=== PATIENT | male | born 1965 | race Caucasian/White ===

== ENCOUNTER 2018-04-18 17:56 | Inpatient (IN) | payer OTHER ==
[2018-04-18] MEDS ORDERED: TYLENOL PO STA (18:11)
[2018-04-18] MEDS ORDERED: NACL 0.9% 500 ML 500 ML IV ONE (18:11)
[2018-04-18 18:34] LABS: Hematocrit 39.8 % (35.5-45.6); Hemoglobin 13.4 gm/dl (11.8-15.2); Mean Corpuscular HGB Conc 34 % (32-34); Mean Corpuscular Hemoglobin 31 pg (28-32); Mean Corpuscular Volume 93 fl (84-94); Platelet Count 147 K/mm3 (140-440); Red Blood Count 4.29 M/mm3 (3.65-5.03); Red Cell Distribution Width 15.5 % (13.2-15.2)
[2018-04-18 18:44] LABS: INR 1.14 (0.87-1.13)
--- NOTE | 2018-04-18 19:02 | XRay Report ---
FINAL REPORT EXAM: XR CHEST 1V AP HISTORY: possible Sepsis TECHNIQUE: Single, portable chest x-ray. PRIORS: None. FINDINGS: Cardiac and mediastinal silhouette within normal limits. Lungs show patchy, but diffuse and partially confluent opacities projected over left lower lung. Right lung grossly clear. No apparent pneumothorax. IMPRESSION: 1. Left lower lung atelectasis versus consolidation, which may represent acute inflammatory process. Clinical correlation and radiographic followup after 4-6 weeks advised to document resolution.
[2018-04-18 19:10] LABS: Band Neutrophils # (Manual) 1.1 K/mm3; Basophils % (Manual) 0 % (0.0-1.8); Eosinophils % (Manual) 0 % (0.0-4.3); Total Cells Counted 100
[2018-04-18 19:11] LABS: Ovalocytes Few; Platelet Estimate Consistent w Auto; Poikilocytosis Few
[2018-04-18 19:18] LABS: Bilirubin,Urine NEG (Negative); Blood,Urine MOD (Negative); Color,Urine Amber (Yellow); Mucus,Urine FEW /HPF; Urobilinogen,Urine < 2.0 mg/dL (<2.0)
[2018-04-18] MEDS ORDERED: NACL 0.9% 1000 ML IV ONE (19:23)
[2018-04-18 19:25] LABS: Alanine Aminotransferase 90 units/L (7-56); Albumin 3.2 g/dL (3.9-5); BUN/Creatinine Ratio 7; Blood Urea Nitrogen 39 mg/dL (9-20); Calcium 7.8 mg/dL (8.4-10.2); Hemolysis Index 12
[2018-04-18] MEDS ORDERED: K-DUR PO ONE ×2 (19:37→19:40)
--- NOTE | 2018-04-18 19:55 | Emergency Department Report ---
HPI - General Chief Complaint: Fever Time Seen by Provider: 04/18/18 19:09 - HPI HPI: Room 8 The patient is a 52-year-old male presenting with chief complaint of fatigue cough and fever. The patient states his symptoms began approximately 6 days ago with fatigue's chills and subjective fever. Patient states she also developed a cough that has been nonproductive. Patient denies sick contacts. The patient also complains of constant chest discomfort for the past 5 days. The patient states she has nausea only after coughing. Patient denies vomiting. Location: [See above] Duration: [See above] Quality: Fatigue, cough Severity: Moderate Modifying factors: [see above] Context: [see above] Mode of transportation: Unknown ED Past Medical Hx - Past Medical History Previous Medical History?: No - Surgical History Past Surgical History?: No - Family History Family history: no significant - Social History Smoking Status: Current Every Day Smoker (5-6 cigarettes daily) Substance Use Type: None (denies illicit drug use) - Medications Home Medications: Home Medications Medication Instructions Recorded Confirmed Last Taken Type Albuterol Sulfate [Ventolin HFA] 2 puff IH Q4H PRN #1 hfa.aer.ad 09/15/13 Unknown Rx Butalb/Acetamin/Caff 50-325-40 1 each PO Q4H PRN #14 tablet 09/15/13 Unknown Rx [Fioricet] Ibuprofen [Motrin 800 MG tab] 800 mg PO TID PRN #30 tablet 09/15/13 Unknown Rx ED Review of Systems ROS: Stated complaint: SOB Other details as noted in HPI Constitutional: fever, weakness Eyes: denies: eye pain ENT: denies: throat pain Respiratory: cough Cardiovascular: chest pain Gastrointestinal: nausea. denies: abdominal pain, vomiting Musculoskeletal: denies: back pain Neurological: denies: headache Physical Exam - Physical Exam Vital Signs: Vital Signs 04/18/18 04/18/18 04/18/18 18:08 18:20 18:49 Temperature 102.2 F H Pulse Rate 126 H 118 H Respiratory 20 22 Rate Blood Pressure 125/76 O2 Sat by Pulse 95 94 Oximetry Physical Exam: GENERAL: The patient is well-developed well-nourished male lying on stretcher not appearing to be in acute distress. [] HEENT: Normocephalic. Atraumatic. Extraocular motions are intact. Patient has moist mucous membranes. NECK: Supple. No meningitic signs are noted. Trachea midline CHEST/LUNGS: Clear to auscultation. There is no respiratory distress noted. HEART/CARDIOVASCULAR: Regular. There is tachycardia. There is no gallop rub or murmur. ABDOMEN: Abdomen is soft, nontender. Patient has normal bowel sounds. There is no abdominal distention. SKIN: There is no rash. There is no edema. There is no diaphoresis. NEURO: The patient is awake, alert, and oriented. The patient is cooperative. The patient has normal speech MUSCULOSKELETAL: There is no evidence of acute injury. ED Course Vital Signs 04/18/18 04/18/18 04/18/18 18:08 18:20 18:49 Temperature 102.2 F H Pulse Rate 126 H 118 H Respiratory 20 22 Rate Blood Pressure 125/76 O2 Sat by Pulse 95 94 Oximetry ED Medical Decision Making - Lab Data Result diagrams: 04/18/18 18:21 04/18/18 18:21 Laboratory Tests 04/18/18 04/18/18 04/18/18 18:21 18:21 18:21 WBC 8.1 RBC 4.29 Hgb 13.4 Hct 39.8 MCV 93 MCH 31 MCHC 34 RDW 15.5 H Plt Count 147 Add Manual Diff Complete Total Counted 100 Seg Neutrophils % Hand Chain Maker Seg Neuts % (Manual) 80.0 H Band Neutrophils % 14.0 Lymphocytes % (Manual) 4.0 L Reactive Lymphs % (Man) 0 Monocytes % (Manual) 2.0 Eosinophils % (Manual) 0 Basophils % (Manual) 0 Metamyelocytes % 0 Myelocytes % 0 Promyelocytes % 0 Blast Cells % 0 Nucleated RBC % Not Reportable Seg Neutrophils # Man 6.5 Band Neutrophils # 1.1 Lymphocytes # (Manual) 0.3 L Abs React Lymphs (Man) 0.0 Monocytes # (Manual) 0.2 Eosinophils # (Manual) 0.0 Basophils # (Manual) 0.0 Metamyelocytes # 0.0 Myelocytes # 0.0 Promyelocytes # 0.0 Blast Cells # 0.0 WBC Morphology Not Reportable Hypersegmented Neuts Not Reportable Hyposegmented Neuts Not Reportable Hypogranular Neuts Not Reportable Smudge Cells Not Reportable Toxic Granulation Not Reportable Toxic Vacuolation Not Reportable Dohle Bodies Not Reportable Pelger-Huet Anomaly Not Reportable Antonio Rods Not Reportable Platelet Estimate Consistent w auto Clumped Platelets Not Reportable Plt Clumps, EDTA Not Reportable Large Platelets Not Reportable Giant Platelets Not Reportable Platelet Satelliting Not Reportable Plt Morphology Comment Not Reportable RBC Morphology Not Reportable Dimorphic RBCs Not Reportable Polychromasia Not Reportable Hypochromasia Not Reportable Poikilocytosis Few Anisocytosis Not Reportable Microcytosis Not Reportable Macrocytosis Not Reportable Spherocytes Not Reportable Pappenheimer Bodies Not Reportable Sickle Cells Not Reportable Target Cells Not Reportable Tear Drop Cells Not Reportable Ovalocytes Few Helmet Cells Not Reportable [place] Bodies Not Reportable [place] Rings Not Reportable [place] Cells Not Reportable Bite Cells Not Reportable Crenated Cell Not Reportable Elliptocytes Not Reportable Acanthocytes (Spur) Not Reportable Rouleaux Not Reportable Hemoglobin C Crystals Not Reportable Schistocytes Not Reportable Malaria parasites Not Reportable Royal Bodies Not Reportable Hem Pathologist Commnt No PT 15.2 H INR 1.14 H POC ABG pH POC ABG pCO2 POC ABG pO2 POC ABG HCO3 POC ABG Total CO2 POC ABG O2 Sat POC ABG Base Excess VBG pH FiO2 Sodium 122 L Potassium 2.7 L* Chloride 78.1 L Carbon Dioxide 15 L Anion Gap 32 BUN 39 H Creatinine 5.8 H Estimated GFR 10 BUN/Creatinine Ratio 7 Glucose 127 H Lactic Acid Calcium 7.8 L Total Bilirubin 1.90 H AST 258 H ALT 90 H Alkaline Phosphatase 149 H Total Creatine Kinase 728 H CK-MB (CK-2) 1.2 Troponin T < 0.010 Total Protein 7.7 Albumin 3.2 L Albumin/Globulin Ratio 0.7 Urine Color Urine Turbidity Urine pH Ur Specific [place] Urine Protein Urine Glucose (UA) Urine Ketones Urine Blood Urine Nitrite Urine Bilirubin Urine Urobilinogen Ur Leukocyte Esterase Urine WBC (Auto) Urine RBC (Auto) U Epithel Cells (Auto) Urine Mucus 04/18/18 04/18/18 04/18/18 18:21 18:21 18:55 WBC RBC Hgb Hct MCV MCH MCHC RDW Plt Count Add Manual Diff Total Counted Seg Neutrophils % Seg Neuts % (Manual) Band Neutrophils % Lymphocytes % (Manual) Reactive Lymphs % (Man) Monocytes % (Manual) Eosinophils % (Manual) Basophils % (Manual) Metamyelocytes % Myelocytes % Promyelocytes % Blast Cells % Nucleated RBC % Seg Neutrophils # Man Band Neutrophils # Lymphocytes # (Manual) Abs React Lymphs (Man) Monocytes # (Manual) Eosinophils # (Manual) Basophils # (Manual) Metamyelocytes # Myelocytes # Promyelocytes # Blast Cells # WBC Morphology Hypersegmented Neuts Hyposegmented Neuts Hypogranular Neuts Smudge Cells Toxic Granulation Toxic Vacuolation Dohle Bodies Pelger-Huet Anomaly Antonio Rods Platelet Estimate Clumped Platelets Plt Clumps, EDTA Large Platelets Giant Platelets Platelet Satelliting Plt Morphology Comment RBC Morphology Dimorphic RBCs Polychromasia Hypochromasia Poikilocytosis Anisocytosis Microcytosis Macrocytosis Spherocytes Pappenheimer Bodies Sickle Cells Target Cells Tear Drop Cells Ovalocytes Helmet Cells [place] Bodies [place] Rings [place] Cells Bite Cells Crenated Cell Elliptocytes Acanthocytes (Spur) Rouleaux Hemoglobin C Crystals Schistocytes Malaria parasites Royal Bodies Hem Pathologist Commnt PT INR POC ABG pH POC ABG pCO2 POC ABG pO2 POC ABG HCO3 POC ABG Total CO2 POC ABG O2 Sat POC ABG Base Excess VBG pH 7.477 H FiO2 Sodium Potassium Chloride Carbon Dioxide Anion Gap BUN Creatinine Estimated GFR BUN/Creatinine Ratio Glucose Lactic Acid 2.30 H* Calcium Total Bilirubin AST ALT Alkaline Phosphatase Total Creatine Kinase CK-MB (CK-2) Troponin T Total Protein Albumin Albumin/Globulin Ratio Urine Color [place] Urine Turbidity Clear Urine pH 5.0 Ur Specific [place] 1.015 Urine Protein 100 mg/dl Urine Glucose (UA) 50 Urine Ketones Neg Urine Blood Mod Urine Nitrite Neg Urine Bilirubin Neg Urine Urobilinogen < 2.0 Ur Leukocyte Esterase Neg Urine WBC (Auto) 16.0 H Urine RBC (Auto) 13.0 U Epithel Cells (Auto) 2.0 Urine Mucus Few 04/18/18 19:57 WBC RBC Hgb Hct MCV MCH MCHC RDW Plt Count Add Manual Diff Total Counted Seg Neutrophils % Seg Neuts % (Manual) Band Neutrophils % Lymphocytes % (Manual) Reactive Lymphs % (Man) Monocytes % (Manual) Eosinophils % (Manual) Basophils % (Manual) Metamyelocytes % Myelocytes % Promyelocytes % Blast Cells % Nucleated RBC % Seg Neutrophils # Man Band Neutrophils # Lymphocytes # (Manual) Abs React Lymphs (Man) Monocytes # (Manual) Eosinophils # (Manual) Basophils # (Manual) Metamyelocytes # Myelocytes # Promyelocytes # Blast Cells # WBC Morphology Hypersegmented Neuts Hyposegmented Neuts Hypogranular Neuts Smudge Cells Toxic Granulation Toxic Vacuolation Dohle Bodies Pelger-Huet Anomaly Antonio Rods Platelet Estimate Clumped Platelets Plt Clumps, EDTA Large Platelets Giant Platelets Platelet Satelliting Plt Morphology Comment RBC Morphology Dimorphic RBCs Polychromasia Hypochromasia Poikilocytosis Anisocytosis Microcytosis Macrocytosis Spherocytes Pappenheimer Bodies Sickle Cells Target Cells Tear Drop Cells Ovalocytes Helmet Cells [place] Bodies [place] Rings [place] Cells Bite Cells Crenated Cell Elliptocytes Acanthocytes (Spur) Rouleaux Hemoglobin C Crystals Schistocytes Malaria parasites Royal Bodies Hem Pathologist Commnt PT INR POC ABG pH 7.506 H POC ABG pCO2 21.0 L POC ABG pO2 82 POC ABG HCO3 16.6 POC ABG Total CO2 17 POC ABG O2 Sat 97 POC ABG Base Excess -6 VBG pH FiO2 21 Sodium Potassium Chloride Carbon Dioxide Anion Gap BUN Creatinine Estimated GFR BUN/Creatinine Ratio Glucose Lactic Acid Calcium Total Bilirubin AST ALT Alkaline Phosphatase Total Creatine Kinase CK-MB (CK-2) Troponin T Total Protein Albumin Albumin/Globulin Ratio Urine Color Urine Turbidity Urine pH Ur Specific [place] Urine Protein Urine Glucose (UA) Urine Ketones Urine Blood Urine Nitrite Urine Bilirubin Urine Urobilinogen Ur Leukocyte Esterase Urine WBC (Auto) Urine RBC (Auto) U Epithel Cells (Auto) Urine Mucus - EKG Data -: EKG Interpreted by Me EKG shows normal: sinus rhythm Rate: tachycardia (124 bpm) - EKG Data Interpretation: nonspecific ST-T wave brooke (T-wave inversion in lead V2) - Radiology Data Radiology results: report reviewed (chest x-ray), image reviewed (chest x-ray) interpreted by me: Chest x-ray-left lower lobe infiltrate - Differential Diagnosis pneumonia, bronchitis, ACS, GERD, sepsis Critical care attestation.: If time is entered above; I have spent that time in minutes in the direct care of this critically ill patient, excluding procedure time. ED Disposition Clinical Impression: Pneumonia, Acute renal failure, Fever, UTI (urinary tract infection), Sepsis Disposition: OP ADMIT IP TO THIS HOSP Is pt being admited?: Yes Does the pt Need Aspirin: No Condition: Serious Instructions: Bacterial Pneumonia (ED) Referrals: PRIMARY CARE, [Primary Care Provider] - 3-5 Days Time of Disposition: 21:17 (hospitalist paged (Dr. Fabiana Capps))
[2018-04-18] MEDS ORDERED: ZOSYN/NS 4.5GM/100ML 4.5 GM/100 ML VIAL IV SCH (20:00)
[2018-04-18 20:28] LABS: Creatine Kinase MB 1.2 ng/mL (0.0-4.0)
[2018-04-18] MEDS ORDERED: SODIUM CHLORIDE FLUSH SYRINGE 10 ML IV PRN (22:33)
[2018-04-18] MEDS ORDERED: ZOFRAN IV PRN (22:33)
--- NOTE | 2018-04-18 22:35 | History and Physical Report ---
History of Present Illness Date of examination: 04/18/18 History of present illness: 52 year old man with no meducal problems come to the Er for evaluation of nonproductive cough, fever, chills x 4 days. Admits to left side chest pain, unable to describe it, unable to say how long it last for, no radiation, intensity 10. admits to generalized weakness. Admits to nausea, vomiting, no diapjoresis, palpitations, SOB Review of systems Constitutional: no weight loss, chills Ears, eyes, nose, mouth and throat: no nasal congestion, no nasal discharge, no sinus pressure, no vision change, no red eye. Neck: No neck pain or rigidity. Cardiovascular: no palpitations Respiratory: No shortness of breath Gastrointestinal: no hematochezia Genitourinary : no dysuria, frequency , no hematuria Musculoskeletal: no joint swelling or muscle ache Integumentary: no rash, no pruritis Neurological: no parathesias, no numbness, no focal weakness Endocrine: no cold or heat intolerance, no polyuria or polydipsia Hematologic/Lymphatic: no easy bruising, no easy bleeding, no gland swelling Allergic/Immunologic: no urticaria, no angioedema. PAST MEDICAL HISTORY:None PAST SURGICAL HISTORY: None SOCIAL HISTORY: Denies drugs, smokes and drinks 6 beers/day FAMILY HISTORY: Hypertension Medications and Allergies Allergies Allergy/AdvReac Type Severity Reaction Status Date / Time No Known Allergies Allergy Verified 04/18/18 18:09 Home Medications Medication Instructions Recorded Confirmed Last Taken Type Albuterol Sulfate [Ventolin HFA] 2 puff IH Q4H PRN #1 hfa.aer.ad 09/15/13 Unknown Rx Butalb/Acetamin/Caff 50-325-40 1 each PO Q4H PRN #14 tablet 09/15/13 04/21/18 Unknown Rx [Fioricet] Ibuprofen [Motrin 800 MG tab] 800 mg PO TID PRN #30 tablet 09/15/13 04/21/18 Unknown Rx Active Meds: Active Medications Piperacillin Sod/Tazobactam Sod (Zosyn/Ns 4.5gm/100ml) 4.5 gm in 100 mls @ 200 mls/hr IV Q8H [facility]; Protocol Last Admin: 04/18/18 20:00 Dose: 200 mls/hr Exam - Physical Exam Narrative exam: Gen. appearance: Patient lying in bed, no apparent distress HEENT: Normocephalic, atraumatic, pupils equally round and reactive to light, extraocular movement intact, and no sclericterus,. No JVD or thyromegaly or nodule,neck supple, no carotid bruit ,mucous membranes moist, no exudate or erythema Heart: S1, S2, regular rate and rhythm Lungs: Crackles in left lung, breathing comfortable Abdomen: Positive bowel sounds, nontender, non distended, no organomegaly Extremity: No edema, cyanosis, clubbing Skin: No rash, nodules, warm, dry Neuro: Oriented 3, cranial nerves II-12 intact, speech is fluent, motor and sensory intact - Constitutional Vitals: Temp Pulse Resp BP Pulse Ox 98.6 F 89 19 115/73 93 04/18/18 21:00 04/18/18 21:31 04/18/18 21:31 04/18/18 21:31 04/18/18 21:31 Results - Labs CBC & Chem 7: 04/23/18 16:11 04/25/18 07:49 Labs: Abnormal lab results 04/18/18 04/18/18 04/18/18 Range/Units 18:21 18:21 18:21 RDW 15.5 H (13.2-15.2) % Seg Neuts % (Manual) 80.0 H (40.0-70.0) % Lymphocytes % (Manual) 4.0 L (13.4-35.0) % Lymphocytes # (Manual) 0.3 L (1.2-5.4) K/mm3 PT 15.2 H (12.2-14.9) Sec. INR 1.14 H (0.87-1.13) POC ABG pH (7.35-7.45) POC ABG pCO2 (35-45) VBG pH (7.320-7.420) Sodium 122 L (137-145) mmol/L Potassium 2.7 L* (3.6-5.0) mmol/L Chloride 78.1 L (98-107) mmol/L Carbon Dioxide 15 L (22-30) mmol/L BUN 39 H (9-20) mg/dL Creatinine 5.8 H (0.8-1.5) mg/dL Glucose 127 H (75-100) mg/dL Lactic Acid (0.7-2.0) mmol/L Calcium 7.8 L (8.4-10.2) mg/dL Total Bilirubin 1.90 H (0.1-1.2) mg/dL AST 258 H (5-40) units/L ALT 90 H (7-56) units/L Alkaline Phosphatase 149 H (35-129) units/L Total Creatine Kinase 728 H (55-170) units/L Albumin 3.2 L (3.9-5) g/dL Urine WBC (Auto) (0.0-6.0) /HPF 04/18/18 04/18/18 04/18/18 Range/Units 18:21 18:21 18:55 RDW (13.2-15.2) % Seg Neuts % (Manual) (40.0-70.0) % Lymphocytes % (Manual) (13.4-35.0) % Lymphocytes # (Manual) (1.2-5.4) K/mm3 PT (12.2-14.9) Sec. INR (0.87-1.13) POC ABG pH (7.35-7.45) POC ABG pCO2 (35-45) VBG pH 7.477 H (7.320-7.420) Sodium (137-145) mmol/L Potassium (3.6-5.0) mmol/L Chloride (98-107) mmol/L Carbon Dioxide (22-30) mmol/L BUN (9-20) mg/dL Creatinine (0.8-1.5) mg/dL Glucose (75-100) mg/dL Lactic Acid 2.30 H* (0.7-2.0) mmol/L Calcium (8.4-10.2) mg/dL Total Bilirubin (0.1-1.2) mg/dL AST (5-40) units/L ALT (7-56) units/L Alkaline Phosphatase (35-129) units/L Total Creatine Kinase (55-170) units/L Albumin (3.9-5) g/dL Urine WBC (Auto) 16.0 H (0.0-6.0) /HPF 04/18/18 Range/Units 19:57 RDW (13.2-15.2) % Seg Neuts % (Manual) (40.0-70.0) % Lymphocytes % (Manual) (13.4-35.0) % Lymphocytes # (Manual) (1.2-5.4) K/mm3 PT (12.2-14.9) Sec. INR (0.87-1.13) POC ABG pH 7.506 H (7.35-7.45) POC ABG pCO2 21.0 L (35-45) VBG pH (7.320-7.420) Sodium (137-145) mmol/L Potassium (3.6-5.0) mmol/L Chloride (98-107) mmol/L Carbon Dioxide (22-30) mmol/L BUN (9-20) mg/dL Creatinine (0.8-1.5) mg/dL Glucose (75-100) mg/dL Lactic Acid (0.7-2.0) mmol/L Calcium (8.4-10.2) mg/dL Total Bilirubin (0.1-1.2) mg/dL AST (5-40) units/L ALT (7-56) units/L Alkaline Phosphatase (35-129) units/L Total Creatine Kinase (55-170) units/L Albumin (3.9-5) g/dL Urine WBC (Auto) (0.0-6.0) /HPF - Imaging and Cardiology EKG: image reviewed Chest x-ray: image reviewed Assessment and Plan Assessment CAP Acute Renal Failure hypokalemia Abnormal LFT due to alcohol Plan Admit to medicine Start IV antibiotic, follow cultures Obtain US abdomen, consult renal Check cardiac enzymes DVT prophalaxis
--- NOTE | 2018-04-18 23:20 | Ultrasound Report ---
FINAL REPORT PROCEDURE: US ABDOMEN COMPLETE TECHNIQUE: Real-time sonography in multiple planes of the abdomen was performed with image documentation. CPT 82421 HISTORY: ab lft, arf COMPARISON: No prior studies are available for comparison. FINDINGS: Liver: There is fatty infiltration of liver without any focal lesions.. Gallbladder: Fluid filled. No gallstones, wall thickening, pericholecystic fluid, or sonographic Godoy's sign. Intrahepatic bile ducts: Normal caliber . Extrahepatic bile ducts: Normal. Common duct measures 3.5 millimeters.. Pancreas: Visualized pancreatic head and body demonstrate normal echotexture.. Aorta: Visualized portions appear normal. IVC: Visualized portions appear normal. RIGHT kidney: Normal size and echotexture without calculi or hydronephrosis.. Length: 12 x 7 x 7cm. LEFT kidney: Normal echotexture. No focal renal mass, calculus, or hydronephrosis . Length: 13 x 7 x 7cm. Spleen: Normal size and echotexture. No focal lesions. IMPRESSION: Fatty liver Otherwise unremarkable study.
[2018-04-19] MEDS: NACL 0.9% 1000 ML 1,000 ML IV SCH ×2 (00:41→06:12)
[2018-04-19] MEDS: DUONEB *Not for PRN Use IH SCH ×2 (02:02→07:41)
[2018-04-19] MEDS: ZOSYN/NS 2.25 GM/50ML 2.25 GM/50 ML BAG IV SCH ×3 (06:12→22:28)
[2018-04-19 06:51] LABS: Creatine Kinase MB 2.5 ng/mL (0.0-4.0)
[2018-04-19] MEDS: TYLENOL PO PRN (08:14)
--- NOTE | 2018-04-19 08:28 | Consultation ---
History of Present Illness - Reason for Consult Consult date: 04/19/18 - History of Present Illness Mr. Wei is a 52yo who presented to the ED with and 8 day history of generalized weakness impairing mobility, malaise and SOB. He also reports hx of fever and chills. He denies cough, hemoptysis, chest pain. He also denies N /V/D but reports minimal po intake since onset of symptoms. He denies a prior hx of kidney disease, family hx of kidney disease, hematuria, epistaxis. He reports chronic NSAID use - Advil BID. In the ED, vitals notable for temp 102.2 w/ HR in 130s. Labs were notable for SCr 5.8mg/dL prompting nephrology consultation. Language line used to assist in interpretation. Past History Past Medical History: No medical history Past Surgical History: No surgical history Social history: no significant social history Family history: no significant family history Medications and Allergies Allergies Allergy/AdvReac Type Severity Reaction Status Date / Time No Known Allergies Allergy Verified 04/18/18 18:09 Home Medications Medication Instructions Recorded Confirmed Last Taken Type Albuterol Sulfate [Ventolin HFA] 2 puff IH Q4H PRN #1 hfa.aer.ad 09/15/13 Unknown Rx Butalb/Acetamin/Caff 50-325-40 1 each PO Q4H PRN #14 tablet 09/15/13 Unknown Rx [Fioricet] Ibuprofen [Motrin 800 MG tab] 800 mg PO TID PRN #30 tablet 09/15/13 Unknown Rx Active Meds: Active Medications Acetaminophen (Tylenol) 650 mg PO Q4H PRN PRN Reason: Pain MILD(1-3)/Fever >100.5/JOHNSON Last Admin: 04/19/18 08:14 Dose: 650 mg Albuterol/Ipratropium (Duoneb *Not For Prn Use*) 1 ampul IH Q6HRT [facility] Last Admin: 04/19/18 07:41 Dose: 1 ampul Enoxaparin Sodium (Lovenox) 30 mg SUB-Q QDAY [facility] Sodium Chloride (Nacl 0.9% 1000 Ml) 1,000 mls @ 150 mls/hr IV DIRECT [facility] Last Admin: 04/19/18 06:12 Dose: 150 mls/hr Piperacillin Sod/Tazobactam Sod (Zosyn/Ns 2.25 Gm/50ml) 2.25 gm in 50 mls @ 100 mls/hr IV Q6H [facility]; Protocol Last Admin: 04/19/18 06:12 Dose: 100 mls/hr Ondansetron HCl (Zofran) 4 mg IV Q4H PRN PRN Reason: Nausea And Vomiting Oxycodone/Acetaminophen (Percocet 5/325) 1 tab PO Q6H PRN PRN Reason: Pain, Moderate (4-6) Sodium Chloride (Sodium Chloride Flush Syringe 10 Ml) 10 ml IV BID [facility] Sodium Chloride (Sodium Chloride Flush Syringe 10 Ml) 10 ml IV PRN PRN PRN Reason: LINE FLUSH Vancomycin HCl (Vancomycin Pharmacy To Dose) 1 each IV PKCONSULT [facility]; Protocol Review of Systems All systems: negative Exam - Vital Signs Vital signs: Vital Signs Temp Pulse Resp BP Pulse Ox 102.2 F H 126 H 20 125/76 95 04/18/18 18:08 04/18/18 18:08 04/18/18 18:08 04/18/18 18:08 04/18/18 18:08 - General Appearance General appearance: well-developed, well-nourished, other (+chills) EENT: ATNC, mucous membranes dry Respiratory: Other (inspiratory crackles on right; diminished breath sounds on left) Heart: regular, S1S2 Gastrointestinal: Present: normal. Absent: tenderness, distended Integumentary: no rash Neurologic: no focal deficit, alert and oriented x3 Musculoskeletal: Present: other (no edema) Psychiatric: cooperative Results - Lab Results 04/19/18 09:13 04/19/18 09:13 Most recent lab results Calcium 7.8 mg/dL (8.4-10.2) L 04/18/18 18:21 Assessment and Plan Impression: * Acute kidney injury secondary to sepsis related ATN * Sepsis * PNA * Metabolic acidosis secondary to lactic acidosis * Transaminitis * Hypokalemia * Hyponatremia - resolved Plan: * Renal prognosis is guarded - no acute indication for HD at present * Continue IVF - will change to bicarb gtt * Abdomen u/s reviewed -kidneys nml size, echotexture, no hydronephrosis * Patient w/ proteinuria and hematuria on UA - will obtain serologic work up * Will obtain urine lytes and urine eos * Abx per primary team - dose medications for renal function * Await pending culture data * Avoid potential nephrotoxins - patient advised to avoid future use of NSAIDs * Strict I/O * Will order KCl 40meq * Repeat BMP this afternoon
[2018-04-19] MEDS ORDERED: VANCOMYCIN PHARMACY TO DOSE IV SCH (09:00)
[2018-04-19] MEDS ORDERED: VANCOMYCIN 1,750 MG in NACL 0.9% 500 ML 500 ML IV ONE (10:00)
--- NOTE | 2018-04-19 10:05 | Progress Note ---
<NATALIE GRAMAJO - Last Filed: 04/19/18 14:27> Assessment and Plan Assessment and plan: 52 year old man with no presented to the emergency department with complaints of nonproductive cough, fever, chills x 4 days. Admits to left side chest pain, unable to describe it, unable to say how long it last for, no radiation, intensity 4/10. admits to generalized weakness. 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 Patient feels a bit dizzy this morning but overall feels better today and yesterday. No other new complaints at this time. Labs, chart notes and nursing notes reviewed. Hospitalist Physical - Physical exam Narrative exam: General appearance: Present: no acute distress, well-nourished - EENT Eyes: Present: PERRL, EOM intact ENT: hearing intact, clear oral mucosa - Neck Present: supple, normal ROM - Respiratory Respiratory effort: normal Respiratory: bilateral: CTA - Cardiovascular Rhythm: regular Heart Sounds: Present: S1 & S2. Absent: Rub, click - Extremities Extremities: no ischemia, No edema - Abdominal General gastrointestinal: soft, non-tender, non-distended, normal bowel sounds - Integumentary Integumentary: Present: clear, warm, dry - Psychiatric Psychiatric: appropriate mood/affect, intact judgment & insight, cooperative - Neurologic Neurologic: CNII-XII intact, moves all extremities - Constitutional Vitals: Temp Pulse Resp BP Pulse Ox 102.3 F H 104 H 18 132/85 99 04/19/18 07:29 04/19/18 07:40 04/19/18 07:40 04/19/18 07:29 04/19/18 09:47 Results - Labs CBC & Chem 7: 04/19/18 09:13 04/19/18 09:13 Labs: Laboratory Last Values WBC 8.1 K/mm3 (4.5-11.0) 04/18/18 18:21 RBC 4.29 M/mm3 (3.65-5.03) 04/18/18 18:21 Hgb 13.4 gm/dl (11.8-15.2) 04/18/18 18:21 Hct 39.8 % (35.5-45.6) 04/18/18 18:21 MCV 93 fl (84-94) 04/18/18 18:21 MCH 31 pg (28-32) 04/18/18 18:21 MCHC 34 % (32-34) 04/18/18 18:21 RDW 15.5 % (13.2-15.2) H 04/18/18 18:21 Plt Count 147 K/mm3 (140-440) 04/18/18 18:21 Add Manual Diff Complete 04/18/18 18:21 Total Counted 100 04/18/18 18:21 Seg Neutrophils % Ciaio Counter Molder 04/18/18 18:21 Seg Neuts % (Manual) 80.0 % (40.0-70.0) H 04/18/18 18:21 Band Neutrophils % 14.0 % 04/18/18 18:21 Lymphocytes % (Manual) 4.0 % (13.4-35.0) L 04/18/18 18:21 Reactive Lymphs % (Man) 0 % 04/18/18 18:21 Monocytes % (Manual) 2.0 % (0.0-7.3) 04/18/18 18:21 Eosinophils % (Manual) 0 % (0.0-4.3) 04/18/18 18:21 Basophils % (Manual) 0 % (0.0-1.8) 04/18/18 18:21 Metamyelocytes % 0 % 04/18/18 18:21 Myelocytes % 0 % 04/18/18 18:21 Promyelocytes % 0 % 04/18/18 18:21 Blast Cells % 0 % 04/18/18 18:21 Nucleated RBC % Not Reportable 04/18/18 18:21 Seg Neutrophils # Man 6.5 K/mm3 (1.8-7.7) 04/18/18 18:21 Band Neutrophils # 1.1 K/mm3 04/18/18 18:21 Lymphocytes # (Manual) 0.3 K/mm3 (1.2-5.4) L 04/18/18 18:21 Abs React Lymphs (Man) 0.0 K/mm3 04/18/18 18:21 Monocytes # (Manual) 0.2 K/mm3 (0.0-0.8) 04/18/18 18:21 Eosinophils # (Manual) 0.0 K/mm3 (0.0-0.4) 04/18/18 18:21 Basophils # (Manual) 0.0 K/mm3 (0.0-0.1) 04/18/18 18:21 Metamyelocytes # 0.0 K/mm3 04/18/18 18:21 Myelocytes # 0.0 K/mm3 04/18/18 18:21 Promyelocytes # 0.0 K/mm3 04/18/18 18:21 Blast Cells # 0.0 K/mm3 04/18/18 18:21 WBC Morphology Not Reportable 04/18/18 18:21 Hypersegmented Neuts Not Reportable 04/18/18 18:21 Hyposegmented Neuts Not Reportable 04/18/18 18:21 Hypogranular Neuts Not Reportable 04/18/18 18:21 Smudge Cells Not Reportable 04/18/18 18:21 Toxic Granulation Not Reportable 04/18/18 18:21 Toxic Vacuolation Not Reportable 04/18/18 18:21 Dohle Bodies Not Reportable 04/18/18 18:21 Pelger-Huet Anomaly Not Reportable 04/18/18 18:21 Antonio Rods Not Reportable 04/18/18 18:21 Platelet Estimate Consistent w auto 04/18/18 18:21 Clumped Platelets Not Reportable 04/18/18 18:21 Plt Clumps, EDTA Not Reportable 04/18/18 18:21 Large Platelets Not Reportable 04/18/18 18:21 Giant Platelets Not Reportable 04/18/18 18:21 Platelet Satelliting Not Reportable 04/18/18 18:21 Plt Morphology Comment Not Reportable 04/18/18 18:21 RBC Morphology Not Reportable 04/18/18 18:21 Dimorphic RBCs Not Reportable 04/18/18 18:21 Polychromasia Not Reportable 04/18/18 18:21 Hypochromasia Not Reportable 04/18/18 18:21 Poikilocytosis Few 04/18/18 18:21 Anisocytosis Not Reportable 04/18/18 18:21 Microcytosis Not Reportable 04/18/18 18:21 Macrocytosis Not Reportable 04/18/18 18:21 Spherocytes Not Reportable 04/18/18 18:21 Pappenheimer Bodies Not Reportable 04/18/18 18:21 Sickle Cells Not Reportable 04/18/18 18:21 Target Cells Not Reportable 04/18/18 18:21 Tear Drop Cells Not Reportable 04/18/18 18:21 Ovalocytes Few 04/18/18 18:21 Helmet Cells Not Reportable 04/18/18 18:21 [place] Bodies Not Reportable 04/18/18 18:21 [place] Rings Not Reportable 04/18/18 18:21 Ginger Cells Not Reportable 04/18/18 18:21 Bite Cells Not Reportable 04/18/18 18:21 Crenated Cell Not Reportable 04/18/18 18:21 Elliptocytes Not Reportable 04/18/18 18:21 Acanthocytes (Spur) Not Reportable 04/18/18 18:21 Rouleaux Not Reportable 04/18/18 18:21 Hemoglobin C Crystals Not Reportable 04/18/18 18:21 Schistocytes Not Reportable 04/18/18 18:21 Malaria parasites Not Reportable 04/18/18 18:21 Royal Bodies Not Reportable 04/18/18 18:21 Hem Pathologist Commnt No 04/18/18 18:21 PT 15.2 Sec. (12.2-14.9) H 04/18/18 18:21 INR 1.14 (0.87-1.13) H 04/18/18 18:21 POC ABG pH 7.506 (7.35-7.45) H 04/18/18 19:57 POC ABG pCO2 21.0 (35-45) L 04/18/18 19:57 POC ABG pO2 82 (80-105) 04/18/18 19:57 POC ABG HCO3 16.6 04/18/18 19:57 POC ABG Total CO2 17 04/18/18 19:57 POC ABG O2 Sat 97 04/18/18 19:57 POC ABG Base Excess -6 04/18/18 19:57 VBG pH 7.477 (7.320-7.420) H 04/18/18 18:21 FiO2 21 % 04/18/18 19:57 Sodium 122 mmol/L (137-145) L 04/18/18 18:21 Potassium 2.7 mmol/L (3.6-5.0) L* 04/18/18 18:21 Chloride 78.1 mmol/L (98-107) L 04/18/18 18:21 Carbon Dioxide 15 mmol/L (22-30) L 04/18/18 18:21 Anion Gap 32 mmol/L 04/18/18 18:21 BUN 39 mg/dL (9-20) H 04/18/18 18:21 Creatinine 5.8 mg/dL (0.8-1.5) H 04/18/18 18:21 Estimated GFR 10 ml/min 04/18/18 18:21 BUN/Creatinine Ratio 7 % 04/18/18 18:21 Glucose 127 mg/dL (75-100) H 04/18/18 18:21 Lactic Acid 1.10 mmol/L (0.7-2.0) 04/18/18 21:23 Calcium 7.8 mg/dL (8.4-10.2) L 04/18/18 18:21 Total Bilirubin 1.90 mg/dL (0.1-1.2) H 04/18/18 18:21 AST 258 units/L (5-40) H 04/18/18 18:21 ALT 90 units/L (7-56) H 04/18/18 18:21 Alkaline Phosphatase 149 units/L (35-129) H 04/18/18 18:21 Total Creatine Kinase 789 units/L (55-170) H 04/19/18 05:20 CK-MB (CK-2) 2.5 ng/mL (0.0-4.0) 04/19/18 05:20 CK-MB (CK-2) Rel Index 0.3 (0-4) 04/19/18 05:20 Troponin T 0.011 ng/mL (0.00-0.029) 04/19/18 05:20 Total Protein 7.7 g/dL (6.3-8.2) 04/18/18 18:21 Albumin 3.2 g/dL (3.9-5) L 04/18/18 18:21 Albumin/Globulin Ratio 0.7 % 04/18/18 18:21 Urine Color Racheal (Yellow) 04/18/18 18:55 Urine Turbidity Clear (Clear) 04/18/18 18:55 Urine pH 5.0 (5.0-7.0) 04/18/18 18:55 Ur Specific [place] 1.015 (1.003-1.030) 04/18/18 18:55 Urine Protein 100 mg/dl mg/dL (Negative) 04/18/18 18:55 Urine Glucose (UA) 50 mg/dL (Negative) 04/18/18 18:55 Urine Ketones Neg mg/dL (Negative) 04/18/18 18:55 Urine Blood Mod (Negative) 04/18/18 18:55 Urine Nitrite Neg (Negative) 04/18/18 18:55 Urine Bilirubin Neg (Negative) 04/18/18 18:55 Urine Urobilinogen < 2.0 mg/dL (<2.0) 04/18/18 18:55 Ur Leukocyte Esterase Neg (Negative) 04/18/18 18:55 Urine WBC (Auto) 16.0 /HPF (0.0-6.0) H 04/18/18 18:55 Urine RBC (Auto) 13.0 /HPF (0.0-6.0) 04/18/18 18:55 U Epithel Cells (Auto) 2.0 /HPF (0-13.0) 04/18/18 18:55 Urine Mucus Few /HPF 04/18/18 18:55 <KAYE SALINAS - Last Filed: 04/19/18 22:48> Assessment and Plan Assessment and plan: I saw and evaluated the patient. I agree with the findings and the plan of care as documented in the Nurse Practitioner's~note, with the following corrections and additions. Patient with sepsis due to pneumonia, hyponatremia, HILLARY,hypokalemia. Replace Potassium. Continue Zosyn and Vancomycin Nephrology following. Hospitalist Physical - Constitutional Vitals: Temp Pulse Resp BP Pulse Ox 99.9 F H 99 H 18 132/86 97 04/19/18 15:41 04/19/18 20:05 04/19/18 20:05 04/19/18 15:41 04/19/18 19:39 Results - Labs CBC & Chem 7: 04/19/18 09:13 04/19/18 16:45 Labs: Laboratory Last Values WBC 8.3 K/mm3 (4.5-11.0) 04/19/18 09:13 RBC 4.06 M/mm3 (3.65-5.03) 04/19/18 09:13 Hgb 12.7 gm/dl (11.8-15.2) 04/19/18 09:13 Hct 37.8 % (35.5-45.6) 04/19/18 09:13 MCV 93 fl (84-94) 04/19/18 09:13 MCH 31 pg (28-32) 04/19/18 09:13 MCHC 34 % (32-34) 04/19/18 09:13 RDW 15.3 % (13.2-15.2) H 04/19/18 09:13 Plt Count 161 K/mm3 (140-440) 04/19/18 09:13 Add Manual Diff Complete 04/18/18 18:21 Total Counted 100 04/18/18 18:21 Seg Neutrophils % Ciaio Counter Molder 04/18/18 18:21 Seg Neuts % (Manual) 80.0 % (40.0-70.0) H 04/18/18 18:21 Band Neutrophils % 14.0 % 04/18/18 18:21 Lymphocytes % (Manual) 4.0 % (13.4-35.0) L 04/18/18 18:21 Reactive Lymphs % (Man) 0 % 04/18/18 18:21 Monocytes % (Manual) 2.0 % (0.0-7.3) 04/18/18 18:21 Eosinophils % (Manual) 0 % (0.0-4.3) 04/18/18 18:21 Basophils % (Manual) 0 % (0.0-1.8) 04/18/18 18:21 Metamyelocytes % 0 % 04/18/18 18:21 Myelocytes % 0 % 04/18/18 18:21 Promyelocytes % 0 % 04/18/18 18:21 Blast Cells % 0 % 04/18/18 18:21 Nucleated RBC % Not Reportable 04/18/18 18:21 Seg Neutrophils # Man 6.5 K/mm3 (1.8-7.7) 04/18/18 18:21 Band Neutrophils # 1.1 K/mm3 04/18/18 18:21 Lymphocytes # (Manual) 0.3 K/mm3 (1.2-5.4) L 04/18/18 18:21 Abs React Lymphs (Man) 0.0 K/mm3 04/18/18 18:21 Monocytes # (Manual) 0.2 K/mm3 (0.0-0.8) 04/18/18 18:21 Eosinophils # (Manual) 0.0 K/mm3 (0.0-0.4) 04/18/18 18:21 Basophils # (Manual) 0.0 K/mm3 (0.0-0.1) 04/18/18 18:21 Metamyelocytes # 0.0 K/mm3 04/18/18 18:21 Myelocytes # 0.0 K/mm3 04/18/18 18:21 Promyelocytes # 0.0 K/mm3 04/18/18 18:21 Blast Cells # 0.0 K/mm3 04/18/18 18:21 WBC Morphology Not Reportable 04/18/18 18:21 Hypersegmented Neuts Not Reportable 04/18/18 18:21 Hyposegmented Neuts Not Reportable 04/18/18 18:21 Hypogranular Neuts Not Reportable 04/18/18 18:21 Smudge Cells Not Reportable 04/18/18 18:21 Toxic Granulation Not Reportable 04/18/18 18:21 Toxic Vacuolation Not Reportable 04/18/18 18:21 Dohle Bodies Not Reportable 04/18/18 18:21 Pelger-Huet Anomaly Not Reportable 04/18/18 18:21 Antonio Rods Not Reportable 04/18/18 18:21 Platelet Estimate Consistent w auto 04/18/18 18:21 Clumped Platelets Not Reportable 04/18/18 18:21 Plt Clumps, EDTA Not Reportable 04/18/18 18:21 Large Platelets Not Reportable 04/18/18 18:21 Giant Platelets Not Reportable 04/18/18 18:21 Platelet Satelliting Not Reportable 04/18/18 18:21 Plt Morphology Comment Not Reportable 04/18/18 18:21 RBC Morphology Not Reportable 04/18/18 18:21 Dimorphic RBCs Not Reportable 04/18/18 18:21 Polychromasia Not Reportable 04/18/18 18:21 Hypochromasia Not Reportable 04/18/18 18:21 Poikilocytosis Few 04/18/18 18:21 Anisocytosis Not Reportable 04/18/18 18:21 Microcytosis Not Reportable 04/18/18 18:21 Macrocytosis Not Reportable 04/18/18 18:21 Spherocytes Not Reportable 04/18/18 18:21 Pappenheimer Bodies Not Reportable 04/18/18 18:21 Sickle Cells Not Reportable 04/18/18 18:21 Target Cells Not Reportable 04/18/18 18:21 Tear Drop Cells Not Reportable 04/18/18 18:21 Ovalocytes Few 04/18/18 18:21 Helmet Cells Not Reportable 04/18/18 18:21 [place] Bodies Not Reportable 04/18/18 18:21 [place] Rings Not Reportable 04/18/18 18:21 [place] Cells Not Reportable 04/18/18 18:21 Bite Cells Not Reportable 04/18/18 18:21 Crenated Cell Not Reportable 04/18/18 18:21 Elliptocytes Not Reportable 04/18/18 18:21 Acanthocytes (Spur) Not Reportable 04/18/18 18:21 Rouleaux Not Reportable 04/18/18 18:21 Hemoglobin C Crystals Not Reportable 04/18/18 18:21 Schistocytes Not Reportable 04/18/18 18:21 Malaria parasites Not Reportable 04/18/18 18:21 Royal Bodies Not Reportable 04/18/18 18:21 Hem Pathologist Commnt No 04/18/18 18:21 PT 15.2 Sec. (12.2-14.9) H 04/18/18 18:21 INR 1.14 (0.87-1.13) H 04/18/18 18:21 POC ABG pH 7.506 (7.35-7.45) H 04/18/18 19:57 POC ABG pCO2 21.0 (35-45) L 04/18/18 19:57 POC ABG pO2 82 (80-105) 04/18/18 19:57 POC ABG HCO3 16.6 04/18/18 19:57 POC ABG Total CO2 17 04/18/18 19:57 POC ABG O2 Sat 97 04/18/18 19:57 POC ABG Base Excess -6 04/18/18 19:57 VBG pH 7.477 (7.320-7.420) H 04/18/18 18:21 FiO2 21 % 04/18/18 19:57 Sodium 132 mmol/L (137-145) L 04/19/18 16:45 Potassium 2.3 mmol/L (3.6-5.0) L* 04/19/18 16:45 Chloride 88.4 mmol/L (98-107) L 04/19/18 16:45 Carbon Dioxide 16 mmol/L (22-30) L 04/19/18 16:45 Anion Gap 30 mmol/L 04/19/18 16:45 BUN 66 mg/dL (9-20) H 04/19/18 16:45 Creatinine 8.0 mg/dL (0.8-1.5) H 04/19/18 16:45 Estimated GFR 7 ml/min 04/19/18 16:45 BUN/Creatinine Ratio 8 % 04/19/18 16:45 Glucose 121 mg/dL (75-100) H 04/19/18 16:45 Lactic Acid 1.10 mmol/L (0.7-2.0) 04/18/18 21:23 Calcium 7.1 mg/dL (8.4-10.2) L 04/19/18 16:45 Magnesium 2.20 mg/dL (1.7-2.3) 04/19/18 13:14 Total Bilirubin 1.90 mg/dL (0.1-1.2) H 04/18/18 18:21 AST 258 units/L (5-40) H 04/18/18 18:21 ALT 90 units/L (7-56) H 04/18/18 18:21 Alkaline Phosphatase 149 units/L (35-129) H 04/18/18 18:21 Total Creatine Kinase 789 units/L (55-170) H 04/19/18 05:20 CK-MB (CK-2) 2.5 ng/mL (0.0-4.0) 04/19/18 05:20 CK-MB (CK-2) Rel Index 0.3 (0-4) 04/19/18 05:20 Troponin T 0.011 ng/mL (0.00-0.029) 04/19/18 05:20 Total Protein 7.7 g/dL (6.3-8.2) 04/18/18 18:21 Albumin 3.2 g/dL (3.9-5) L 04/18/18 18:21 Albumin/Globulin Ratio 0.7 % 04/18/18 18:21 Urine Color [place] (Yellow) 04/18/18 18:55 Urine Turbidity Clear (Clear) 04/18/18 18:55 Urine pH 5.0 (5.0-7.0) 04/18/18 18:55 Ur Specific [place] 1.015 (1.003-1.030) 04/18/18 18:55 Urine Protein 100 mg/dl mg/dL (Negative) 04/18/18 18:55 Urine Glucose (UA) 50 mg/dL (Negative) 04/18/18 18:55 Urine Ketones Neg mg/dL (Negative) 04/18/18 18:55 Urine Blood Mod (Negative) 04/18/18 18:55 Urine Nitrite Neg (Negative) 04/18/18 18:55 Urine Bilirubin Neg (Negative) 04/18/18 18:55 Urine Urobilinogen < 2.0 mg/dL (<2.0) 04/18/18 18:55 Ur Leukocyte Esterase Neg (Negative) 04/18/18 18:55 Urine WBC (Auto) 16.0 /HPF (0.0-6.0) H 04/18/18 18:55 Urine RBC (Auto) 13.0 /HPF (0.0-6.0) 04/18/18 18:55 U Epithel Cells (Auto) 2.0 /HPF (0-13.0) 04/18/18 18:55 Urine Mucus Few /HPF 04/18/18 18:55 Urine Eosinophils None seen (None Seen) 04/19/18 17:00 Urine Creatinine 119.5 mg/dL (0.1-20.0) H 04/19/18 17:00 Hepatitis A IgM Ab Non-reactive (NonReactive) 04/19/18 13:14 Hep Bs Antigen Non-reactive (Negative) 04/19/18 13:14 Hep B Core IgM Ab Non-reactive (NonReactive) 04/19/18 13:14 Hepatitis C Antibody Non-reactive (NonReactive) 04/19/18 13:14
[2018-04-19] MEDS: SODIUM CHLORIDE FLUSH SYRINGE 10 ML IV SCH ×2 (10:41→22:30)
[2018-04-19 10:42] LABS: Hematocrit 37.8 % (35.5-45.6); Hemoglobin 12.7 gm/dl (11.8-15.2); Mean Corpuscular HGB Conc 34 % (32-34); Mean Corpuscular Hemoglobin 31 pg (28-32); Mean Corpuscular Volume 93 fl (84-94); Platelet Count 161 K/mm3 (140-440); Red Blood Count 4.06 M/mm3 (3.65-5.03); Red Cell Distribution Width 15.3 % (13.2-15.2)
[2018-04-19] MEDS: LOVENOX SUB-Q SCH (10:42)
[2018-04-19 11:06] LABS: Calcium 7.1 mg/dL (8.4-10.2)
[2018-04-19] MEDS ORDERED: K-DUR PO ONE ×2 (11:27→16:00)
[2018-04-19] MEDS ORDERED: SODIUM BICARBONATE 150 MEQ in D5W 1,000 ML IV SCH (12:00)
[2018-04-19] MEDS: XOPENEX IH SCH ×2 (13:03→19:37)
[2018-04-19] MEDS: ATROVENT IH SCH ×2 (13:03→19:37)
[2018-04-19 17:11] LABS: Calcium 7.1 mg/dL (8.4-10.2)
[2018-04-19 17:13] LABS: Hepatitis A Antibody IgM Non-Reactive (NonReactive); Hepatitis B Core IgM Non-Reactive (NonReactive); Hepatitis B Surface Antigen Non-Reactive (Negative); Hepatitis C Virus Antibody Non-Reactive (NonReactive)
[2018-04-19 17:32] LABS: Creatinine,Urine 119.5 mg/dL (0.1-20.0)
[2018-04-19] MEDS: K-DUR PO SCH ×2 (18:47→22:30)
[2018-04-19] MEDS: SODIUM BICARBONATE PO SCH (22:27)
[2018-04-20] MEDS: ATROVENT IH SCH ×4 (02:45→20:13)
[2018-04-20] MEDS: XOPENEX IH SCH ×4 (02:45→20:13)
[2018-04-20] MEDS: ZOSYN/NS 2.25 GM/50ML 2.25 GM/50 ML BAG IV SCH ×3 (06:25→23:02)
[2018-04-20] MEDS: K-DUR PO SCH (06:47)
[2018-04-20 07:11] LABS: Hematocrit 33.7 % (35.5-45.6); Hemoglobin 11.5 gm/dl (11.8-15.2); Mean Corpuscular HGB Conc 34 % (32-34); Mean Corpuscular Hemoglobin 32 pg (28-32); Mean Corpuscular Volume 93 fl (84-94); Platelet Count 171 K/mm3 (140-440); Red Blood Count 3.61 M/mm3 (3.65-5.03)
[2018-04-20 07:42] LABS: Calcium 7.1 mg/dL (8.4-10.2)
[2018-04-20] MEDS ORDERED: K-DUR PO ONE (08:00)
[2018-04-20 09:29] LABS: Basophils % (Manual) 0 % (0.0-1.8); Eosinophils % (Manual) 0 % (0.0-4.3); RBC Morphology Normal; Total Cells Counted 100
[2018-04-20 09:30] LABS: Platelet Estimate Cons
[2018-04-20] MEDS: SODIUM BICARBONATE PO SCH ×2 (09:41→22:59)
[2018-04-20] MEDS: SODIUM CHLORIDE FLUSH SYRINGE 10 ML IV SCH ×2 (09:41→23:01)
[2018-04-20] MEDS: LOVENOX SUB-Q SCH (09:42)
--- NOTE | 2018-04-20 10:10 | Progress Note ---
Assessment and Plan - Patient Problems (1) Acute renal failure Current Visit: Yes Status: Acute Plan to address problem: HILLARY-- worsening renal function. ? cause. May be prerenal or ATN or possible GN or vasculitis or pulmonary renal syndrome. Check serologies. Discussed with pt and family--daughter and son at bed side-interpreters about the present problem and kidney biopsy in detail. Renal ultrasound findings reviewed.pt agrees for biopsy. Discussed with hospitalist- (2) Pneumonia Current Visit: Yes Status: Acute (3) Metabolic acidosis Current Visit: Yes Status: Acute (4) Hypokalemia Current Visit: Yes Status: Acute (5) Hyponatremia Current Visit: Yes Status: Acute (6) Hypocalcemia Current Visit: Yes Status: Acute Subjective Date of service: 04/20/18 Interval history: pt is alert, oriented, denies CP, sore throat or cough Objective - Vital Signs Vital signs: Vital Signs - 12hr 04/19/18 04/20/18 04/20/18 23:36 02:46 03:08 Temperature 100.8 F H Pulse Rate 114 H Pulse Rate [ 103 H 99 H Anterior Bilateral Throughout] Respiratory 18 Rate Respiratory 20 18 Rate [Anterior Bilateral Throughout] Blood Pressure 148/92 O2 Sat by Pulse 94 Oximetry 04/20/18 07:17 Temperature 98.5 F Pulse Rate 89 Pulse Rate [ Anterior Bilateral Throughout] Respiratory 28 H Rate Respiratory Rate [Anterior Bilateral Throughout] Blood Pressure 126/91 O2 Sat by Pulse 96 Oximetry - General Appearance General appearance: well-developed EENT: mucous membranes dry Neck: no JVD Respiratory: Present: Decreased Breath Sounds Cardiology: regular Gastrointestinal: normoactive bowel sounds Neurologic: alert and oriented x3 Musculoskeletal: other (no edema) Psychiatric: mood/affect appropriate, cooperative - Lab 04/20/18 05:47 04/20/18 05:47 Most recent lab results Calcium 7.1 mg/dL (8.4-10.2) L 04/20/18 05:47 Magnesium 2.20 mg/dL (1.7-2.3) 04/19/18 13:14 Urine Creatinine 119.5 mg/dL (0.1-20.0) H 04/19/18 17:00
--- NOTE | 2018-04-20 12:35 | XRay Report ---
AP CHEST: HISTORY: Short of breath Compared to 04/18/18. Subtle hazy opacity at the left lung base has increased in size by 100%. There is a new right perihilar opacity measuring up to 4 cm which probably represents a new infiltrate. No large pleural effusion or pneumothorax. The heart size is within normal limits. IMPRESSION: Increased infiltrate at the left lung base. New smaller infiltrate in the right perihilar region.
--- NOTE | 2018-04-20 15:06 | Progress Note ---
Assessment and Plan / Bilateral Pneumonia Continue antibiotics, supplemental oxygen and nebs as needed Chest x-ray today showed increased infiltrate on the left lower base We'll consult ID if no improvement /Sepsis Secondary to above, Continue abx, follow blood cultures /Acute Renal Failure Nephrology following, Pt started on bicarb gtt Creatinine continued to decline, plan for renal biopsy tomorrow /Metabolic acidosis secondary to lactic acidosis Nephrology following, pt on bicarb gtt /Hypokalemia Supplemented /Hyponatremia Significantly improved, continue IVF /Abnormal LFT due to alcohol abuse Abdominal ultrasound revealed fatty liver otherwise unremarkable exam DVT prophalaxis, with heparin Brief History 52 year old man with no presented to the emergency department with complaints of nonproductive cough, fever, chills x 4 days. Admits to left side chest pain, unable to describe it, unable to say how long it last for, no radiation, intensity 4/10. admits to generalized weakness. Hospitalist Physical General appearance: Present: Appears little anxious, well-nourished - EENT Eyes: Present: PERRL, EOM intact ENT: hearing intact, clear oral mucosa - Neck Present: supple, normal ROM - Respiratory Respiratory effort: normal Respiratory: bilateral: Coarse breath sounds bilaterally - Cardiovascular Rhythm: regular Heart Sounds: Present: S1 & S2. Absent: Rub, click - Extremities Extremities: no ischemia, No edema - Abdominal General gastrointestinal: soft, non-tender, non-distended, normal bowel sounds - Integumentary Integumentary: Present: clear, warm, dry - Psychiatric Psychiatric: appropriate mood/affect, intact judgment & insight, cooperative, but anxious - Neurologic Neurologic: CNII-XII intact, moves all extremities Subjective Date of service: 04/20/18 Interval history: Patient seen and examined. Medical records and medication list reviewed. No acute event overnight noted by the RN. Patient complains of difficulty breathing and chest tightness. Patient is tolerating diet. Discussed plan of care at bedside with patient and his family. Discussed with Dr. Davidson and planned for kidney biopsy tomorrow Objective - Constitutional Vitals: Vital Signs - 12hr 04/20/18 04/20/18 04/20/18 03:08 07:17 08:10 Temperature 98.5 F Pulse Rate 89 Pulse Rate [ 99 H 90 Anterior Bilateral Throughout] Pulse Rate [ Bilateral] Respiratory 28 H Rate Respiratory 18 26 H Rate [Anterior Bilateral Throughout] Respiratory Rate [Bilateral ] Blood Pressure 126/91 O2 Sat by Pulse 96 Oximetry 04/20/18 04/20/18 08:25 10:00 Temperature Pulse Rate Pulse Rate [ 96 H Anterior Bilateral Throughout] Pulse Rate [ 98 H Bilateral] Respiratory Rate Respiratory 20 Rate [Anterior Bilateral Throughout] Respiratory 26 H Rate [Bilateral ] Blood Pressure O2 Sat by Pulse 97 Oximetry - Labs CBC & Chem 7: 04/21/18 08:54 04/21/18 08:54 Labs: Abnormal lab results 04/19/18 04/19/18 04/20/18 Range/Units 16:45 17:00 05:47 RBC 3.61 L (3.65-5.03) M/mm3 Hgb 11.5 L (11.8-15.2) gm/dl Hct 33.7 L (35.5-45.6) % RDW 16.0 H (13.2-15.2) % Seg Neuts % (Manual) 93.0 H (40.0-70.0) % Lymphocytes % (Manual) 6.0 L (13.4-35.0) % Seg Neutrophils # Man 8.3 H (1.8-7.7) K/mm3 Lymphocytes # (Manual) 0.5 L (1.2-5.4) K/mm3 Sodium 132 L (137-145) mmol/L Potassium 2.3 L* (3.6-5.0) mmol/L Chloride 88.4 L (98-107) mmol/L Carbon Dioxide 16 L (22-30) mmol/L BUN 66 H (9-20) mg/dL Creatinine 8.0 H (0.8-1.5) mg/dL Glucose 121 H (75-100) mg/dL Calcium 7.1 L (8.4-10.2) mg/dL Urine Creatinine 119.5 H (0.1-20.0) mg/dL 04/20/18 Range/Units 05:47 RBC (3.65-5.03) M/mm3 Hgb (11.8-15.2) gm/dl Hct (35.5-45.6) % RDW (13.2-15.2) % Seg Neuts % (Manual) (40.0-70.0) % Lymphocytes % (Manual) (13.4-35.0) % Seg Neutrophils # Man (1.8-7.7) K/mm3 Lymphocytes # (Manual) (1.2-5.4) K/mm3 Sodium 133 L (137-145) mmol/L Potassium 3.2 L D (3.6-5.0) mmol/L Chloride 92.0 L (98-107) mmol/L Carbon Dioxide 14 L (22-30) mmol/L BUN 72 H (9-20) mg/dL Creatinine 9.3 H (0.8-1.5) mg/dL Glucose 113 H (75-100) mg/dL Calcium 7.1 L (8.4-10.2) mg/dL Urine Creatinine (0.1-20.0) mg/dL
[2018-04-20 15:25] LABS: Protein/Creatinine Ratio,Urine 0.93
[2018-04-20] MEDS: PERCOCET 5/325 PO PRN (23:01)
[2018-04-21] MEDS: ZOSYN/NS 2.25 GM/50ML 2.25 GM/50 ML BAG IV SCH ×3 (07:07→22:24)
[2018-04-21] MEDS: XOPENEX IH SCH ×4 (08:08→20:03)
[2018-04-21] MEDS: ATROVENT IH SCH ×4 (08:08→20:04)
[2018-04-21 08:43] LABS: Albumin 2.3 g/dL (3.9-5); Calcium 7.5 mg/dL (8.4-10.2)
[2018-04-21] MEDS ORDERED: SUBLIMAZE IV ONE (08:45)
[2018-04-21] MEDS ORDERED: VERSED IV ONE (08:45)
[2018-04-21 09:05] LABS: Hematocrit 33.5 % (35.5-45.6); Hemoglobin 11.7 gm/dl (11.8-15.2); Mean Corpuscular HGB Conc 35 % (32-34); Mean Corpuscular Hemoglobin 32 pg (28-32); Mean Corpuscular Volume 92 fl (84-94); Platelet Count 217 K/mm3 (140-440); Red Blood Count 3.65 M/mm3 (3.65-5.03); Red Cell Distribution Width 16.3 % (13.2-15.2)
[2018-04-21 09:21] LABS: Calcium 7.5 mg/dL (8.4-10.2)
[2018-04-21 09:30] LABS: INR 1.16 (0.87-1.13)
--- NOTE | 2018-04-21 09:43 | Progress Note ---
Assessment and Plan - Patient Problems (1) Acute renal failure Current Visit: Yes Status: Acute Plan to address problem: HILLARY-- Scr- 10.6--10.0 worsening renal function. ? cause. May be prerenal or ATN or possible GN or vasculitis or pulmonary renal syndrome. Check serologies. Discussed with hospitalist-. K-ok, volume status ok. No acute indication for HD today. S/P kidney biopsy today (2) Pneumonia Current Visit: Yes Status: Acute (3) Metabolic acidosis Current Visit: Yes Status: Acute (4) Hypokalemia Current Visit: Yes Status: Acute (5) Hyponatremia Current Visit: Yes Status: Acute (6) Hypocalcemia Current Visit: Yes Status: Acute Subjective Date of service: 04/21/18 Interval history: alert, oriented, coughing little phlegm. Had kisdney biopsy today. Denies pain at the biopsy site Objective - Vital Signs Vital signs: Vital Signs - 12hr 04/20/18 04/21/18 22:00 07:09 Temperature 98.9 F Pulse Rate 87 Respiratory 32 H 20 Rate Blood Pressure 142/92 O2 Sat by Pulse 97 98 Oximetry - General Appearance General appearance: well-developed EENT: mucous membranes moist Neck: no JVD Respiratory: Present: Decreased Breath Sounds Cardiology: regular Gastrointestinal: normoactive bowel sounds Neurologic: alert and oriented x3 Musculoskeletal: other (no edema) Psychiatric: mood/affect appropriate, cooperative - Lab 04/21/18 08:54 04/21/18 08:54 Most recent lab results Calcium 7.5 mg/dL (8.4-10.2) L 04/21/18 08:54 Magnesium 2.20 mg/dL (1.7-2.3) 04/19/18 13:14 Urine Creatinine 119.5 mg/dL (0.1-20.0) H 04/19/18 17:00 Urine Sodium 51 mmol/L 04/19/18 17:00 Urine Total Protein 111 mg/dL (5-11.8) H 04/19/18 17:00 - Imaging Chest x-ray: report reviewed
[2018-04-21] MEDS ORDERED: APRESOLINE ONE (09:54)
[2018-04-21] MEDS: LOVENOX SUB-Q SCH (10:01)
--- NOTE | 2018-04-21 10:59 | Cat Scan Report ---
CT BIOPSY RENAL LEFT History: Acute renal failure Description of procedure: Informed consent was obtained with the help of an hourly sign language interpreter. The patient was given the opportunity to ask questions. Sterile technique was utilized. Moderate sedation was accomplished with Versed and fentanyl. The patient was sedated for 20 minutes. Independent cardiorespiratory monitoring by RN. Intraobserver time of [address] guidance, a 17-gauge introducer needle was advanced to the inferior pole of the left kidney. 2 separate 1.3 cm 18-gauge core biopsies were obtained for pathology. Followup scan demonstrates no evidence for hemorrhage. The patient tolerated the procedure without difficulty. Impression: Successful CT-guided biopsy of the inferior pole of the left kidney.
[2018-04-21] MEDS: SODIUM BICARBONATE PO SCH ×2 (11:10→22:24)
[2018-04-21] MEDS: SODIUM CHLORIDE FLUSH SYRINGE 10 ML IV SCH ×2 (11:10→22:25)
--- NOTE | 2018-04-21 16:18 | Progress Note ---
Assessment and Plan / Bilateral Pneumonia Continue antibiotics, supplemental oxygen and nebs as needed repeat Chest x-ray on 04/22 showed increased infiltrate on the left lower base We'll consult ID if no improvement /Sepsis Secondary to PNA and UTI, Continue abx, negative blood cultures /UTI, present on admission cx growing Beta Hemolytic Strep Group B cont current abx /Acute Renal Failure Nephrology following, Pt started on bicarb gtt Creatinine continued to decline, s/p renal biopsy today /Metabolic acidosis secondary to declining renal function Nephrology following, pt on bicarb po /Hypokalemia cont to replete as needed /Hyponatremia Significantly improved, continue IVF /Abnormal LFT due to alcohol abuse Abdominal ultrasound revealed fatty liver otherwise unremarkable exam DVT prophalaxis, with heparin Brief History 52 year old man with no presented to the emergency department with complaints of nonproductive cough, fever, chills x 4 days. Admits to left side chest pain, unable to describe it, unable to say how long it last for, no radiation, intensity 4/10. Also admited to generalized weakness. Hospitalist Physical General appearance: Present: Appears little anxious, well-nourished - EENT Eyes: Present: PERRL, EOM intact ENT: hearing intact, clear oral mucosa - Neck Present: supple, normal ROM - Respiratory Respiratory effort: normal Respiratory: bilateral: Coarse breath sounds bilaterally - Cardiovascular Rhythm: regular Heart Sounds: Present: S1 & S2. Absent: Rub, click - Extremities Extremities: no ischemia, No edema - Abdominal General gastrointestinal: soft, non-tender, non-distended, normal bowel sounds - Integumentary Integumentary: Present: clear, warm, dry - Psychiatric Psychiatric: appropriate mood/affect, intact judgment & insight, cooperative, but anxious - Neurologic Neurologic: CNII-XII intact, moves all extremities Subjective Date of service: 04/21/18 Interval history: Patient seen and examined. Medical records and medication list reviewed. No acute event overnight noted by the RN. Discussed plan of care at bedside with patient and his family. Discussed with Dr. Davidson and s/p kidney biopsy today Objective - Constitutional Vitals: Vital Signs - 12hr 04/21/18 04/21/18 04/21/18 07:09 07:30 07:40 Temperature 98.9 F Pulse Rate 87 Pulse Rate [ 93 H 94 H Anterior Bilateral Throughout] Pulse Rate [ Intra-Procedure ] Pulse Rate [ Post-Procedure] Respiratory 20 Rate Respiratory 18 18 Rate [Anterior Bilateral Throughout] Respiratory Rate [Intra- Procedure] Respiratory Rate [Post- Procedure] Blood Pressure 142/92 Blood Pressure [Intra- Procedure] Blood Pressure [Post-Procedure ] O2 Sat by Pulse 98 Oximetry O2 Sat by Pulse Oximetry [ Intra-Procedure ] O2 Sat by Pulse Oximetry [Post -Procedure] 04/21/18 04/21/18 04/21/18 09:45 09:50 09:55 Temperature Pulse Rate Pulse Rate [ Anterior Bilateral Throughout] Pulse Rate [ 96 H 91 H 95 H Intra-Procedure ] Pulse Rate [ Post-Procedure] Respiratory Rate Respiratory Rate [Anterior Bilateral Throughout] Respiratory 22 16 14 Rate [Intra- Procedure] Respiratory Rate [Post- Procedure] Blood Pressure Blood Pressure 182/117 134/96 136/94 [Intra- Procedure] Blood Pressure [Post-Procedure ] O2 Sat by Pulse Oximetry O2 Sat by Pulse 94 96 95 Oximetry [ Intra-Procedure ] O2 Sat by Pulse Oximetry [Post -Procedure] 04/21/18 04/21/18 04/21/18 10:00 10:16 10:56 Temperature 97.7 F Pulse Rate 85 Pulse Rate [ Anterior Bilateral Throughout] Pulse Rate [ 93 H Intra-Procedure ] Pulse Rate [ 93 H Post-Procedure] Respiratory 20 Rate Respiratory Rate [Anterior Bilateral Throughout] Respiratory 18 Rate [Intra- Procedure] Respiratory 22 Rate [Post- Procedure] Blood Pressure 141/98 Blood Pressure 127/98 [Intra- Procedure] Blood Pressure 135/101 [Post-Procedure ] O2 Sat by Pulse 96 96 Oximetry O2 Sat by Pulse 96 Oximetry [ Intra-Procedure ] O2 Sat by Pulse 96 Oximetry [Post -Procedure] 04/21/18 04/21/18 13:56 15:34 Temperature 97.9 F Pulse Rate 81 Pulse Rate [ Anterior Bilateral Throughout] Pulse Rate [ Intra-Procedure ] Pulse Rate [ Post-Procedure] Respiratory 20 Rate Respiratory Rate [Anterior Bilateral Throughout] Respiratory Rate [Intra- Procedure] Respiratory Rate [Post- Procedure] Blood Pressure 144/96 Blood Pressure [Intra- Procedure] Blood Pressure [Post-Procedure ] O2 Sat by Pulse 97 96 Oximetry O2 Sat by Pulse Oximetry [ Intra-Procedure ] O2 Sat by Pulse Oximetry [Post -Procedure] - Labs CBC & Chem 7: 04/21/18 08:54 04/22/18 05:24 Labs: Abnormal lab results 04/21/18 04/21/18 04/21/18 Range/Units 06:42 08:54 08:54 Hgb 11.7 L (11.8-15.2) gm/dl Hct 33.5 L (35.5-45.6) % MCHC 35 H (32-34) % RDW 16.3 H (13.2-15.2) % PT 15.4 H (12.2-14.9) Sec. INR 1.16 H (0.87-1.13) Sodium 135 L (137-145) mmol/L Potassium 3.0 L (3.6-5.0) mmol/L Chloride 93.3 L (98-107) mmol/L Carbon Dioxide 17 L (22-30) mmol/L BUN 84 H (9-20) mg/dL Creatinine 10.6 H (0.8-1.5) mg/dL Glucose (75-100) mg/dL Calcium 7.5 L (8.4-10.2) mg/dL AST 131 H (5-40) units/L ALT 81 H (7-56) units/L Alkaline Phosphatase 176 H (35-129) units/L Total Protein 5.7 L D (6.3-8.2) g/dL Albumin 2.3 L (3.9-5) g/dL 04/21/18 Range/Units 08:54 Hgb (11.8-15.2) gm/dl Hct (35.5-45.6) % MCHC (32-34) % RDW (13.2-15.2) % PT (12.2-14.9) Sec. INR (0.87-1.13) Sodium 130 L (137-145) mmol/L Potassium (3.6-5.0) mmol/L Chloride 91.9 L (98-107) mmol/L Carbon Dioxide 13 L (22-30) mmol/L BUN 82 H (9-20) mg/dL Creatinine 10.0 H (0.8-1.5) mg/dL Glucose 103 H (75-100) mg/dL Calcium 7.5 L (8.4-10.2) mg/dL AST (5-40) units/L ALT (7-56) units/L Alkaline Phosphatase (35-129) units/L Total Protein (6.3-8.2) g/dL Albumin (3.9-5) g/dL
[2018-04-22] MEDS: XOPENEX IH SCH ×4 (02:05→21:12)
[2018-04-22] MEDS: ATROVENT IH SCH ×4 (02:05→21:12)
[2018-04-22 06:07] LABS: Calcium 7.5 mg/dL (8.4-10.2)
[2018-04-22] MEDS: ZOSYN/NS 2.25 GM/50ML 2.25 GM/50 ML BAG IV SCH ×3 (06:13→22:14)
[2018-04-22] MEDS ORDERED: K-DUR PO ONE (06:39)
--- NOTE | 2018-04-22 09:27 | Progress Note ---
Assessment and Plan - Patient Problems (1) Acute renal failure Current Visit: Yes Status: Acute Plan to address problem: [place]-- Scr- 10.6--10.0 -11.1-worsening renal function. ? cause. May be prerenal or ATN or possible GN or vasculitis or pulmonary renal syndrome. Check serologies. C3,C4 ok. Discussed with hospitalist-. K-low, volume status ok. No acute indication for HD today. S/P kidney biopsy yesterday. ASO, AntiGBM, ANCA,RICARDO-pending. Discussed with pt and family through sales assistant about the present clinical condition. May need dialysis if no improvement. (2) Pneumonia Current Visit: Yes Status: Acute (3) Metabolic acidosis Current Visit: Yes Status: Acute Plan to address problem: maintain on bicarb supplements (4) Hypokalemia Current Visit: Yes Status: Acute Plan to address problem: supplement with caution (5) Hyponatremia Current Visit: Yes Status: Acute (6) Hypocalcemia Current Visit: Yes Status: Acute Plan to address problem: hypocalcemia with hypoalbuminemia. Follow up on ionised calcium, Mg,P,PTH (7) Transaminitis Current Visit: Yes Status: Acute Plan to address problem: Noted abnormal LFTS--monitor Subjective Date of service: 04/22/18 Interval history: alert, oriented, Had kidney biopsy yesterday, report pending. Denies pain at the biopsy site. Family members at bed side-sales assistant Objective - Vital Signs Vital signs: Vital Signs - 12hr 04/21/18 04/22/18 04/22/18 23:19 00:51 04:15 Temperature 99.2 F 98.0 F Pulse Rate 89 82 Pulse Rate [ Anterior Bilateral Throughout] Respiratory 28 H 22 24 Rate Respiratory Rate [Anterior Bilateral Throughout] Blood Pressure 135/92 147/93 O2 Sat by Pulse 95 97 95 Oximetry 04/22/18 04/22/18 04/22/18 07:02 07:12 07:30 Temperature 98.0 F Pulse Rate 89 Pulse Rate [ 80 82 Anterior Bilateral Throughout] Respiratory 19 Rate Respiratory 18 20 Rate [Anterior Bilateral Throughout] Blood Pressure 135/98 O2 Sat by Pulse 97 Oximetry - General Appearance General appearance: well-developed EENT: mucous membranes moist Neck: no JVD Respiratory: Present: Decreased Breath Sounds Cardiology: regular Gastrointestinal: normoactive bowel sounds Neurologic: alert and oriented x3 Musculoskeletal: other (no edema) Psychiatric: mood/affect appropriate, cooperative - Lab 04/21/18 08:54 04/22/18 14:00 Most recent lab results Calcium 7.5 mg/dL (8.4-10.2) L 04/22/18 05:24 Magnesium 2.20 mg/dL (1.7-2.3) 04/19/18 13:14 Urine Creatinine 119.5 mg/dL (0.1-20.0) H 04/19/18 17:00 Urine Sodium 51 mmol/L 04/19/18 17:00 Urine Total Protein 111 mg/dL (5-11.8) H 04/19/18 17:00
[2018-04-22] MEDS: LOVENOX SUB-Q SCH (10:07)
[2018-04-22] MEDS: SODIUM BICARBONATE PO SCH ×2 (10:07→22:13)
[2018-04-22] MEDS: K-DUR PO SCH (10:11)
[2018-04-22] MEDS ORDERED: VANCOMYCIN 1,250 MG in NACL 0.9% 250ML 250 ML IV ONE (14:00)
[2018-04-22] MEDS: SODIUM CHLORIDE FLUSH SYRINGE 10 ML IV SCH ×2 (14:26→22:14)
--- NOTE | 2018-04-22 14:42 | Progress Note ---
Assessment and Plan / Bilateral Pneumonia Continue antibiotics, supplemental oxygen and nebs as needed repeat Chest x-ray on 04/22 showed increased infiltrate on the left lower base cont vanc and zosyn for now /Sepsis Secondary to PNA and UTI, Continue abx, negative blood cultures /UTI, present on admission cx growing Beta Hemolytic Strep Group B cont current abx /Acute Renal Failure Nephrology following, Pt started on bicarb gtt Creatinine continued to decline, s/p renal biopsy 04/21/18 /Metabolic acidosis secondary to declining renal function Nephrology following, pt on bicarb po /Hypokalemia cont to replete as needed /Hyponatremia Significantly improved, continue IVF /Abnormal LFT due to alcohol abuse Abdominal ultrasound revealed fatty liver otherwise unremarkable exam DVT prophalaxis, with heparin Brief History 52 year old man with no presented to the emergency department with complaints of nonproductive cough, fever, chills x 4 days. Admits to left side chest pain, unable to describe it, unable to say how long it last for, no radiation, intensity 4/10. Also admited to generalized weakness. Hospitalist Physical General appearance: Present: Appears little anxious, well-nourished - EENT Eyes: Present: PERRL, EOM intact ENT: hearing intact, clear oral mucosa - Neck Present: supple, normal ROM - Respiratory Respiratory effort: normal Respiratory: bilateral: + breath sounds bilaterally, few rhonchi - Cardiovascular Rhythm: regular Heart Sounds: Present: S1 & S2. Absent: Rub, click - Extremities Extremities: no ischemia, No edema - Abdominal General gastrointestinal: soft, non-tender, non-distended, normal bowel sounds - Integumentary Integumentary: Present: clear, warm, dry - Psychiatric Psychiatric: appropriate mood/affect, intact judgment & insight, cooperative, but anxious - Neurologic Neurologic: CNII-XII intact, moves all extremities Subjective Date of service: 04/22/18 Interval history: Patient seen and examined. Medical records and medication list reviewed. No acute event overnight noted by the RN. Discussed plan of care at bedside with patient and his family. breathing status much improved Objective - Constitutional Vitals: Vital Signs - 12hr 04/22/18 04/22/18 04/22/18 04:15 07:02 07:12 Temperature 98.0 F Pulse Rate 82 Pulse Rate [ 80 82 Anterior Bilateral Throughout] Respiratory 24 Rate Respiratory 18 20 Rate [Anterior Bilateral Throughout] Blood Pressure 147/93 O2 Sat by Pulse 95 97 Oximetry 04/22/18 04/22/18 04/22/18 07:30 13:59 14:10 Temperature 98.0 F Pulse Rate 89 Pulse Rate [ 85 80 Anterior Bilateral Throughout] Respiratory 19 Rate Respiratory 20 20 Rate [Anterior Bilateral Throughout] Blood Pressure 135/98 O2 Sat by Pulse 97 Oximetry - Labs CBC & Chem 7: 04/21/18 08:54 04/22/18 14:00 Labs: Abnormal lab results 04/22/18 04/22/18 Range/Units 05:24 14:00 Sodium 133 L (137-145) mmol/L Potassium 2.9 L* 3.3 L (3.6-5.0) mmol/L Chloride 94.5 L (98-107) mmol/L Carbon Dioxide 15 L (22-30) mmol/L BUN 88 H (9-20) mg/dL Creatinine 11.1 H (0.8-1.5) mg/dL Glucose 106 H (75-100) mg/dL Calcium 7.5 L (8.4-10.2) mg/dL
[2018-04-22 22:52] LABS: Albumin 2.1 g/dL (3.8-4.8); Gamma Globulin 0.5 g/dL (0.8-1.7)
[2018-04-23] MEDS: ATROVENT IH SCH ×4 (02:44→19:39)
[2018-04-23] MEDS: XOPENEX IH SCH ×4 (02:44→19:39)
[2018-04-23] MEDS: ZOSYN/NS 2.25 GM/50ML 2.25 GM/50 ML BAG IV SCH ×2 (06:03→14:47)
[2018-04-23] MEDS: SODIUM BICARBONATE PO SCH ×3 (08:45→21:07)
[2018-04-23] MEDS: K-DUR PO SCH (10:35)
[2018-04-23] MEDS: LOVENOX SUB-Q SCH (10:36)
[2018-04-23 12:38] LABS: ANA Screen, IFA Negative (Negative)
--- NOTE | 2018-04-23 13:05 | Progress Note ---
Assessment and Plan Impression: * Nonoliguric acute kidney injury secondary to ATN due to sepsis vs rhabdo --[place] kidney bx 04/21 - ATN, scattered tubules w/ myoglobin + granular casts * Sepsis * PNA * Metabolic acidosis secondary to lactic acidosis - resolved * Transaminitis * Hypokalemia * Hyponatremia - resolved Plan: * Biopsy results notable for ATN - ?component of rhabdomyolysis * AM labs not available for review - ordered BMP and CK * No acute indication for hemodialysis - patient w/o uremia or fluid overload * Abx per primary team * Replete lytes prn * Avoid potential nephrotoxins * Strict I/O * Patient is not stable for d/c from a renal standpoint Subjective Date of service: 04/23/18 Interval history: Patient denies nausea, vomiting, SOB. Reports good appetite. He is making urine - reports that it is brown. Objective - Vital Signs Vital signs: Vital Signs - 12hr 04/23/18 04/23/18 04/23/18 02:38 02:50 07:35 Temperature 98.4 F Pulse Rate 80 Pulse Rate [ 88 95 H Anterior Bilateral Throughout] Respiratory 19 Rate Respiratory 16 16 Rate [Anterior Bilateral Throughout] Blood Pressure 148/98 [Right] O2 Sat by Pulse 95 Oximetry 04/23/18 04/23/18 04/23/18 10:00 10:32 10:43 Temperature Pulse Rate Pulse Rate [ 77 79 Anterior Bilateral Throughout] Respiratory Rate Respiratory 18 21 Rate [Anterior Bilateral Throughout] Blood Pressure [Right] O2 Sat by Pulse 97 Oximetry - General Appearance General appearance: well-developed, well-nourished EENT: ATNC Respiratory: Present: Clear to Ascultation Cardiology: regular, S1S2 Gastrointestinal: normal, no tenderness, no distended Integumentary: no rash, warm and dry Neurologic: no focal deficit Musculoskeletal: other (no edema) Psychiatric: cooperative - Lab 04/21/18 08:54 04/22/18 14:00 Most recent lab results Calcium 7.5 mg/dL (8.4-10.2) L 04/22/18 05:24 Magnesium 2.20 mg/dL (1.7-2.3) 04/19/18 13:14 Urine Creatinine 119.5 mg/dL (0.1-20.0) H 04/19/18 17:00 Urine Sodium 51 mmol/L 04/19/18 17:00 Urine Total Protein 111 mg/dL (5-11.8) H 04/19/18 17:00
[2018-04-23] MEDS: SODIUM CHLORIDE FLUSH SYRINGE 10 ML IV SCH ×2 (14:47→21:08)
--- NOTE | 2018-04-23 15:33 | Progress Note ---
Assessment and Plan / Bilateral Pneumonia Continue antibiotics, supplemental oxygen and nebs as needed repeat Chest x-ray on 04/22 showed increased infiltrate on the left lower base Will stop vanc and zosyn for now, change to levaquin /Sepsis Secondary to PNA and UTI, Continue abx, negative blood cultures /UTI, present on admission cx growing Beta Hemolytic Strep Group B cont current abx /Acute Renal Failure due to ATN Nephrology following, Creatinine continued to decline, s/p renal biopsy 04/21/18 Biopsy showed pathological finding of ATN cont IV fluid /Metabolic acidosis secondary to declining renal function cont to monitor /Hypokalemia cont to replete as needed /Hyponatremia Significantly improved, continue IVF /Abnormal LFT due to alcohol abuse Abdominal ultrasound revealed fatty liver otherwise unremarkable exam DVT prophalaxis, with heparin Brief History 52 year old man with no presented to the emergency department with complaints of nonproductive cough, fever, chills x 4 days. Admits to left side chest pain, unable to describe it, unable to say how long it last for, no radiation, intensity 4/10. Also admited to generalized weakness. Hospitalist Physical General appearance: Present: Appears little anxious, well-nourished - EENT Eyes: Present: PERRL, EOM intact ENT: hearing intact, clear oral mucosa - Neck Present: supple, normal ROM - Respiratory Respiratory effort: normal Respiratory: bilateral: + breath sounds bilaterally, few rhonchi - Cardiovascular Rhythm: regular Heart Sounds: Present: S1 & S2. Absent: Rub, click - Extremities Extremities: no ischemia, No edema - Abdominal General gastrointestinal: soft, non-tender, non-distended, normal bowel sounds - Integumentary Integumentary: Present: clear, warm, dry - Psychiatric Psychiatric: appropriate mood/affect, intact judgment & insight, cooperative, but anxious - Neurologic Neurologic: CNII-XII intact, moves all extremities Subjective Date of service: 04/16/18 Interval history: Patient seen and examined. Medical records and medication list reviewed. No acute event overnight noted by the RN. Discussed plan of care at bedside with patient and his family. breathing status much improved Objective - Constitutional Vitals: Vital Signs - 12hr 04/23/18 04/23/18 04/23/18 07:31 07:35 10:00 Temperature 98.4 F 98.4 F Pulse Rate 76 80 Pulse Rate [ Anterior Bilateral Throughout] Respiratory 19 19 Rate Respiratory Rate [Anterior Bilateral Throughout] Blood Pressure 148/98 Blood Pressure 148/98 [Right] O2 Sat by Pulse 96 95 97 Oximetry 04/23/18 04/23/18 10:32 10:43 Temperature Pulse Rate Pulse Rate [ 77 79 Anterior Bilateral Throughout] Respiratory Rate Respiratory 18 21 Rate [Anterior Bilateral Throughout] Blood Pressure Blood Pressure [Right] O2 Sat by Pulse Oximetry - Labs CBC & Chem 7: 04/23/18 16:11 04/23/18 16:11 Labs: Abnormal lab results 04/19/18 Range/Units 13:14 Serum Total Protein 5.7 L (6.1-8.1) g/dL Albumin 2.1 L (3.8-4.8) g/dL [id number] 0.8 H (0.2-0.3) g/dL [id number] 1.4 H (0.5-0.9) g/dL Gamma Globulins 0.5 L (0.8-1.7) g/dL PEP Interpretation see below H
[2018-04-23 17:07] LABS: Basophils % (Auto) 0.3 % (0.0-1.8); Eosinophils # (Auto) 0.1 K/mm3 (0.0-0.4); Eosinophils % (Auto) 1.2 % (0.0-4.3); Hematocrit 33.7 % (35.5-45.6); Hemoglobin 11.2 gm/dl (11.8-15.2); Lymphocytes # (Auto) 0.8 K/mm3 (1.2-5.4); Lymphocytes % (Auto) 11.6 % (13.4-35.0); Mean Corpuscular HGB Conc 33 % (32-34); Mean Corpuscular Hemoglobin 31 pg (28-32); Mean Corpuscular Volume 93 fl (84-94); Monocytes # (Auto) 0.5 K/mm3 (0.0-0.8); Monocytes % (Auto) 7.9 % (0.0-7.3); Platelet Count 373 K/mm3 (140-440); Red Blood Count 3.63 M/mm3 (3.65-5.03); Red Cell Distribution Width 16.4 % (13.2-15.2)
[2018-04-23 17:18] LABS: Calcium 7.7 mg/dL (8.4-10.2)
[2018-04-23] MEDS: LEVAQUIN PO SCH (20:08)
[2018-04-24 07:12] LABS: Calcium 7.8 mg/dL (8.4-10.2)
[2018-04-24] MEDS: SODIUM BICARBONATE PO SCH ×3 (08:00→23:30)
[2018-04-24] MEDS: ATROVENT IH SCH ×3 (08:51→20:48)
[2018-04-24] MEDS: XOPENEX IH SCH ×3 (08:51→20:45)
[2018-04-24] MEDS: LOVENOX SUB-Q SCH (09:06)
[2018-04-24] MEDS: SODIUM CHLORIDE FLUSH SYRINGE 10 ML IV SCH ×2 (09:07→23:30)
[2018-04-24] MEDS: K-DUR PO SCH (09:07)
--- NOTE | 2018-04-24 09:58 | Progress Note ---
Assessment and Plan Impression: * Nonoliguric acute kidney injury secondary to ATN due to sepsis vs rhabdo ( myoglobin deposits in tubules) --[place] kidney bx 04/21 - ATN, scattered tubules w/ myoglobin + granular casts * Sepsis * PNA * Metabolic acidosis * Transaminitis * Hypokalemia * Hyponatremia - resolved Plan: * SCr has plateaued. CK wnl * No acute indication for hemodialysis - patient w/o uremia or fluid overload * Start NaBicarb tablets * Abx per primary team * Replete lytes prn * Avoid potential nephrotoxins * Strict I/O * Encouraged po hydration * Patient is not stable for d/c from a renal standpoint * Son at bedside - updated Subjective Date of service: 04/24/18 Interval history: Patient denies SOB, N/V. He has no complaints Objective - Vital Signs Vital signs: Vital Signs - 12hr 04/24/18 04/24/18 04/24/18 07:25 08:00 08:55 Temperature 98.1 F Pulse Rate 84 Pulse Rate [ 97 H Anterior Bilateral Throughout] Respiratory 22 Rate Respiratory 22 Rate [Anterior Bilateral Throughout] Blood Pressure 162/96 O2 Sat by Pulse 96 98 Oximetry - General Appearance General appearance: well-developed, well-nourished EENT: ATNC Respiratory: Present: Clear to Ascultation Cardiology: regular, S1S2 Gastrointestinal: normal, no tenderness, no distended Integumentary: no rash, warm and dry Neurologic: no focal deficit Musculoskeletal: other (no edema) Psychiatric: cooperative - Lab 04/23/18 16:11 04/24/18 05:18 Most recent lab results Calcium 7.8 mg/dL (8.4-10.2) L 04/24/18 05:18 Magnesium 2.20 mg/dL (1.7-2.3) 04/19/18 13:14 Urine Creatinine 119.5 mg/dL (0.1-20.0) H 04/19/18 17:00 Urine Sodium 51 mmol/L 04/19/18 17:00 Urine Total Protein 111 mg/dL (5-11.8) H 04/19/18 17:00
[2018-04-24] MEDS ORDERED: LEVAQUIN PO SCH (10:00)
--- NOTE | 2018-04-24 12:32 | Progress Note ---
Assessment and Plan / Bilateral Pneumonia Continue antibiotics, supplemental oxygen and nebs as needed repeat Chest x-ray on 04/22 showed increased infiltrate on the left lower base Stopped vanc and zosyn, now changed to levaquin /Sepsis Secondary to PNA and UTI, Continue abx, negative blood cultures /UTI, present on admission cx growing Beta Hemolytic Strep Group B cont current abx /Acute Renal Failure due to ATN Nephrology following, Creatinine continued to decline, s/p renal biopsy 04/21/18 Biopsy showed pathological finding of ATN cont IV fluid /Metabolic acidosis secondary to declining renal function cont to monitor /Hypokalemia cont to replete as needed /Hyponatremia Significantly improved, continue IVF /Abnormal LFT due to alcohol abuse Abdominal ultrasound revealed fatty liver otherwise unremarkable exam DVT prophalaxis, with heparin Brief History 52 year old man with no presented to the emergency department with complaints of nonproductive cough, fever, chills x 4 days. Admits to left side chest pain, unable to describe it, unable to say how long it last for, no radiation, intensity 4/10. Also admitted to generalized weakness. Hospitalist Physical General appearance: Present: Appears little anxious, well-nourished - EENT Eyes: Present: PERRL, EOM intact ENT: hearing intact, clear oral mucosa - Neck Present: supple, normal ROM - Respiratory Respiratory effort: normal Respiratory: bilateral: + breath sounds bilaterally, few rhonchi - Cardiovascular Rhythm: regular Heart Sounds: Present: S1 & S2. Absent: Rub, click - Extremities Extremities: no ischemia, No edema - Abdominal General gastrointestinal: soft, non-tender, non-distended, normal bowel sounds - Integumentary Integumentary: Present: clear, warm, dry - Psychiatric Psychiatric: appropriate mood/affect, intact judgment & insight, cooperative, but anxious - Neurologic Neurologic: CNII-XII intact, moves all extremities Subjective Date of service: 04/24/18 Interval history: Patient seen and examined. Medical records and medication list reviewed. No acute event overnight noted by the RN. Discussed plan of care at bedside with patient and his family. breathing status much improved Objective - Constitutional Vitals: Vital Signs - 12hr 04/24/18 04/24/18 04/24/18 07:25 08:00 08:55 Temperature 98.1 F Pulse Rate 84 Pulse Rate [ 97 H Anterior Bilateral Throughout] Respiratory 22 Rate Respiratory 22 Rate [Anterior Bilateral Throughout] Blood Pressure 162/96 O2 Sat by Pulse 96 98 Oximetry 04/24/18 10:46 Temperature Pulse Rate Pulse Rate [ 102 H Anterior Bilateral Throughout] Respiratory Rate Respiratory 22 Rate [Anterior Bilateral Throughout] Blood Pressure O2 Sat by Pulse Oximetry - Labs CBC & Chem 7: 04/23/18 16:11 04/24/18 05:18 Labs: Abnormal lab results 04/23/18 04/23/18 04/24/18 Range/Units 16:11 16:11 05:18 RBC 3.63 L (3.65-5.03) M/mm3 Hgb 11.2 L (11.8-15.2) gm/dl Hct 33.7 L (35.5-45.6) % RDW 16.4 H (13.2-15.2) % Lymph % (Auto) 11.6 L (13.4-35.0) % [place] % (Auto) 7.9 H (0.0-7.3) % Lymph # 0.8 L (1.2-5.4) K/mm3 Seg Neutrophils % 79.0 H (40.0-70.0) % Sodium 136 L 135 L (137-145) mmol/L Chloride 95.9 L (98-107) mmol/L Carbon Dioxide 17 L 13 L (22-30) mmol/L BUN 101 H 95 H (9-20) mg/dL Creatinine 11.9 H 11.7 H (0.8-1.5) mg/dL Glucose 105 H (75-100) mg/dL Calcium 7.7 L 7.8 L (8.4-10.2) mg/dL Total Creatine Kinase 26 L (55-170) units/L
[2018-04-24 21:37] LABS: Myeloperoxidase Antibody <1.0 AI (<1.0)
[2018-04-25] MEDS: SODIUM BICARBONATE PO SCH ×3 (08:00→22:51)
[2018-04-25] MEDS: XOPENEX IH SCH ×3 (08:23→20:24)
[2018-04-25] MEDS: ATROVENT IH SCH ×3 (08:23→20:24)
[2018-04-25 09:02] LABS: Calcium 8.1 mg/dL (8.4-10.2)
--- NOTE | 2018-04-25 09:14 | Progress Note ---
Assessment and Plan Impression: * Nonoliguric acute kidney injury secondary to ATN due to sepsis vs rhabdo ( myoglobin deposits in tubules) --[place] kidney bx 04/21 - ATN, scattered tubules w/ myoglobin + granular casts * Sepsis * PNA * Metabolic acidosis * Transaminitis * Hypokalemia * Hyponatremia - resolved * Hypertension Plan: * SCr increased c/w yesterday. BUN noted. Will hold initiation of dialysis as patient is asymptomatic. * Continue close monitoring - renal prognosis is guarded * Strict I/O reordered * Start Coreg 6.25mg BID as BP is elevated * Abx per primary team * Continue po bicarb. Replete lytes prn * Avoid potential nephrotoxins * Encouraged po hydration * Patient is not stable for d/c from a renal standpoint Subjective Date of service: 04/25/18 Interval history: No acute events overnight Objective - Vital Signs Vital signs: Vital Signs - 12hr 04/24/18 04/24/18 04/25/18 22:00 23:38 07:17 Temperature 98.9 F 98.6 F Pulse Rate 84 82 Pulse Rate [ Anterior Bilateral Throughout] Respiratory 16 20 20 Rate Respiratory Rate [Anterior Bilateral Throughout] Blood Pressure 158/93 153/100 O2 Sat by Pulse 97 94 97 Oximetry 04/25/18 04/25/18 04/25/18 08:24 08:27 08:39 Temperature Pulse Rate Pulse Rate [ 84 86 Anterior Bilateral Throughout] Respiratory Rate Respiratory 18 18 Rate [Anterior Bilateral Throughout] Blood Pressure O2 Sat by Pulse 98 Oximetry - General Appearance General appearance: well-developed, well-nourished EENT: ATNC Respiratory: Present: Clear to Ascultation Cardiology: regular, S1S2 Gastrointestinal: normal, no tenderness, no distended Integumentary: no rash Neurologic: no focal deficit Musculoskeletal: other (no edema) Psychiatric: cooperative - Lab 04/23/18 16:11 04/25/18 07:49 Most recent lab results Calcium 8.1 mg/dL (8.4-10.2) L 04/25/18 07:49 Magnesium 2.20 mg/dL (1.7-2.3) 04/19/18 13:14 Urine Creatinine 119.5 mg/dL (0.1-20.0) H 04/19/18 17:00 Urine Sodium 51 mmol/L 04/19/18 17:00 Urine Total Protein 111 mg/dL (5-11.8) H 04/19/18 17:00
[2018-04-25] MEDS: LOVENOX SUB-Q SCH (09:23)
[2018-04-25] MEDS: COREG PO SCH ×2 (09:23→22:51)
[2018-04-25] MEDS: K-DUR PO SCH (09:23)
--- NOTE | 2018-04-25 12:02 | Progress Note ---
Assessment and Plan / Bilateral Pneumonia Continue antibiotics, supplemental oxygen and nebs as needed repeat Chest x-ray on 04/22 showed increased infiltrate on the left lower base Stopped vanc and zosyn, now changed to levaquin /Sepsis Secondary to PNA and UTI, Continue abx, negative blood cultures /UTI, present on admission cx growing Beta Hemolytic Strep Group B cont current abx /Acute Renal Failure due to ATN Nephrology following, Creatinine continued to decline, s/p renal biopsy 04/21/18 Biopsy showed pathological finding of ATN cont IV fluid /Metabolic acidosis secondary to declining renal function cont to monitor /Hypokalemia cont to replete as needed /Hyponatremia Significantly improved, continue IVF /Abnormal LFT due to alcohol abuse Abdominal ultrasound revealed fatty liver otherwise unremarkable exam DVT prophalaxis, with heparin Brief History 52 year old man with no presented to the emergency department with complaints of nonproductive cough, fever, chills x 4 days. Admits to left side chest pain, unable to describe it, unable to say how long it last for, no radiation, intensity 4/10. Also admitted to generalized weakness. Hospitalist Physical General appearance: Present: Appears little anxious, well-nourished - EENT Eyes: Present: PERRL, EOM intact ENT: hearing intact, clear oral mucosa - Neck Present: supple, normal ROM - Respiratory Respiratory effort: normal Respiratory: bilateral: + breath sounds bilaterally, few rhonchi - Cardiovascular Rhythm: regular Heart Sounds: Present: S1 & S2. Absent: Rub, click - Extremities Extremities: no ischemia, No edema - Abdominal General gastrointestinal: soft, non-tender, non-distended, normal bowel sounds - Integumentary Integumentary: Present: clear, warm, dry - Psychiatric Psychiatric: appropriate mood/affect, intact judgment & insight, cooperative, but anxious - Neurologic Neurologic: CNII-XII intact, moves all extremities Subjective Date of service: 04/25/18 Interval history: Patient seen and examined. Medical records and medication list reviewed. No acute event overnight noted by the RN. Discussed plan of care at bedside with patient and his family. breathing status much improved Objective - Constitutional Vitals: Vital Signs - 12hr 04/25/18 04/25/18 04/25/18 07:17 08:24 08:27 Temperature 98.6 F Pulse Rate 82 Pulse Rate [ 84 Anterior Bilateral Throughout] Respiratory 20 Rate Respiratory 18 Rate [Anterior Bilateral Throughout] Blood Pressure 153/100 O2 Sat by Pulse 97 98 Oximetry 04/25/18 04/25/18 08:39 09:23 Temperature Pulse Rate 84 Pulse Rate [ 86 Anterior Bilateral Throughout] Respiratory Rate Respiratory 18 Rate [Anterior Bilateral Throughout] Blood Pressure 150/100 O2 Sat by Pulse Oximetry - Labs CBC & Chem 7: 04/23/18 16:11 04/26/18 05:19 Labs: Abnormal lab results 04/25/18 Range/Units 07:49 Chloride 97.8 L (98-107) mmol/L Carbon Dioxide 16 L (22-30) mmol/L BUN 100 H (9-20) mg/dL Creatinine 12.6 H (0.8-1.5) mg/dL Calcium 8.1 L (8.4-10.2) mg/dL
[2018-04-25] MEDS: SODIUM CHLORIDE FLUSH SYRINGE 10 ML IV SCH ×2 (14:05→22:52)
[2018-04-25] MEDS: LEVAQUIN PO SCH (22:51)
[2018-04-26 06:53] LABS: Calcium 7.9 mg/dL (8.4-10.2)
[2018-04-26] MEDS: XOPENEX IH SCH ×3 (07:25→20:15)
[2018-04-26] MEDS: ATROVENT IH SCH ×3 (07:25→20:15)
[2018-04-26] MEDS: SODIUM BICARBONATE PO SCH ×3 (08:10→20:36)
--- NOTE | 2018-04-26 08:43 | Progress Note ---
Assessment and Plan Impression: * Nonoliguric acute kidney injury secondary to ATN due to sepsis vs rhabdo ( myoglobin deposits in tubules) --[place] kidney bx 04/21 - ATN, scattered tubules w/ myoglobin + granular casts * Sepsis * PNA * Metabolic acidosis * Transaminitis * Hypokalemia * Hyponatremia - resolved * Hypertension Plan: * Continue to hold initiation of dialysis as patient is asymptomatic. * Continue close monitoring - renal prognosis is guarded * Strict I/O - discussed with patient * Continue antiHTN medications - BP improved * Abx per primary team * Continue po bicarb. Replete lytes prn * Avoid potential nephrotoxins * Encouraged po hydration * Patient is not stable for d/c from a renal standpoint Subjective Date of service: 04/26/18 Interval history: Language line used to assist in interpreation. Patient denies N/V/SOB. Reports appetite is good. Urine is clear. Objective - Vital Signs Vital signs: Vital Signs - 12hr 04/25/18 04/25/18 04/25/18 20:48 22:00 22:51 Temperature Pulse Rate 85 Pulse Rate [ 92 H Anterior Bilateral Throughout] Respiratory 16 Rate Respiratory 20 Rate [Anterior Bilateral Throughout] Blood Pressure 152/97 O2 Sat by Pulse Oximetry 04/26/18 07:23 Temperature 98.7 F Pulse Rate 82 Pulse Rate [ Anterior Bilateral Throughout] Respiratory 19 Rate Respiratory Rate [Anterior Bilateral Throughout] Blood Pressure 140/91 O2 Sat by Pulse 92 Oximetry - General Appearance General appearance: well-developed, well-nourished EENT: ATNC Respiratory: Present: Clear to Ascultation Cardiology: regular, S1S2 Gastrointestinal: normal, no tenderness, no distended Integumentary: no rash, warm and dry Neurologic: no focal deficit Musculoskeletal: other (no edema) Psychiatric: cooperative - Lab 04/23/18 16:11 04/26/18 05:19 Most recent lab results Calcium 7.9 mg/dL (8.4-10.2) L 04/26/18 05:19 Magnesium 2.20 mg/dL (1.7-2.3) 04/19/18 13:14 Urine Creatinine 119.5 mg/dL (0.1-20.0) H 04/19/18 17:00 Urine Sodium 51 mmol/L 04/19/18 17:00 Urine Total Protein 111 mg/dL (5-11.8) H 04/19/18 17:00
[2018-04-26] MEDS: K-DUR PO SCH (10:16)
[2018-04-26] MEDS: LOVENOX SUB-Q SCH (10:16)
[2018-04-26] MEDS: COREG PO SCH ×2 (10:16→21:35)
[2018-04-26] MEDS: SODIUM CHLORIDE FLUSH SYRINGE 10 ML IV SCH ×2 (14:29→21:35)
--- NOTE | 2018-04-26 14:48 | Progress Note ---
Assessment and Plan / Bilateral Pneumonia, CAP Continue antibiotics, supplemental oxygen and nebs as needed repeat Chest x-ray on 04/22 showed increased infiltrate on the left lower base Stopped vanc and zosyn, then changed to levaquin will stop levaquin today as pt completing treatment /Sepsis Secondary to PNA and UTI, getting treated with abx, negative blood cultures /UTI, present on admission cx growing Beta Hemolytic Strep Group B treated with abx /Acute Renal Failure due to ATN Nephrology following, Creatinine continued to decline, s/p renal biopsy 04/21/18 Biopsy showed pathological finding of ATN cont IV fluid, may need HD, will defer to nephrology /Metabolic acidosis secondary to declining renal function cont to monitor /Hypokalemia cont to replete as needed /Hyponatremia Significantly improved, continue IVF /Abnormal LFT due to alcohol abuse Abdominal ultrasound revealed fatty liver otherwise unremarkable exam /DVT prophalaxis, with heparin Brief History 52 year old man with no presented to the emergency department with complaints of nonproductive cough, fever, chills x 4 days. Admits to left side chest pain, unable to describe it, unable to say how long it last for, no radiation, intensity 4/10. Also admitted to generalized weakness. Hospitalist Physical General appearance: Present: Appears little anxious, well-nourished - EENT Eyes: Present: PERRL, EOM intact ENT: hearing intact, clear oral mucosa - Neck Present: supple, normal ROM - Respiratory Respiratory effort: normal Respiratory: bilateral: + breath sounds bilaterally, few rhonchi - Cardiovascular Rhythm: regular Heart Sounds: Present: S1 & S2. Absent: Rub, click - Extremities Extremities: no ischemia, No edema - Abdominal General gastrointestinal: soft, non-tender, non-distended, normal bowel sounds - Integumentary Integumentary: Present: clear, warm, dry - Psychiatric Psychiatric: appropriate mood/affect, intact judgment & insight, cooperative, but anxious - Neurologic Neurologic: CNII-XII intact, moves all extremities Subjective Date of service: 04/26/18 Interval history: Patient seen and examined. Medical records and medication list reviewed. No acute event overnight noted by the RN. Discussed plan of care at bedside with patient and his family. breathing status much improved Objective - Constitutional Vitals: Vital Signs - 12hr 04/26/18 04/26/18 07:23 10:16 Temperature 98.7 F Pulse Rate 82 Respiratory 19 Rate Blood Pressure 140/91 150/98 O2 Sat by Pulse 92 Oximetry - Labs CBC & Chem 7: 04/23/18 16:11 04/26/18 05:19 Labs: Abnormal lab results 04/26/18 Range/Units 05:19 Sodium 134 L (137-145) mmol/L Chloride 95.9 L (98-107) mmol/L Carbon Dioxide 16 L (22-30) mmol/L BUN 102 H (9-20) mg/dL Creatinine 12.5 H (0.8-1.5) mg/dL Calcium 7.9 L (8.4-10.2) mg/dL
[2018-04-27] MEDS: XOPENEX IH SCH ×3 (07:48→19:50)
[2018-04-27] MEDS: ATROVENT IH SCH ×3 (07:48→19:49)
--- NOTE | 2018-04-27 08:16 | Progress Note ---
Assessment and Plan Impression: * Nonoliguric acute kidney injury secondary to ATN due to sepsis vs rhabdo ( myoglobin deposits in tubules) --[place] kidney bx 04/21 - ATN, scattered tubules w/ myoglobin + granular casts * Sepsis * PNA * Metabolic acidosis * Transaminitis * Hypokalemia * Hyponatremia - resolved * Hypertension Plan: * Continue to hold initiation of dialysis as patient is asymptomatic. Patient w / good UOP (appx 2L) and electrolytes are stable. * Continue close monitoring - renal prognosis is guarded * Strict I/O * Continue antiHTN medications; note addition of Amlodipine * Abx per primary team * Continue po bicarb. Replete lytes prn * Avoid potential nephrotoxins * Encouraged po hydration * Patient is not stable for d/c from a renal standpoint Subjective Date of service: 04/27/18 Interval history: Language line used to assist in interpreation. Patient has no complaints today. Objective - Vital Signs Vital signs: Vital Signs - 12hr 04/26/18 04/26/18 04/26/18 20:16 20:17 20:35 Temperature Pulse Rate 80 Pulse Rate [ 85 87 Anterior Bilateral Throughout] Respiratory Rate Respiratory 20 20 Rate [Anterior Bilateral Throughout] Blood Pressure 165/104 O2 Sat by Pulse 98 94 Oximetry 04/26/18 04/26/18 04/27/18 21:35 23:06 07:48 Temperature 99.2 F Pulse Rate 80 79 Pulse Rate [ 82 Anterior Bilateral Throughout] Respiratory 20 Rate Respiratory 19 Rate [Anterior Bilateral Throughout] Blood Pressure 165/104 159/95 O2 Sat by Pulse 95 Oximetry 04/27/18 07:50 Temperature Pulse Rate Pulse Rate [ Anterior Bilateral Throughout] Respiratory Rate Respiratory Rate [Anterior Bilateral Throughout] Blood Pressure O2 Sat by Pulse 96 Oximetry - General Appearance General appearance: well-developed, well-nourished EENT: ATNC Respiratory: Present: Clear to Ascultation Cardiology: regular, S1S2 Gastrointestinal: normal, no tenderness, no distended Integumentary: no rash, warm and dry Neurologic: no focal deficit Musculoskeletal: other (no edema) Psychiatric: cooperative - Lab 04/23/18 16:11 04/27/18 05:59 Most recent lab results Calcium 8.0 mg/dL (8.4-10.2) L 04/27/18 05:59 Magnesium 2.20 mg/dL (1.7-2.3) 04/19/18 13:14 Urine Creatinine 119.5 mg/dL (0.1-20.0) H 04/19/18 17:00 Urine Sodium 51 mmol/L 04/19/18 17:00 Urine Total Protein 111 mg/dL (5-11.8) H 04/19/18 17:00
[2018-04-27] MEDS: SODIUM BICARBONATE PO SCH ×3 (09:08→20:27)
[2018-04-27] MEDS: COREG PO SCH ×2 (13:45→21:52)
[2018-04-27] MEDS: K-DUR PO SCH (13:45)
[2018-04-27] MEDS: NORVASC PO SCH (13:45)
[2018-04-27] MEDS: LOVENOX SUB-Q SCH (13:46)
[2018-04-27] MEDS: SODIUM CHLORIDE FLUSH SYRINGE 10 ML IV SCH ×2 (15:53→21:53)
--- NOTE | 2018-04-27 16:16 | Progress Note ---
Assessment and Plan Assessment and plan: / Bilateral Pneumonia, CAP has completed abx /Sepsis due to UTI and PNA has completed abx /UTI, present on admission urine cx grew Beta Hemolytic Strep Group B treated with abx /Acute Renal Failure due to ATN Nephrology following, Creatinine continued to decline, s/p renal biopsy 04/21/18 Biopsy showed pathological finding of ATN per nephrology, "Continue to hold initiation of dialysis as patient is asymptomatic. Patient w/ good UOP (appx 2L) and electrolytes are stable." /Metabolic acidosis secondary to declining renal function cont to monitor /Hypokalemia cont to replete as needed /Hyponatremia Significantly improved, continue IVF /Abnormal LFT due to alcohol abuse Abdominal ultrasound revealed fatty liver otherwise unremarkable exam HTN uncontrolled, continue to optimize meds /DVT prophalaxis, with heparin Brief History 52 year old man with no presented to the emergency department with complaints of nonproductive cough, fever, chills x 4 days. Admits to left side chest pain, unable to describe it, unable to say how long it last for, no radiation, intensity 4/10. Also admitted to generalized weakness. History Interval history: Review of systems Constitutional: No fevers, no malaise, no joint pains CVS: No chest pain, no orthopnea, no dyspnea on exertion, no pedal edema GI: No abdominal pain, no diarrhea, no vomiting, no constipation Respiratory: No shortness of breath, no wheezing, no coughing Hospitalist Physical - Physical exam Narrative exam: General.: Appears well, no distress, nontoxic HEENT: Moist mucous membranes, extraocular muscles intact, no lymphadenopathy Neck: supple Cardiac: S1-S2 heard Lungs: clear to auscultation bilaterally Abdomen: soft , nontender, nondistended, bowel sounds positive Extremities: no edema clubbing or cyanosis Skin: no rash or lesions Neurologic: no gross focal deficits Psych: appropriate behavior, appropriate mood, corporative, judgment intact - Constitutional Vitals: Temp Pulse Resp BP Pulse Ox 99.2 F 82 19 160/90 96 04/26/18 23:06 04/27/18 07:48 04/27/18 07:48 04/27/18 13:45 04/27/18 07:50 Results - Labs CBC & Chem 7: 04/23/18 16:11 04/27/18 05:59 Labs: Laboratory Last Values WBC 6.7 K/mm3 (4.5-11.0) 04/23/18 16:11 RBC 3.63 M/mm3 (3.65-5.03) L 04/23/18 16:11 Hgb 11.2 gm/dl (11.8-15.2) L 04/23/18 16:11 Hct 33.7 % (35.5-45.6) L 04/23/18 16:11 MCV 93 fl (84-94) 04/23/18 16:11 MCH 31 pg (28-32) 04/23/18 16:11 MCHC 33 % (32-34) 04/23/18 16:11 RDW 16.4 % (13.2-15.2) H 04/23/18 16:11 Plt Count 373 K/mm3 (140-440) 04/23/18 16:11 Lymph % (Auto) 11.6 % (13.4-35.0) L 04/23/18 16:11 [place] % (Auto) 7.9 % (0.0-7.3) H 04/23/18 16:11 Eos % (Auto) 1.2 % (0.0-4.3) 04/23/18 16:11 Baso % (Auto) 0.3 % (0.0-1.8) 04/23/18 16:11 Lymph # 0.8 K/mm3 (1.2-5.4) L 04/23/18 16:11 [place] # 0.5 K/mm3 (0.0-0.8) 04/23/18 16:11 Eos # 0.1 K/mm3 (0.0-0.4) 04/23/18 16:11 Baso # 0.0 K/mm3 (0.0-0.1) 04/23/18 16:11 Add Manual Diff Complete 04/20/18 05:47 Total Counted 100 04/20/18 05:47 Seg Neutrophils % 79.0 % (40.0-70.0) H 04/23/18 16:11 Seg Neuts % (Manual) 93.0 % (40.0-70.0) H 04/20/18 05:47 Band Neutrophils % 0 % 04/20/18 05:47 Lymphocytes % (Manual) 6.0 % (13.4-35.0) L 04/20/18 05:47 Reactive Lymphs % (Man) 0 % 04/20/18 05:47 Monocytes % (Manual) 1.0 % (0.0-7.3) 04/20/18 05:47 Eosinophils % (Manual) 0 % (0.0-4.3) 04/20/18 05:47 Basophils % (Manual) 0 % (0.0-1.8) 04/20/18 05:47 Metamyelocytes % 0 % 04/20/18 05:47 Myelocytes % 0 % 04/20/18 05:47 Promyelocytes % 0 % 04/20/18 05:47 Blast Cells % 0 % 04/20/18 05:47 Nucleated RBC % Not Reportable 04/20/18 05:47 Seg Neutrophils # 5.3 K/mm3 (1.8-7.7) 04/23/18 16:11 Seg Neutrophils # Man 8.3 K/mm3 (1.8-7.7) H 04/20/18 05:47 Band Neutrophils # 0.0 K/mm3 04/20/18 05:47 Lymphocytes # (Manual) 0.5 K/mm3 (1.2-5.4) L 04/20/18 05:47 Abs React Lymphs (Man) 0.0 K/mm3 04/20/18 05:47 Monocytes # (Manual) 0.1 K/mm3 (0.0-0.8) 04/20/18 05:47 Eosinophils # (Manual) 0.0 K/mm3 (0.0-0.4) 04/20/18 05:47 Basophils # (Manual) 0.0 K/mm3 (0.0-0.1) 04/20/18 05:47 Metamyelocytes # 0.0 K/mm3 04/20/18 05:47 Myelocytes # 0.0 K/mm3 04/20/18 05:47 Promyelocytes # 0.0 K/mm3 04/20/18 05:47 Blast Cells # 0.0 K/mm3 04/20/18 05:47 WBC Morphology Not Reportable 04/20/18 05:47 Hypersegmented Neuts Not Reportable 04/20/18 05:47 Hyposegmented Neuts Not Reportable 04/20/18 05:47 Hypogranular Neuts Not Reportable 04/20/18 05:47 Smudge Cells Not Reportable 04/20/18 05:47 Toxic Granulation Not Reportable 04/20/18 05:47 Toxic Vacuolation Not Reportable 04/20/18 05:47 Dohle Bodies Not Reportable 04/20/18 05:47 Pelger-Huet Anomaly Not Reportable 04/20/18 05:47 Antonio Rods Not Reportable 04/20/18 05:47 Platelet Estimate Cons 04/20/18 05:47 Clumped Platelets Not Reportable 04/20/18 05:47 Plt Clumps, EDTA Not Reportable 04/20/18 05:47 Large Platelets Not Reportable 04/20/18 05:47 Giant Platelets Not Reportable 04/20/18 05:47 Platelet Satelliting Not Reportable 04/20/18 05:47 Plt Morphology Comment Not Reportable 04/20/18 05:47 RBC Morphology Normal 04/20/18 05:47 Dimorphic RBCs Not Reportable 04/20/18 05:47 Polychromasia Not Reportable 04/20/18 05:47 Hypochromasia Not Reportable 04/20/18 05:47 Poikilocytosis Not Reportable 04/20/18 05:47 Anisocytosis Not Reportable 04/20/18 05:47 Microcytosis Not Reportable 04/20/18 05:47 Macrocytosis Not Reportable 04/20/18 05:47 Spherocytes Not Reportable 04/20/18 05:47 Pappenheimer Bodies Not Reportable 04/20/18 05:47 Sickle Cells Not Reportable 04/20/18 05:47 Target Cells Not Reportable 04/20/18 05:47 Tear Drop Cells Not Reportable 04/20/18 05:47 Ovalocytes Not Reportable 04/20/18 05:47 Helmet Cells Not Reportable 04/20/18 05:47 [place] Bodies Not Reportable 04/20/18 05:47 [place] Rings Not Reportable 04/20/18 05:47 Ginger Cells Not Reportable 04/20/18 05:47 Bite Cells Not Reportable 04/20/18 05:47 Crenated Cell Not Reportable 04/20/18 05:47 Elliptocytes Not Reportable 04/20/18 05:47 Acanthocytes (Spur) Not Reportable 04/20/18 05:47 Rouleaux Not Reportable 04/20/18 05:47 Hemoglobin C Crystals Not Reportable 04/20/18 05:47 Schistocytes Not Reportable 04/20/18 05:47 Malaria parasites Not Reportable 04/20/18 05:47 Royal Bodies Not Reportable 04/20/18 05:47 Hem Pathologist Commnt No 04/20/18 05:47 PT 15.4 Sec. (12.2-14.9) H 04/21/18 08:54 INR 1.16 (0.87-1.13) H 04/21/18 08:54 POC ABG pH 7.506 (7.35-7.45) H 04/18/18 19:57 POC ABG pCO2 21.0 (35-45) L 04/18/18 19:57 POC ABG pO2 82 (80-105) 04/18/18 19:57 POC ABG HCO3 16.6 04/18/18 19:57 POC ABG Total CO2 17 04/18/18 19:57 POC ABG O2 Sat 97 04/18/18 19:57 POC ABG Base Excess -6 04/18/18 19:57 VBG pH 7.477 (7.320-7.420) H 04/18/18 18:21 FiO2 21 % 04/18/18 19:57 Sodium 136 mmol/L (137-145) L 04/27/18 05:59 Potassium 4.0 mmol/L (3.6-5.0) 04/27/18 05:59 Chloride 97.0 mmol/L (98-107) L 04/27/18 05:59 Carbon Dioxide 15 mmol/L (22-30) L 04/27/18 05:59 Anion Gap 28 mmol/L 04/27/18 05:59 BUN 102 mg/dL (9-20) H 04/27/18 05:59 Creatinine 12.2 mg/dL (0.8-1.5) H 04/27/18 05:59 Estimated GFR 4 ml/min 04/27/18 05:59 BUN/Creatinine Ratio 8 % 04/27/18 05:59 Glucose 105 mg/dL (75-100) H 04/27/18 05:59 Lactic Acid 1.10 mmol/L (0.7-2.0) 04/18/18 21:23 Calcium 8.0 mg/dL (8.4-10.2) L 04/27/18 05:59 Magnesium 2.20 mg/dL (1.7-2.3) 04/19/18 13:14 Total Bilirubin 1.00 mg/dL (0.1-1.2) 04/21/18 06:42 AST 131 units/L (5-40) H 04/21/18 06:42 ALT 81 units/L (7-56) H 04/21/18 06:42 Alkaline Phosphatase 176 units/L (35-129) H 04/21/18 06:42 Total Creatine Kinase 26 units/L (55-170) L 04/23/18 16:11 CK-MB (CK-2) 2.5 ng/mL (0.0-4.0) 04/19/18 05:20 CK-MB (CK-2) Rel Index 0.3 (0-4) 04/19/18 05:20 Troponin T 0.011 ng/mL (0.00-0.029) 04/19/18 05:20 Serum Total Protein 5.7 g/dL (6.1-8.1) L 04/19/18 13:14 Total Protein 5.7 g/dL (6.3-8.2) L D 04/21/18 06:42 Albumin 2.3 g/dL (3.9-5) L 04/21/18 06:42 Albumin/Globulin Ratio 0.7 % 04/21/18 06:42 [id number] 0.8 g/dL (0.2-0.3) H 04/19/18 13:14 [id number]-[id number] 1.4 g/dL (0.5-0.9) H 04/19/18 13:14 Beta Globulins 0.4 g/dL (0.2-0.5) 04/19/18 13:14 Gamma Globulins 0.5 g/dL (0.8-1.7) L 04/19/18 13:14 Abnorm Protein Band 1 see below 04/19/18 13:14 PEP Interpretation see below H 04/19/18 13:14 Urine Color [place] (Yellow) 04/18/18 18:55 Urine Turbidity Clear (Clear) 04/18/18 18:55 Urine pH 5.0 (5.0-7.0) 04/18/18 18:55 Ur Specific [place] 1.015 (1.003-1.030) 04/18/18 18:55 Urine Protein 100 mg/dl mg/dL (Negative) 04/18/18 18:55 Urine Glucose (UA) 50 mg/dL (Negative) 04/18/18 18:55 Urine Ketones Neg mg/dL (Negative) 04/18/18 18:55 Urine Blood Mod (Negative) 04/18/18 18:55 Urine Nitrite Neg (Negative) 04/18/18 18:55 Urine Bilirubin Neg (Negative) 04/18/18 18:55 Urine Urobilinogen < 2.0 mg/dL (<2.0) 04/18/18 18:55 Ur Leukocyte Esterase Neg (Negative) 04/18/18 18:55 Urine WBC (Auto) 16.0 /HPF (0.0-6.0) H 04/18/18 18:55 Urine RBC (Auto) 13.0 /HPF (0.0-6.0) 04/18/18 18:55 U Epithel Cells (Auto) 2.0 /HPF (0-13.0) 04/18/18 18:55 Urine Mucus Few /HPF 04/18/18 18:55 Urine Eosinophils None seen (None Seen) 04/19/18 17:00 Urine Creatinine 119.5 mg/dL (0.1-20.0) H 04/19/18 17:00 Protein/Creatinin Ratio 0.93 04/19/18 17:00 Urine Sodium 51 mmol/L 04/19/18 17:00 Urine Total Protein 111 mg/dL (5-11.8) H 04/19/18 17:00 Random Vancomycin 15.5 ug/mL (0-40.0) 04/22/18 05:24 RICARDO Screen Negative (Negative) 04/19/18 13:14 Proteinase 3 (PR3) Ab <1.0 AI (<1.0) 04/19/18 13:14 Myeloperoxidase Ab <1.0 AI (<1.0) 04/19/18 13:14 Glomerular Base Mem IgG <1.0 AI (<1.0) 04/22/18 05:24 Complement C3 235 mg/dL (82-185) H 04/19/18 13:14 Complement C4 66 mg/dL (15-53) H 04/19/18 13:14 Hepatitis A IgM Ab Non-reactive (NonReactive) 04/19/18 13:14 Hep Bs Antigen Non-reactive (Negative) 04/19/18 13:14 Hep B Core IgM Ab Non-reactive (NonReactive) 04/19/18 13:14 Hepatitis C Antibody Non-reactive (NonReactive) 04/19/18 13:14
--- NOTE | 2018-04-28 08:28 | Progress Note ---
Assessment and Plan Assessment and plan: / Bilateral Pneumonia, CAP has completed abx /Sepsis due to UTI and PNA has completed abx /UTI, present on admission urine cx grew Beta Hemolytic Strep Group B treated with abx /Acute Renal Failure due to ATN Nephrology following, Creatinine continued to decline, s/p renal biopsy 04/21/18 Biopsy showed pathological finding of ATN per nephrology, "Continue to hold initiation of dialysis as patient is asymptomatic. Patient w/ good UOP (appx 2L) and electrolytes are stable." /Metabolic acidosis secondary to declining renal function cont to monitor /Hypokalemia cont to replete as needed /Hyponatremia Significantly improved, continue IVF /Abnormal LFT due to alcohol abuse Abdominal ultrasound revealed fatty liver otherwise unremarkable exam HTN uncontrolled, continue to optimize meds /DVT prophalaxis, with heparin Brief History 52 year old man with no presented to the emergency department with complaints of nonproductive cough, fever, chills x 4 days. Admits to left side chest pain, unable to describe it, unable to say how long it last for, no radiation, intensity 4/10. Also admitted to generalized weakness. History Interval history: Review of systems Constitutional: No fevers, no malaise, no joint pains CVS: No chest pain, no orthopnea, no dyspnea on exertion, no pedal edema GI: No abdominal pain, no diarrhea, no vomiting, no constipation Respiratory: No shortness of breath, no wheezing, no coughing Hospitalist Physical - Physical exam Narrative exam: General.: Appears well, no distress, nontoxic HEENT: Moist mucous membranes, extraocular muscles intact, no lymphadenopathy Neck: supple Cardiac: S1-S2 heard Lungs: clear to auscultation bilaterally Abdomen: soft , nontender, nondistended, bowel sounds positive Extremities: no edema clubbing or cyanosis Skin: no rash or lesions Neurologic: no gross focal deficits Psych: appropriate behavior, appropriate mood, corporative, judgment intact - Constitutional Vitals: Temp Pulse Resp BP Pulse Ox 98.8 F 92 H 20 142/90 95 04/27/18 23:20 04/27/18 23:20 04/27/18 23:20 04/27/18 23:20 04/27/18 23:20 Results - Labs CBC & Chem 7: 04/23/18 16:11 05/04/18 05:41 Labs: Laboratory Last Values WBC 6.7 K/mm3 (4.5-11.0) 04/23/18 16:11 RBC 3.63 M/mm3 (3.65-5.03) L 04/23/18 16:11 Hgb 11.2 gm/dl (11.8-15.2) L 04/23/18 16:11 Hct 33.7 % (35.5-45.6) L 04/23/18 16:11 MCV 93 fl (84-94) 04/23/18 16:11 MCH 31 pg (28-32) 04/23/18 16:11 MCHC 33 % (32-34) 04/23/18 16:11 RDW 16.4 % (13.2-15.2) H 04/23/18 16:11 Plt Count 373 K/mm3 (140-440) 04/23/18 16:11 Lymph % (Auto) 11.6 % (13.4-35.0) L 04/23/18 16:11 [place] % (Auto) 7.9 % (0.0-7.3) H 04/23/18 16:11 Eos % (Auto) 1.2 % (0.0-4.3) 04/23/18 16:11 Baso % (Auto) 0.3 % (0.0-1.8) 04/23/18 16:11 Lymph # 0.8 K/mm3 (1.2-5.4) L 04/23/18 16:11 [place] # 0.5 K/mm3 (0.0-0.8) 04/23/18 16:11 Eos # 0.1 K/mm3 (0.0-0.4) 04/23/18 16:11 Baso # 0.0 K/mm3 (0.0-0.1) 04/23/18 16:11 Add Manual Diff Complete 04/20/18 05:47 Total Counted 100 04/20/18 05:47 Seg Neutrophils % 79.0 % (40.0-70.0) H 04/23/18 16:11 Seg Neuts % (Manual) 93.0 % (40.0-70.0) H 04/20/18 05:47 Band Neutrophils % 0 % 04/20/18 05:47 Lymphocytes % (Manual) 6.0 % (13.4-35.0) L 04/20/18 05:47 Reactive Lymphs % (Man) 0 % 04/20/18 05:47 Monocytes % (Manual) 1.0 % (0.0-7.3) 04/20/18 05:47 Eosinophils % (Manual) 0 % (0.0-4.3) 04/20/18 05:47 Basophils % (Manual) 0 % (0.0-1.8) 04/20/18 05:47 Metamyelocytes % 0 % 04/20/18 05:47 Myelocytes % 0 % 04/20/18 05:47 Promyelocytes % 0 % 04/20/18 05:47 Blast Cells % 0 % 04/20/18 05:47 Nucleated RBC % Not Reportable 04/20/18 05:47 Seg Neutrophils # 5.3 K/mm3 (1.8-7.7) 04/23/18 16:11 Seg Neutrophils # Man 8.3 K/mm3 (1.8-7.7) H 04/20/18 05:47 Band Neutrophils # 0.0 K/mm3 04/20/18 05:47 Lymphocytes # (Manual) 0.5 K/mm3 (1.2-5.4) L 04/20/18 05:47 Abs React Lymphs (Man) 0.0 K/mm3 04/20/18 05:47 Monocytes # (Manual) 0.1 K/mm3 (0.0-0.8) 04/20/18 05:47 Eosinophils # (Manual) 0.0 K/mm3 (0.0-0.4) 04/20/18 05:47 Basophils # (Manual) 0.0 K/mm3 (0.0-0.1) 04/20/18 05:47 Metamyelocytes # 0.0 K/mm3 04/20/18 05:47 Myelocytes # 0.0 K/mm3 04/20/18 05:47 Promyelocytes # 0.0 K/mm3 04/20/18 05:47 Blast Cells # 0.0 K/mm3 04/20/18 05:47 WBC Morphology Not Reportable 04/20/18 05:47 Hypersegmented Neuts Not Reportable 04/20/18 05:47 Hyposegmented Neuts Not Reportable 04/20/18 05:47 Hypogranular Neuts Not Reportable 04/20/18 05:47 Smudge Cells Not Reportable 04/20/18 05:47 Toxic Granulation Not Reportable 04/20/18 05:47 Toxic Vacuolation Not Reportable 04/20/18 05:47 Dohle Bodies Not Reportable 04/20/18 05:47 Pelger-Huet Anomaly Not Reportable 04/20/18 05:47 Antonio Rods Not Reportable 04/20/18 05:47 Platelet Estimate Cons 04/20/18 05:47 Clumped Platelets Not Reportable 04/20/18 05:47 Plt Clumps, EDTA Not Reportable 04/20/18 05:47 Large Platelets Not Reportable 04/20/18 05:47 Giant Platelets Not Reportable 04/20/18 05:47 Platelet Satelliting Not Reportable 04/20/18 05:47 Plt Morphology Comment Not Reportable 04/20/18 05:47 RBC Morphology Normal 04/20/18 05:47 Dimorphic RBCs Not Reportable 04/20/18 05:47 Polychromasia Not Reportable 04/20/18 05:47 Hypochromasia Not Reportable 04/20/18 05:47 Poikilocytosis Not Reportable 04/20/18 05:47 Anisocytosis Not Reportable 04/20/18 05:47 Microcytosis Not Reportable 04/20/18 05:47 Macrocytosis Not Reportable 04/20/18 05:47 Spherocytes Not Reportable 04/20/18 05:47 Pappenheimer Bodies Not Reportable 04/20/18 05:47 Sickle Cells Not Reportable 04/20/18 05:47 Target Cells Not Reportable 04/20/18 05:47 Tear Drop Cells Not Reportable 04/20/18 05:47 Ovalocytes Not Reportable 04/20/18 05:47 Helmet Cells Not Reportable 04/20/18 05:47 [place] Bodies Not Reportable 04/20/18 05:47 [place] Rings Not Reportable 04/20/18 05:47 [place] Cells Not Reportable 04/20/18 05:47 Bite Cells Not Reportable 04/20/18 05:47 Crenated Cell Not Reportable 04/20/18 05:47 Elliptocytes Not Reportable 04/20/18 05:47 Acanthocytes (Spur) Not Reportable 04/20/18 05:47 Rouleaux Not Reportable 04/20/18 05:47 Hemoglobin C Crystals Not Reportable 04/20/18 05:47 Schistocytes Not Reportable 04/20/18 05:47 Malaria parasites Not Reportable 04/20/18 05:47 Royal Bodies Not Reportable 04/20/18 05:47 Hem Pathologist Commnt No 04/20/18 05:47 PT 15.4 Sec. (12.2-14.9) H 04/21/18 08:54 INR 1.16 (0.87-1.13) H 04/21/18 08:54 POC ABG pH 7.506 (7.35-7.45) H 04/18/18 19:57 POC ABG pCO2 21.0 (35-45) L 04/18/18 19:57 POC ABG pO2 82 (80-105) 04/18/18 19:57 POC ABG HCO3 16.6 04/18/18 19:57 POC ABG Total CO2 17 04/18/18 19:57 POC ABG O2 Sat 97 04/18/18 19:57 POC ABG Base Excess -6 04/18/18 19:57 VBG pH 7.477 (7.320-7.420) H 04/18/18 18:21 FiO2 21 % 04/18/18 19:57 Sodium 136 mmol/L (137-145) L 04/27/18 05:59 Potassium 4.0 mmol/L (3.6-5.0) 04/27/18 05:59 Chloride 97.0 mmol/L (98-107) L 04/27/18 05:59 Carbon Dioxide 15 mmol/L (22-30) L 04/27/18 05:59 Anion Gap 28 mmol/L 04/27/18 05:59 BUN 102 mg/dL (9-20) H 04/27/18 05:59 Creatinine 12.2 mg/dL (0.8-1.5) H 04/27/18 05:59 Estimated GFR 4 ml/min 04/27/18 05:59 BUN/Creatinine Ratio 8 % 04/27/18 05:59 Glucose 105 mg/dL (75-100) H 04/27/18 05:59 Lactic Acid 1.10 mmol/L (0.7-2.0) 04/18/18 21:23 Calcium 8.0 mg/dL (8.4-10.2) L 04/27/18 05:59 Magnesium 2.20 mg/dL (1.7-2.3) 04/19/18 13:14 Total Bilirubin 1.00 mg/dL (0.1-1.2) 04/21/18 06:42 AST 131 units/L (5-40) H 04/21/18 06:42 ALT 81 units/L (7-56) H 04/21/18 06:42 Alkaline Phosphatase 176 units/L (35-129) H 04/21/18 06:42 Total Creatine Kinase 26 units/L (55-170) L 04/23/18 16:11 CK-MB (CK-2) 2.5 ng/mL (0.0-4.0) 04/19/18 05:20 CK-MB (CK-2) Rel Index 0.3 (0-4) 04/19/18 05:20 Troponin T 0.011 ng/mL (0.00-0.029) 04/19/18 05:20 Serum Total Protein 5.7 g/dL (6.1-8.1) L 04/19/18 13:14 Total Protein 5.7 g/dL (6.3-8.2) L D 04/21/18 06:42 Albumin 2.3 g/dL (3.9-5) L 04/21/18 06:42 Albumin/Globulin Ratio 0.7 % 04/21/18 06:42 Uahzi-3-Rujqpzsrf 0.8 g/dL (0.2-0.3) H 04/19/18 13:14 Uosgs-4-Ohjxeykmr 1.4 g/dL (0.5-0.9) H 04/19/18 13:14 Beta Globulins 0.4 g/dL (0.2-0.5) 04/19/18 13:14 Gamma Globulins 0.5 g/dL (0.8-1.7) L 04/19/18 13:14 Abnorm Protein Band 1 see below 04/19/18 13:14 PEP Interpretation see below H 04/19/18 13:14 Urine Color [place] (Yellow) 04/18/18 18:55 Urine Turbidity Clear (Clear) 04/18/18 18:55 Urine pH 5.0 (5.0-7.0) 04/18/18 18:55 Ur Specific [place] 1.015 (1.003-1.030) 04/18/18 18:55 Urine Protein 100 mg/dl mg/dL (Negative) 04/18/18 18:55 Urine Glucose (UA) 50 mg/dL (Negative) 04/18/18 18:55 Urine Ketones Neg mg/dL (Negative) 04/18/18 18:55 Urine Blood Mod (Negative) 04/18/18 18:55 Urine Nitrite Neg (Negative) 04/18/18 18:55 Urine Bilirubin Neg (Negative) 04/18/18 18:55 Urine Urobilinogen < 2.0 mg/dL (<2.0) 04/18/18 18:55 Ur Leukocyte Esterase Neg (Negative) 04/18/18 18:55 Urine WBC (Auto) 16.0 /HPF (0.0-6.0) H 04/18/18 18:55 Urine RBC (Auto) 13.0 /HPF (0.0-6.0) 04/18/18 18:55 U Epithel Cells (Auto) 2.0 /HPF (0-13.0) 04/18/18 18:55 Urine Mucus Few /HPF 04/18/18 18:55 Urine Eosinophils None seen (None Seen) 04/19/18 17:00 Urine Creatinine 119.5 mg/dL (0.1-20.0) H 04/19/18 17:00 Protein/Creatinin Ratio 0.93 04/19/18 17:00 Urine Sodium 51 mmol/L 04/19/18 17:00 Urine Total Protein 111 mg/dL (5-11.8) H 04/19/18 17:00 Random Vancomycin 15.5 ug/mL (0-40.0) 04/22/18 05:24 RICARDO Screen Negative (Negative) 04/19/18 13:14 Proteinase 3 (PR3) Ab <1.0 AI (<1.0) 04/19/18 13:14 Myeloperoxidase Ab <1.0 AI (<1.0) 04/19/18 13:14 Glomerular Base Mem IgG <1.0 AI (<1.0) 04/22/18 05:24 Complement C3 235 mg/dL (82-185) H 04/19/18 13:14 Complement C4 66 mg/dL (15-53) H 04/19/18 13:14 Hepatitis A IgM Ab Non-reactive (NonReactive) 04/19/18 13:14 Hep Bs Antigen Non-reactive (Negative) 04/19/18 13:14 Hep B Core IgM Ab Non-reactive (NonReactive) 04/19/18 13:14 Hepatitis C Antibody Non-reactive (NonReactive) 04/19/18 13:14
[2018-04-28] MEDS: SODIUM BICARBONATE PO SCH ×3 (08:37→21:48)
[2018-04-28] MEDS: ATROVENT IH SCH ×3 (09:18→20:18)
[2018-04-28] MEDS: XOPENEX IH SCH ×3 (09:19→20:18)
[2018-04-28] MEDS: LOVENOX SUB-Q SCH (09:32)
[2018-04-28] MEDS: NORVASC PO SCH (09:32)
[2018-04-28] MEDS: COREG PO SCH ×2 (09:33→21:48)
[2018-04-28] MEDS: K-DUR PO SCH (09:33)
[2018-04-28] MEDS: SODIUM CHLORIDE FLUSH SYRINGE 10 ML IV SCH ×2 (09:35→21:48)
[2018-04-28 12:00] LABS: Calcium 8.4 mg/dL (8.4-10.2)
--- NOTE | 2018-04-28 12:17 | Progress Note ---
Assessment and Plan Impression: * Nonoliguric acute kidney injury secondary to ATN due to sepsis vs rhabdo ( myoglobin deposits in tubules) --[place] kidney bx 04/21 - ATN, scattered tubules w/ myoglobin + granular casts * Sepsis * PNA * Metabolic acidosis * Transaminitis * Hypokalemia * Hyponatremia - resolved * Hypertension Plan: * Continue to hold initiation of dialysis as patient is asymptomatic. Patient w / good UOP (appx 1700mL) and electrolytes are stable. * Continue close monitoring - renal prognosis is guarded * K noted - stop daily KCL 40meq * Continue po bicarb * Strict I/O * Continue antiHTN medications * Abx per primary team * Avoid potential nephrotoxins * Encouraged po hydration * Patient is not stable for d/c from a renal standpoint Subjective Date of service: 04/28/18 Interval history: Patient has no complaints today. Objective - Vital Signs Vital signs: Vital Signs - 12hr 04/28/18 04/28/18 04/28/18 07:38 09:21 09:32 Temperature 98.7 F Pulse Rate 83 83 Pulse Rate [ 89 Anterior Bilateral Throughout] Respiratory 16 Rate Respiratory 18 Rate [Anterior Bilateral Throughout] Blood Pressure 146/91 146/91 O2 Sat by Pulse 90 98 Oximetry 04/28/18 09:33 Temperature Pulse Rate 83 Pulse Rate [ 91 H Anterior Bilateral Throughout] Respiratory Rate Respiratory 19 Rate [Anterior Bilateral Throughout] Blood Pressure 146/91 O2 Sat by Pulse Oximetry - General Appearance General appearance: well-developed, well-nourished EENT: ATNC Respiratory: Present: Clear to Ascultation Cardiology: regular, S1S2 Gastrointestinal: normal, no tenderness, no distended Integumentary: no rash, warm and dry Neurologic: no focal deficit Musculoskeletal: other (no edema) Psychiatric: cooperative - Lab 04/23/18 16:11 04/28/18 06:48 Most recent lab results Calcium 8.4 mg/dL (8.4-10.2) 04/28/18 06:48 Magnesium 2.20 mg/dL (1.7-2.3) 04/19/18 13:14 Urine Creatinine 119.5 mg/dL (0.1-20.0) H 04/19/18 17:00 Urine Sodium 51 mmol/L 04/19/18 17:00 Urine Total Protein 111 mg/dL (5-11.8) H 04/19/18 17:00
[2018-04-29 06:14] LABS: Calcium 7.9 mg/dL (8.4-10.2)
[2018-04-29] MEDS: ATROVENT IH SCH ×3 (08:19→21:41)
[2018-04-29] MEDS: XOPENEX IH SCH ×3 (08:19→21:41)
[2018-04-29] MEDS: SODIUM BICARBONATE PO SCH ×3 (09:42→22:48)
[2018-04-29] MEDS: LOVENOX SUB-Q SCH (09:42)
[2018-04-29] MEDS: COREG PO SCH ×2 (09:43→22:48)
[2018-04-29] MEDS: NORVASC PO SCH (09:43)
[2018-04-29] MEDS: SODIUM CHLORIDE FLUSH SYRINGE 10 ML IV SCH ×2 (09:45→22:48)
--- NOTE | 2018-04-29 10:29 | Progress Note ---
Assessment and Plan Impression: * Nonoliguric acute kidney injury secondary to ATN due to sepsis vs rhabdo ( myoglobin deposits in tubules) --[place] kidney bx 04/21 - ATN, scattered tubules w/ myoglobin + granular casts * Sepsis * PNA * Metabolic acidosis * Hypertension * Transaminitis - resolved * Hypokalemia - resolved * Hyponatremia - resolved Plan: * SCr/BUN trended down today; good UOP; lytes are stable; no indication for hemodialysis * Continue close monitoring - renal prognosis is guarded * Continue po bicarb * Strict I/O * Continue antiHTN medications * Avoid potential nephrotoxins * Encouraged po hydration * Patient is not stable for d/c from a renal standpoint Subjective Date of service: 04/29/18 Interval history: Son at bedside - translates. Patient denies nausea, vomiting, SOB. Reports good appetite Objective - Vital Signs Vital signs: Vital Signs - 12hr 04/29/18 07:17 Temperature 98.8 F Pulse Rate 86 Respiratory 20 Rate Blood Pressure 146/92 O2 Sat by Pulse 93 Oximetry - General Appearance General appearance: well-developed, well-nourished EENT: ATNC Respiratory: Present: Clear to Ascultation Cardiology: regular, S1S2 Gastrointestinal: normal Integumentary: no rash, warm and dry Neurologic: no focal deficit Musculoskeletal: cyanosis (edema) Psychiatric: cooperative - Lab 04/23/18 16:11 04/29/18 04:37 Most recent lab results Calcium 7.9 mg/dL (8.4-10.2) L 04/29/18 04:37 Magnesium 2.20 mg/dL (1.7-2.3) 04/19/18 13:14 Urine Creatinine 119.5 mg/dL (0.1-20.0) H 04/19/18 17:00 Urine Sodium 51 mmol/L 04/19/18 17:00 Urine Total Protein 111 mg/dL (5-11.8) H 04/19/18 17:00
--- NOTE | 2018-04-29 16:12 | Progress Note ---
Assessment and Plan Assessment and plan: / Bilateral Pneumonia, CAP has completed abx /Sepsis due to UTI and PNA has completed abx /UTI, present on admission urine cx grew Beta Hemolytic Strep Group B treated with abx /Acute Renal Failure due to ATN Nephrology following, Creatinine continued to decline, s/p renal biopsy 04/21/18 Biopsy showed pathological finding of ATN per nephrology, "Continue to hold initiation of dialysis as patient is asymptomatic. Patient w/ good UOP (appx 2L) and electrolytes are stable." /Metabolic acidosis secondary to declining renal function cont to monitor /Hypokalemia cont to replete as needed /Hyponatremia Significantly improved, continue IVF /Abnormal LFT due to alcohol abuse Abdominal ultrasound revealed fatty liver otherwise unremarkable exam HTN uncontrolled, continue to optimize meds /DVT prophalaxis, with heparin Brief History 52 year old man with no presented to the emergency department with complaints of nonproductive cough, fever, chills x 4 days. Admits to left side chest pain, unable to describe it, unable to say how long it last for, no radiation, intensity 4/10. Also admitted to generalized weakness. History Interval history: Review of systems Constitutional: No fevers, no malaise, no joint pains CVS: No chest pain, no orthopnea, no dyspnea on exertion, no pedal edema GI: No abdominal pain, no diarrhea, no vomiting, no constipation Respiratory: No shortness of breath, no wheezing, no coughing Hospitalist Physical - Physical exam Narrative exam: General.: Appears well, no distress, nontoxic HEENT: Moist mucous membranes, extraocular muscles intact, no lymphadenopathy Neck: supple Cardiac: S1-S2 heard Lungs: clear to auscultation bilaterally Abdomen: soft , nontender, nondistended, bowel sounds positive Extremities: no edema clubbing or cyanosis Skin: no rash or lesions Neurologic: no gross focal deficits Psych: appropriate behavior, appropriate mood, corporative, judgment intact - Constitutional Vitals: Temp Pulse Resp BP Pulse Ox 98.8 F 86 20 146/92 93 04/29/18 07:17 04/29/18 07:17 04/29/18 07:17 04/29/18 07:17 04/29/18 07:17 Results - Labs CBC & Chem 7: 04/23/18 16:11 05/04/18 05:41 Labs: Laboratory Last Values WBC 6.7 K/mm3 (4.5-11.0) 04/23/18 16:11 RBC 3.63 M/mm3 (3.65-5.03) L 04/23/18 16:11 Hgb 11.2 gm/dl (11.8-15.2) L 04/23/18 16:11 Hct 33.7 % (35.5-45.6) L 04/23/18 16:11 MCV 93 fl (84-94) 04/23/18 16:11 MCH 31 pg (28-32) 04/23/18 16:11 MCHC 33 % (32-34) 04/23/18 16:11 RDW 16.4 % (13.2-15.2) H 04/23/18 16:11 Plt Count 373 K/mm3 (140-440) 04/23/18 16:11 Lymph % (Auto) 11.6 % (13.4-35.0) L 04/23/18 16:11 [place] % (Auto) 7.9 % (0.0-7.3) H 04/23/18 16:11 Eos % (Auto) 1.2 % (0.0-4.3) 04/23/18 16:11 Baso % (Auto) 0.3 % (0.0-1.8) 04/23/18 16:11 Lymph # 0.8 K/mm3 (1.2-5.4) L 04/23/18 16:11 [place] # 0.5 K/mm3 (0.0-0.8) 04/23/18 16:11 Eos # 0.1 K/mm3 (0.0-0.4) 04/23/18 16:11 Baso # 0.0 K/mm3 (0.0-0.1) 04/23/18 16:11 Add Manual Diff Complete 04/20/18 05:47 Total Counted 100 04/20/18 05:47 Seg Neutrophils % 79.0 % (40.0-70.0) H 04/23/18 16:11 Seg Neuts % (Manual) 93.0 % (40.0-70.0) H 04/20/18 05:47 Band Neutrophils % 0 % 04/20/18 05:47 Lymphocytes % (Manual) 6.0 % (13.4-35.0) L 04/20/18 05:47 Reactive Lymphs % (Man) 0 % 04/20/18 05:47 Monocytes % (Manual) 1.0 % (0.0-7.3) 04/20/18 05:47 Eosinophils % (Manual) 0 % (0.0-4.3) 04/20/18 05:47 Basophils % (Manual) 0 % (0.0-1.8) 04/20/18 05:47 Metamyelocytes % 0 % 04/20/18 05:47 Myelocytes % 0 % 04/20/18 05:47 Promyelocytes % 0 % 04/20/18 05:47 Blast Cells % 0 % 04/20/18 05:47 Nucleated RBC % Not Reportable 04/20/18 05:47 Seg Neutrophils # 5.3 K/mm3 (1.8-7.7) 04/23/18 16:11 Seg Neutrophils # Man 8.3 K/mm3 (1.8-7.7) H 04/20/18 05:47 Band Neutrophils # 0.0 K/mm3 04/20/18 05:47 Lymphocytes # (Manual) 0.5 K/mm3 (1.2-5.4) L 04/20/18 05:47 Abs React Lymphs (Man) 0.0 K/mm3 04/20/18 05:47 Monocytes # (Manual) 0.1 K/mm3 (0.0-0.8) 04/20/18 05:47 Eosinophils # (Manual) 0.0 K/mm3 (0.0-0.4) 04/20/18 05:47 Basophils # (Manual) 0.0 K/mm3 (0.0-0.1) 04/20/18 05:47 Metamyelocytes # 0.0 K/mm3 04/20/18 05:47 Myelocytes # 0.0 K/mm3 04/20/18 05:47 Promyelocytes # 0.0 K/mm3 04/20/18 05:47 Blast Cells # 0.0 K/mm3 04/20/18 05:47 WBC Morphology Not Reportable 04/20/18 05:47 Hypersegmented Neuts Not Reportable 04/20/18 05:47 Hyposegmented Neuts Not Reportable 04/20/18 05:47 Hypogranular Neuts Not Reportable 04/20/18 05:47 Smudge Cells Not Reportable 04/20/18 05:47 Toxic Granulation Not Reportable 04/20/18 05:47 Toxic Vacuolation Not Reportable 04/20/18 05:47 [place]ohle Bodies Not Reportable 04/20/18 05:47 [place]-Huet Anomaly Not Reportable 04/20/18 05:47 Antonio Rods Not Reportable 04/20/18 05:47 Platelet Estimate Cons 04/20/18 05:47 Clumped Platelets Not Reportable 04/20/18 05:47 Plt Clumps, EDTA Not Reportable 04/20/18 05:47 Large Platelets Not Reportable 04/20/18 05:47 Giant Platelets Not Reportable 04/20/18 05:47 Platelet Satelliting Not Reportable 04/20/18 05:47 Plt Morphology Comment Not Reportable 04/20/18 05:47 RBC Morphology Normal 04/20/18 05:47 Dimorphic RBCs Not Reportable 04/20/18 05:47 Polychromasia Not Reportable 04/20/18 05:47 Hypochromasia Not Reportable 04/20/18 05:47 Poikilocytosis Not Reportable 04/20/18 05:47 Anisocytosis Not Reportable 04/20/18 05:47 Microcytosis Not Reportable 04/20/18 05:47 Macrocytosis Not Reportable 04/20/18 05:47 Spherocytes Not Reportable 04/20/18 05:47 Pappenheimer Bodies Not Reportable 04/20/18 05:47 Sickle Cells Not Reportable 04/20/18 05:47 Target Cells Not Reportable 04/20/18 05:47 Tear Drop Cells Not Reportable 04/20/18 05:47 Ovalocytes Not Reportable 04/20/18 05:47 Helmet Cells Not Reportable 04/20/18 05:47 [place] Bodies Not Reportable 04/20/18 05:47 [place] Rings Not Reportable 04/20/18 05:47 [place] Cells Not Reportable 04/20/18 05:47 Bite Cells Not Reportable 04/20/18 05:47 Crenated Cell Not Reportable 04/20/18 05:47 Elliptocytes Not Reportable 04/20/18 05:47 Acanthocytes (Spur) Not Reportable 04/20/18 05:47 Rouleaux Not Reportable 04/20/18 05:47 Hemoglobin C Crystals Not Reportable 04/20/18 05:47 Schistocytes Not Reportable 04/20/18 05:47 [place] parasites Not Reportable 04/20/18 05:47 [place] Bodies Not Reportable 04/20/18 05:47 Hem Pathologist Commnt No 04/20/18 05:47 PT 15.4 Sec. (12.2-14.9) H 04/21/18 08:54 INR 1.16 (0.87-1.13) H 04/21/18 08:54 POC ABG pH 7.506 (7.35-7.45) H 04/18/18 19:57 POC ABG pCO2 21.0 (35-45) L 04/18/18 19:57 POC ABG pO2 82 (80-105) 04/18/18 19:57 POC ABG HCO3 16.6 04/18/18 19:57 POC ABG Total CO2 17 04/18/18 19:57 POC ABG O2 Sat 97 04/18/18 19:57 POC ABG Base Excess -6 04/18/18 19:57 VBG pH 7.477 (7.320-7.420) H 04/18/18 18:21 FiO2 21 % 04/18/18 19:57 Sodium 139 mmol/L (137-145) 04/29/18 04:37 Potassium 4.6 mmol/L (3.6-5.0) 04/29/18 04:37 Chloride 99.3 mmol/L (98-107) 04/29/18 04:37 Carbon Dioxide 17 mmol/L (22-30) L 04/29/18 04:37 Anion Gap 27 mmol/L 04/29/18 04:37 BUN 98 mg/dL (9-20) H 04/29/18 04:37 Creatinine 12.4 mg/dL (0.8-1.5) H 04/29/18 04:37 Estimated GFR 4 ml/min 04/29/18 04:37 BUN/Creatinine Ratio 8 % 04/29/18 04:37 Glucose 106 mg/dL (75-100) H 04/29/18 04:37 Lactic Acid 1.10 mmol/L (0.7-2.0) 04/18/18 21:23 Calcium 7.9 mg/dL (8.4-10.2) L 04/29/18 04:37 Magnesium 2.20 mg/dL (1.7-2.3) 04/19/18 13:14 Total Bilirubin 1.00 mg/dL (0.1-1.2) 04/21/18 06:42 AST 131 units/L (5-40) H 04/21/18 06:42 ALT 81 units/L (7-56) H 04/21/18 06:42 Alkaline Phosphatase 176 units/L (35-129) H 04/21/18 06:42 Total Creatine Kinase 26 units/L (55-170) L 04/23/18 16:11 CK-MB (CK-2) 2.5 ng/mL (0.0-4.0) 04/19/18 05:20 CK-MB (CK-2) Rel Index 0.3 (0-4) 04/19/18 05:20 Troponin T 0.011 ng/mL (0.00-0.029) 04/19/18 05:20 Serum Total Protein 5.7 g/dL (6.1-8.1) L 04/19/18 13:14 Total Protein 5.7 g/dL (6.3-8.2) L D 04/21/18 06:42 Albumin 2.3 g/dL (3.9-5) L 04/21/18 06:42 Albumin/Globulin Ratio 0.7 % 04/21/18 06:42 [place]-2-Pluqenbgz 0.8 g/dL (0.2-0.3) H 04/19/18 13:14 Mkdpd-8-Jldvxmfyk 1.4 g/dL (0.5-0.9) H 04/19/18 13:14 Beta Globulins 0.4 g/dL (0.2-0.5) 04/19/18 13:14 Gamma Globulins 0.5 g/dL (0.8-1.7) L 04/19/18 13:14 Abnorm Protein Band 1 see below 04/19/18 13:14 PEP Interpretation see below H 04/19/18 13:14 Urine Color R[place] (Yellow) 04/18/18 18:55 Urine Turbidity Clear (Clear) 06/10/18 18:55 Urine pH 5.0 (5.0-7.0) 04/18/18 18:55 Ur Specific [place] 1.015 (1.003-1.030) 04/18/18 18:55 Urine Protein 100 mg/dl mg/dL (Negative) 04/18/18 18:55 Urine Glucose (UA) 50 mg/dL (Negative) 04/18/18 18:55 Urine Ketones Neg mg/dL (Negative) 04/18/18 18:55 Urine Blood Mod (Negative) 04/18/18 18:55 Urine Nitrite Neg (Negative) 04/18/18 18:55 Urine Bilirubin Neg (Negative) 04/18/18 18:55 Urine Urobilinogen < 2.0 mg/dL (<2.0) 04/18/18 18:55 Ur Leukocyte Esterase Neg (Negative) 04/18/18 18:55 Urine WBC (Auto) 16.0 /HPF (0.0-6.0) H 04/18/18 18:55 Urine RBC (Auto) 13.0 /HPF (0.0-6.0) 04/18/18 18:55 U Epithel Cells (Auto) 2.0 /HPF (0-13.0) 04/18/18 18:55 Urine Mucus Few /HPF 04/18/18 18:55 Urine Eosinophils None seen (None Seen) 04/19/18 17:00 Urine Creatinine 119.5 mg/dL (0.1-20.0) H 04/19/18 17:00 Protein/Creatinin Ratio 0.93 04/19/18 17:00 Urine Sodium 51 mmol/L 04/19/18 17:00 Urine Total Protein 111 mg/dL (5-11.8) H 04/19/18 17:00 Random Vancomycin 15.5 ug/mL (0-40.0) 04/22/18 05:24 RICARDO Screen Negative (Negative) 04/19/18 13:14 Proteinase 3 (PR3) Ab <1.0 AI (<1.0) 04/19/18 13:14 Myeloperoxidase Ab <1.0 AI (<1.0) 04/19/18 13:14 Glomerular Base Mem IgG <1.0 AI (<1.0) 04/22/18 05:24 Complement C3 235 mg/dL (82-185) H 04/19/18 13:14 Complement C4 66 mg/dL (15-53) H 04/19/18 13:14 Hepatitis A IgM Ab Non-reactive (NonReactive) 04/19/18 13:14 Hep Bs Antigen Non-reactive (Negative) 04/19/18 13:14 Hep B Core IgM Ab Non-reactive (NonReactive) 04/19/18 13:14 Hepatitis C Antibody Non-reactive (NonReactive) 04/19/18 13:14
[2018-04-30 06:12] LABS: Calcium 7.7 mg/dL (8.4-10.2)
[2018-04-30] MEDS: SODIUM BICARBONATE PO SCH ×3 (08:02→21:21)
[2018-04-30] MEDS: XOPENEX IH SCH ×3 (09:18→19:55)
[2018-04-30] MEDS: ATROVENT IH SCH ×3 (09:19→19:55)
[2018-04-30] MEDS: COREG PO SCH ×2 (10:02→21:21)
[2018-04-30] MEDS: LOVENOX SUB-Q SCH (10:03)
[2018-04-30] MEDS: NORVASC PO SCH (10:03)
[2018-04-30] MEDS: SODIUM CHLORIDE FLUSH SYRINGE 10 ML IV SCH ×2 (10:03→21:21)
[2018-04-30] MEDS: PERCOCET 5/325 PO PRN (10:08)
--- NOTE | 2018-04-30 12:07 | Progress Note ---
Assessment and Plan Impression: * Nonoliguric acute kidney injury secondary to ATN due to sepsis vs rhabdo ( myoglobin deposits in tubules) --[place] kidney bx 04/21 - ATN, scattered tubules w/ myoglobin + granular casts * Sepsis * uremia * PNA * Metabolic acidosis * Hypertension * Transaminitis - resolved * Hypokalemia - resolved * Hyponatremia - resolved Plan: * patient is not improving, will need CLIN NURSE by thursday if no improvement over * may have to start hd and present to ed periodically if needs to continue * Continue po bicarb * Strict I/O * Continue antiHTN medications * Avoid potential nephrotoxins * Encouraged po hydration * Patient is not stable for d/c from a renal standpoint Subjective Date of service: 04/30/18 Principal diagnosis: esrd Interval history: resting well in bed today Objective - Exam Narrative Exam: General appearance: well-developed, well-nourished EENT: ATNC Respiratory: Present: Clear to Ascultation Cardiology: regular, S1S2 Gastrointestinal: normal Integumentary: no rash, warm and dry Neurologic: no focal deficit Musculoskeletal: cyanosis (edema) Psychiatric: cooperative - Vital Signs Vital signs: Vital Signs - 12hr 04/30/18 04/30/18 04/30/18 07:31 10:02 10:03 Temperature 98.6 F Pulse Rate 99 H Respiratory 20 Rate Blood Pressure 137/85 137/85 Blood Pressure 135/87 [Right] O2 Sat by Pulse 96 Oximetry - Lab 04/23/18 16:11 04/30/18 03:57 Most recent lab results Calcium 7.7 mg/dL (8.4-10.2) L 04/30/18 03:57 Magnesium 2.20 mg/dL (1.7-2.3) 04/19/18 13:14 Urine Creatinine 119.5 mg/dL (0.1-20.0) H 04/19/18 17:00 Urine Sodium 51 mmol/L 04/19/18 17:00 Urine Total Protein 111 mg/dL (5-11.8) H 04/19/18 17:00
--- NOTE | 2018-04-30 14:45 | Progress Note ---
Assessment and Plan Assessment and plan: / Bilateral Pneumonia, CAP has completed abx /Sepsis due to UTI and PNA has completed abx /UTI, present on admission urine cx grew Beta Hemolytic Strep Group B treated with abx /Acute Renal Failure due to ATN Nephrology following, Creatinine continued to decline, s/p renal biopsy 04/21/18 Biopsy showed pathological finding of ATN per nephrology, "Continue to hold initiation of dialysis as patient is asymptomatic. Patient w/ good UOP (appx 2L) and electrolytes are stable." /Metabolic acidosis secondary to declining renal function cont to monitor /Hypokalemia cont to replete as needed /Hyponatremia Significantly improved, continue IVF /Abnormal LFT due to alcohol abuse Abdominal ultrasound revealed fatty liver otherwise unremarkable exam HTN uncontrolled, continue to optimize meds /DVT prophalaxis, with heparin Brief History 52 year old man with no presented to the emergency department with complaints of nonproductive cough, fever, chills x 4 days. Admits to left side chest pain, unable to describe it, unable to say how long it last for, no radiation, intensity 4/10. Also admitted to generalized weakness. History Interval history: Review of systems Constitutional: No fevers, no malaise, no joint pains CVS: No chest pain, no orthopnea, no dyspnea on exertion, no pedal edema GI: No abdominal pain, no diarrhea, no vomiting, no constipation Respiratory: No shortness of breath, no wheezing, no coughing Hospitalist Physical - Physical exam Narrative exam: General.: Appears well, no distress, nontoxic HEENT: Moist mucous membranes, extraocular muscles intact, no lymphadenopathy Neck: supple Cardiac: S1-S2 heard Lungs: clear to auscultation bilaterally Abdomen: soft , nontender, nondistended, bowel sounds positive Extremities: no edema clubbing or cyanosis Skin: no rash or lesions Neurologic: no gross focal deficits Psych: appropriate behavior, appropriate mood, corporative, judgment intact - Constitutional Vitals: Temp Pulse Resp BP Pulse Ox 98.6 F 99 H 20 137/85 96 04/30/18 07:31 04/30/18 07:31 04/30/18 07:31 04/30/18 10:03 04/30/18 07:31 Results - Labs CBC & Chem 7: 04/23/18 16:11 05/04/18 05:41 Labs: Laboratory Last Values WBC 6.7 K/mm3 (4.5-11.0) 04/23/18 16:11 RBC 3.63 M/mm3 (3.65-5.03) L 04/23/18 16:11 Hgb 11.2 gm/dl (11.8-15.2) L 04/23/18 16:11 Hct 33.7 % (35.5-45.6) L 04/23/18 16:11 MCV 93 fl (84-94) 04/23/18 16:11 MCH 31 pg (28-32) 04/23/18 16:11 MCHC 33 % (32-34) 04/23/18 16:11 RDW 16.4 % (13.2-15.2) H 04/23/18 16:11 Plt Count 373 K/mm3 (140-440) 04/23/18 16:11 Lymph % (Auto) 11.6 % (13.4-35.0) L 04/23/18 16:11 [place] % (Auto) 7.9 % (0.0-7.3) H 04/23/18 16:11 Eos % (Auto) 1.2 % (0.0-4.3) 04/23/18 16:11 Baso % (Auto) 0.3 % (0.0-1.8) 04/23/18 16:11 Lymph # 0.8 K/mm3 (1.2-5.4) L 04/23/18 16:11 [place] # 0.5 K/mm3 (0.0-0.8) 04/23/18 16:11 Eos # 0.1 K/mm3 (0.0-0.4) 04/23/18 16:11 Baso # 0.0 K/mm3 (0.0-0.1) 04/23/18 16:11 Add Manual Diff Complete 04/20/18 05:47 Total Counted 100 04/20/18 05:47 Seg Neutrophils % 79.0 % (40.0-70.0) H 04/23/18 16:11 Seg Neuts % (Manual) 93.0 % (40.0-70.0) H 04/20/18 05:47 Band Neutrophils % 0 % 04/20/18 05:47 Lymphocytes % (Manual) 6.0 % (13.4-35.0) L 04/20/18 05:47 Reactive Lymphs % (Man) 0 % 04/20/18 05:47 Monocytes % (Manual) 1.0 % (0.0-7.3) 04/20/18 05:47 Eosinophils % (Manual) 0 % (0.0-4.3) 04/20/18 05:47 Basophils % (Manual) 0 % (0.0-1.8) 04/20/18 05:47 Metamyelocytes % 0 % 04/20/18 05:47 Myelocytes % 0 % 04/20/18 05:47 Promyelocytes % 0 % 04/20/18 05:47 Blast Cells % 0 % 04/20/18 05:47 Nucleated RBC % Not Reportable 04/20/18 05:47 Seg Neutrophils # 5.3 K/mm3 (1.8-7.7) 04/23/18 16:11 Seg Neutrophils # Man 8.3 K/mm3 (1.8-7.7) H 04/20/18 05:47 Band Neutrophils # 0.0 K/mm3 04/20/18 05:47 Lymphocytes # (Manual) 0.5 K/mm3 (1.2-5.4) L 04/20/18 05:47 Abs React Lymphs (Man) 0.0 K/mm3 04/20/18 05:47 Monocytes # (Manual) 0.1 K/mm3 (0.0-0.8) 04/20/18 05:47 Eosinophils # (Manual) 0.0 K/mm3 (0.0-0.4) 04/20/18 05:47 Basophils # (Manual) 0.0 K/mm3 (0.0-0.1) 04/20/18 05:47 Metamyelocytes # 0.0 K/mm3 04/20/18 05:47 Myelocytes # 0.0 K/mm3 04/20/18 05:47 Promyelocytes # 0.0 K/mm3 04/20/18 05:47 Blast Cells # 0.0 K/mm3 04/20/18 05:47 WBC Morphology Not Reportable 04/20/18 05:47 Hypersegmented Neuts Not Reportable 04/20/18 05:47 Hyposegmented Neuts Not Reportable 04/20/18 05:47 Hypogranular Neuts Not Reportable 04/20/18 05:47 Smudge Cells Not Reportable 04/20/18 05:47 Toxic Granulation Not Reportable 04/20/18 05:47 Toxic Vacuolation Not Reportable 04/20/18 05:47 Dohle Bodies Not Reportable 04/20/18 05:47 Pelger-Huet Anomaly Not Reportable 04/20/18 05:47 Antonio Rods Not Reportable 04/20/18 05:47 Platelet Estimate Cons 04/20/18 05:47 Clumped Platelets Not Reportable 04/20/18 05:47 Plt Clumps, EDTA Not Reportable 04/20/18 05:47 Large Platelets Not Reportable 04/20/18 05:47 Giant Platelets Not Reportable 04/20/18 05:47 Platelet Satelliting Not Reportable 04/20/18 05:47 Plt Morphology Comment Not Reportable 04/20/18 05:47 RBC Morphology Normal 04/20/18 05:47 Dimorphic RBCs Not Reportable 04/20/18 05:47 Polychromasia Not Reportable 04/20/18 05:47 Hypochromasia Not Reportable 04/20/18 05:47 Poikilocytosis Not Reportable 04/20/18 05:47 Anisocytosis Not Reportable 04/20/18 05:47 Microcytosis Not Reportable 04/20/18 05:47 Macrocytosis Not Reportable 04/20/18 05:47 Spherocytes Not Reportable 04/20/18 05:47 Pappenheimer Bodies Not Reportable 04/20/18 05:47 Sickle Cells Not Reportable 04/20/18 05:47 Target Cells Not Reportable 04/20/18 05:47 Tear Drop Cells Not Reportable 04/20/18 05:47 Ovalocytes Not Reportable 04/20/18 05:47 Helmet Cells Not Reportable 04/20/18 05:47 [place] Bodies Not Reportable 04/20/18 05:47 [place] Rings Not Reportable 04/20/18 05:47 [place] Cells Not Reportable 04/20/18 05:47 Bite Cells Not Reportable 04/20/18 05:47 Crenated Cell Not Reportable 04/20/18 05:47 Elliptocytes Not Reportable 04/20/18 05:47 Acanthocytes (Spur) Not Reportable 04/20/18 05:47 Rouleaux Not Reportable 04/20/18 05:47 Hemoglobin C Crystals Not Reportable 04/20/18 05:47 Schistocytes Not Reportable 04/20/18 05:47 Malaria parasites Not Reportable 04/20/18 05:47 Royal Bodies Not Reportable 04/20/18 05:47 Hem Pathologist Commnt No 04/20/18 05:47 PT 15.4 Sec. (12.2-14.9) H 04/21/18 08:54 INR 1.16 (0.87-1.13) H 04/21/18 08:54 POC ABG pH 7.506 (7.35-7.45) H 04/18/18 19:57 POC ABG pCO2 21.0 (35-45) L 04/18/18 19:57 POC ABG pO2 82 (80-105) 04/18/18 19:57 POC ABG HCO3 16.6 04/18/18 19:57 POC ABG Total CO2 17 04/18/18 19:57 POC ABG O2 Sat 97 04/18/18 19:57 POC ABG Base Excess -6 04/18/18 19:57 VBG pH 7.477 (7.320-7.420) H 04/18/18 18:21 FiO2 21 % 04/18/18 19:57 Sodium 137 mmol/L (137-145) 04/30/18 03:57 Potassium 4.5 mmol/L (3.6-5.0) 04/30/18 03:57 Chloride 95.7 mmol/L (98-107) L 04/30/18 03:57 Carbon Dioxide 17 mmol/L (22-30) L 04/30/18 03:57 Anion Gap 29 mmol/L 04/30/18 03:57 BUN 97 mg/dL (9-20) H 04/30/18 03:57 Creatinine 12.7 mg/dL (0.8-1.5) H 04/30/18 03:57 Estimated GFR 4 ml/min 04/30/18 03:57 BUN/Creatinine Ratio 8 % 04/30/18 03:57 Glucose 129 mg/dL (75-100) H 04/30/18 03:57 Lactic Acid 1.10 mmol/L (0.7-2.0) 04/18/18 21:23 Calcium 7.7 mg/dL (8.4-10.2) L 04/30/18 03:57 Magnesium 2.20 mg/dL (1.7-2.3) 04/19/18 13:14 Total Bilirubin 1.00 mg/dL (0.1-1.2) 04/21/18 06:42 AST 131 units/L (5-40) H 04/21/18 06:42 ALT 81 units/L (7-56) H 04/21/18 06:42 Alkaline Phosphatase 176 units/L (35-129) H 04/21/18 06:42 Total Creatine Kinase 26 units/L (55-170) L 04/23/18 16:11 CK-MB (CK-2) 2.5 ng/mL (0.0-4.0) 04/19/18 05:20 CK-MB (CK-2) Rel Index 0.3 (0-4) 04/19/18 05:20 Troponin T 0.011 ng/mL (0.00-0.029) 04/19/18 05:20 Serum Total Protein 5.7 g/dL (6.1-8.1) L 04/19/18 13:14 Total Protein 5.7 g/dL (6.3-8.2) L D 04/21/18 06:42 Albumin 2.3 g/dL (3.9-5) L 04/21/18 06:42 Albumin/Globulin Ratio 0.7 % 04/21/18 06:42 Umsud-2-Texabygzt 0.8 g/dL (0.2-0.3) H 04/19/18 13:14 Spnum-7-Fnkcypoek 1.4 g/dL (0.5-0.9) H 04/19/18 13:14 Beta Globulins 0.4 g/dL (0.2-0.5) 04/19/18 13:14 Gamma Globulins 0.5 g/dL (0.8-1.7) L 04/19/18 13:14 Abnorm Protein Band 1 see below 04/19/18 13:14 PEP Interpretation see below H 04/19/18 13:14 Urine Color [place] (Yellow) 04/18/18 18:55 Urine Turbidity Clear (Clear) 04/18/18 18:55 Urine pH 5.0 (5.0-7.0) 04/18/18 18:55 Ur Specific [place] 1.015 (1.003-1.030) 04/18/18 18:55 Urine Protein 100 mg/dl mg/dL (Negative) 04/18/18 18:55 Urine Glucose (UA) 50 mg/dL (Negative) 04/18/18 18:55 Urine Ketones Neg mg/dL (Negative) 04/18/18 18:55 Urine Blood Mod (Negative) 04/18/18 18:55 Urine Nitrite Neg (Negative) 04/18/18 18:55 Urine Bilirubin Neg (Negative) 04/18/18 18:55 Urine Urobilinogen < 2.0 mg/dL (<2.0) 04/18/18 18:55 Ur Leukocyte Esterase Neg (Negative) 04/18/18 18:55 Urine WBC (Auto) 16.0 /HPF (0.0-6.0) H 04/18/18 18:55 Urine RBC (Auto) 13.0 /HPF (0.0-6.0) 04/18/18 18:55 U Epithel Cells (Auto) 2.0 /HPF (0-13.0) 04/18/18 18:55 Urine Mucus Few /HPF 04/18/18 18:55 Urine Eosinophils None seen (None Seen) 04/19/18 17:00 Urine Creatinine 119.5 mg/dL (0.1-20.0) H 04/19/18 17:00 Protein/Creatinin Ratio 0.93 04/19/18 17:00 Urine Sodium 51 mmol/L 04/19/18 17:00 Urine Total Protein 111 mg/dL (5-11.8) H 04/19/18 17:00 Random Vancomycin 15.5 ug/mL (0-40.0) 04/22/18 05:24 RICARDO Screen Negative (Negative) 04/19/18 13:14 Proteinase 3 (PR3) Ab <1.0 AI (<1.0) 04/19/18 13:14 Myeloperoxidase Ab <1.0 AI (<1.0) 04/19/18 13:14 Glomerular Base Mem IgG <1.0 AI (<1.0) 04/22/18 05:24 Complement C3 235 mg/dL (82-185) H 04/19/18 13:14 Complement C4 66 mg/dL (15-53) H 04/19/18 13:14 Hepatitis A IgM Ab Non-reactive (NonReactive) 04/19/18 13:14 Hep Bs Antigen Non-reactive (Negative) 04/19/18 13:14 Hep B Core IgM Ab Non-reactive (NonReactive) 04/19/18 13:14 Hepatitis C Antibody Non-reactive (NonReactive) 04/19/18 13:14 Anti-Streptolysin O Ab See scanned results 04/22/18 05:24
[2018-05-01] MEDS: ATROVENT IH SCH ×3 (07:44→20:36)
[2018-05-01] MEDS: XOPENEX IH SCH ×3 (07:44→20:36)
[2018-05-01 08:31] LABS: Calcium 7.8 mg/dL (8.4-10.2)
[2018-05-01] MEDS: SODIUM BICARBONATE PO SCH ×3 (08:38→19:55)
[2018-05-01] MEDS: NORVASC PO SCH (09:52)
[2018-05-01] MEDS: COREG PO SCH ×2 (09:52→22:39)
[2018-05-01] MEDS: LOVENOX SUB-Q SCH (09:52)
[2018-05-01] MEDS: SODIUM CHLORIDE FLUSH SYRINGE 10 ML IV SCH ×2 (09:53→22:44)
--- NOTE | 2018-05-01 11:25 | Progress Note ---
Assessment and Plan Impression: * Nonoliguric acute kidney injury secondary to ATN due to sepsis vs rhabdo ( myoglobin deposits in tubules) --[place] kidney bx 04/21 - ATN, scattered tubules w/ myoglobin + granular casts * Sepsis * uremia * PNA * Metabolic acidosis * Hypertension * Transaminitis - resolved * Hypokalemia - resolved * Hyponatremia - resolved Plan: * patient is not improving, will need [employer] by thursday if no improvement over * may have to start hd and present to ed periodically if needs to continue * Continue po bicarb * Strict I/O * Continue antiHTN medications * Avoid potential nephrotoxins * Encouraged po hydration * Patient is not stable for d/c from a renal standpoint Subjective Date of service: 05/01/18 Principal diagnosis: esrd Interval history: resting well in bed today Objective - Exam Narrative Exam: General appearance: well-developed, well-nourished EENT: ATNC Respiratory: Present: Clear to Ascultation Cardiology: regular, S1S2 Gastrointestinal: normal Integumentary: no rash, warm and dry Neurologic: no focal deficit Musculoskeletal: cyanosis (edema) Psychiatric: cooperative - Vital Signs Vital signs: Vital Signs - 12hr 05/01/18 05/01/18 05/01/18 00:35 07:30 07:40 Temperature 99.1 F Pulse Rate 94 H Pulse Rate [ 92 H 93 H Anterior Bilateral Throughout] Respiratory 20 Rate Respiratory 18 18 Rate [Anterior Bilateral Throughout] Blood Pressure 126/87 O2 Sat by Pulse 94 Oximetry 05/01/18 05/01/18 08:03 09:52 Temperature 98.2 F Pulse Rate 92 H Pulse Rate [ Anterior Bilateral Throughout] Respiratory 18 Rate Respiratory Rate [Anterior Bilateral Throughout] Blood Pressure 138/92 138/92 O2 Sat by Pulse 94 Oximetry - Lab 04/23/18 16:11 05/01/18 05:45 Most recent lab results Calcium 7.8 mg/dL (8.4-10.2) L 05/01/18 05:45 Magnesium 2.20 mg/dL (1.7-2.3) 04/19/18 13:14 Urine Creatinine 119.5 mg/dL (0.1-20.0) H 04/19/18 17:00 Urine Sodium 51 mmol/L 04/19/18 17:00 Urine Total Protein 111 mg/dL (5-11.8) H 04/19/18 17:00
--- NOTE | 2018-05-01 12:45 | Progress Note ---
Assessment and Plan Assessment and plan: / Bilateral Pneumonia, CAP has completed abx /Sepsis due to UTI and PNA has completed abx /UTI, present on admission urine cx grew Beta Hemolytic Strep Group B treated with abx /Acute Renal Failure due to ATN Nephrology following, Creatinine continued to decline, s/p renal biopsy 04/21/18 Biopsy showed pathological finding of ATN per nephrology, "Continue to hold initiation of dialysis as patient is asymptomatic. Patient w/ good UOP (appx 2L) and electrolytes are stable." /Metabolic acidosis secondary to declining renal function cont to monitor /Hypokalemia cont to replete as needed /Hyponatremia Significantly improved, continue IVF /Abnormal LFT due to alcohol abuse Abdominal ultrasound revealed fatty liver otherwise unremarkable exam HTN uncontrolled, continue to optimize meds /DVT prophalaxis, with heparin Brief History 52 year old man with no presented to the emergency department with complaints of nonproductive cough, fever, chills x 4 days. Admits to left side chest pain, unable to describe it, unable to say how long it last for, no radiation, intensity 4/10. Also admitted to generalized weakness. History Interval history: Review of systems Constitutional: No fevers, no malaise, no joint pains CVS: No chest pain, no orthopnea, no dyspnea on exertion, no pedal edema GI: No abdominal pain, no diarrhea, no vomiting, no constipation Respiratory: No shortness of breath, no wheezing, no coughing Hospitalist Physical - Physical exam Narrative exam: General.: Appears well, no distress, nontoxic HEENT: Moist mucous membranes, extraocular muscles intact, no lymphadenopathy Neck: supple Cardiac: S1-S2 heard Lungs: clear to auscultation bilaterally Abdomen: soft , nontender, nondistended, bowel sounds positive Extremities: no edema clubbing or cyanosis Skin: no rash or lesions Neurologic: no gross focal deficits Psych: appropriate behavior, appropriate mood, corporative, judgment intact - Constitutional Vitals: Temp Pulse Resp BP Pulse Ox 98.2 F 92 H 18 138/92 94 05/01/18 08:03 05/01/18 08:03 05/01/18 08:03 05/01/18 09:52 05/01/18 08:03 Results - Labs CBC & Chem 7: 04/23/18 16:11 05/04/18 05:41 Labs: Laboratory Last Values WBC 6.7 K/mm3 (4.5-11.0) 04/23/18 16:11 RBC 3.63 M/mm3 (3.65-5.03) L 04/23/18 16:11 Hgb 11.2 gm/dl (11.8-15.2) L 04/23/18 16:11 Hct 33.7 % (35.5-45.6) L 04/23/18 16:11 MCV 93 fl (84-94) 04/23/18 16:11 MCH 31 pg (28-32) 04/23/18 16:11 MCHC 33 % (32-34) 04/23/18 16:11 RDW 16.4 % (13.2-15.2) H 04/23/18 16:11 Plt Count 373 K/mm3 (140-440) 04/23/18 16:11 Lymph % (Auto) 11.6 % (13.4-35.0) L 04/23/18 16:11 [place] % (Auto) 7.9 % (0.0-7.3) H 04/23/18 16:11 Eos % (Auto) 1.2 % (0.0-4.3) 04/23/18 16:11 Baso % (Auto) 0.3 % (0.0-1.8) 04/23/18 16:11 Lymph # 0.8 K/mm3 (1.2-5.4) L 04/23/18 16:11 [place] # 0.5 K/mm3 (0.0-0.8) 04/23/18 16:11 Eos # 0.1 K/mm3 (0.0-0.4) 04/23/18 16:11 Baso # 0.0 K/mm3 (0.0-0.1) 04/23/18 16:11 Add Manual Diff Complete 04/20/18 05:47 Total Counted 100 04/20/18 05:47 Seg Neutrophils % 79.0 % (40.0-70.0) H 04/23/18 16:11 Seg Neuts % (Manual) 93.0 % (40.0-70.0) H 04/20/18 05:47 Band Neutrophils % 0 % 04/20/18 05:47 Lymphocytes % (Manual) 6.0 % (13.4-35.0) L 04/20/18 05:47 Reactive Lymphs % (Man) 0 % 04/20/18 05:47 Monocytes % (Manual) 1.0 % (0.0-7.3) 04/20/18 05:47 Eosinophils % (Manual) 0 % (0.0-4.3) 04/20/18 05:47 Basophils % (Manual) 0 % (0.0-1.8) 04/20/18 05:47 Metamyelocytes % 0 % 04/20/18 05:47 Myelocytes % 0 % 04/20/18 05:47 Promyelocytes % 0 % 04/20/18 05:47 Blast Cells % 0 % 04/20/18 05:47 Nucleated RBC % Not Reportable 04/20/18 05:47 Seg Neutrophils # 5.3 K/mm3 (1.8-7.7) 04/23/18 16:11 Seg Neutrophils # Man 8.3 K/mm3 (1.8-7.7) H 04/20/18 05:47 Band Neutrophils # 0.0 K/mm3 04/20/18 05:47 Lymphocytes # (Manual) 0.5 K/mm3 (1.2-5.4) L 04/20/18 05:47 Abs React Lymphs (Man) 0.0 K/mm3 04/20/18 05:47 Monocytes # (Manual) 0.1 K/mm3 (0.0-0.8) 04/20/18 05:47 Eosinophils # (Manual) 0.0 K/mm3 (0.0-0.4) 04/20/18 05:47 Basophils # (Manual) 0.0 K/mm3 (0.0-0.1) 04/20/18 05:47 Metamyelocytes # 0.0 K/mm3 04/20/18 05:47 Myelocytes # 0.0 K/mm3 04/20/18 05:47 Promyelocytes # 0.0 K/mm3 04/20/18 05:47 Blast Cells # 0.0 K/mm3 04/20/18 05:47 WBC Morphology Not Reportable 04/20/18 05:47 Hypersegmented Neuts Not Reportable 04/20/18 05:47 Hyposegmented Neuts Not Reportable 04/20/18 05:47 Hypogranular Neuts Not Reportable 04/20/18 05:47 Smudge Cells Not Reportable 04/20/18 05:47 Toxic Granulation Not Reportable 04/20/18 05:47 Toxic Vacuolation Not Reportable 04/20/18 05:47 Dohle Bodies Not Reportable 04/20/18 05:47 Pelger-Huet Anomaly Not Reportable 04/20/18 05:47 Antonio Rods Not Reportable 04/20/18 05:47 Platelet Estimate Cons 04/20/18 05:47 Clumped Platelets Not Reportable 04/20/18 05:47 Plt Clumps, EDTA Not Reportable 04/20/18 05:47 Large Platelets Not Reportable 04/20/18 05:47 Giant Platelets Not Reportable 04/20/18 05:47 Platelet Satelliting Not Reportable 04/20/18 05:47 Plt Morphology Comment Not Reportable 04/20/18 05:47 RBC Morphology Normal 04/20/18 05:47 Dimorphic RBCs Not Reportable 04/20/18 05:47 Polychromasia Not Reportable 04/20/18 05:47 Hypochromasia Not Reportable 04/20/18 05:47 Poikilocytosis Not Reportable 04/20/18 05:47 Anisocytosis Not Reportable 04/20/18 05:47 Microcytosis Not Reportable 04/20/18 05:47 Macrocytosis Not Reportable 04/20/18 05:47 Spherocytes Not Reportable 04/20/18 05:47 Pappenheimer Bodies Not Reportable 04/20/18 05:47 Sickle Cells Not Reportable 04/20/18 05:47 Target Cells Not Reportable 04/20/18 05:47 Tear Drop Cells Not Reportable 04/20/18 05:47 Ovalocytes Not Reportable 04/20/18 05:47 Helmet Cells Not Reportable 04/20/18 05:47 [place] Bodies Not Reportable 04/20/18 05:47 [place] Rings Not Reportable 04/20/18 05:47 [place] Cells Not Reportable 04/20/18 05:47 Bite Cells Not Reportable 04/20/18 05:47 Crenated Cell Not Reportable 04/20/18 05:47 Elliptocytes Not Reportable 04/20/18 05:47 Acanthocytes (Spur) Not Reportable 04/20/18 05:47 Rouleaux Not Reportable 04/20/18 05:47 Hemoglobin C Crystals Not Reportable 04/20/18 05:47 Schistocytes Not Reportable 04/20/18 05:47 Malaria parasites Not Reportable 04/20/18 05:47 [place] Bodies Not Reportable 04/20/18 05:47 Hem Pathologist Commnt No 04/20/18 05:47 PT 15.4 Sec. (12.2-14.9) H 04/21/18 08:54 INR 1.16 (0.87-1.13) H 04/21/18 08:54 POC ABG pH 7.506 (7.35-7.45) H 04/18/18 19:57 POC ABG pCO2 21.0 (35-45) L 04/18/18 19:57 POC ABG pO2 82 (80-105) 04/18/18 19:57 POC ABG HCO3 16.6 04/18/18 19:57 POC ABG Total CO2 17 04/18/18 19:57 POC ABG O2 Sat 97 04/18/18 19:57 POC ABG Base Excess -6 04/18/18 19:57 VBG pH 7.477 (7.320-7.420) H 04/18/18 18:21 FiO2 21 % 04/18/18 19:57 Sodium 140 mmol/L (137-145) 05/01/18 05:45 Potassium 4.7 mmol/L (3.6-5.0) 05/01/18 05:45 Chloride 96.9 mmol/L (98-107) L 05/01/18 05:45 Carbon Dioxide 20 mmol/L (22-30) L 05/01/18 05:45 Anion Gap 28 mmol/L 05/01/18 05:45 BUN 97 mg/dL (9-20) H 05/01/18 05:45 Creatinine 12.6 mg/dL (0.8-1.5) H 05/01/18 05:45 Estimated GFR 4 ml/min 05/01/18 05:45 BUN/Creatinine Ratio 8 % 05/01/18 05:45 Glucose 91 mg/dL (75-100) 05/01/18 05:45 Lactic Acid 1.10 mmol/L (0.7-2.0) 04/18/18 21:23 Calcium 7.8 mg/dL (8.4-10.2) L 05/01/18 05:45 Magnesium 2.20 mg/dL (1.7-2.3) 04/19/18 13:14 Total Bilirubin 1.00 mg/dL (0.1-1.2) 04/21/18 06:42 AST 131 units/L (5-40) H 04/21/18 06:42 ALT 81 units/L (7-56) H 04/21/18 06:42 Alkaline Phosphatase 176 units/L (35-129) H 04/21/18 06:42 Total Creatine Kinase 26 units/L (55-170) L 04/23/18 16:11 CK-MB (CK-2) 2.5 ng/mL (0.0-4.0) 04/19/18 05:20 CK-MB (CK-2) Rel Index 0.3 (0-4) 04/19/18 05:20 Troponin T 0.011 ng/mL (0.00-0.029) 04/19/18 05:20 Serum Total Protein 5.7 g/dL (6.1-8.1) L 04/19/18 13:14 Total Protein 5.7 g/dL (6.3-8.2) L D 04/21/18 06:42 Albumin 2.3 g/dL (3.9-5) L 04/21/18 06:42 Albumin/Globulin Ratio 0.7 % 04/21/18 06:42 Letpi-5-Tfuwmmlro 0.8 g/dL (0.2-0.3) H 04/19/18 13:14 Qaazf-4-Mjgsjodmz 1.4 g/dL (0.5-0.9) H 04/19/18 13:14 Beta Globulins 0.4 g/dL (0.2-0.5) 04/19/18 13:14 Gamma Globulins 0.5 g/dL (0.8-1.7) L 04/19/18 13:14 Abnorm Protein Band 1 see below 04/19/18 13:14 PEP Interpretation see below H 04/19/18 13:14 Urine Color R[place] (Yellow) 04/18/18 18:55 Urine Turbidity Clear (Clear) 04/18/18 18:55 Urine pH 5.0 (5.0-7.0) 04/18/18 18:55 Ur Specific [place] 1.015 (1.003-1.030) 04/18/18 18:55 Urine Protein 100 mg/dl mg/dL (Negative) 04/18/18 18:55 Urine Glucose (UA) 50 mg/dL (Negative) 04/18/18 18:55 Urine Ketones Neg mg/dL (Negative) 04/18/18 18:55 Urine Blood Mod (Negative) 04/18/18 18:55 Urine Nitrite Neg (Negative) 04/18/18 18:55 Urine Bilirubin Neg (Negative) 04/18/18 18:55 Urine Urobilinogen < 2.0 mg/dL (<2.0) 04/18/18 18:55 Ur Leukocyte Esterase Neg (Negative) 04/18/18 18:55 Urine WBC (Auto) 16.0 /HPF (0.0-6.0) H 04/18/18 18:55 Urine RBC (Auto) 13.0 /HPF (0.0-6.0) 04/18/18 18:55 U Epithel Cells (Auto) 2.0 /HPF (0-13.0) 04/18/18 18:55 Urine Mucus Few /HPF 04/18/18 18:55 Urine Eosinophils None seen (None Seen) 04/19/18 17:00 Urine Creatinine 119.5 mg/dL (0.1-20.0) H 04/19/18 17:00 Protein/Creatinin Ratio 0.93 04/19/18 17:00 Urine Sodium 51 mmol/L 04/19/18 17:00 Urine Total Protein 111 mg/dL (5-11.8) H 04/19/18 17:00 Random Vancomycin 15.5 ug/mL (0-40.0) 04/22/18 05:24 RICARDO Screen Negative (Negative) 04/19/18 13:14 Proteinase 3 (PR3) Ab <1.0 AI (<1.0) 04/19/18 13:14 Myeloperoxidase Ab <1.0 AI (<1.0) 04/19/18 13:14 Glomerular Base Mem IgG <1.0 AI (<1.0) 04/22/18 05:24 Complement C3 235 mg/dL (82-185) H 04/19/18 13:14 Complement C4 66 mg/dL (15-53) H 04/19/18 13:14 Hepatitis A IgM Ab Non-reactive (NonReactive) 04/19/18 13:14 Hep Bs Antigen Non-reactive (Negative) 04/19/18 13:14 Hep B Core IgM Ab Non-reactive (NonReactive) 04/19/18 13:14 Hepatitis C Antibody Non-reactive (NonReactive) 04/19/18 13:14 Anti-Streptolysin O Ab See scanned results 04/22/18 05:24
[2018-05-01] MEDS: PERCOCET 5/325 PO PRN ×2 (13:41→20:01)
[2018-05-01] MEDS: MORPHINE IV PRN ×2 (16:39→22:38)
--- NOTE | 2018-05-01 17:04 | Consultation ---
History of Present Illness Consult date: 05/01/18 Chief complaint: abd pain, cholecystitis - History of present illness History of present illness: 52 yo M with no PMHx presented to the ER with nonproductive cough x 4 days. He has been treated in the hospital for PNA and found to be in acute renal failure. The patient has been coughing and exacerbated his know umbilical hernia , causing it to pop out. He states it has been sticking out for 6 days. It is tender only when he coughs. He denies f/c, n/v, c/d. He is having normal bowel movements and is tolerating a diet. Surgery is consulted because the hernia is not reducible. Past History Past Medical History: No medical history Past Surgical History: No surgical history Social history: no significant social history Family history: no significant family history Medications and Allergies Allergies Allergy/AdvReac Type Severity Reaction Status Date / Time No Known Allergies Allergy Verified 04/18/18 18:09 Home Medications Medication Instructions Recorded Confirmed Last Taken Type Albuterol Sulfate [Ventolin HFA] 2 puff IH Q4H PRN #1 hfa.aer.ad 09/15/13 Unknown Rx Butalb/Acetamin/Caff 50-325-40 1 each PO Q4H PRN #14 tablet 09/15/13 04/21/18 Unknown Rx [Fioricet] Ibuprofen [Motrin 800 MG tab] 800 mg PO TID PRN #30 tablet 09/15/13 04/21/18 Unknown Rx Active Meds: Active Medications Acetaminophen (Tylenol) 650 mg PO Q4H PRN PRN Reason: Pain MILD(1-3)/Fever >100.5/JOHNSON Last Admin: 04/19/18 08:14 Dose: 650 mg Amlodipine Besylate (Norvasc) 10 mg PO QDAY [facility] Last Admin: 05/01/18 09:52 Dose: 10 mg Carvedilol (Coreg) 6.25 mg PO BID [facility] Last Admin: 05/01/18 09:52 Dose: 6.25 mg Enoxaparin Sodium (Lovenox) 30 mg SUB-Q QDAY [facility] Last Admin: 05/01/18 09:52 Dose: 30 mg Ipratropium [place] (Atrovent) 0.5 mg IH TIDRT [facility] Last Admin: 06/23/18 15:48 Dose: 0.5 mg Levalbuterol HCl (Xopenex) 1.25 mg IH TIDRT [facility] Last Admin: 05/01/18 15:48 Dose: 1.25 mg Morphine Sulfate (Morphine) 2 mg IV Q4H PRN PRN Reason: Pain , Severe (7-10) Last Admin: 05/01/18 16:39 Dose: 2 mg Ondansetron HCl (Zofran) 4 mg IV Q4H PRN PRN Reason: Nausea And Vomiting Oxycodone/Acetaminophen (Percocet 5/325) 1 tab PO Q6H PRN PRN Reason: Pain, Moderate (4-6) Last Admin: 05/01/18 13:41 Dose: 1 tab Sodium Bicarbonate (Sodium Bicarbonate) 1,300 mg PO TID [facility] Last Admin: 05/01/18 13:32 Dose: 1,300 mg Sodium Chloride (Sodium Chloride Flush Syringe 10 Ml) 10 ml IV BID [facility] Last Admin: 05/01/18 09:53 Dose: 10 ml Sodium Chloride (Sodium Chloride Flush Syringe 10 Ml) 10 ml IV PRN PRN PRN Reason: LINE FLUSH Review of Systems All systems: negative (10 point ROS performed and negative except for that listed in HPI) Exam Vital Signs Temp Pulse Resp BP Pulse Ox 102.2 F H 126 H 20 125/76 95 04/18/18 18:08 04/18/18 18:08 04/18/18 18:08 04/18/18 18:08 04/18/18 18:08 Narrative exam: Gen: AAOx3. NAD CV: S1, S2+ resp: CTAb, no w/r/r Abd: soft, NT, ND. umbilical hernia, fluid filled - not reducible. TTP upon reduction attempt. Results - Labs 04/23/18 16:11 05/02/18 05:38 Abnormal lab results 05/01/18 Range/Units 05:45 Chloride 96.9 L (98-107) mmol/L Carbon Dioxide 20 L (22-30) mmol/L BUN 97 H (9-20) mg/dL Creatinine 12.6 H (0.8-1.5) mg/dL Calcium 7.8 L (8.4-10.2) mg/dL Diabetes panel 05/01/18 Range/Units 05:45 Sodium 140 (137-145) mmol/L Potassium 4.7 (3.6-5.0) mmol/L Chloride 96.9 L (98-107) mmol/L Carbon Dioxide 20 L (22-30) mmol/L BUN 97 H (9-20) mg/dL Creatinine 12.6 H (0.8-1.5) mg/dL Glucose 91 (75-100) mg/dL Calcium 7.8 L (8.4-10.2) mg/dL Calcium panel 05/01/18 Range/Units 05:45 Calcium 7.8 L (8.4-10.2) mg/dL Pituitary panel 05/01/18 Range/Units 05:45 Sodium 140 (137-145) mmol/L Potassium 4.7 (3.6-5.0) mmol/L Chloride 96.9 L (98-107) mmol/L Carbon Dioxide 20 L (22-30) mmol/L BUN 97 H (9-20) mg/dL Creatinine 12.6 H (0.8-1.5) mg/dL Glucose 91 (75-100) mg/dL Calcium 7.8 L (8.4-10.2) mg/dL Adrenal panel 05/01/18 Range/Units 05:45 Sodium 140 (137-145) mmol/L Potassium 4.7 (3.6-5.0) mmol/L Chloride 96.9 L (98-107) mmol/L Carbon Dioxide 20 L (22-30) mmol/L BUN 97 H (9-20) mg/dL Creatinine 12.6 H (0.8-1.5) mg/dL Glucose 91 (75-100) mg/dL Calcium 7.8 L (8.4-10.2) mg/dL Assessment and Plan 52 YO M with umbilical hernia, not reducible Plan: 1. Patient states hernia has been out for 6 days. He states pain with coughing. He is having bowel function. 2. Will order Ct A/P with oral contrast only to evaluate contents of hernia 3. PRN pain control 4. recommend cough suppressant 5. ice to area to help with swelling 6. further recs pending CT results Thank you for this consultation, please call with questions or concerns.
--- NOTE | 2018-05-01 19:20 | Cat Scan Report ---
FINAL REPORT EXAM: CT ABDOMEN PELVIS WO CON HISTORY: umbilical hernia COMPARISON: Abdominal ultrasound from April 18, 2018. TECHNIQUE: Contiguous axial images were obtained. Additional sagittal and coronal reformatted images were obtained. Enteric contrast administered. FINDINGS: Patchy airspace consolidation right lower lobe and more prominent patchy airspace consolidation within left lower lobe and lingula concerning for pneumonia. Trace left-sided pleural effusion. No calcified gallstones. Liver, spleen, pancreas and adrenal glands are grossly unremarkable. Bilateral perinephric fat stranding which may relate to sequelae of prior inflammation. Active infection of the kidneys is not excluded. No renal calculi or ureteral calculi. No hydronephrosis. Urinary bladder and prostate gland are unremarkable. Aorta and IVC are normal in caliber. Mild calcification aorta. No free fluid or lymphadenopathy in the pelvic cavity. Large and small bowel loops are normal in caliber. The appendix measures up to 7 millimeters. No adjacent fat stranding or fluid. No focal inflammatory changes the bowel. Mild diverticulosis of left colon. Small umbilical hernia containing fat and fluid. The hernia sac measures 4.3 x 3.9 centimeters in axial dimension and 4.6 centimeters in craniocaudal dimension. Neck of the hernia measures 2.0 by 2.0 centimeters. There is stranding of the herniated fat. There may be inflammation of the herniated fat. Grade 1 anterolisthesis of L5 on S1 due to bilateral pars defects. Moderate severe bilateral foramina ring at that level. Lumbar vertebral body heights are preserved. Bony pelvis is grossly intact. IMPRESSION: Findings compatible with bibasilar pneumonia more pronounced on the left. Small umbilical hernia containing fat and fluid. There stranding of the herniated fat which may be inflamed. Bilateral perinephric fat stranding which may relate to sequelae of prior inflammation. Active infection of the kidneys is not excluded. No obstructive uropathy urolithiasis. Correlation with urinalysis suggested.
[2018-05-02] MEDS: PERCOCET 5/325 PO PRN ×2 (07:10→13:15)
--- NOTE | 2018-05-02 07:28 | Progress Note ---
Assessment and Plan Assessment and plan: / Bilateral Pneumonia, CAP has completed abx /Sepsis due to UTI and PNA has completed abx /UTI, present on admission urine cx grew Beta Hemolytic Strep Group B treated with abx /Acute Renal Failure due to ATN Nephrology following, Creatinine continued to decline, s/p renal biopsy 04/21/18 Biopsy showed pathological finding of ATN per nephrology, "Continue to hold initiation of dialysis as patient is asymptomatic. Patient w/ good UOP (appx 2L) and electrolytes are stable." /Metabolic acidosis secondary to declining renal function cont to monitor /Hypokalemia cont to replete as needed /Hyponatremia Significantly improved, continue IVF /Abnormal LFT due to alcohol abuse Abdominal ultrasound revealed fatty liver otherwise unremarkable exam HTN uncontrolled, continue to optimize meds /DVT prophalaxis, with heparin Brief History 52 year old man with no presented to the emergency department with complaints of nonproductive cough, fever, chills x 4 days. Admits to left side chest pain, unable to describe it, unable to say how long it last for, no radiation, intensity 4/10. Also admitted to generalized weakness. History Interval history: Review of systems Constitutional: No fevers, no malaise, no joint pains CVS: No chest pain, no orthopnea, no dyspnea on exertion, no pedal edema GI: No abdominal pain, no diarrhea, no vomiting, no constipation Respiratory: No shortness of breath, no wheezing, no coughing Hospitalist Physical - Physical exam Narrative exam: General.: Appears well, no distress, nontoxic HEENT: Moist mucous membranes, extraocular muscles intact, no lymphadenopathy Neck: supple Cardiac: S1-S2 heard Lungs: clear to auscultation bilaterally Abdomen: soft , nontender, nondistended, bowel sounds positive Extremities: no edema clubbing or cyanosis Skin: no rash or lesions Neurologic: no gross focal deficits Psych: appropriate behavior, appropriate mood, corporative, judgment intact - Constitutional Vitals: Temp Pulse Resp BP Pulse Ox 100.1 F H 82 18 130/84 95 05/01/18 20:32 05/01/18 22:39 05/02/18 07:10 05/01/18 22:39 05/01/18 20:32 Results - Labs CBC & Chem 7: 04/23/18 16:11 05/04/18 05:41 Labs: Laboratory Last Values WBC 6.7 K/mm3 (4.5-11.0) 04/23/18 16:11 RBC 3.63 M/mm3 (3.65-5.03) L 04/23/18 16:11 Hgb 11.2 gm/dl (11.8-15.2) L 04/23/18 16:11 Hct 33.7 % (35.5-45.6) L 04/23/18 16:11 MCV 93 fl (84-94) 04/23/18 16:11 MCH 31 pg (28-32) 04/23/18 16:11 MCHC 33 % (32-34) 04/23/18 16:11 RDW 16.4 % (13.2-15.2) H 04/23/18 16:11 Plt Count 373 K/mm3 (140-440) 04/23/18 16:11 Lymph % (Auto) 11.6 % (13.4-35.0) L 04/23/18 16:11 [place] % (Auto) 7.9 % (0.0-7.3) H 04/23/18 16:11 Eos % (Auto) 1.2 % (0.0-4.3) 04/23/18 16:11 Baso % (Auto) 0.3 % (0.0-1.8) 04/23/18 16:11 Lymph # 0.8 K/mm3 (1.2-5.4) L 04/23/18 16:11 [place] # 0.5 K/mm3 (0.0-0.8) 04/23/18 16:11 Eos # 0.1 K/mm3 (0.0-0.4) 04/23/18 16:11 Baso # 0.0 K/mm3 (0.0-0.1) 04/23/18 16:11 Add Manual Diff Complete 04/20/18 05:47 Total Counted 100 04/20/18 05:47 Seg Neutrophils % 79.0 % (40.0-70.0) H 04/23/18 16:11 Seg Neuts % (Manual) 93.0 % (40.0-70.0) H 04/20/18 05:47 Band Neutrophils % 0 % 04/20/18 05:47 Lymphocytes % (Manual) 6.0 % (13.4-35.0) L 04/20/18 05:47 Reactive Lymphs % (Man) 0 % 04/20/18 05:47 Monocytes % (Manual) 1.0 % (0.0-7.3) 04/20/18 05:47 Eosinophils % (Manual) 0 % (0.0-4.3) 04/20/18 05:47 Basophils % (Manual) 0 % (0.0-1.8) 04/20/18 05:47 Metamyelocytes % 0 % 04/20/18 05:47 Myelocytes % 0 % 04/20/18 05:47 Promyelocytes % 0 % 04/20/18 05:47 Blast Cells % 0 % 04/20/18 05:47 Nucleated RBC % Not Reportable 04/20/18 05:47 Seg Neutrophils # 5.3 K/mm3 (1.8-7.7) 04/23/18 16:11 Seg Neutrophils # Man 8.3 K/mm3 (1.8-7.7) H 04/20/18 05:47 Band Neutrophils # 0.0 K/mm3 04/20/18 05:47 Lymphocytes # (Manual) 0.5 K/mm3 (1.2-5.4) L 04/20/18 05:47 Abs React Lymphs (Man) 0.0 K/mm3 04/20/18 05:47 Monocytes # (Manual) 0.1 K/mm3 (0.0-0.8) 04/20/18 05:47 Eosinophils # (Manual) 0.0 K/mm3 (0.0-0.4) 04/20/18 05:47 Basophils # (Manual) 0.0 K/mm3 (0.0-0.1) 04/20/18 05:47 Metamyelocytes # 0.0 K/mm3 04/20/18 05:47 Myelocytes # 0.0 K/mm3 04/20/18 05:47 Promyelocytes # 0.0 K/mm3 04/20/18 05:47 Blast Cells # 0.0 K/mm3 04/20/18 05:47 WBC Morphology Not Reportable 04/20/18 05:47 Hypersegmented Neuts Not Reportable 04/20/18 05:47 Hyposegmented Neuts Not Reportable 04/20/18 05:47 Hypogranular Neuts Not Reportable 04/20/18 05:47 Smudge Cells Not Reportable 04/20/18 05:47 Toxic Granulation Not Reportable 04/20/18 05:47 Toxic Vacuolation Not Reportable 04/20/18 05:47 Dohle Bodies Not Reportable 04/20/18 05:47 Pel[place]-Huet Anomaly Not Reportable 04/20/18 05:47 Antonio Rods Not Reportable 04/20/18 05:47 Platelet Estimate Cons 04/20/18 05:47 Clumped Platelets Not Reportable 04/20/18 05:47 Plt Clumps, EDTA Not Reportable 04/20/18 05:47 Large Platelets Not Reportable 04/20/18 05:47 Giant Platelets Not Reportable 04/20/18 05:47 Platelet Satelliting Not Reportable 04/20/18 05:47 Plt Morphology Comment Not Reportable 04/20/18 05:47 RBC Morphology Normal 04/20/18 05:47 Dimorphic RBCs Not Reportable 04/20/18 05:47 Polychromasia Not Reportable 04/20/18 05:47 Hypochromasia Not Reportable 04/20/18 05:47 Poikilocytosis Not Reportable 04/20/18 05:47 Anisocytosis Not Reportable 04/20/18 05:47 Microcytosis Not Reportable 04/20/18 05:47 Macrocytosis Not Reportable 04/20/18 05:47 Spherocytes Not Reportable 04/20/18 05:47 Pappenheimer Bodies Not Reportable 04/20/18 05:47 Sickle Cells Not Reportable 04/20/18 05:47 Target Cells Not Reportable 04/20/18 05:47 Tear Drop Cells Not Reportable 04/20/18 05:47 Ovalocytes Not Reportable 04/20/18 05:47 Helmet Cells Not Reportable 04/20/18 05:47 [place] Bodies Not Reportable 04/20/18 05:47 [place] Rings Not Reportable 04/20/18 05:47 [place] Cells Not Reportable 04/20/18 05:47 Bite Cells Not Reportable 04/20/18 05:47 Crenated Cell Not Reportable 04/20/18 05:47 Elliptocytes Not Reportable 04/20/18 05:47 Acanthocytes (Spur) Not Reportable 04/20/18 05:47 Rouleaux Not Reportable 04/20/18 05:47 Hemoglobin C Crystals Not Reportable 04/20/18 05:47 Schistocytes Not Reportable 04/20/18 05:47 Malaria parasites Not Reportable 04/20/18 05:47 Royal Bodies Not Reportable 04/20/18 05:47 Hem Pathologist Commnt No 04/20/18 05:47 PT 15.4 Sec. (12.2-14.9) H 04/21/18 08:54 INR 1.16 (0.87-1.13) H 04/21/18 08:54 POC ABG pH 7.506 (7.35-7.45) H 04/18/18 19:57 POC ABG pCO2 21.0 (35-45) L 04/18/18 19:57 POC ABG pO2 82 (80-105) 04/18/18 19:57 POC ABG HCO3 16.6 04/18/18 19:57 POC ABG Total CO2 17 04/18/18 19:57 POC ABG O2 Sat 97 04/18/18 19:57 POC ABG Base Excess -6 04/18/18 19:57 VBG pH 7.477 (7.320-7.420) H 04/18/18 18:21 FiO2 21 % 04/18/18 19:57 Sodium 140 mmol/L (137-145) 05/01/18 05:45 Potassium 4.7 mmol/L (3.6-5.0) 05/01/18 05:45 Chloride 96.9 mmol/L (98-107) L 05/01/18 05:45 Carbon Dioxide 20 mmol/L (22-30) L 05/01/18 05:45 Anion Gap 28 mmol/L 05/01/18 05:45 BUN 97 mg/dL (9-20) H 05/01/18 05:45 Creatinine 12.6 mg/dL (0.8-1.5) H 05/01/18 05:45 Estimated GFR 4 ml/min 05/01/18 05:45 BUN/Creatinine Ratio 8 % 05/01/18 05:45 Glucose 91 mg/dL (75-100) 05/01/18 05:45 Lactic Acid 1.10 mmol/L (0.7-2.0) 04/18/18 21:23 Calcium 7.8 mg/dL (8.4-10.2) L 05/01/18 05:45 Magnesium 2.20 mg/dL (1.7-2.3) 04/19/18 13:14 Total Bilirubin 1.00 mg/dL (0.1-1.2) 04/21/18 06:42 AST 131 units/L (5-40) H 04/21/18 06:42 ALT 81 units/L (7-56) H 04/21/18 06:42 Alkaline Phosphatase 176 units/L (35-129) H 04/21/18 06:42 Total Creatine Kinase 26 units/L (55-170) L 04/23/18 16:11 CK-MB (CK-2) 2.5 ng/mL (0.0-4.0) 04/19/18 05:20 CK-MB (CK-2) Rel Index 0.3 (0-4) 04/19/18 05:20 Troponin T 0.011 ng/mL (0.00-0.029) 04/19/18 05:20 Serum Total Protein 5.7 g/dL (6.1-8.1) L 04/19/18 13:14 Total Protein 5.7 g/dL (6.3-8.2) L D 04/21/18 06:42 Albumin 2.3 g/dL (3.9-5) L 04/21/18 06:42 Albumin/Globulin Ratio 0.7 % 04/21/18 06:42 Iolrx-7-Ahtzzyoxc 0.8 g/dL (0.2-0.3) H 04/19/18 13:14 Kspuf-6-Jiblpftea 1.4 g/dL (0.5-0.9) H 04/19/18 13:14 Beta Globulins 0.4 g/dL (0.2-0.5) 04/19/18 13:14 Gamma Globulins 0.5 g/dL (0.8-1.7) L 04/19/18 13:14 Abnorm Protein Band 1 see below 04/19/18 13:14 PEP Interpretation see below H 04/19/18 13:14 Urine Color [place] (Yellow) 04/18/18 18:55 Urine Turbidity Clear (Clear) 04/18/18 18:55 Urine pH 5.0 (5.0-7.0) 04/18/18 18:55 Ur Specific [place] 1.015 (1.003-1.030) 04/18/18 18:55 Urine Protein 100 mg/dl mg/dL (Negative) 04/18/18 18:55 Urine Glucose (UA) 50 mg/dL (Negative) 04/18/18 18:55 Urine Ketones Neg mg/dL (Negative) 04/18/18 18:55 Urine Blood Mod (Negative) 04/18/18 18:55 Urine Nitrite Neg (Negative) 04/18/18 18:55 Urine Bilirubin Neg (Negative) 04/18/18 18:55 Urine Urobilinogen < 2.0 mg/dL (<2.0) 04/18/18 18:55 Ur Leukocyte Esterase Neg (Negative) 04/18/18 18:55 Urine WBC (Auto) 16.0 /HPF (0.0-6.0) H 04/18/18 18:55 Urine RBC (Auto) 13.0 /HPF (0.0-6.0) 04/18/18 18:55 U Epithel Cells (Auto) 2.0 /HPF (0-13.0) 04/18/18 18:55 Urine Mucus Few /HPF 04/18/18 18:55 Urine Eosinophils None seen (None Seen) 04/19/18 17:00 Urine Creatinine 119.5 mg/dL (0.1-20.0) H 04/19/18 17:00 Protein/Creatinin Ratio 0.93 04/19/18 17:00 Urine Sodium 51 mmol/L 04/19/18 17:00 Urine Total Protein 111 mg/dL (5-11.8) H 04/19/18 17:00 Random Vancomycin 15.5 ug/mL (0-40.0) 04/22/18 05:24 RICARDO Screen Negative (Negative) 04/19/18 13:14 Proteinase 3 (PR3) Ab <1.0 AI (<1.0) 04/19/18 13:14 Myeloperoxidase Ab <1.0 AI (<1.0) 04/19/18 13:14 Glomerular Base Mem IgG <1.0 AI (<1.0) 04/22/18 05:24 Complement C3 235 mg/dL (82-185) H 04/19/18 13:14 Complement C4 66 mg/dL (15-53) H 04/19/18 13:14 Hepatitis A IgM Ab Non-reactive (NonReactive) 04/19/18 13:14 Hep Bs Antigen Non-reactive (Negative) 04/19/18 13:14 Hep B Core IgM Ab Non-reactive (NonReactive) 04/19/18 13:14 Hepatitis C Antibody Non-reactive (NonReactive) 04/19/18 13:14 Anti-Streptolysin O Ab See scanned results 04/22/18 05:24
[2018-05-02] MEDS: ATROVENT IH SCH ×3 (07:39→19:30)
[2018-05-02] MEDS: XOPENEX IH SCH ×3 (07:39→19:30)
[2018-05-02 08:45] LABS: Calcium 8.3 mg/dL (8.4-10.2)
[2018-05-02] MEDS: NORVASC PO SCH (09:34)
[2018-05-02] MEDS: COREG PO SCH ×2 (09:34→21:27)
[2018-05-02] MEDS: LOVENOX SUB-Q SCH (09:35)
[2018-05-02] MEDS: SODIUM BICARBONATE PO SCH ×3 (09:37→21:25)
[2018-05-02] MEDS ORDERED: NACL 0.9% 100 ML IV PRN (10:38)
--- NOTE | 2018-05-02 10:40 | Progress Note ---
Assessment and Plan Impression: * Nonoliguric acute kidney injury secondary to ATN due to sepsis vs rhabdo ( myoglobin deposits in tubules) --[place] kidney bx 04/21 - ATN, scattered tubules w/ myoglobin + granular casts * Sepsis * uremia * PNA * Metabolic acidosis * Hypertension * Transaminitis - resolved * Hypokalemia - resolved * Hyponatremia - resolved Plan: * patient is not improving, will need BODY FITTER, will intiate dialysis tommorrow * may have to start hd and present to ed periodically if needs to continue if no outpatient arrangements are available * Continue po bicarb * Strict I/O * Continue antiHTN medications * Avoid potential nephrotoxins * Encouraged po hydration * Patient is not stable for d/c from a renal standpoint Subjective Date of service: 05/02/18 Principal diagnosis: esrd Interval history: resting well in bed today Objective - Exam Narrative Exam: General appearance: well-developed, well-nourished EENT: ATNC Respiratory: Present: Clear to Ascultation Cardiology: regular, S1S2 Gastrointestinal: normal Integumentary: no rash, warm and dry Neurologic: no focal deficit Musculoskeletal: cyanosis (edema) Psychiatric: cooperative - Vital Signs Vital signs: Vital Signs - 12hr 05/01/18 05/02/18 05/02/18 23:08 07:10 07:30 Temperature Pulse Rate Pulse Rate [ 106 H Anterior Bilateral Throughout] Respiratory 18 18 Rate Respiratory 16 Rate [Anterior Bilateral Throughout] Blood Pressure Blood Pressure [Right] O2 Sat by Pulse Oximetry 05/02/18 05/02/18 05/02/18 07:36 08:00 09:34 Temperature 98.1 F Pulse Rate 84 Pulse Rate [ 106 H Anterior Bilateral Throughout] Respiratory 18 Rate Respiratory 16 Rate [Anterior Bilateral Throughout] Blood Pressure 133/63 Blood Pressure 133/83 [Right] O2 Sat by Pulse 98 Oximetry - Lab 04/23/18 16:11 05/02/18 05:38 Most recent lab results Calcium 8.3 mg/dL (8.4-10.2) L 05/02/18 05:38 Magnesium 2.20 mg/dL (1.7-2.3) 04/19/18 13:14 Urine Creatinine 119.5 mg/dL (0.1-20.0) H 04/19/18 17:00 Urine Sodium 51 mmol/L 04/19/18 17:00 Urine Total Protein 111 mg/dL (5-11.8) H 04/19/18 17:00
--- NOTE | 2018-05-02 11:35 | Event Note ---
Date: 05/02/18 crystal arthropathy noted on exam likely gout vs pseudogout -start colchicine, steroids and pain meds
[2018-05-02] MEDS ORDERED: DELTASONE PO ONE (13:00)
[2018-05-02] MEDS: SODIUM CHLORIDE FLUSH SYRINGE 10 ML IV SCH ×2 (13:13→21:29)
--- NOTE | 2018-05-02 14:30 | Progress Note ---
Assessment and Plan 52 yo M with incarcerated umbilical hernia containing fat and fluid Plan: 1. patient due to start [employer] for Kidney failure tomorrow 2. no emergent need to repair hernia but should be fixed prior to discharge I discussed this with the patient and his family and they are agreeable to surgery 3. Will plan for open umbilical hernia repair with mesh once medically cleared. Will check with OR in am for timing 4. Reg diet Thank you for this consultation, please call with questions or concerns. Subjective Date of service: 05/02/18 Narrative: Pt seen and examined. States umbilical pain is improved but does get exacerbated when he coughs. No f/c, cp, sob, n/v. Tolerating diet. Objective Vital Signs - 12hr 05/02/18 05/02/18 05/02/18 07:10 07:30 07:36 Temperature Pulse Rate Pulse Rate [ 106 H 106 H Anterior Bilateral Throughout] Respiratory 18 Rate Respiratory 16 16 Rate [Anterior Bilateral Throughout] Blood Pressure Blood Pressure [Right] O2 Sat by Pulse Oximetry 05/02/18 05/02/18 05/02/18 08:00 09:34 13:22 Temperature 98.1 F Pulse Rate 84 Pulse Rate [ 86 Anterior Bilateral Throughout] Respiratory 18 Rate Respiratory 16 Rate [Anterior Bilateral Throughout] Blood Pressure 133/63 Blood Pressure 133/83 [Right] O2 Sat by Pulse 98 Oximetry 05/02/18 13:30 Temperature Pulse Rate Pulse Rate [ 82 Anterior Bilateral Throughout] Respiratory Rate Respiratory 16 Rate [Anterior Bilateral Throughout] Blood Pressure Blood Pressure [Right] O2 Sat by Pulse Oximetry - General physical appearance Narrative Exam: Gen: AAOx3. NAD CV: S1, s2+ resp: even and unlabored Abd: soft, NT, ND. umbilical hernia soft, fluid filled, + mild TTP. not reducible. - Labs 04/23/18 16:11 05/02/18 05:38 Diabetes panel 05/02/18 Range/Units 05:38 Sodium 136 L (137-145) mmol/L Potassium 4.9 (3.6-5.0) mmol/L Chloride 91.5 L (98-107) mmol/L Carbon Dioxide 20 L (22-30) mmol/L BUN 96 H (9-20) mg/dL Creatinine 13.5 H (0.8-1.5) mg/dL Glucose 101 H (75-100) mg/dL Calcium 8.3 L (8.4-10.2) mg/dL Calcium panel 05/02/18 Range/Units 05:38 Calcium 8.3 L (8.4-10.2) mg/dL Pituitary panel 05/02/18 Range/Units 05:38 Sodium 136 L (137-145) mmol/L Potassium 4.9 (3.6-5.0) mmol/L Chloride 91.5 L (98-107) mmol/L Carbon Dioxide 20 L (22-30) mmol/L BUN 96 H (9-20) mg/dL Creatinine 13.5 H (0.8-1.5) mg/dL Glucose 101 H (75-100) mg/dL Calcium 8.3 L (8.4-10.2) mg/dL Adrenal panel 05/02/18 Range/Units 05:38 Sodium 136 L (137-145) mmol/L Potassium 4.9 (3.6-5.0) mmol/L Chloride 91.5 L (98-107) mmol/L Carbon Dioxide 20 L (22-30) mmol/L BUN 96 H (9-20) mg/dL Creatinine 13.5 H (0.8-1.5) mg/dL Glucose 101 H (75-100) mg/dL Calcium 8.3 L (8.4-10.2) mg/dL - Imaging CT scan - abdomen: report reviewed, image reviewed CT scan - pelvis: report reviewed, image reviewed
[2018-05-02] MEDS: TESSALON PERLES PO SCH ×2 (15:49→21:26)
[2018-05-02] MEDS: TYLENOL PO PRN (15:49)
[2018-05-02] MEDS: COLCHICINE PO SCH ×2 (16:41→21:26)
[2018-05-02] MEDS: OxyCONTIN PO SCH (21:27)
[2018-05-03] MEDS: TESSALON PERLES PO SCH ×3 (06:06→21:22)
[2018-05-03 08:55] LABS: Calcium 8.2 mg/dL (8.4-10.2)
[2018-05-03] MEDS: OxyCONTIN PO SCH ×2 (09:30→21:22)
[2018-05-03] MEDS: SODIUM BICARBONATE PO SCH ×3 (09:31→20:48)
[2018-05-03] MEDS: NORVASC PO SCH (09:34)
[2018-05-03] MEDS: COREG PO SCH ×2 (09:35→21:22)
[2018-05-03] MEDS: SODIUM CHLORIDE FLUSH SYRINGE 10 ML IV SCH ×2 (09:36→21:22)
[2018-05-03] MEDS: XOPENEX IH SCH ×3 (09:41→20:11)
[2018-05-03] MEDS: ATROVENT IH SCH ×3 (09:41→20:11)
--- NOTE | 2018-05-03 09:51 | Progress Note ---
Assessment and Plan Impression: * Nonoliguric acute kidney injury secondary to ATN due to sepsis vs rhabdo ( myoglobin deposits in tubules) --[place] kidney bx 04/21 - ATN, scattered tubules w/ myoglobin + granular casts * Sepsis * uremia * PNA * Metabolic acidosis * Hypertension * Transaminitis - resolved * Hypokalemia - resolved * Hyponatremia - resolved Plan: * patient is not improving, will need CLINIC LEAD, will intiate dialysis today * may have to present to ed periodically if needs to continue if no outpatient arrangements are available * Continue po bicarb * Strict I/O * Continue antiHTN medications * Avoid potential nephrotoxins * Encouraged po hydration * Patient is not stable for d/c from a renal standpoint Subjective Date of service: 05/03/18 Principal diagnosis: esrd Interval history: resting well in bed today Objective - Exam Narrative Exam: General appearance: well-developed, well-nourished EENT: ATNC Respiratory: Present: Clear to Ascultation Cardiology: regular, S1S2 Gastrointestinal: normal Integumentary: no rash, warm and dry Neurologic: no focal deficit Musculoskeletal: cyanosis (edema) Psychiatric: cooperative - Vital Signs Vital signs: Vital Signs - 12hr 05/02/18 05/02/18 05/03/18 22:15 22:27 07:22 Temperature 98.3 F Pulse Rate 84 Pulse Rate [ 98 H Apical] Respiratory 18 18 16 Rate Respiratory Rate [Left Hand ] Blood Pressure 122/80 O2 Sat by Pulse 94 94 Oximetry 05/03/18 05/03/18 05/03/18 09:30 09:34 09:35 Temperature Pulse Rate 85 85 Pulse Rate [ Apical] Respiratory 20 Rate Respiratory Rate [Left Hand ] Blood Pressure 133/87 133/87 O2 Sat by Pulse Oximetry 05/03/18 09:44 Temperature Pulse Rate Pulse Rate [ Apical] Respiratory Rate Respiratory 20 Rate [Left Hand ] Blood Pressure O2 Sat by Pulse Oximetry - Lab 04/23/18 16:11 05/03/18 06:55 Most recent lab results Calcium 8.2 mg/dL (8.4-10.2) L 05/03/18 06:55 Magnesium 2.20 mg/dL (1.7-2.3) 04/19/18 13:14 Urine Creatinine 119.5 mg/dL (0.1-20.0) H 04/19/18 17:00 Urine Sodium 51 mmol/L 04/19/18 17:00 Urine Total Protein 111 mg/dL (5-11.8) H 04/19/18 17:00
[2018-05-03] MEDS ORDERED: HEPARIN/NS 5000 UNIT/500ML(CATH LAB) 500 ML IR ONE (12:59)
[2018-05-03] MEDS ORDERED: HEPARIN 10,000 UNITS/10 ML ONE (12:59)
[2018-05-03] MEDS ORDERED: VERSED ONE (13:00)
[2018-05-03] MEDS ORDERED: XYLOCAINE 1%/ EPI 1:100,000 INFILTRATI ONE (13:00)
[2018-05-03] MEDS ORDERED: ANCEF/STERILE WATER 2 GM/20 ML 0 GM/0 ML SYRINGE IV ONE (13:00)
[2018-05-03] MEDS ORDERED: NACL 0.9% 250ML 250 ML ONE (13:00)
[2018-05-03] MEDS ORDERED: SUBLIMAZE ONE (13:00)
[2018-05-03] MEDS: HEPARIN 10,000 UNITS/10 ML ONE ×4 (13:19→13:22)
--- NOTE | 2018-05-03 13:38 | Operative Report ---
Operative Report Operative Report: Operative note: Date: 05/03/2018 Preoperative diagnosis: Renal failure Postoperative diagnosis: Same. Operation: Right internal jugular PermCath insertion Surgeon: Fabby Hurley. Asst.: None Anesthesia: Moderate sedation EBL: Minimal Indications: Renal failure requiring dialysis. Patient was discussed risks and benefits of procedure and chose to proceed, signed informed consent. Operative details: Patient was brought to the [employer] and placed in supine position. She is right neck was prepped and draped in sterile fashion. Timeout was performed and all team members in agreement. Under ultrasound guidance right IJ was accessed with micropuncture needle, and exchanged to micropuncture catheter. J-wire was inserted under fluoroscopy guidance to SVC proximally. Small cm was created with 11 blade around the wire and at the intended exit site for the catheter after infiltrating with 1% lidocaine. Intended tunnel for the catheter was also infiltrated with lidocaine. A clamp was used to dilate tract at the incisions. 23 cm PermCath catheter was tunneled toward the access site positioning the cuff just inside the exit incision. We dilated the access IJ site with 8 Spanish and 12 Spanish dilators followed by the peel-away sheath. Wire and the introducer were removed and catheter was inserted in the peel-away sheath which was removed keeping the catheter in place. Fluoroscopy pictures showed good positioning with smooth turn over the catheter. Ports were flushed with heparinized saline and showed good flow followed by full strength heparin lock with 1.8 mL in each port. Patient tolerated procedure well. The was transferred to PACU in stable condition.
--- NOTE | 2018-05-03 18:28 | Progress Note ---
Assessment and Plan 52 yo M with incarcerated umbilical hernia containing fat and fluid Plan: 1. HD per nephro 2. no emergent need to repair hernia but should be fixed prior to discharge because it is incarcerated and will not resolve without surgery. I discussed this with the patient and his family and they are agreeable to surgery. 3. Will plan for open umbilical hernia repair with mesh once medically cleared. All risks, benefits and alternatives to surgery discussed with patient and family and consent obtained. Surgery scheduled tentatively for 05/05 if medically cleared. 4. Reg diet 5. DVT ppx D/W Dr. Gallardo Thank you for this consultation, please call with questions or concerns. Subjective Date of service: 05/03/18 Narrative: Pt seen and examined. s/p placement of permcath and HD today. Feels well. States his cough is improved. He is having mild pain at umbilicus when it is touched. Objective Vital Signs - 12hr 05/03/18 05/03/18 05/03/18 07:22 09:30 09:32 Temperature 98.3 F Pulse Rate 84 Pulse Rate [ Anterior Bilateral Throughout] Pulse Rate [ Apical] Respiratory 16 20 Rate Respiratory Rate [Anterior Bilateral Throughout] Respiratory Rate [Left Hand ] Blood Pressure 122/80 133/87 O2 Sat by Pulse 94 Oximetry 05/03/18 05/03/18 05/03/18 09:34 09:35 09:42 Temperature Pulse Rate 85 85 Pulse Rate [ 85 Anterior Bilateral Throughout] Pulse Rate [ Apical] Respiratory Rate Respiratory 18 Rate [Anterior Bilateral Throughout] Respiratory Rate [Left Hand ] Blood Pressure 133/87 133/87 O2 Sat by Pulse Oximetry 05/03/18 05/03/18 05/03/18 09:44 09:45 09:57 Temperature Pulse Rate Pulse Rate [ 90 Anterior Bilateral Throughout] Pulse Rate [ 88 Apical] Respiratory 20 Rate Respiratory 18 Rate [Anterior Bilateral Throughout] Respiratory 20 Rate [Left Hand ] Blood Pressure O2 Sat by Pulse Oximetry 05/03/18 05/03/18 05/03/18 10:30 12:05 13:50 Temperature 98.2 F Pulse Rate 90 Pulse Rate [ Anterior Bilateral Throughout] Pulse Rate [ Apical] Respiratory 16 18 Rate Respiratory Rate [Anterior Bilateral Throughout] Respiratory 16 Rate [Left Hand ] Blood Pressure 124/78 O2 Sat by Pulse Oximetry 05/03/18 05/03/18 05/03/18 14:00 14:15 14:30 Temperature Pulse Rate 91 H 83 83 Pulse Rate [ Anterior Bilateral Throughout] Pulse Rate [ Apical] Respiratory Rate Respiratory Rate [Anterior Bilateral Throughout] Respiratory Rate [Left Hand ] Blood Pressure 119/81 129/79 124/79 O2 Sat by Pulse Oximetry 05/03/18 05/03/18 05/03/18 14:45 15:00 15:15 Temperature Pulse Rate 80 83 81 Pulse Rate [ Anterior Bilateral Throughout] Pulse Rate [ Apical] Respiratory Rate Respiratory Rate [Anterior Bilateral Throughout] Respiratory Rate [Left Hand ] Blood Pressure 125/80 127/82 129/83 O2 Sat by Pulse Oximetry 05/03/18 05/03/18 05/03/18 15:30 15:45 16:00 Temperature Pulse Rate 81 77 78 Pulse Rate [ Anterior Bilateral Throughout] Pulse Rate [ Apical] Respiratory Rate Respiratory Rate [Anterior Bilateral Throughout] Respiratory Rate [Left Hand ] Blood Pressure 141/80 135/57 137/84 O2 Sat by Pulse Oximetry 05/03/18 05/03/18 16:20 16:25 Temperature 98.0 F Pulse Rate 84 80 Pulse Rate [ Anterior Bilateral Throughout] Pulse Rate [ Apical] Respiratory 18 Rate Respiratory Rate [Anterior Bilateral Throughout] Respiratory Rate [Left Hand ] Blood Pressure 142/84 140/80 O2 Sat by Pulse Oximetry - General physical appearance Narrative Exam: Gen: AAOx3. NAD CV: S1, S2+ resp: even and unlabored Abd: soft, ND, NT. umbilical hernia - not reducible. Mild blanching redness of skin. Mild TTP on palpation. Ext: no c/c/e - Labs 04/23/18 16:11 05/03/18 06:55 Diabetes panel 05/03/18 Range/Units 06:55 Sodium 134 L (137-145) mmol/L Potassium 4.8 (3.6-5.0) mmol/L Chloride 90.0 L (98-107) mmol/L Carbon Dioxide 21 L (22-30) mmol/L BUN 99 H (9-20) mg/dL Creatinine 12.7 H (0.8-1.5) mg/dL Glucose 111 H (75-100) mg/dL Calcium 8.2 L (8.4-10.2) mg/dL Calcium panel 05/03/18 Range/Units 06:55 Calcium 8.2 L (8.4-10.2) mg/dL Pituitary panel 05/03/18 Range/Units 06:55 Sodium 134 L (137-145) mmol/L Potassium 4.8 (3.6-5.0) mmol/L Chloride 90.0 L (98-107) mmol/L Carbon Dioxide 21 L (22-30) mmol/L BUN 99 H (9-20) mg/dL Creatinine 12.7 H (0.8-1.5) mg/dL Glucose 111 H (75-100) mg/dL Calcium 8.2 L (8.4-10.2) mg/dL Adrenal panel 05/03/18 Range/Units 06:55 Sodium 134 L (137-145) mmol/L Potassium 4.8 (3.6-5.0) mmol/L Chloride 90.0 L (98-107) mmol/L Carbon Dioxide 21 L (22-30) mmol/L BUN 99 H (9-20) mg/dL Creatinine 12.7 H (0.8-1.5) mg/dL Glucose 111 H (75-100) mg/dL Calcium 8.2 L (8.4-10.2) mg/dL
[2018-05-03] MEDS: COLCHICINE PO SCH (18:48)
[2018-05-03] MEDS: DELTASONE PO SCH (18:48)
[2018-05-03] MEDS: LOVENOX SUB-Q SCH (18:48)
[2018-05-04] MEDS: TESSALON PERLES PO SCH ×3 (05:23→21:06)
--- NOTE | 2018-05-04 07:39 | Progress Note ---
Assessment and Plan Assessment and plan: Incarcerated umbilical hernia -Planned for surgical correction on Thursday. I have discussed the case with the general surgeon. -As this patient is started on dialysis today, the patient is now adequately optimized for planned procedure. Intermediate risk for an intermediate risk procedure. Acute gouty attack -Continue colchicine, steroids and pain medications /Acute Renal Failure due to ATN Nephrology following, Creatinine continued to decline, s/p renal biopsy 04/21/18 Biopsy showed pathological finding of ATN likely progressing toward esrd, for vas cath and HD today / Bilateral Pneumonia, CAP has completed abx /Sepsis due to UTI and PNA has completed abx /UTI, present on admission urine cx grew Beta Hemolytic Strep Group B treated with abx /Metabolic acidosis secondary to declining renal function cont to monitor /Hypokalemia cont to replete as needed /Hyponatremia Significantly improved, continue IVF /Abnormal LFT due to alcohol abuse Abdominal ultrasound revealed fatty liver otherwise unremarkable exam HTN uncontrolled, continue to optimize meds /DVT prophalaxis, with heparin Brief History 52 year old man with no presented to the emergency department with complaints of nonproductive cough, fever, chills x 4 days. Admits to left side chest pain, unable to describe it, unable to say how long it last for, no radiation, intensity 4/10. Also admitted to generalized weakness. History Interval history: c/o pain and swelling in his L hand and Right foot - also c/o of protuberant umbilicus which is painful and does not go back in when pushed Review of systems Constitutional: No fevers, no malaise CVS: No chest pain, no orthopnea, no dyspnea on exertion, no pedal edema GI: , no diarrhea, no vomiting, no constipation Respiratory: No shortness of breath, no wheezing, no coughing Hospitalist Physical - Physical exam Narrative exam: General.: Appears well, no distress, nontoxic HEENT: Moist mucous membranes, extraocular muscles intact, no lymphadenopathy Neck: supple Cardiac: S1-S2 heard Lungs: clear to auscultation bilaterally Abdomen: umbilicus has hernia, it is tender and incarcerated Extremities: left hand is swollen and painful, R foot is swollen and tender Skin: no rash or lesions Neurologic: no gross focal deficits Psych: appropriate behavior, appropriate mood, corporative, judgment intact - Constitutional Vitals: Temp Pulse Resp BP Pulse Ox 98.7 F 93 H 18 130/85 92 05/04/18 00:08 05/04/18 00:08 05/04/18 00:08 05/04/18 00:08 05/04/18 00:08 Results - Labs CBC & Chem 7: 04/23/18 16:11 05/03/18 06:55 Labs: Laboratory Last Values WBC 6.7 K/mm3 (4.5-11.0) 04/23/18 16:11 RBC 3.63 M/mm3 (3.65-5.03) L 04/23/18 16:11 Hgb 11.2 gm/dl (11.8-15.2) L 04/23/18 16:11 Hct 33.7 % (35.5-45.6) L 04/23/18 16:11 MCV 93 fl (84-94) 04/23/18 16:11 MCH 31 pg (28-32) 04/23/18 16:11 MCHC 33 % (32-34) 04/23/18 16:11 RDW 16.4 % (13.2-15.2) H 04/23/18 16:11 Plt Count 373 K/mm3 (140-440) 04/23/18 16:11 Lymph % (Auto) 11.6 % (13.4-35.0) L 04/23/18 16:11 [place] % (Auto) 7.9 % (0.0-7.3) H 04/23/18 16:11 Eos % (Auto) 1.2 % (0.0-4.3) 04/23/18 16:11 Baso % (Auto) 0.3 % (0.0-1.8) 04/23/18 16:11 Lymph # 0.8 K/mm3 (1.2-5.4) L 04/23/18 16:11 [place] # 0.5 K/mm3 (0.0-0.8) 04/23/18 16:11 Eos # 0.1 K/mm3 (0.0-0.4) 04/23/18 16:11 Baso # 0.0 K/mm3 (0.0-0.1) 04/23/18 16:11 Add Manual Diff Complete 04/20/18 05:47 Total Counted 100 04/20/18 05:47 Seg Neutrophils % 79.0 % (40.0-70.0) H 04/23/18 16:11 Seg Neuts % (Manual) 93.0 % (40.0-70.0) H 04/20/18 05:47 Band Neutrophils % 0 % 04/20/18 05:47 Lymphocytes % (Manual) 6.0 % (13.4-35.0) L 04/20/18 05:47 Reactive Lymphs % (Man) 0 % 04/20/18 05:47 Monocytes % (Manual) 1.0 % (0.0-7.3) 04/20/18 05:47 Eosinophils % (Manual) 0 % (0.0-4.3) 04/20/18 05:47 Basophils % (Manual) 0 % (0.0-1.8) 04/20/18 05:47 Metamyelocytes % 0 % 04/20/18 05:47 Myelocytes % 0 % 04/20/18 05:47 Promyelocytes % 0 % 04/20/18 05:47 Blast Cells % 0 % 04/20/18 05:47 Nucleated RBC % Not Reportable 04/20/18 05:47 Seg Neutrophils # 5.3 K/mm3 (1.8-7.7) 04/23/18 16:11 Seg Neutrophils # Man 8.3 K/mm3 (1.8-7.7) H 04/20/18 05:47 Band Neutrophils # 0.0 K/mm3 04/20/18 05:47 Lymphocytes # (Manual) 0.5 K/mm3 (1.2-5.4) L 04/20/18 05:47 Abs React Lymphs (Man) 0.0 K/mm3 04/20/18 05:47 Monocytes # (Manual) 0.1 K/mm3 (0.0-0.8) 04/20/18 05:47 Eosinophils # (Manual) 0.0 K/mm3 (0.0-0.4) 04/20/18 05:47 Basophils # (Manual) 0.0 K/mm3 (0.0-0.1) 04/20/18 05:47 Metamyelocytes # 0.0 K/mm3 04/20/18 05:47 Myelocytes # 0.0 K/mm3 04/20/18 05:47 Promyelocytes # 0.0 K/mm3 04/20/18 05:47 Blast Cells # 0.0 K/mm3 04/20/18 05:47 WBC Morphology Not Reportable 04/20/18 05:47 Hypersegmented Neuts Not Reportable 04/20/18 05:47 Hyposegmented Neuts Not Reportable 04/20/18 05:47 Hypogranular Neuts Not Reportable 04/20/18 05:47 Smudge Cells Not Reportable 04/20/18 05:47 Toxic Granulation Not Reportable 04/20/18 05:47 Toxic Vacuolation Not Reportable 04/20/18 05:47 Dohle Bodies Not Reportable 04/20/18 05:47 Pelger-Huet Anomaly Not Reportable 04/20/18 05:47 Antonio Rods Not Reportable 04/20/18 05:47 Platelet Estimate Cons 04/20/18 05:47 Clumped Platelets Not Reportable 04/20/18 05:47 Plt Clumps, EDTA Not Reportable 04/20/18 05:47 Large Platelets Not Reportable 04/20/18 05:47 Giant Platelets Not Reportable 04/20/18 05:47 Platelet Satelliting Not Reportable 04/20/18 05:47 Plt Morphology Comment Not Reportable 04/20/18 05:47 RBC Morphology Normal 04/20/18 05:47 Dimorphic RBCs Not Reportable 04/20/18 05:47 Polychromasia Not Reportable 04/20/18 05:47 Hypochromasia Not Reportable 04/20/18 05:47 Poikilocytosis Not Reportable 04/20/18 05:47 Anisocytosis Not Reportable 04/20/18 05:47 Microcytosis Not Reportable 04/20/18 05:47 Macrocytosis Not Reportable 04/20/18 05:47 Spherocytes Not Reportable 04/20/18 05:47 Pappenheimer Bodies Not Reportable 04/20/18 05:47 Sickle Cells Not Reportable 04/20/18 05:47 Target Cells Not Reportable 04/20/18 05:47 Tear Drop Cells Not Reportable 04/20/18 05:47 Ovalocytes Not Reportable 04/20/18 05:47 Helmet Cells Not Reportable 04/20/18 05:47 [place] Bodies Not Reportable 04/20/18 05:47 [place] Rings Not Reportable 04/20/18 05:47 Ginger Cells Not Reportable 04/20/18 05:47 Bite Cells Not Reportable 04/20/18 05:47 Crenated Cell Not Reportable 04/20/18 05:47 Elliptocytes Not Reportable 04/20/18 05:47 Acanthocytes (Spur) Not Reportable 04/20/18 05:47 Rouleaux Not Reportable 04/20/18 05:47 Hemoglobin C Crystals Not Reportable 04/20/18 05:47 Schistocytes Not Reportable 04/20/18 05:47 Malaria parasites Not Reportable 04/20/18 05:47 [place] Bodies Not Reportable 04/20/18 05:47 Hem Pathologist Commnt No 04/20/18 05:47 PT 15.4 Sec. (12.2-14.9) H 04/21/18 08:54 INR 1.16 (0.87-1.13) H 04/21/18 08:54 POC ABG pH 7.506 (7.35-7.45) H 04/18/18 19:57 POC ABG pCO2 21.0 (35-45) L 04/18/18 19:57 POC ABG pO2 82 (80-105) 04/18/18 19:57 POC ABG HCO3 16.6 04/18/18 19:57 POC ABG Total CO2 17 04/18/18 19:57 POC ABG O2 Sat 97 04/18/18 19:57 POC ABG Base Excess -6 04/18/18 19:57 VBG pH 7.477 (7.320-7.420) H 04/18/18 18:21 FiO2 21 % 04/18/18 19:57 Sodium 134 mmol/L (137-145) L 05/03/18 06:55 Potassium 4.8 mmol/L (3.6-5.0) 05/03/18 06:55 Chloride 90.0 mmol/L (98-107) L 05/03/18 06:55 Carbon Dioxide 21 mmol/L (22-30) L 05/03/18 06:55 Anion Gap 28 mmol/L 05/03/18 06:55 BUN 99 mg/dL (9-20) H 05/03/18 06:55 Creatinine 12.7 mg/dL (0.8-1.5) H 05/03/18 06:55 Estimated GFR 4 ml/min 05/03/18 06:55 BUN/Creatinine Ratio 8 % 05/03/18 06:55 Glucose 111 mg/dL (75-100) H 05/03/18 06:55 Lactic Acid 1.10 mmol/L (0.7-2.0) 04/18/18 21:23 Calcium 8.2 mg/dL (8.4-10.2) L 05/03/18 06:55 Magnesium 2.20 mg/dL (1.7-2.3) 04/19/18 13:14 Total Bilirubin 1.00 mg/dL (0.1-1.2) 04/21/18 06:42 AST 131 units/L (5-40) H 04/21/18 06:42 ALT 81 units/L (7-56) H 04/21/18 06:42 Alkaline Phosphatase 176 units/L (35-129) H 04/21/18 06:42 Total Creatine Kinase 26 units/L (55-170) L 04/23/18 16:11 CK-MB (CK-2) 2.5 ng/mL (0.0-4.0) 04/19/18 05:20 CK-MB (CK-2) Rel Index 0.3 (0-4) 04/19/18 05:20 Troponin T 0.011 ng/mL (0.00-0.029) 04/19/18 05:20 Serum Total Protein 5.7 g/dL (6.1-8.1) L 04/19/18 13:14 Total Protein 5.7 g/dL (6.3-8.2) L D 04/21/18 06:42 Albumin 2.3 g/dL (3.9-5) L 04/21/18 06:42 Albumin/Globulin Ratio 0.7 % 04/21/18 06:42 Ijjbq-3-Aovpinalj 0.8 g/dL (0.2-0.3) H 04/19/18 13:14 Mdfkm-7-Ecftccpsr 1.4 g/dL (0.5-0.9) H 04/19/18 13:14 Beta Globulins 0.4 g/dL (0.2-0.5) 04/19/18 13:14 Gamma Globulins 0.5 g/dL (0.8-1.7) L 04/19/18 13:14 Abnorm Protein Band 1 see below 04/19/18 13:14 PEP Interpretation see below H 04/19/18 13:14 Urine Color [place] (Yellow) 04/18/18 18:55 Urine Turbidity Clear (Clear) 04/18/18 18:55 Urine pH 5.0 (5.0-7.0) 04/18/18 18:55 Ur Specific [place] 1.015 (1.003-1.030) 04/18/18 18:55 Urine Protein 100 mg/dl mg/dL (Negative) 04/18/18 18:55 Urine Glucose (UA) 50 mg/dL (Negative) 04/18/18 18:55 Urine Ketones Neg mg/dL (Negative) 04/18/18 18:55 Urine Blood Mod (Negative) 04/18/18 18:55 Urine Nitrite Neg (Negative) 04/18/18 18:55 Urine Bilirubin Neg (Negative) 04/18/18 18:55 Urine Urobilinogen < 2.0 mg/dL (<2.0) 04/18/18 18:55 Ur Leukocyte Esterase Neg (Negative) 04/18/18 18:55 Urine WBC (Auto) 16.0 /HPF (0.0-6.0) H 04/18/18 18:55 Urine RBC (Auto) 13.0 /HPF (0.0-6.0) 04/18/18 18:55 U Epithel Cells (Auto) 2.0 /HPF (0-13.0) 04/18/18 18:55 Urine Mucus Few /HPF 04/18/18 18:55 Urine Eosinophils None seen (None Seen) 04/19/18 17:00 Urine Creatinine 119.5 mg/dL (0.1-20.0) H 04/19/18 17:00 Protein/Creatinin Ratio 0.93 04/19/18 17:00 Urine Sodium 51 mmol/L 04/19/18 17:00 Urine Total Protein 111 mg/dL (5-11.8) H 04/19/18 17:00 Random Vancomycin 15.5 ug/mL (0-40.0) 04/22/18 05:24 RICARDO Screen Negative (Negative) 04/19/18 13:14 Proteinase 3 (PR3) Ab <1.0 AI (<1.0) 04/19/18 13:14 Myeloperoxidase Ab <1.0 AI (<1.0) 04/19/18 13:14 Glomerular Base Mem IgG <1.0 AI (<1.0) 04/22/18 05:24 Complement C3 235 mg/dL (82-185) H 04/19/18 13:14 Complement C4 66 mg/dL (15-53) H 04/19/18 13:14 Hepatitis A IgM Ab Non-reactive (NonReactive) 04/19/18 13:14 Hep Bs Antigen Non-reactive (Negative) 04/19/18 13:14 Hep B Core IgM Ab Non-reactive (NonReactive) 04/19/18 13:14 Hepatitis C Antibody Non-reactive (NonReactive) 04/19/18 13:14 Anti-Streptolysin O Ab See scanned results 04/22/18 05:24
[2018-05-04] MEDS: XOPENEX IH SCH ×3 (08:02→20:08)
[2018-05-04] MEDS: ATROVENT IH SCH ×3 (08:02→20:09)
[2018-05-04 08:47] LABS: Calcium 8.6 mg/dL (8.4-10.2)
--- NOTE | 2018-05-04 09:40 | Progress Note ---
Assessment and Plan Impression: * Nonoliguric acute kidney injury secondary to ATN due to sepsis vs rhabdo ( myoglobin deposits in tubules) --[place] kidney bx 04/21 - ATN, scattered tubules w/ myoglobin + granular casts * Sepsis * uremia * PNA * Metabolic acidosis * Hypertension * Transaminitis - resolved * Hypokalemia - resolved * Hyponatremia - resolved Plan: * intiated hemodialysis, treatment today and then qmwf * may have to present to ed periodically if needs to continue if no outpatient arrangements are available * Continue po bicarb * Strict I/O * Continue antiHTN medications * Avoid potential nephrotoxins * Encouraged po hydration * Patient is not stable for d/c from a renal standpoint Subjective Date of service: 05/04/18 Principal diagnosis: esrd Interval history: resting well in bed today Objective - Exam Narrative Exam: General appearance: well-developed, well-nourished EENT: ATNC Respiratory: Present: Clear to Ascultation Cardiology: regular, S1S2 Gastrointestinal: normal Integumentary: no rash, warm and dry Neurologic: no focal deficit Musculoskeletal: cyanosis (edema) Psychiatric: cooperative - Vital Signs Vital signs: Vital Signs - 12hr 05/04/18 05/04/18 05/04/18 00:08 07:30 07:32 Temperature 98.7 F 98.1 F Pulse Rate 93 H 75 Pulse Rate [ 88 Anterior Bilateral Throughout] Respiratory 18 16 Rate Respiratory 16 Rate [Anterior Bilateral Throughout] Blood Pressure 130/85 128/81 O2 Sat by Pulse 92 91 Oximetry 05/04/18 08:00 Temperature Pulse Rate Pulse Rate [ 92 H Anterior Bilateral Throughout] Respiratory Rate Respiratory 18 Rate [Anterior Bilateral Throughout] Blood Pressure O2 Sat by Pulse Oximetry - Lab 04/23/18 16:11 05/04/18 05:41 Most recent lab results Calcium 8.6 mg/dL (8.4-10.2) 05/04/18 05:41 Magnesium 2.20 mg/dL (1.7-2.3) 04/19/18 13:14 Urine Creatinine 119.5 mg/dL (0.1-20.0) H 04/19/18 17:00 Urine Sodium 51 mmol/L 04/19/18 17:00 Urine Total Protein 111 mg/dL (5-11.8) H 04/19/18 17:00
[2018-05-04] MEDS: OxyCONTIN PO SCH ×2 (10:31→21:06)
[2018-05-04] MEDS ORDERED: NACL 0.9% 100 ML IV PRN (11:05)
[2018-05-04] MEDS: SODIUM BICARBONATE PO SCH ×3 (14:37→21:06)
[2018-05-04] MEDS: COREG PO SCH ×2 (14:37→21:06)
[2018-05-04] MEDS: DELTASONE PO SCH (14:38)
[2018-05-04] MEDS: NORVASC PO SCH (14:38)
[2018-05-04] MEDS: LOVENOX SUB-Q SCH (14:38)
[2018-05-04] MEDS: SODIUM CHLORIDE FLUSH SYRINGE 10 ML IV SCH ×2 (14:39→21:07)
[2018-05-05] MEDS ORDERED: ANCEF/STERILE WATER 2 GM/20 ML 2 GM/20 ML SYRINGE IV SCH (06:00)
[2018-05-05 06:13] LABS: Calcium 8.4 mg/dL (8.4-10.2)
[2018-05-05] MEDS: TESSALON PERLES PO SCH ×3 (06:34→22:20)
[2018-05-05] MEDS: SODIUM BICARBONATE PO SCH ×3 (08:00→22:20)
[2018-05-05] MEDS: XOPENEX IH SCH ×3 (08:34→20:14)
[2018-05-05] MEDS: ATROVENT IH SCH ×3 (08:34→20:14)
[2018-05-05] MEDS: SODIUM CHLORIDE FLUSH SYRINGE 10 ML IV SCH ×2 (09:00→22:19)
[2018-05-05] MEDS: LOVENOX SUB-Q SCH (10:00)
[2018-05-05] MEDS ORDERED: NACL 0.9% 100 ML IV PRN (10:24)
--- NOTE | 2018-05-05 12:23 | Progress Note ---
Assessment and Plan Assessment and plan: Incarcerated umbilical hernia -Planned for surgical correction on Thursday. I have discussed the case with the general surgeon. -As this patient is started on dialysis 05/03, the patient is now adequately optimized for planned procedure. Intermediate risk for an intermediate risk procedure. Acute gouty attack -Continue colchicine, steroids and pain medications /Acute Renal Failure due to ATN Nephrology following, Creatinine continued to decline, s/p renal biopsy 04/21/18 Biopsy showed pathological finding of ATN likely progressing toward esrd, continue HD as needed / Bilateral Pneumonia, CAP has completed abx /Sepsis due to UTI and PNA has completed abx /UTI, present on admission urine cx grew Beta Hemolytic Strep Group B treated with abx /Metabolic acidosis secondary to declining renal function cont to monitor /Hypokalemia cont to replete as needed /Hyponatremia Significantly improved, continue IVF /Abnormal LFT due to alcohol abuse Abdominal ultrasound revealed fatty liver otherwise unremarkable exam, counseled about cessation HTN uncontrolled, continue to optimize meds /DVT prophalaxis, with heparin Brief History 52 year old man with no presented to the emergency department with complaints of nonproductive cough, fever, chills x 4 days. Admits to left side chest pain, unable to describe it, unable to say how long it last for, no radiation, intensity 4/10. Also admitted to generalized weakness. History Interval history: Review of systems Constitutional: No fevers, no malaise, no joint pains CVS: No chest pain, no orthopnea, no dyspnea on exertion, no pedal edema GI: umbiliculus is protuberant and swollen and painfull, no diarrhea, no vomiting, no constipation Respiratory: No shortness of breath, no wheezing, no coughing Hospitalist Physical - Physical exam Narrative exam: General.: Appears well, no distress, nontoxic HEENT: Moist mucous membranes, extraocular muscles intact, no lymphadenopathy Neck: supple Cardiac: S1-S2 heard Lungs: clear to auscultation bilaterally Abdomen: soft , nontender, nondistended, bowel sounds positive Extremities: no edema clubbing or cyanosis Skin: no rash or lesions Neurologic: no gross focal deficits Psych: appropriate behavior, appropriate mood, corporative, judgment intact - Constitutional Vitals: Temp Pulse Resp BP Pulse Ox 98.2 F 86 20 170/92 90 05/05/18 10:55 05/05/18 10:55 05/05/18 10:55 05/05/18 10:55 05/05/18 07:40 Results - Labs CBC & Chem 7: 04/23/18 16:11 05/05/18 05:13 Labs: Laboratory Last Values WBC 6.7 K/mm3 (4.5-11.0) 04/23/18 16:11 RBC 3.63 M/mm3 (3.65-5.03) L 04/23/18 16:11 Hgb 11.2 gm/dl (11.8-15.2) L 04/23/18 16:11 Hct 33.7 % (35.5-45.6) L 04/23/18 16:11 MCV 93 fl (84-94) 04/23/18 16:11 MCH 31 pg (28-32) 04/23/18 16:11 MCHC 33 % (32-34) 04/23/18 16:11 RDW 16.4 % (13.2-15.2) H 04/23/18 16:11 Plt Count 373 K/mm3 (140-440) 04/23/18 16:11 Lymph % (Auto) 11.6 % (13.4-35.0) L 04/23/18 16:11 [place] % (Auto) 7.9 % (0.0-7.3) H 04/23/18 16:11 Eos % (Auto) 1.2 % (0.0-4.3) 04/23/18 16:11 Baso % (Auto) 0.3 % (0.0-1.8) 04/23/18 16:11 Lymph # 0.8 K/mm3 (1.2-5.4) L 04/23/18 16:11 [place] # 0.5 K/mm3 (0.0-0.8) 04/23/18 16:11 Eos # 0.1 K/mm3 (0.0-0.4) 04/23/18 16:11 Baso # 0.0 K/mm3 (0.0-0.1) 04/23/18 16:11 Add Manual Diff Complete 04/20/18 05:47 Total Counted 100 04/20/18 05:47 Seg Neutrophils % 79.0 % (40.0-70.0) H 04/23/18 16:11 Seg Neuts % (Manual) 93.0 % (40.0-70.0) H 04/20/18 05:47 Band Neutrophils % 0 % 04/20/18 05:47 Lymphocytes % (Manual) 6.0 % (13.4-35.0) L 04/20/18 05:47 Reactive Lymphs % (Man) 0 % 04/20/18 05:47 Monocytes % (Manual) 1.0 % (0.0-7.3) 04/20/18 05:47 Eosinophils % (Manual) 0 % (0.0-4.3) 04/20/18 05:47 Basophils % (Manual) 0 % (0.0-1.8) 04/20/18 05:47 Metamyelocytes % 0 % 04/20/18 05:47 Myelocytes % 0 % 04/20/18 05:47 Promyelocytes % 0 % 04/20/18 05:47 Blast Cells % 0 % 04/20/18 05:47 Nucleated RBC % Not Reportable 04/20/18 05:47 Seg Neutrophils # 5.3 K/mm3 (1.8-7.7) 04/23/18 16:11 Seg Neutrophils # Man 8.3 K/mm3 (1.8-7.7) H 04/20/18 05:47 Band Neutrophils # 0.0 K/mm3 04/20/18 05:47 Lymphocytes # (Manual) 0.5 K/mm3 (1.2-5.4) L 04/20/18 05:47 Abs React Lymphs (Man) 0.0 K/mm3 04/20/18 05:47 Monocytes # (Manual) 0.1 K/mm3 (0.0-0.8) 04/20/18 05:47 Eosinophils # (Manual) 0.0 K/mm3 (0.0-0.4) 04/20/18 05:47 Basophils # (Manual) 0.0 K/mm3 (0.0-0.1) 04/20/18 05:47 Metamyelocytes # 0.0 K/mm3 04/20/18 05:47 Myelocytes # 0.0 K/mm3 04/20/18 05:47 Promyelocytes # 0.0 K/mm3 04/20/18 05:47 Blast Cells # 0.0 K/mm3 04/20/18 05:47 WBC Morphology Not Reportable 04/20/18 05:47 Hypersegmented Neuts Not Reportable 04/20/18 05:47 Hyposegmented Neuts Not Reportable 04/20/18 05:47 Hypogranular Neuts Not Reportable 04/20/18 05:47 Smudge Cells Not Reportable 04/20/18 05:47 Toxic Granulation Not Reportable 04/20/18 05:47 Toxic Vacuolation Not Reportable 04/20/18 05:47 Dohle Bodies Not Reportable 04/20/18 05:47 Pelger-Huet Anomaly Not Reportable 04/20/18 05:47 Antonio Rods Not Reportable 04/20/18 05:47 Platelet Estimate Cons 04/20/18 05:47 Clumped Platelets Not Reportable 04/20/18 05:47 Plt Clumps, EDTA Not Reportable 04/20/18 05:47 Large Platelets Not Reportable 04/20/18 05:47 Giant Platelets Not Reportable 04/20/18 05:47 Platelet Satelliting Not Reportable 04/20/18 05:47 Plt Morphology Comment Not Reportable 04/20/18 05:47 RBC Morphology Normal 04/20/18 05:47 Dimorphic RBCs Not Reportable 04/20/18 05:47 Polychromasia Not Reportable 04/20/18 05:47 Hypochromasia Not Reportable 04/20/18 05:47 Poikilocytosis Not Reportable 04/20/18 05:47 Anisocytosis Not Reportable 04/20/18 05:47 Microcytosis Not Reportable 04/20/18 05:47 Macrocytosis Not Reportable 04/20/18 05:47 Spherocytes Not Reportable 04/20/18 05:47 Pappenheimer Bodies Not Reportable 04/20/18 05:47 Sickle Cells Not Reportable 04/20/18 05:47 Target Cells Not Reportable 04/20/18 05:47 Tear Drop Cells Not Reportable 04/20/18 05:47 Ovalocytes Not Reportable 04/20/18 05:47 Helmet Cells Not Reportable 04/20/18 05:47 [place] Bodies Not Reportable 04/20/18 05:47 [place] Rings Not Reportable 04/20/18 05:47 Ginger Cells Not Reportable 04/20/18 05:47 Bite Cells Not Reportable 04/20/18 05:47 Crenated Cell Not Reportable 04/20/18 05:47 Elliptocytes Not Reportable 04/20/18 05:47 Acanthocytes (Spur) Not Reportable 04/20/18 05:47 Rouleaux Not Reportable 04/20/18 05:47 Hemoglobin C Crystals Not Reportable 04/20/18 05:47 Schistocytes Not Reportable 04/20/18 05:47 Malaria parasites Not Reportable 04/20/18 05:47 Royal Bodies Not Reportable 04/20/18 05:47 Hem Pathologist Commnt No 04/20/18 05:47 PT 15.4 Sec. (12.2-14.9) H 04/21/18 08:54 INR 1.16 (0.87-1.13) H 04/21/18 08:54 POC ABG pH 7.506 (7.35-7.45) H 04/18/18 19:57 POC ABG pCO2 21.0 (35-45) L 04/18/18 19:57 POC ABG pO2 82 (80-105) 04/18/18 19:57 POC ABG HCO3 16.6 04/18/18 19:57 POC ABG Total CO2 17 04/18/18 19:57 POC ABG O2 Sat 97 04/18/18 19:57 POC ABG Base Excess -6 04/18/18 19:57 VBG pH 7.477 (7.320-7.420) H 04/18/18 18:21 FiO2 21 % 04/18/18 19:57 Sodium 141 mmol/L (137-145) 05/05/18 05:13 Potassium 4.9 mmol/L (3.6-5.0) 05/05/18 05:13 Chloride 98.6 mmol/L (98-107) 05/05/18 05:13 Carbon Dioxide 28 mmol/L (22-30) 05/05/18 05:13 Anion Gap 19 mmol/L 05/05/18 05:13 BUN 50 mg/dL (9-20) H 05/05/18 05:13 Creatinine 6.2 mg/dL (0.8-1.5) H 05/05/18 05:13 Estimated GFR 10 ml/min 05/05/18 05:13 BUN/Creatinine Ratio 8 % 05/05/18 05:13 Glucose 99 mg/dL (75-100) 05/05/18 05:13 Lactic Acid 1.10 mmol/L (0.7-2.0) 04/18/18 21:23 Calcium 8.4 mg/dL (8.4-10.2) 05/05/18 05:13 Magnesium 2.20 mg/dL (1.7-2.3) 04/19/18 13:14 Total Bilirubin 1.00 mg/dL (0.1-1.2) 04/21/18 06:42 AST 131 units/L (5-40) H 04/21/18 06:42 ALT 81 units/L (7-56) H 04/21/18 06:42 Alkaline Phosphatase 176 units/L (35-129) H 04/21/18 06:42 Total Creatine Kinase 26 units/L (55-170) L 04/23/18 16:11 CK-MB (CK-2) 2.5 ng/mL (0.0-4.0) 04/19/18 05:20 CK-MB (CK-2) Rel Index 0.3 (0-4) 04/19/18 05:20 Troponin T 0.011 ng/mL (0.00-0.029) 04/19/18 05:20 Serum Total Protein 5.7 g/dL (6.1-8.1) L 04/19/18 13:14 Total Protein 5.7 g/dL (6.3-8.2) L D 04/21/18 06:42 Albumin 2.3 g/dL (3.9-5) L 04/21/18 06:42 Albumin/Globulin Ratio 0.7 % 04/21/18 06:42 Jxdpw-3-Rvbgsjxve 0.8 g/dL (0.2-0.3) H 04/19/18 13:14 Kjhdo-8-Spufogyut 1.4 g/dL (0.5-0.9) H 04/19/18 13:14 Beta Globulins 0.4 g/dL (0.2-0.5) 04/19/18 13:14 Gamma Globulins 0.5 g/dL (0.8-1.7) L 04/19/18 13:14 Abnorm Protein Band 1 see below 04/19/18 13:14 PEP Interpretation see below H 04/19/18 13:14 Urine Color [place] (Yellow) 04/18/18 18:55 Urine Turbidity Clear (Clear) 04/18/18 18:55 Urine pH 5.0 (5.0-7.0) 04/18/18 18:55 Ur Specific [place] 1.015 (1.003-1.030) 04/18/18 18:55 Urine Protein 100 mg/dl mg/dL (Negative) 04/18/18 18:55 Urine Glucose (UA) 50 mg/dL (Negative) 04/18/18 18:55 Urine Ketones Neg mg/dL (Negative) 04/18/18 18:55 Urine Blood Mod (Negative) 04/18/18 18:55 Urine Nitrite Neg (Negative) 04/18/18 18:55 Urine Bilirubin Neg (Negative) 04/18/18 18:55 Urine Urobilinogen < 2.0 mg/dL (<2.0) 04/18/18 18:55 Ur Leukocyte Esterase Neg (Negative) 04/18/18 18:55 Urine WBC (Auto) 16.0 /HPF (0.0-6.0) H 04/18/18 18:55 Urine RBC (Auto) 13.0 /HPF (0.0-6.0) 04/18/18 18:55 U Epithel Cells (Auto) 2.0 /HPF (0-13.0) 04/18/18 18:55 Urine Mucus Few /HPF 04/18/18 18:55 Urine Eosinophils None seen (None Seen) 04/19/18 17:00 Urine Creatinine 119.5 mg/dL (0.1-20.0) H 04/19/18 17:00 Protein/Creatinin Ratio 0.93 04/19/18 17:00 Urine Sodium 51 mmol/L 04/19/18 17:00 Urine Total Protein 111 mg/dL (5-11.8) H 04/19/18 17:00 Random Vancomycin 15.5 ug/mL (0-40.0) 04/22/18 05:24 RICARDO Screen Negative (Negative) 04/19/18 13:14 Proteinase 3 (PR3) Ab <1.0 AI (<1.0) 04/19/18 13:14 Myeloperoxidase Ab <1.0 AI (<1.0) 04/19/18 13:14 Glomerular Base Mem IgG <1.0 AI (<1.0) 04/22/18 05:24 Complement C3 235 mg/dL (82-185) H 04/19/18 13:14 Complement C4 66 mg/dL (15-53) H 04/19/18 13:14 Hepatitis A IgM Ab Non-reactive (NonReactive) 04/19/18 13:14 Hep Bs Antigen Non-reactive (Negative) 04/19/18 13:14 Hep B Core IgM Ab Non-reactive (NonReactive) 04/19/18 13:14 Hepatitis C Antibody Non-reactive (NonReactive) 04/19/18 13:14 Anti-Streptolysin O Ab See scanned results 04/22/18 05:24
[2018-05-05] MEDS ORDERED: ceFAZolin 2 GM in NACL 0.9% 100 ML IV SCH (13:00)
[2018-05-05] MEDS: COLCHICINE PO SCH (14:10)
[2018-05-05] MEDS: NORVASC PO SCH (14:10)
[2018-05-05] MEDS: OxyCONTIN PO SCH ×2 (14:10→22:17)
[2018-05-05] MEDS: COREG PO SCH ×2 (14:11→22:19)
[2018-05-05] MEDS: DELTASONE PO SCH (14:11)
--- NOTE | 2018-05-05 14:35 | Vascular Lab Report ---
UPPER EXTREMITY VENOUS DUPLEX: REASON FOR EXAM: Pain and swelling of the upper extremities COMMENTS ON THE RIGHT: All arm veins visualized are freely compressible without evidence of internal echogenicity. The subclavian and internal jugular veins are free of thrombus. Flow is spontaneous and phasic throughout. COMMENTS ON THE LEFT: All arm veins visualized are freely compressible without evidence of internal echogenicity. The subclavian and internal jugular veins are free of thrombus. Flow is spontaneous and phasic throughout. IMPRESSION: No evidence of acute or chronic deep venous thrombosis in the upper extremities.
[2018-05-05] MEDS ORDERED: NACL 0.9% 1000 ML 1,000 ML IV SCH ×2 (15:00→18:00)
--- NOTE | 2018-05-05 15:07 | Anesthesia Day of Surgery ---
Anesthesia Day of Surgery - Day of Surgery Patient Examined: Yes Patient H&P Reviewed: Yes Patient is NPO: Yes Beta Blockers: No Cardiac Clearance: Yes Pulmonary Clearance: Yes Marty's Test: N/A
--- NOTE | 2018-05-05 15:07 | Anesthesia Consultation ---
Anesthesia Consult and Med Hx - Airway Anesthetic Teeth Evaluation: Good ROM Head & Neck: Adequate Mental/Hyoid Distance: Adequate Mallampati Class: Class III Intubation Access Assessment: Probably Good - Pulmonary Exam CTA: Yes - Cardiac Exam Cardiac Exam: RRR - Pre-Operative Health Status ASA Pre-Surgery Classification: ASA3 Proposed Anesthetic Plan: General - Pulmonary Hx Asthma: Yes Hx Pneumonia: Yes - Cardiovascular System Hx Hypertension: No Hx Coronary Artery Disease: No - Central Nervous System Hx Seizures: No CVA: No - Endocrine Hx Renal Disease: Yes ([place] requiring HD) Hx Liver Disease: Yes (Chronic EtOH)
[2018-05-05] MEDS ORDERED: SUBLIMAZE ONE (15:23)
[2018-05-05] MEDS ORDERED: XYLOCAINE MPF 2% ONE ×2 (15:23→17:00)
[2018-05-05] MEDS ORDERED: DIPRIVAN 10 MG/ML IV ONE (15:24)
[2018-05-05] MEDS ORDERED: XYLOCAINE 1% 20 mL ONE (15:54)
[2018-05-05] MEDS ORDERED: MARCAINE 0.5% 30 ML INFILTRATI ONE (15:54)
[2018-05-05] MEDS ORDERED: XYLOCAINE 1% 20 mL INFILTRATI ONE (16:47)
[2018-05-05] MEDS ORDERED: NACL 0.9% IR ONE (16:47)
[2018-05-05] MEDS ORDERED: MARCAINE 0.25% INFILTRATI ONE (16:47)
[2018-05-05] MEDS ORDERED: ZEMURON IV ONE (17:00)
[2018-05-05] MEDS ORDERED: ROBINUL ONE ×3 (17:12)
[2018-05-05] MEDS ORDERED: BLOXIVERZ ONE (17:12)
[2018-05-05] MEDS ORDERED: ZOFRAN ONE (17:12)
--- NOTE | 2018-05-05 17:26 | Post Operative Note ---
Date of procedure: 05/05/18 Pre-op diagnosis: incarcerated umbilical hernia Post-op diagnosis: same Findings: preperitoneal fat in the hernia Procedure: Open Umbilical hernia repair with mesh Anesthesia: ARSENIO, local Surgeon: OLIVER FORREST Estimated blood loss: minimal Pathology: list (portion of hernia sac) Specimen disposition: to lab Condition: stable Disposition: PACU
[2018-05-05] MEDS ORDERED: SUBLIMAZE IV PRN (17:29)
[2018-05-05] MEDS ORDERED: ZOFRAN IV PRN (17:29)
[2018-05-05] MEDS: DILAUDID IV PRN ×4 (17:40→18:13)
--- NOTE | 2018-05-05 17:45 | Post Anesthesia Evaluation ---
- Post Anesthesia Evaluation Patient Participated: Yes Airway Patent: Yes Stable Respiratory Function: Yes Nausea/Vomiting: No Temp > 96.8F: Yes Pain Manageable: Yes Adequeate Hydration: Yes Anesthesia Complications: No Block Receding Appropriately: Not Applicable Patient on Ventilator: No
--- NOTE | 2018-05-05 18:26 | Operative Report ---
Operative Report Operative Report: Date of procedure: 05/05/18 Pre-op diagnosis: incarcerated umbilical hernia Post-op diagnosis: same Findings: preperitoneal fat in the hernia Procedure: Open Umbilical hernia repair with mesh Anesthesia: ARSENIO local Surgeon: OLIVER FORREST Estimated blood loss: minimal Pathology: list (portion of hernia sac) Specimen disposition: to lab Condition: stable Disposition: PACU HPI an indication: Patient is a 52-year-old male who presented to the hospital with cough. He was found to be in acute renal failure. The patient had a known history of umbilical hernia which did not bother him however because of the persistent coughing his hernia popped out and became incarcerated. He was having pain from this. A CT scan of the abdomen and pelvis showed incarceration of fat and surrounding fluid. The hernia could not be reduced. Once the patient was stable from a medical standpoint, the decision was made to take him to surgery for repair of the hernia. All risks, benefits, alternatives to surgery were discussed with the patient and his family and questions answered. Consent was signed. Procedure in detail: The patient was identified in the preoperative area, taken back to the operating room, and placed on the operating room table in supine position. After anesthesia was induced, the abdomen was prepped and draped in the usual sterile fashion and a timeout performed. The skin and subcutaneous tissue at the intended incision site was infiltrated with local anesthetic, a 50 /50 mixture of 1% lidocaine and 0.5% Marcaine. A semilunar incision was made below the umbilicus using a 15 blade. Dissection was carried down through the skin and subcutaneous tissue using Bovie electrocautery until the hernia sac was identified. The hernia sac was carefully dissected free from surrounding tissue using a hemostat and electrocautery. The hernia sac was then dissected from the umbilicus, with great care taken to prevent injury to the umbilicus. Hernia sac was examined and contained only preperitoneal fat and fluid. This was reduced completely. A portion of the hernia sac which was adhesed to the fascia was excised and passed off the table as a specimen. The preperitoneal space was then carefully dissected using blunt dissection in order to create space for mesh placement. Hemostasis was carefully ensured during the entire process. The hernia defect measured 2 cm. A large Bard ventralex ST mesh, 8 cm , was used to repair the defect. The mesh was placed in the preperitoneal space and seen to lay flat. The tabs were cut to the appropriate length and the mesh sutured in place in 4 quadrants using 2-0 Prolene suture. The fascial defect was closed using 0 Vicryl interrupted sutures. The subcutaneous tissue was irrigated and hemostasis ensured. The umbilicus was tacked down to the fascia using 3-0 Vicryl interrupted stitch. The deep dermal layer was then closed with interrupted 3-0 Vicryl sutures. The skin was closed with 4-0 Monocryl subcuticular running stitch and skin glue. Local anesthetic was once again infiltrated into the skin. Once the skin glue was dry, 2 tonsil balls were placed in the umbilicus in order to prevent seroma and secured with Tegaderm. At the end of the case, all sponge, instrument, sharp counts were correct 2. The patient was awoken from anesthesia, extubated, taken to PACU in stable condition. Multiple attempts were made to contact the patient's family, however there was no answer and the family had left the hospital.
[2018-05-06] MEDS: TESSALON PERLES PO SCH ×3 (05:39→22:07)
[2018-05-06] MEDS: PERCOCET 5/325 PO PRN ×2 (05:40→11:24)
[2018-05-06] MEDS: SODIUM BICARBONATE PO SCH ×3 (08:45→20:31)
--- NOTE | 2018-05-06 09:45 | Progress Note ---
Assessment and Plan Impression: * Nonoliguric acute kidney injury secondary to ATN due to sepsis vs rhabdo ( myoglobin deposits in tubules) --[place] kidney bx 04/21 - ATN, scattered tubules w/ myoglobin + granular casts * Sepsis * uremia * PNA * Metabolic acidosis * Hypertension * Transaminitis - resolved * Hypokalemia - resolved * Hyponatremia - resolved * hernia Plan: * intiated hemodialysis, treatment today and then qmwf * may have to present to ed periodically if needs to continue if no outpatient arrangements are available * Continue po bicarb * s/p hernia repair * Strict I/O * Continue antiHTN medications * Avoid potential nephrotoxins * Encouraged po hydration Subjective Date of service: 05/06/18 Principal diagnosis: esrd Interval history: resting well in bed today Objective - Exam Narrative Exam: General appearance: well-developed, well-nourished EENT: ATNC Respiratory: Present: Clear to Ascultation Cardiology: regular, S1S2 Gastrointestinal: normal Integumentary: no rash, warm and dry Neurologic: no focal deficit Musculoskeletal: cyanosis (edema) Psychiatric: cooperative - Vital Signs Vital signs: Vital Signs - 12hr 05/05/18 05/05/18 05/05/18 22:17 22:19 23:17 Temperature Pulse Rate 72 Respiratory 20 20 Rate Respiratory Rate [Left Hand ] Blood Pressure 128/88 O2 Sat by Pulse Oximetry 05/05/18 05/06/18 05/06/18 23:44 00:28 05:40 Temperature 98.7 F Pulse Rate 78 Respiratory 18 20 20 Rate Respiratory 20 Rate [Left Hand ] Blood Pressure 134/86 O2 Sat by Pulse 91 100 Oximetry 05/06/18 06:27 Temperature 98.9 F Pulse Rate 78 Respiratory 18 Rate Respiratory Rate [Left Hand ] Blood Pressure 151/100 O2 Sat by Pulse 96 Oximetry - Lab 04/23/18 16:11 05/05/18 05:13 Most recent lab results Calcium 8.4 mg/dL (8.4-10.2) 05/05/18 05:13 Magnesium 2.20 mg/dL (1.7-2.3) 04/19/18 13:14 Urine Creatinine 119.5 mg/dL (0.1-20.0) H 04/19/18 17:00 Urine Sodium 51 mmol/L 04/19/18 17:00 Urine Total Protein 111 mg/dL (5-11.8) H 04/19/18 17:00
[2018-05-06] MEDS: ATROVENT IH SCH ×3 (10:00→20:59)
[2018-05-06] MEDS: XOPENEX IH SCH ×3 (10:00→20:59)
[2018-05-06] MEDS: NORVASC PO SCH (10:22)
[2018-05-06] MEDS: LOVENOX SUB-Q SCH (10:22)
[2018-05-06] MEDS: COREG PO SCH ×2 (10:22→22:07)
[2018-05-06] MEDS: DELTASONE PO SCH (10:22)
[2018-05-06] MEDS: SODIUM CHLORIDE FLUSH SYRINGE 10 ML IV SCH (10:23)
--- NOTE | 2018-05-06 13:32 | Progress Note ---
Assessment and Plan 52 yo M s/p Open Umbilical hernia repair with mesh POD 1 Plan: 1. renal diet 2. no heavy lifting or strenuous activity x 6 weeks 3. cough suppressant as needed 4. prn PO pain control 5. DVT ppx 6. pt and family instructed to removed dressing completely tomorrow and patient may shower. May be discharged from general surgery standpoint. Percocet script left on chart. Follow up in surgery office in 2 wks. D/W Dr. Gallardo and case management Thank you. Please call with questions or concerns. Subjective Date of service: 05/06/18 Narrative: Pt seen and examined. States mild abdominal pain. No f/c. Tolerating diet. Objective Vital Signs - 12hr 05/06/18 05/06/18 05/06/18 05:40 06:27 10:00 Temperature 98.9 F Pulse Rate 78 Pulse Rate [ 83 Anterior Bilateral Throughout] Respiratory 20 18 Rate Respiratory 20 Rate [Anterior Bilateral Throughout] Blood Pressure 151/100 O2 Sat by Pulse 96 95 Oximetry 05/06/18 05/06/18 05/06/18 10:04 10:11 11:34 Temperature 98.9 F Pulse Rate 85 Pulse Rate [ 80 Anterior Bilateral Throughout] Respiratory 18 Rate Respiratory 20 Rate [Anterior Bilateral Throughout] Blood Pressure 141/87 O2 Sat by Pulse 96 93 Oximetry - Labs 04/23/18 16:11 05/05/18 05:13
--- NOTE | 2018-05-06 15:33 | Discharge Summary ---
<OLIVER FORREST - Last Filed: 05/06/18 16:15> Providers - Providers Date of Admission: 04/18/18 22:33 Attending physician: SANDY WRIGHT MD 04/18/18 22:33 Consult to Physician [CONS] Routine Comment: Consulting Provider: NEHA ALFARO Physician Instructions: Reason For Exam: arf 05/01/18 17:19 Consult to Physician [CONS] Routine Comment: Consulting Provider: OLIVER FORREST Physician Instructions: Reason For Exam: umbilical hernia, incarcerated 05/03/18 06:00 Consult to Physician [CONS] Routine Comment: Consulting Provider: AMITA NOLASCO Physician Instructions: Reason For Exam: perm cath placement Primary care physician: FILM LIBRARY CLERK Hospitalization Condition: Serious Disposition: DC-01 TO HOME OR SELFCARE Exam - Constitutional Vitals: Temp Pulse Resp BP Pulse Ox 98.9 F 78 18 141/87 93 05/06/18 11:34 05/06/18 15:30 05/06/18 15:30 05/06/18 11:34 05/06/18 11:34 Plan Activity: other (no heavy lifting, nothing more than 15 lbs for the next 4-6 weeks) Wound: other (remove outer dressing and gauze in belly button tomorrow 05/07/18 - then may shower. Do not scrub incision. Do not submerge incisions in bathtubs/ pools/hottubs.) Follow up with: OLIVER FORREST DO [Staff Physician] - 14 Days PRIMARY CARE, [Primary Care Provider] - 3-5 Days Prescriptions: Albuterol Sulfate [Ventolin HFA] 2 puff IH Q4H PRN #1 [id number] PRN Reason: Shortness Of Breath amLODIPine [Norvasc] 10 mg PO QDAY #60 tablet Carvedilol [Coreg] 6.25 mg PO BID #60 tablet Colchicine 0.6 mg PO QOD #30 capsule oxyCODONE /ACETAMINOPHEN [Percocet 5/325 mg] 1 tab PO Q6H PRN #20 tablet PRN Reason: Pain, Moderate (4-6) oxyCODONE /ACETAMINOPHEN [Percocet 5/325 mg] 1 tab PO Q6H PRN #20 tablet PRN Reason: Pain, Moderate (4-6) Sodium Bicarbonate 1,300 mg PO TID 30 Days tablet <SANDY WRIGHT - Last Filed: 05/07/18 16:30> Providers - Providers Date of Admission: 04/18/18 22:33 Attending physician: SANDY WRIGHT MD 04/18/18 22:33 Consult to Physician [CONS] Routine Comment: Consulting Provider: NEHA ALFARO Physician Instructions: Reason For Exam: arf 05/01/18 17:19 Consult to Physician [CONS] Routine Comment: Consulting Provider: OLIVER FORREST Physician Instructions: Reason For Exam: umbilical hernia, incarcerated 05/03/18 06:00 Consult to Physician [CONS] Routine Comment: Consulting Provider: AMITA NOLASCO Physician Instructions: Reason For Exam: perm cath placement Primary care physician: FILM LIBRARY CLERK Hospitalization Hospital course: Incarcerated umbilical hernia -Planned for surgical correction on Thursday. I have discussed the case with the general surgeon. -As this patient is started on dialysis 05/03, the patient is now adequately optimized for planned procedure. Intermediate risk for an intermediate risk procedure. Acute gouty attack -Continue colchicine, steroids and pain medications /Acute Renal Failure due to ATN Nephrology following, Creatinine continued to decline, s/p renal biopsy 04/21/18 Biopsy showed pathological finding of ATN likely progressing toward esrd, continue HD as needed / Bilateral Pneumonia, CAP has completed abx /Sepsis due to UTI and PNA has completed abx /UTI, present on admission urine cx grew Beta Hemolytic Strep Group B treated with abx /Metabolic acidosis secondary to declining renal function cont to monitor /Hypokalemia cont to replete as needed /Hyponatremia Significantly improved, continue IVF /Abnormal LFT due to alcohol abuse Abdominal ultrasound revealed fatty liver otherwise unremarkable exam, counseled about cessation HTN uncontrolled, continue to optimize meds /DVT prophalaxis, with heparin Time spent for discharge: 33 minutes Core Measure Documentation - Palliative Care Palliative Care/ Comfort Measures: Not Applicable - Core Measures Any of the following diagnoses?: none Exam - Physical Exam Narrative exam: General.: Appears well, no distress, nontoxic HEENT: Moist mucous membranes, extraocular muscles intact, no lymphadenopathy Neck: supple Cardiac: S1-S2 heard Lungs: clear to auscultation bilaterally Abdomen: soft , nontender, nondistended, bowel sounds positive Extremities: no edema clubbing or cyanosis Skin: no rash or lesions Neurologic: no gross focal deficits Psych: appropriate behavior, appropriate mood, corporative, judgment intact - Constitutional Vitals: Temp Pulse Resp BP Pulse Ox 98.9 F 78 18 141/87 93 05/06/18 11:34 05/06/18 15:30 05/06/18 15:30 05/06/18 11:34 05/06/18 11:34
[2018-05-07] MEDS: TESSALON PERLES PO SCH ×2 (06:33→15:07)
[2018-05-07] MEDS: PERCOCET 5/325 PO PRN ×2 (06:33→15:08)
[2018-05-07] MEDS: XOPENEX IH SCH ×2 (07:49→15:09)
[2018-05-07] MEDS: ATROVENT IH SCH ×2 (07:49→15:10)
[2018-05-07] MEDS: SODIUM BICARBONATE PO SCH ×2 (08:51→15:06)
--- NOTE | 2018-05-07 10:29 | Progress Note ---
Assessment and Plan Impression: * Nonoliguric acute kidney injury secondary to ATN due to sepsis vs rhabdo ( myoglobin deposits in tubules) --[place] kidney bx 04/21 - ATN, scattered tubules w/ myoglobin + granular casts * Sepsis - resolved * PNA * Metabolic acidosis * Hypertension * Incarcerated umbilical hernia s/p repair Plan: * Hemodialysis today as ordered * Continue MWF schedule * Continue po bicarb * Strict I/O * Continue antiHTN medications * Avoid potential nephrotoxins * Encouraged po hydration * As patient is unfunded, outpatient HD clinic placement will be problematic; may require ED visits periodically to assess need for dialysis Subjective Date of service: 05/07/18 Principal diagnosis: esrd Interval history: Patient seen on dialysis. Objective - Vital Signs Vital signs: Vital Signs - 12hr 05/06/18 05/07/18 05/07/18 22:50 05:17 07:49 Temperature 97.9 F 98.7 F Pulse Rate 75 82 Pulse Rate [ 69 Anterior Bilateral Throughout] Respiratory 20 20 Rate Respiratory 18 Rate [Anterior Bilateral Throughout] Blood Pressure 138/86 134/77 O2 Sat by Pulse 94 96 96 Oximetry 05/07/18 07:59 Temperature Pulse Rate Pulse Rate [ 72 Anterior Bilateral Throughout] Respiratory Rate Respiratory 18 Rate [Anterior Bilateral Throughout] Blood Pressure O2 Sat by Pulse Oximetry - General Appearance General appearance: well-developed, well-nourished EENT: ATNC Respiratory: Present: Clear to Ascultation Cardiology: regular, S1S2 Gastrointestinal: no distended Integumentary: no rash, warm and dry Neurologic: no focal deficit Musculoskeletal: other Psychiatric: cooperative - Lab 04/23/18 16:11 05/05/18 05:13 Most recent lab results Calcium 8.4 mg/dL (8.4-10.2) 05/05/18 05:13 Magnesium 2.20 mg/dL (1.7-2.3) 04/19/18 13:14 Urine Creatinine 119.5 mg/dL (0.1-20.0) H 04/19/18 17:00 Urine Sodium 51 mmol/L 04/19/18 17:00 Urine Total Protein 111 mg/dL (5-11.8) H 04/19/18 17:00
[2018-05-07] MEDS ORDERED: NACL 0.9 (PRIMING MACHINE ONLY DIALYSIS) MC ONE (12:56)
[2018-05-07] MEDS: COLCHICINE PO SCH (15:07)
[2018-05-07] MEDS: NORVASC PO SCH (15:08)
[2018-05-07] MEDS: SODIUM CHLORIDE FLUSH SYRINGE 10 ML IV SCH (15:10)
[2018-05-07] MEDS: COREG PO SCH (15:13)
[2018-05-07] MEDS: DELTASONE PO SCH (15:15)
[2018-05-07] MEDS: LOVENOX SUB-Q SCH (15:16)
--- NOTE | 2018-05-07 16:30 | Progress Note ---
Hospitalist Physical - Constitutional Vitals: Temp Pulse Resp BP Pulse Ox 98.2 F 100 H 20 167/109 99 05/07/18 10:55 05/07/18 15:20 05/07/18 15:20 05/07/18 13:55 05/07/18 09:00 Results - Labs CBC & Chem 7: 04/23/18 16:11 05/05/18 05:13 Labs: Laboratory Last Values WBC 6.7 K/mm3 (4.5-11.0) 04/23/18 16:11 RBC 3.63 M/mm3 (3.65-5.03) L 04/23/18 16:11 Hgb 11.2 gm/dl (11.8-15.2) L 04/23/18 16:11 Hct 33.7 % (35.5-45.6) L 04/23/18 16:11 MCV 93 fl (84-94) 04/23/18 16:11 MCH 31 pg (28-32) 04/23/18 16:11 MCHC 33 % (32-34) 04/23/18 16:11 RDW 16.4 % (13.2-15.2) H 04/23/18 16:11 Plt Count 373 K/mm3 (140-440) 04/23/18 16:11 Lymph % (Auto) 11.6 % (13.4-35.0) L 04/23/18 16:11 [place] % (Auto) 7.9 % (0.0-7.3) H 04/23/18 16:11 Eos % (Auto) 1.2 % (0.0-4.3) 04/23/18 16:11 Baso % (Auto) 0.3 % (0.0-1.8) 04/23/18 16:11 Lymph # 0.8 K/mm3 (1.2-5.4) L 04/23/18 16:11 [place] # 0.5 K/mm3 (0.0-0.8) 04/23/18 16:11 Eos # 0.1 K/mm3 (0.0-0.4) 04/23/18 16:11 Baso # 0.0 K/mm3 (0.0-0.1) 04/23/18 16:11 Add Manual Diff Complete 04/20/18 05:47 Total Counted 100 04/20/18 05:47 Seg Neutrophils % 79.0 % (40.0-70.0) H 04/23/18 16:11 Seg Neuts % (Manual) 93.0 % (40.0-70.0) H 04/20/18 05:47 Band Neutrophils % 0 % 04/20/18 05:47 Lymphocytes % (Manual) 6.0 % (13.4-35.0) L 04/20/18 05:47 Reactive Lymphs % (Man) 0 % 04/20/18 05:47 Monocytes % (Manual) 1.0 % (0.0-7.3) 04/20/18 05:47 Eosinophils % (Manual) 0 % (0.0-4.3) 04/20/18 05:47 Basophils % (Manual) 0 % (0.0-1.8) 04/20/18 05:47 Metamyelocytes % 0 % 04/20/18 05:47 Myelocytes % 0 % 04/20/18 05:47 Promyelocytes % 0 % 04/20/18 05:47 Blast Cells % 0 % 04/20/18 05:47 Nucleated RBC % Not Reportable 04/20/18 05:47 Seg Neutrophils # 5.3 K/mm3 (1.8-7.7) 04/23/18 16:11 Seg Neutrophils # Man 8.3 K/mm3 (1.8-7.7) H 04/20/18 05:47 Band Neutrophils # 0.0 K/mm3 04/20/18 05:47 Lymphocytes # (Manual) 0.5 K/mm3 (1.2-5.4) L 04/20/18 05:47 Abs React Lymphs (Man) 0.0 K/mm3 04/20/18 05:47 Monocytes # (Manual) 0.1 K/mm3 (0.0-0.8) 04/20/18 05:47 Eosinophils # (Manual) 0.0 K/mm3 (0.0-0.4) 04/20/18 05:47 Basophils # (Manual) 0.0 K/mm3 (0.0-0.1) 04/20/18 05:47 Metamyelocytes # 0.0 K/mm3 04/20/18 05:47 Myelocytes # 0.0 K/mm3 04/20/18 05:47 Promyelocytes # 0.0 K/mm3 04/20/18 05:47 Blast Cells # 0.0 K/mm3 04/20/18 05:47 WBC Morphology Not Reportable 04/20/18 05:47 Hypersegmented Neuts Not Reportable 04/20/18 05:47 Hyposegmented Neuts Not Reportable 04/20/18 05:47 Hypogranular Neuts Not Reportable 04/20/18 05:47 Smudge Cells Not Reportable 04/20/18 05:47 Toxic Granulation Not Reportable 04/20/18 05:47 Toxic Vacuolation Not Reportable 04/20/18 05:47 Dohle Bodies Not Reportable 04/20/18 05:47 Pelger-Huet Anomaly Not Reportable 04/20/18 05:47 Antonio Rods Not Reportable 04/20/18 05:47 Platelet Estimate Cons 04/20/18 05:47 Clumped Platelets Not Reportable 04/20/18 05:47 Plt Clumps, EDTA Not Reportable 04/20/18 05:47 Large Platelets Not Reportable 04/20/18 05:47 Giant Platelets Not Reportable 04/20/18 05:47 Platelet Satelliting Not Reportable 04/20/18 05:47 Plt Morphology Comment Not Reportable 04/20/18 05:47 RBC Morphology Normal 04/20/18 05:47 Dimorphic RBCs Not Reportable 04/20/18 05:47 Polychromasia Not Reportable 04/20/18 05:47 Hypochromasia Not Reportable 04/20/18 05:47 Poikilocytosis Not Reportable 04/20/18 05:47 Anisocytosis Not Reportable 04/20/18 05:47 Microcytosis Not Reportable 04/20/18 05:47 Macrocytosis Not Reportable 04/20/18 05:47 Spherocytes Not Reportable 04/20/18 05:47 Pappenheimer Bodies Not Reportable 04/20/18 05:47 Sickle Cells Not Reportable 04/20/18 05:47 Target Cells Not Reportable 04/20/18 05:47 Tear Drop Cells Not Reportable 04/20/18 05:47 Ovalocytes Not Reportable 04/20/18 05:47 Helmet Cells Not Reportable 04/20/18 05:47 [place] Bodies Not Reportable 04/20/18 05:47 Overton Rings Not Reportable 04/20/18 05:47 Ginger Cells Not Reportable 04/20/18 05:47 Bite Cells Not Reportable 04/20/18 05:47 Crenated Cell Not Reportable 04/20/18 05:47 Elliptocytes Not Reportable 04/20/18 05:47 Acanthocytes (Spur) Not Reportable 04/20/18 05:47 Rouleaux Not Reportable 04/20/18 05:47 Hemoglobin C Crystals Not Reportable 04/20/18 05:47 Schistocytes Not Reportable 04/20/18 05:47 Malaria parasites Not Reportable 04/20/18 05:47 Royal Bodies Not Reportable 04/20/18 05:47 Hem Pathologist Commnt No 04/20/18 05:47 PT 15.4 Sec. (12.2-14.9) H 04/21/18 08:54 INR 1.16 (0.87-1.13) H 04/21/18 08:54 POC ABG pH 7.506 (7.35-7.45) H 04/18/18 19:57 POC ABG pCO2 21.0 (35-45) L 04/18/18 19:57 POC ABG pO2 82 (80-105) 04/18/18 19:57 POC ABG HCO3 16.6 04/18/18 19:57 POC ABG Total CO2 17 04/18/18 19:57 POC ABG O2 Sat 97 04/18/18 19:57 POC ABG Base Excess -6 04/18/18 19:57 VBG pH 7.477 (7.320-7.420) H 04/18/18 18:21 FiO2 21 % 04/18/18 19:57 Sodium 141 mmol/L (137-145) 05/05/18 05:13 Potassium 4.9 mmol/L (3.6-5.0) 05/05/18 05:13 Chloride 98.6 mmol/L (98-107) 05/05/18 05:13 Carbon Dioxide 28 mmol/L (22-30) 05/05/18 05:13 Anion Gap 19 mmol/L 05/05/18 05:13 BUN 50 mg/dL (9-20) H 05/05/18 05:13 Creatinine 6.2 mg/dL (0.8-1.5) H 05/05/18 05:13 Estimated GFR 10 ml/min 05/05/18 05:13 BUN/Creatinine Ratio 8 % 05/05/18 05:13 Glucose 99 mg/dL (75-100) 05/05/18 05:13 Lactic Acid 1.10 mmol/L (0.7-2.0) 04/18/18 21:23 Calcium 8.4 mg/dL (8.4-10.2) 05/05/18 05:13 Magnesium 2.20 mg/dL (1.7-2.3) 04/19/18 13:14 Total Bilirubin 1.00 mg/dL (0.1-1.2) 04/21/18 06:42 AST 131 units/L (5-40) H 04/21/18 06:42 ALT 81 units/L (7-56) H 04/21/18 06:42 Alkaline Phosphatase 176 units/L (35-129) H 04/21/18 06:42 Total Creatine Kinase 26 units/L (55-170) L 04/23/18 16:11 CK-MB (CK-2) 2.5 ng/mL (0.0-4.0) 04/19/18 05:20 CK-MB (CK-2) Rel Index 0.3 (0-4) 04/19/18 05:20 Troponin T 0.011 ng/mL (0.00-0.029) 04/19/18 05:20 Serum Total Protein 5.7 g/dL (6.1-8.1) L 04/19/18 13:14 Total Protein 5.7 g/dL (6.3-8.2) L D 04/21/18 06:42 Albumin 2.3 g/dL (3.9-5) L 04/21/18 06:42 Albumin/Globulin Ratio 0.7 % 04/21/18 06:42 Iugch-6-Cxhabhcfp 0.8 g/dL (0.2-0.3) H 04/19/18 13:14 Mhhnp-3-Xtzvxvbox 1.4 g/dL (0.5-0.9) H 04/19/18 13:14 Beta Globulins 0.4 g/dL (0.2-0.5) 04/19/18 13:14 Gamma Globulins 0.5 g/dL (0.8-1.7) L 04/19/18 13:14 Abnorm Protein Band 1 see below 04/19/18 13:14 PEP Interpretation see below H 04/19/18 13:14 Urine Color R[place]al (Yellow) 04/18/18 18:55 Urine Turbidity Clear (Clear) 04/18/18 18:55 Urine pH 5.0 (5.0-7.0) 04/18/18 18:55 Ur Specific [place] 1.015 (1.003-1.030) 04/18/18 18:55 Urine Protein 100 mg/dl mg/dL (Negative) 04/18/18 18:55 Urine Glucose (UA) 50 mg/dL (Negative) 04/18/18 18:55 Urine Ketones Neg mg/dL (Negative) 04/18/18 18:55 Urine Blood Mod (Negative) 04/18/18 18:55 Urine Nitrite Neg (Negative) 04/18/18 18:55 Urine Bilirubin Neg (Negative) 04/18/18 18:55 Urine Urobilinogen < 2.0 mg/dL (<2.0) 04/18/18 18:55 Ur Leukocyte Esterase Neg (Negative) 04/18/18 18:55 Urine WBC (Auto) 16.0 /HPF (0.0-6.0) H 04/18/18 18:55 Urine RBC (Auto) 13.0 /HPF (0.0-6.0) 04/18/18 18:55 U Epithel Cells (Auto) 2.0 /HPF (0-13.0) 04/18/18 18:55 Urine Mucus Few /HPF 04/18/18 18:55 Urine Eosinophils None seen (None Seen) 04/19/18 17:00 Urine Creatinine 119.5 mg/dL (0.1-20.0) H 04/19/18 17:00 Protein/Creatinin Ratio 0.93 04/19/18 17:00 Urine Sodium 51 mmol/L 04/19/18 17:00 Urine Total Protein 111 mg/dL (5-11.8) H 04/19/18 17:00 Random Vancomycin 15.5 ug/mL (0-40.0) 04/22/18 05:24 RICARDO Screen Negative (Negative) 04/19/18 13:14 Proteinase 3 (PR3) Ab <1.0 AI (<1.0) 04/19/18 13:14 Myeloperoxidase Ab <1.0 AI (<1.0) 04/19/18 13:14 Glomerular Base Mem IgG <1.0 AI (<1.0) 04/22/18 05:24 Complement C3 235 mg/dL (82-185) H 04/19/18 13:14 Complement C4 66 mg/dL (15-53) H 04/19/18 13:14 Hepatitis A IgM Ab Non-reactive (NonReactive) 04/19/18 13:14 Hep Bs Antigen Non-reactive (Negative) 04/19/18 13:14 Hep B Core IgM Ab Non-reactive (NonReactive) 04/19/18 13:14 Hepatitis C Antibody Non-reactive (NonReactive) 04/19/18 13:14 Anti-Streptolysin O Ab See scanned results 04/22/18 05:24
[2018-05-07 16:58] VITALS: BP 137/102
== END 2018-05-07 18:33 | disposition home or self-care (01) | DRG 853 ==
LOC: ED 17:56 → 3A 22:33
PROVIDERS: ADMIT Internal Medicine; ATTEND Internal Medicine
PROC: 02HV33Z Insertion of Infusion Device into Superior Vena Cava, Percutaneous Approach (ICD-10-PCS; principal; 2018-05-03)
PROC: B518ZZA Fluoroscopy of Superior Vena Cava, Guidance (ICD-10-PCS; 2018-05-03)
PROC: 4A033R1 Measurement of Arterial Saturation, Peripheral, Percutaneous Approach (ICD-10-PCS; 2018-05-03)
PROC: 5A1D70Z Performance of Urinary Filtration, Intermittent, Less than 6 Hours Per Day (ICD-10-PCS; 2018-05-03)
PROC: 5A1D70Z Performance of Urinary Filtration, Intermittent, Less than 6 Hours Per Day (ICD-10-PCS; 2018-05-03)
PROC: 5A1D70Z Performance of Urinary Filtration, Intermittent, Less than 6 Hours Per Day (ICD-10-PCS; 2018-05-03)
PROC: 5A1D70Z Performance of Urinary Filtration, Intermittent, Less than 6 Hours Per Day (ICD-10-PCS; 2018-05-03)
PROC: 0WUF0JZ Supplement Abdominal Wall with Synthetic Substitute, Open Approach (ICD-10-PCS; 2018-05-05)
DX: A41.9 Sepsis, unspecified organism (principal); J18.9 Pneumonia, unspecified organism; N17.0 Acute kidney failure with tubular necrosis; K42.0 Umbilical hernia with obstruction, without gangrene; N39.0 Urinary tract infection, site not specified; E87.1 Hypo-osmolality and hyponatremia; I12.0 Hypertensive chronic kidney disease with stage 5 chronic kidney disease or end stage renal disease; M10.9 Gout, unspecified; E87.6 Hypokalemia; F10.10 Alcohol abuse, uncomplicated; R74.0 Nonspecific elevation of levels of transaminase and lactic acid dehydrogenase [LDH]; E83.51 Hypocalcemia; F17.210 Nicotine dependence, cigarettes, uncomplicated; Z87.01 Personal history of pneumonia (recurrent); Z79.899 Other long term (current) drug therapy; Z82.49 Family history of ischemic heart disease and other diseases of the circulatory system
CPT/HCPCS: 36415; 36558; 71045; 74176; 76700; 76937; 77001; 77012; 80048; 80053; 80074; 80202; 81001; 82140; 82550; 82553; 82570; 82803; 82805; 83520; 83735; 84132; 84156; 84165; 84300; 84484; 85007; 85025; 85027; 85610; 86021; 86038; 86060; 86160; 87040; 87086; 87205; 88302; 89050; 93005; 93010; 93970; 94640; 94667; 94668; 94760; 96361; 96365; 96366; C1750; C1781; J0360; J0690; J1170; J1644; J1650; J2250; J2270; J2405; J2543; J2704; J2710; J3010; J3370; J7030; J7040; J7050; J7070; J7512

== ENCOUNTER 2018-05-10 11:14 | Inpatient (IN) | payer OTHER ==
[2018-05-10 12:03] LABS: Basophils # (Auto) 0.1 K/mm3 (0.0-0.1); Basophils % (Auto) 0.6 % (0.0-1.8); Eosinophils # (Auto) 0.2 K/mm3 (0.0-0.4); Eosinophils % (Auto) 2.9 % (0.0-4.3); Hematocrit 28.8 % (35.5-45.6); Hemoglobin 9.5 gm/dl (11.8-15.2); Lymphocytes # (Auto) 1.4 K/mm3 (1.2-5.4); Lymphocytes % (Auto) 16.7 % (13.4-35.0); Mean Corpuscular HGB Conc 33 % (32-34); Mean Corpuscular Hemoglobin 31 pg (28-32); Mean Corpuscular Volume 93 fl (84-94); Platelet Count 313 K/mm3 (140-440); Red Cell Distribution Width 14.7 % (13.2-15.2)
[2018-05-10 12:12] LABS: Calcium 8.1 mg/dL (8.4-10.2)
--- NOTE | 2018-05-10 12:19 | Emergency Department Report ---
ED General Adult HPI - General Chief complaint: Medical Clearance Stated complaint: HEMODIAYLSIS Time Seen by Provider: 05/10/18 11:31 Source: patient, old records reviewed Mode of arrival: Ambulatory Limitations: Language Barrier - History of Present Illness Initial comments: 52 yo male with a past medical history of hypertension, asthma, alcohol abuse, and renal failure requiring dialysis on 05/03 presents to the hospital requesting dialysis. Patient was admitted here 04/18-05/07 and initiated dialysis for acute kidney failure which now appears to be ESRD. He does not have a dialysis center and so upon discharge he was told to come to the ER for dialysis Thursday, Thursday, and Thursday by case management. Patient does not have any physical complaints and denies chest pain, shortness of breath, or edema. - Related Data Previous Rx's Medication Instructions Recorded Last Taken Type Albuterol Sulfate [Ventolin HFA] 2 puff IH Q4H PRN #1 hfa.aer.ad 05/06/18 Unknown Rx Carvedilol [Coreg] 6.25 mg PO BID #60 tablet 05/06/18 Unknown Rx Colchicine 0.6 mg PO QOD #30 capsule 05/06/18 Unknown Rx Sodium Bicarbonate 1,300 mg PO TID 30 Days tablet 05/06/18 Unknown Rx amLODIPine [Norvasc] 10 mg PO QDAY #60 tablet 05/06/18 Unknown Rx oxyCODONE /ACETAMINOPHEN [Percocet 1 tab PO Q6H PRN #20 tablet 05/06/18 Unknown Rx 5/325 mg] Allergies Allergy/AdvReac Type Severity Reaction Status Date / Time No Known Allergies Allergy Verified 04/18/18 18:09 ED Review of Systems ROS: Stated complaint: HEMODIAYLSIS Other details as noted in HPI Comment: All other systems reviewed and negative ED Past Medical Hx - Past Medical History Previous Medical History?: Yes Hx Hypertension: No Hx Liver Disease: Yes (Chronic EtOH) Hx Renal Disease: Yes (HILLARY requiring HD) Hx Seizures: No Hx Asthma: Yes - Surgical History Past Surgical History?: Yes Additional Surgical History: Right chest perm cath - Social History Smoking Status: Current Every Day Smoker Substance Use Type: Alcohol, Prescribed - Medications Home Medications: Home Medications Medication Instructions Recorded Confirmed Last Taken Type Albuterol Sulfate [Ventolin HFA] 2 puff IH Q4H PRN #1 hfa.aer.ad 05/06/18 Unknown Rx Carvedilol [Coreg] 6.25 mg PO BID #60 tablet 05/06/18 05/10/18 Unknown Rx Colchicine 0.6 mg PO QOD #30 capsule 05/06/18 05/10/18 Unknown Rx Sodium Bicarbonate 1,300 mg PO TID 30 Days tablet 05/06/18 05/10/18 Unknown Rx amLODIPine [Norvasc] 10 mg PO QDAY #60 tablet 05/06/18 05/10/18 Unknown Rx oxyCODONE /ACETAMINOPHEN [Percocet 1 tab PO Q6H PRN #20 tablet 05/06/18 Unknown Rx 5/325 mg] ED Physical Exam - General Limitations: No Limitations - Other Other exam information: General: No limitations, patient is alert in no acute distress Head exam: Atraumatic, normocephalic Eyes exam: Normal appearance ENT: Moist mucous membrane, normal oropharynx Neck exam: Normal inspection, full range of motion, no meningismus nontender Respiratory exam: Clear to auscultation bilateral, no wheezes, rales, crackles Cardiovascular: Normal rate and rhythm, right chest wall dialysis cath Abdomen: Soft, nondistended, and nontender, with normal bowel sounds, no rebound, or guarding Extremity: Full range of motion normal inspection no deformity, no edema Back: Normal Inspection, full range of motion, no tenderness Neurologic: Alert, oriented x3, cranial nerves intact, no motor or sensory deficit Psychiatric: normal affect, normal mood Skin: Warm, dry, intact ED Course Vital Signs 05/10/18 11:16 Temperature 99.2 F Pulse Rate 99 H Respiratory 20 Rate Blood Pressure 128/83 O2 Sat by Pulse 96 Oximetry - Consultations Consultation #1: 05/10/18 13:08 Case d/w Wendy with Dr Davidson since they were the group involved in pt's care. They rec to call the geothermal production manager machine iii coremaker. 05/10/18 13:31 DR lee consulted, He will arrange dialysis ED Medical Decision Making - Lab Data Result diagrams: 05/10/18 11:38 05/10/18 11:38 Lab Results 05/10/18 05/10/18 Range/Units 11:38 11:38 WBC 8.3 (4.5-11.0) K/mm3 RBC 3.10 L (3.65-5.03) M/mm3 Hgb 9.5 L (11.8-15.2) gm/dl Hct 28.8 L (35.5-45.6) % MCV 93 (84-94) fl MCH 31 (28-32) pg MCHC 33 (32-34) % RDW 14.7 (13.2-15.2) % Plt Count 313 (140-440) K/mm3 Lymph % (Auto) 16.7 (13.4-35.0) % [place] % (Auto) 12.0 H (0.0-7.3) % Eos % (Auto) 2.9 (0.0-4.3) % Baso % (Auto) 0.6 (0.0-1.8) % Lymph # 1.4 (1.2-5.4) K/mm3 [place] # 1.0 H (0.0-0.8) K/mm3 Eos # 0.2 (0.0-0.4) K/mm3 Baso # 0.1 (0.0-0.1) K/mm3 Seg Neutrophils % 67.8 (40.0-70.0) % Seg Neutrophils # 5.6 (1.8-7.7) K/mm3 Sodium 141 (137-145) mmol/L Potassium 5.1 H (3.6-5.0) mmol/L Chloride 93.4 L (98-107) mmol/L Carbon Dioxide 32 H (22-30) mmol/L Anion Gap 21 mmol/L BUN 46 H (9-20) mg/dL Creatinine 7.4 H (0.8-1.5) mg/dL Estimated GFR 8 ml/min BUN/Creatinine Ratio 6 % Glucose 99 (75-100) mg/dL Calcium 8.1 L (8.4-10.2) mg/dL - Medical Decision Making Pt will be admitted for dialysis, mild hyperkalemia case d/w Nephrology - Differential Diagnosis esrd, needing dialysis, hyperkalemia, uremia Critical Care Time: No Critical care attestation.: If time is entered above; I have spent that time in minutes in the direct care of this critically ill patient, excluding procedure time. ED Disposition Clinical Impression: ESRD needing dialysis Disposition: OP ADMIT IP TO THIS HOSP Is pt being admited?: Yes Condition: Stable Time of Disposition: 13:33 (Dr pate/hosp)
--- NOTE | 2018-05-10 13:56 | History and Physical Report ---
History of Present Illness Chief complaint: I need dialysis History of present illness: 52 YO Male with HTN, ESRD on HD(M,W,F),ETOH Abuse, Nicotine Dependence, Asthma presents to ED for evaluation. Pt states that he does not have a dialysis center and has not been able to get one due to citizenship status. Pt states that he needs dialysis and was told to come to ED as per his systems planner. Pt seen and evaluated in ED and found to have ESRD and hyperkalemia without EKG changes. Pt admitted to medical floor. Pt denies fever, chills, CP, Palpitations , NVD, muscle cramping, trauma, or recent ill contacts. Nephrology consulted in ED. Past History Past Medical History: ESRD, hypertension Past Surgical History: Other (R chest Permacath) Social history: smoking, alcohol abuse Family history: hypertension Medications and Allergies Allergies Allergy/AdvReac Type Severity Reaction Status Date / Time No Known Allergies Allergy Verified 04/18/18 18:09 Home Medications Medication Instructions Recorded Confirmed Last Taken Type Albuterol Sulfate [Ventolin HFA] 2 puff IH Q4H PRN #1 hfa.aer.ad 05/06/18 Unknown Rx Carvedilol [Coreg] 6.25 mg PO BID #60 tablet 05/06/18 05/10/18 Unknown Rx Colchicine 0.6 mg PO QOD #30 capsule 05/06/18 05/10/18 Unknown Rx Sodium Bicarbonate 1,300 mg PO TID 30 Days tablet 05/06/18 05/10/18 Unknown Rx amLODIPine [Norvasc] 10 mg PO QDAY #60 tablet 05/06/18 05/10/18 Unknown Rx oxyCODONE /ACETAMINOPHEN [Percocet 1 tab PO Q6H PRN #20 tablet 05/06/18 Unknown Rx 5/325 mg] Review of Systems Constitutional: other (I need dialysis'), no weight loss, no weight gain, no fever, no chills Ears, nose, mouth and throat: no ear pain, no ear discharge, no tinnitis, no decreased hearing, no nose pain, no nasal congestion, no nasal discharge Cardiovascular: no chest pain, no orthopnea, no palpitations, no rapid/ irregular heart beat, no edema, no syncope, no lightheadedness Respiratory: no cough, no cough with sputum, no excessive sputum, no hemoptysis , no shortness of breath Gastrointestinal: no nausea, no vomiting, no diarrhea, no constipation, no change in bowel habits, no hematemesis Genitourinary Male: no dysuria, no hematuria, no flank pain, no discharge, no urinary frequency, no urinary hesitancy Rectal: no pain, no incontinence, no bleeding Musculoskeletal: no neck stiffness, no neck pain, no shooting arm pain, no arm numbness/tingling, no low back pain, no shooting leg pain Integumentary: no rash, no pruritis, no redness, no sores, no wounds Neurological: no head injury, no transient paralysis, no paralysis, no weakness , no parathesias, no numbness, no tingling, no seizures, no syncope Psychiatric: no anxiety, no memory loss, no change in sleep habits, no sleep disturbances, no insomnia, no hypersomnia, no change in appetite, no change in libido, no suicidal ideation Endocrine: no cold intolerance, no heat intolerance, no polyphagia, no excessive thirst, no polydipsia, no polyuria, no nocturia, no excessive sweating Hematologic/Lymphatic: no easy bruising, no easy bleeding, no lymphadenopathy, no lymphedema Allergic/Immunologic: no urticaria, no allergic rhinitis, no wheezing, no persistent infections, no anaphylaxis, no angioedema Exam - Constitutional Vitals: Temp Pulse Resp BP Pulse Ox 99.2 F 99 H 20 128/83 96 05/10/18 11:16 05/10/18 11:16 05/10/18 11:16 05/10/18 11:16 05/10/18 11:16 General appearance: Present: no acute distress, well-nourished - EENT Eyes: Present: PERRL ENT: hearing intact, clear oral mucosa - Neck Neck: Present: supple, normal ROM - Respiratory Respiratory effort: normal Respiratory: bilateral: CTA - Cardiovascular Heart Sounds: Present: S1 & S2. Absent: rub, click - Extremities Extremities: pulses symmetrical, No edema Peripheral Pulses: within normal limits - Abdominal General gastrointestinal: Present: soft, non-tender, non-distended, normal bowel sounds Male genitourinary: Present: normal - Integumentary Integumentary: Present: clear, warm, dry - Musculoskeletal Musculoskeletal: gait normal, strength equal bilaterally - Psychiatric Psychiatric: appropriate mood/affect, intact judgment & insight - Neurologic Neurologic: CNII-XII intact, moves all extremities Results - Labs CBC & Chem 7: 05/10/18 11:38 05/10/18 11:38 Labs: Abnormal lab results 05/10/18 05/10/18 Range/Units 11:38 11:38 RBC 3.10 L (3.65-5.03) M/mm3 Hgb 9.5 L (11.8-15.2) gm/dl Hct 28.8 L (35.5-45.6) % [place] % (Auto) 12.0 H (0.0-7.3) % [place] # 1.0 H (0.0-0.8) K/mm3 Potassium 5.1 H (3.6-5.0) mmol/L Chloride 93.4 L (98-107) mmol/L Carbon Dioxide 32 H (22-30) mmol/L BUN 46 H (9-20) mg/dL Creatinine 7.4 H (0.8-1.5) mg/dL Calcium 8.1 L (8.4-10.2) mg/dL Assessment and Plan - Patient Problems (1) ESRD needing dialysis Current Visit: Yes Status: Acute Plan to address problem: Nephrology consulted in ED, dialysis as per renal team. strict I/O, monitor uop q shift, avoid nephrotoxic agents. (2) Nicotine dependence unspecified, with withdrawal Current Visit: Yes Status: Acute Qualifiers: Nicotine product type: cigarettes Qualified Code(s): F17.213 - Nicotine dependence, cigarettes, with withdrawal Plan to address problem: Smoking cessation counseling. (3) HTN (hypertension) Current Visit: Yes Status: Acute Qualifiers: Hypertension type: essential hypertension Qualified Code(s): I10 - Essential (primary) hypertension Plan to address problem: monitor bp q shift, resume prehospital therapy, continue medical management (4) Alcohol abuse Current Visit: Yes Status: Acute Plan to address problem: CIWA protocol, supportive care. thiamine, folic acid, multivitamin. (5) DVT prophylaxis Current Visit: Yes Status: Acute Plan to address problem: scd to ble while in bed.
[2018-05-10] MEDS ORDERED: ZOFRAN IV PRN (13:59)
[2018-05-10] MEDS ORDERED: PROVENTIL IH PRN (13:59)
[2018-05-10] MEDS ORDERED: SODIUM CHLORIDE FLUSH SYRINGE 10 ML IV PRN (13:59)
--- NOTE | 2018-05-10 15:12 | Consultation ---
History of Present Illness - Reason for Consult Consult date: 05/10/18 end stage renal disease, hyperkalemia Requesting physician: CIARRA PARKER - History of Present Illness This is a 52 y/o male with PMH of renal failure now possibly ESRD, s/p renal biopsy on 04/21/18, HTN, asthma, alcohol abuse, s/p hernia repair, and anemia who presented to [facility] today for dialysis. Pt was initiated on HD during last hospitalization at [facility]. Pt doesn't have outpatient dialysis center placement and was told to come to ER for dialysis every MWF by CM per HPI. Pt doesn't speak much Nepali, history obtained mainly from medical record and son at bedside. Pt does report having some abdominal pain from prior hernia surgery (3/ 10 on pain scale). Pt and son also report occasional neuropathy like pains, otherwise feels ok. We were consulted to evaluate this pt with renal failure now likely ESRD who needs dialysis. Past History Past Medical History: anemia, dialysis, ESRD, hypertension Past Surgical History: hernia repair Medications and Allergies Allergies Allergy/AdvReac Type Severity Reaction Status Date / Time No Known Allergies Allergy Verified 04/18/18 18:09 Home Medications Medication Instructions Recorded Confirmed Last Taken Type Albuterol Sulfate [Ventolin HFA] 2 puff IH Q4H PRN #1 [id number].[id number] 05/06/18 Unknown Rx Carvedilol [Coreg] 6.25 mg PO BID #60 tablet 05/06/18 05/10/18 Unknown Rx Colchicine 0.6 mg PO QOD #30 capsule 05/06/18 05/10/18 Unknown Rx Sodium Bicarbonate 1,300 mg PO TID 30 Days tablet 05/06/18 05/10/18 Unknown Rx amLODIPine [Norvasc] 10 mg PO QDAY #60 tablet 05/06/18 05/10/18 Unknown Rx oxyCODONE /ACETAMINOPHEN [Percocet 1 tab PO Q6H PRN #20 tablet 05/06/18 Unknown Rx 5/325 mg] Active Meds: Active Medications Acetaminophen (Tylenol) 650 mg PO Q4H PRN PRN Reason: Pain MILD(1-3)/Fever >100.5/JOHNSON Albuterol (Proventil) 2.5 mg IH Q4HRT PRN PRN Reason: Shortness Of Breath Ondansetron HCl (Zofran) 4 mg IV Q8H PRN PRN Reason: Nausea And Vomiting Sodium Chloride (Sodium Chloride Flush Syringe 10 Ml) 10 ml IV BID MILAGROS Sodium Chloride (Sodium Chloride Flush Syringe 10 Ml) 10 ml IV PRN PRN PRN Reason: LINE FLUSH Review of Systems Constitutional: no fever, no chills, no fatigue, no weakness Ears, nose, mouth and throat: no headache Cardiovascular: no chest pain, no edema, no shortness of breath, no leg edema Respiratory: no shortness of breath, no dyspnea on exertion Gastrointestinal: no abdominal pain, no nausea, no vomiting, no diarrhea, no constipation, no hematemesis Genitourinary Male: no dysuria, no hematuria Musculoskeletal: no arm numbness/tingling, no leg numbness/tingling Integumentary: no wounds Neurological: no numbness, no tingling, no seizures, no change in speech Psychiatric: no anxiety, no depression Exam - Vital Signs Vital signs: Vital Signs Temp Pulse Resp BP Pulse Ox 99.2 F 99 H 20 128/83 96 05/10/18 11:16 05/10/18 11:16 05/10/18 11:16 05/10/18 11:16 05/10/18 11:16 - General Appearance General appearance: well-developed (no acute distress) EENT: ATNC Neck: Present: neck supple Respiratory: Clear to Ascultation Heart: regular, S1S2, other (ACCESS: Right IJ Perm Catheter intact) Gastrointestinal: Present: normoactive bowel sounds. Absent: tenderness Integumentary: warm and dry Neurologic: alert and oriented x3 Musculoskeletal: Present: other (no edema to both lower extremities) Psychiatric: cooperative Results - Lab Results 05/10/18 11:38 05/10/18 11:38 Most recent lab results Calcium 8.1 mg/dL (8.4-10.2) L 05/10/18 11:38 Assessment and Plan Acute Renal Failure now likely End Stage Renal Disease on HD: -HD today for gentle UF and clearance, goal UF 0-1 liter -HD prescription adjusted to 2K [place] for hyperkalemia management -Ok for pt to be d/c home after HD from nephrology standpoint if remains medically stable -Pt doesn't need to be on sodium bicarbonate tablets as an outpatient -S/p CT guided renal biopsy on 04/21/18 -Renally dose meds -Strict intake and output -Gomez Catheter: No -Renal plan d/w Dr Swain -Continue supportive therapy Hyperkalemia: -HD prescription adjusted to 2K [place] for hyperkalemia management -Low potassium diet Essential Hypertension: -Resume home medications Anemia of CKD: -Epogen dosing for anemia management
[2018-05-10] MEDS ORDERED: NACL 0.9% 100 ML IV PRN (15:21)
[2018-05-10] MEDS ORDERED: ATIVAN IV PRN (16:03)
[2018-05-10] MEDS ORDERED: NACL 0.9 (PRIMING MACHINE ONLY DIALYSIS) MC ONE (20:59)
[2018-05-10] MEDS: PROCRIT SUB-Q PRN (21:23)
[2018-05-10] MEDS: SODIUM CHLORIDE FLUSH SYRINGE 10 ML IV SCH (22:57)
[2018-05-10] MEDS: TYLENOL PO PRN (22:57)
[2018-05-11] MEDS ORDERED: ZOSYN/NS 2.25 GM/50ML 2.25 GM/50 ML BAG IV ONE
[2018-05-11] MEDS: TYLENOL PO PRN ×3 (07:05→23:01)
[2018-05-11] MEDS: FOLVITE PO SCH (09:32)
[2018-05-11] MEDS: THERAGRAN Tab PO SCH (09:32)
[2018-05-11] MEDS: SODIUM CHLORIDE FLUSH SYRINGE 10 ML IV SCH ×2 (09:33→23:02)
[2018-05-11] MEDS: VITAMIN B-1 PO SCH (09:33)
--- NOTE | 2018-05-11 11:34 | Progress Note ---
Assessment and Plan Acute Renal Failure now likely End Stage Renal Disease on HD: -Received hemodialysis yesterday for UF and clearance -Obtain BMP levels today to re-assess potassium levels -S/p CT guided renal biopsy on 04/21/18 -Renally dose meds -Strict intake and output -Gomez Catheter: No -Continue supportive therapy -Asses dialysis needs daily Febrile: -Blood cultures in progress -Received IV Zosyn Hyperkalemia: -Low potassium diet -Repeat BMP level today Essential Hypertension: -Blood pressures are stable Anemia of CKD: -Epogen dosing for anemia management Subjective Date of service: 05/11/18 Principal diagnosis: ESRD Interval history: Patient seen lying in bed with visitor at bedside. Febrile last night. States feeling ok today. Objective - Vital Signs Vital signs: Vital Signs - 12hr 05/10/18 05/11/18 05/11/18 23:41 05:16 07:05 Temperature 103.0 F H 102.5 F H Pulse Rate 114 H 109 H Respiratory 24 20 18 Rate Blood Pressure 125/77 127/77 O2 Sat by Pulse 95 93 Oximetry - General Appearance General appearance: well-developed, appears stated age EENT: ATNC, PERRL, hearing intact, vision intact Neck: no JVD, supple Respiratory: Present: Decreased Breath Sounds Cardiology: tachycardia, S1S2 Gastrointestinal: normoactive bowel sounds Integumentary: warm and dry Neurologic: alert and oriented x3 Musculoskeletal: other (Right IJ perm-catheter intact. No edema.) Psychiatric: cooperative - Lab 05/11/18 11:53 05/11/18 11:53 Most recent lab results Calcium 8.1 mg/dL (8.4-10.2) L 05/10/18 11:38
--- NOTE | 2018-05-11 12:07 | Progress Note ---
Assessment and Plan Assessment and plan: --Febrile illness/possible sepsis; Antipyretics, empiric antibiotics, follow cultures ID evaluation if needed --End-stage renal disease; on hemodialysis HD per schedule nephrology following --Hypertension'moderate control Continue current antihypertensives and when necessary medications --History of alcohol use; counseling done advised to quit tobacco and alcohol use --Alcohol withdrawal symptoms; grossly monitor, continue CIMD protocol --DVT prophylaxis; Lovenox renal dose History Interval history: Patient seen and examined medical records reviewed Has persistent fevers, end-stage renal disease on hemodialysis Received HD S today Febrile MAXIMUM TEMPERATURE 102.5 Hospitalist Physical - Constitutional Vitals: Temp Pulse Resp BP Pulse Ox 102.5 F H 109 H 18 127/77 96 05/11/18 05:16 05/11/18 05:16 05/11/18 07:05 05/11/18 05:16 05/11/18 11:34 General appearance: Present: no acute distress, well-nourished - EENT Eyes: Present: PERRL, EOM intact - Neck Neck: Present: supple, normal ROM - Respiratory Respiratory effort: normal Respiratory: bilateral: diminished, negative: rales, rhonchi, wheezing - Cardiovascular Rhythm: regular Heart Sounds: Present: S1 & S2 Results - Labs CBC & Chem 7: 05/10/18 11:38 05/10/18 11:38 Labs: Laboratory Last Values WBC 8.3 K/mm3 (4.5-11.0) 05/10/18 11:38 RBC 3.10 M/mm3 (3.65-5.03) L 05/10/18 11:38 Hgb 9.5 gm/dl (11.8-15.2) L 05/10/18 11:38 Hct 28.8 % (35.5-45.6) L 05/10/18 11:38 MCV 93 fl (84-94) 05/10/18 11:38 MCH 31 pg (28-32) 05/10/18 11:38 MCHC 33 % (32-34) 05/10/18 11:38 RDW 14.7 % (13.2-15.2) 05/10/18 11:38 Plt Count 313 K/mm3 (140-440) 05/10/18 11:38 Lymph % (Auto) 16.7 % (13.4-35.0) 05/10/18 11:38 [place] % (Auto) 12.0 % (0.0-7.3) H 05/10/18 11:38 Eos % (Auto) 2.9 % (0.0-4.3) 05/10/18 11:38 Baso % (Auto) 0.6 % (0.0-1.8) 05/10/18 11:38 Lymph # 1.4 K/mm3 (1.2-5.4) 05/10/18 11:38 [place] # 1.0 K/mm3 (0.0-0.8) H 05/10/18 11:38 Eos # 0.2 K/mm3 (0.0-0.4) 05/10/18 11:38 Baso # 0.1 K/mm3 (0.0-0.1) 05/10/18 11:38 Seg Neutrophils % 67.8 % (40.0-70.0) 05/10/18 11:38 Seg Neutrophils # 5.6 K/mm3 (1.8-7.7) 05/10/18 11:38 Sodium 141 mmol/L (137-145) 05/10/18 11:38 Potassium 5.1 mmol/L (3.6-5.0) H 05/10/18 11:38 Chloride 93.4 mmol/L (98-107) L 05/10/18 11:38 Carbon Dioxide 32 mmol/L (22-30) H 05/10/18 11:38 Anion Gap 21 mmol/L 05/10/18 11:38 BUN 46 mg/dL (9-20) H 05/10/18 11:38 Creatinine 7.4 mg/dL (0.8-1.5) H 05/10/18 11:38 Estimated GFR 8 ml/min 05/10/18 11:38 BUN/Creatinine Ratio 6 % 05/10/18 11:38 Glucose 99 mg/dL (75-100) 05/10/18 11:38 Calcium 8.1 mg/dL (8.4-10.2) L 05/10/18 11:38
[2018-05-11 12:16] LABS: Basophils % (Auto) 0.3 % (0.0-1.8); Eosinophils # (Auto) 0.1 K/mm3 (0.0-0.4); Eosinophils % (Auto) 0.5 % (0.0-4.3); Hematocrit 27.1 % (35.5-45.6); Hemoglobin 9.1 gm/dl (11.8-15.2); Lymphocytes # (Auto) 0.9 K/mm3 (1.2-5.4); Lymphocytes % (Auto) 5.6 % (13.4-35.0); Mean Corpuscular HGB Conc 34 % (32-34); Mean Corpuscular Hemoglobin 31 pg (28-32); Mean Corpuscular Volume 93 fl (84-94); Monocytes # (Auto) 1.5 K/mm3 (0.0-0.8); Monocytes % (Auto) 9.1 % (0.0-7.3); Platelet Count 255 K/mm3 (140-440); Red Blood Count 2.92 M/mm3 (3.65-5.03); Red Cell Distribution Width 14.6 % (13.2-15.2)
[2018-05-11 12:37] LABS: Calcium 7.8 mg/dL (8.4-10.2)
[2018-05-11] MEDS ORDERED: VANCOMYCIN PHARMACY TO DOSE IV SCH (13:00)
[2018-05-11] MEDS ORDERED: VANCOMYCIN 1,750 MG in NACL 0.9% 500 ML 500 ML IV ONE (13:00)
[2018-05-11] MEDS: ZOSYN/NS 2.25 GM/50ML 2.25 GM/50 ML BAG IV SCH ×2 (14:00→22:59)
[2018-05-12] MEDS: ZOSYN/NS 2.25 GM/50ML 2.25 GM/50 ML BAG IV SCH ×3 (06:01→23:04)
[2018-05-12 07:47] LABS: Basophils # (Auto) 0.1 K/mm3 (0.0-0.1); Basophils % (Auto) 0.4 % (0.0-1.8); Eosinophils # (Auto) 0.2 K/mm3 (0.0-0.4); Eosinophils % (Auto) 1.6 % (0.0-4.3); Hematocrit 26.9 % (35.5-45.6); Lymphocytes # (Auto) 1.1 K/mm3 (1.2-5.4); Lymphocytes % (Auto) 6.7 % (13.4-35.0); Mean Corpuscular HGB Conc 33 % (32-34); Mean Corpuscular Hemoglobin 31 pg (28-32); Mean Corpuscular Volume 94 fl (84-94); Monocytes # (Auto) 1.3 K/mm3 (0.0-0.8); Monocytes % (Auto) 8.3 % (0.0-7.3); Platelet Count 286 K/mm3 (140-440); Red Blood Count 2.87 M/mm3 (3.65-5.03); Red Cell Distribution Width 14.9 % (13.2-15.2)
[2018-05-12 08:08] LABS: Calcium 7.8 mg/dL (8.4-10.2)
[2018-05-12] MEDS: THERAGRAN Tab PO SCH (08:39)
[2018-05-12] MEDS: VITAMIN B-1 PO SCH (08:39)
[2018-05-12] MEDS: FOLVITE PO SCH ×2 (08:39→18:49)
[2018-05-12] MEDS: TYLENOL PO PRN ×2 (08:44→23:05)
[2018-05-12] MEDS ORDERED: NACL 0.9% 100 ML IV PRN (11:02)
--- NOTE | 2018-05-12 11:07 | Progress Note ---
Assessment and Plan Acute Renal Failure now likely End Stage Renal Disease on HD: -HD today for gentle UF and clearance via Right IJ Perm Catheter, goal UF 0-1 liter -Pt doesn't need to be on sodium bicarbonate tablets as an outpatient -S/p CT guided renal biopsy on 04/21/18 -Blood cultures showed NGTD -Renally dose meds -Strict intake and output -Gomez Catheter: No -Renal plan d/w Dr Swain -Continue supportive therapy Questionable Sepsis: -Blood cultures showed NGTD -On zosyn and vancomycin Hyperkalemia: -Improved on HD -Low potassium diet Essential Hypertension: -Monitor, currently not on any medications Anemia of CKD: -Epogen dosing for anemia management Subjective Date of service: 05/12/18 Principal diagnosis: ESRD Interval history: Pt doesn't speak much South African, denies pain, no acute distress. No family at bedside Objective - Vital Signs Vital signs: Vital Signs - 12hr 05/12/18 05/12/18 00:15 05:09 Temperature 99.9 F H 98.8 F Pulse Rate 106 H 100 H Respiratory 20 20 Rate Blood Pressure 117/75 141/84 O2 Sat by Pulse 93 94 Oximetry - General Appearance General appearance: well-developed (no acute distress) EENT: ATNC Neck: no JVD Respiratory: Present: Clear to Ascultation Cardiology: regular, S1S2, other (ACCESS: Right IJ Perm Catheter intact) Gastrointestinal: normoactive bowel sounds, no tenderness Integumentary: warm and dry Neurologic: alert and oriented x3 Musculoskeletal: other (no edema to both lower extremities) Psychiatric: cooperative - Lab 05/12/18 05:58 05/12/18 05:58 Most recent lab results Calcium 7.8 mg/dL (8.4-10.2) L 05/12/18 05:58
[2018-05-12] MEDS ORDERED: NACL 0.9 (PRIMING MACHINE ONLY DIALYSIS) MC ONE (12:35)
--- NOTE | 2018-05-12 13:19 | Progress Note ---
Assessment and Plan Assessment and plan: --End-stage renal disease; on hemodialysis HD per schedule nephrology following --Febrile illness/possible sepsis; Antipyretics, empiric antibiotics, follow cultures ID evaluation if needed --Hypertension ,moderate control Continue current antihypertensives and when necessary medications --History of alcohol use; counseling done advised to quit tobacco and alcohol use --Alcohol withdrawal symptoms; grossly monitor, continue CIWA protocol --DVT prophylaxis; Lovenox renal dose History Interval history: Sincerely examination medical records reviewed Patient feels slightly better no new complaints Clinical signs noted Hospitalist Physical - Constitutional Vitals: Temp Pulse Resp BP Pulse Ox 98.8 F 88 18 124/72 94 05/12/18 11:45 05/12/18 12:15 05/12/18 11:45 05/12/18 12:15 05/12/18 05:09 General appearance: Present: no acute distress, well-nourished - EENT Eyes: Present: PERRL, EOM intact - Neck Neck: Present: supple, normal ROM - Respiratory Respiratory effort: normal Respiratory: bilateral: diminished, negative: rales, rhonchi, wheezing - Cardiovascular Rhythm: regular Heart Sounds: Present: S1 & S2 - Extremities Extremities: no ischemia, No edema - Abdominal General gastrointestinal: soft, non-tender, non-distended, normal bowel sounds - Integumentary Integumentary: Present: clear, warm - Psychiatric Psychiatric: appropriate mood/affect, cooperative - Neurologic Neurologic: moves all extremities Results - Labs CBC & Chem 7: 05/12/18 05:58 05/12/18 05:58 Labs: Laboratory Last Values WBC 15.9 K/mm3 (4.5-11.0) H 05/12/18 05:58 RBC 2.87 M/mm3 (3.65-5.03) L 05/12/18 05:58 Hgb 9.0 gm/dl (11.8-15.2) L 05/12/18 05:58 Hct 26.9 % (35.5-45.6) L 05/12/18 05:58 MCV 94 fl (84-94) 05/12/18 05:58 MCH 31 pg (28-32) 05/12/18 05:58 MCHC 33 % (32-34) 05/12/18 05:58 RDW 14.9 % (13.2-15.2) 05/12/18 05:58 Plt Count 286 K/mm3 (140-440) 05/12/18 05:58 Lymph % (Auto) 6.7 % (13.4-35.0) L 05/12/18 05:58 [place] % (Auto) 8.3 % (0.0-7.3) H 05/12/18 05:58 Eos % (Auto) 1.6 % (0.0-4.3) 05/12/18 05:58 Baso % (Auto) 0.4 % (0.0-1.8) 05/12/18 05:58 Lymph # 1.1 K/mm3 (1.2-5.4) L 05/12/18 05:58 [place] # 1.3 K/mm3 (0.0-0.8) H 05/12/18 05:58 Eos # 0.2 K/mm3 (0.0-0.4) 05/12/18 05:58 Baso # 0.1 K/mm3 (0.0-0.1) 05/12/18 05:58 Seg Neutrophils % 83.0 % (40.0-70.0) H 05/12/18 05:58 Seg Neutrophils # 13.2 K/mm3 (1.8-7.7) H 05/12/18 05:58 Sodium 141 mmol/L (137-145) 05/12/18 05:58 Potassium 4.0 mmol/L (3.6-5.0) 05/12/18 05:58 Chloride 97.1 mmol/L (98-107) L 05/12/18 05:58 Carbon Dioxide 25 mmol/L (22-30) 05/12/18 05:58 Anion Gap 23 mmol/L 05/12/18 05:58 BUN 28 mg/dL (9-20) H 05/12/18 05:58 Creatinine 6.6 mg/dL (0.8-1.5) H 05/12/18 05:58 Estimated GFR 9 ml/min 05/12/18 05:58 BUN/Creatinine Ratio 4 % 05/12/18 05:58 Glucose 79 mg/dL (75-100) 05/12/18 05:58 Calcium 7.8 mg/dL (8.4-10.2) L 05/12/18 05:58
[2018-05-12] MEDS: PROCRIT SUB-Q PRN (14:33)
[2018-05-12] MEDS: SODIUM CHLORIDE FLUSH SYRINGE 10 ML IV SCH (23:07)
[2018-05-13 05:53] LABS: Basophils # (Auto) 0.1 K/mm3 (0.0-0.1); Basophils % (Auto) 0.5 % (0.0-1.8); Eosinophils # (Auto) 0.3 K/mm3 (0.0-0.4); Eosinophils % (Auto) 3.3 % (0.0-4.3); Hematocrit 27.6 % (35.5-45.6); Hemoglobin 9.4 gm/dl (11.8-15.2); Lymphocytes # (Auto) 1.3 K/mm3 (1.2-5.4); Mean Corpuscular HGB Conc 34 % (32-34); Mean Corpuscular Hemoglobin 32 pg (28-32); Mean Corpuscular Volume 93 fl (84-94); Monocytes # (Auto) 1.2 K/mm3 (0.0-0.8); Monocytes % (Auto) 11.7 % (0.0-7.3); Platelet Count 323 K/mm3 (140-440); Red Blood Count 2.96 M/mm3 (3.65-5.03); Red Cell Distribution Width 14.5 % (13.2-15.2)
[2018-05-13] MEDS: ZOSYN/NS 2.25 GM/50ML 2.25 GM/50 ML BAG IV SCH ×3 (05:57→21:55)
[2018-05-13] MEDS: SODIUM CHLORIDE FLUSH SYRINGE 10 ML IV SCH ×3 (05:58→21:56)
[2018-05-13] MEDS ORDERED: VANCOMYCIN/NS 1 GM/250 ML 1 GM/250 ML BAG IV SCH (10:00)
[2018-05-13] MEDS: FOLVITE PO SCH (10:07)
[2018-05-13] MEDS: THERAGRAN Tab PO SCH ×2 (10:07→10:08)
[2018-05-13] MEDS: VITAMIN B-1 PO SCH ×2 (10:08)
--- NOTE | 2018-05-13 13:49 | Event Note ---
Date: 05/13/18 Pt was admitted to hospital for HD. I saw the patient as he had open umbilical hernia repair with mesh last week. Pt states he has no pain from surgery and is doing well. His dressing was still in place, although he was instructed to remove it 48 hours post discharge. The dressing was removed. The incision is c/d /i. The skin of the umbilicus is viable. No TTP. Pt instructed that he may shower and wash the area with soap and water. He may follow up with me in 1 week or call if he has questions. Patient's family at the bedside and understand instructions.
[2018-05-13] MEDS: TYLENOL PO PRN ×2 (13:50→21:58)
--- NOTE | 2018-05-13 15:57 | Progress Note ---
Assessment and Plan Acute Renal Failure now likely End Stage Renal Disease on HD: -S/p HD yesterday for UF and clearance, UF removed 1 liter -No acute indication for HD today -HD tomorrow for gentle UF and clearance via Right IJ Perm Catheter -Pt doesn't need to be on sodium bicarbonate tablets as an outpatient -S/p CT guided renal biopsy on 04/21/18 -Blood cultures showed NGTD -Renally dose meds -Strict intake and output -Gomez Catheter: No -Renal plan d/w Dr Swain -Continue supportive therapy Questionable Sepsis: -Blood cultures showed NGTD -On zosyn and vancomycin Hyperkalemia: -Improved on HD -Low potassium diet Essential Hypertension: -Monitor, currently not on any medications Anemia of CKD: -Epogen dosing for anemia management Subjective Date of service: 05/13/18 Principal diagnosis: ESRD Interval history: Pt doesn't speak much Faroese, denies pain, no acute distress. Family at bedside Objective - Vital Signs Vital signs: Vital Signs - 12hr 05/13/18 05/13/18 05:37 11:23 Temperature 98.9 F 98.8 F Pulse Rate 91 H 94 H Respiratory 18 20 Rate Blood Pressure 142/84 Blood Pressure 122/76 [Left] O2 Sat by Pulse 97 95 Oximetry - General Appearance General appearance: well-developed (no acute distress) EENT: ATNC Neck: no JVD Respiratory: Present: Clear to Ascultation Cardiology: regular, S1S2, other (ACCESS: Right IJ Perm Catheter intact) Gastrointestinal: normoactive bowel sounds Integumentary: warm and dry Neurologic: other (awake, alert, doesn't speak much Faroese) Musculoskeletal: other (no edema to both lower extremities) Psychiatric: cooperative - Lab 05/13/18 05:12 05/13/18 05:12 Most recent lab results Calcium 8.0 mg/dL (8.4-10.2) L 05/13/18 05:12
--- NOTE | 2018-05-13 19:47 | Progress Note ---
Assessment and Plan Assessment and plan: --End-stage renal disease; on hemodialysis HD per schedule nephrology following --Febrile illness/possible sepsis; resolved Cultures negative date, afebrile, continue empiric antibiotics Supportive care --Hypertension ,moderate control Continue current antihypertensives and when necessary medications --History of alcohol use; counseling done advised to quit tobacco and alcohol use --Alcohol withdrawal symptoms; grossly monitor, continue CIWA protocol --DVT prophylaxis; Lovenox renal dose DC home in 1-2 days stable History Interval history: Patient Seen and examined medical records reviewed No new events reported by the nursing staff Surgery has evaluated the umbilical hernia repaired the wound No evidence of infection Vital signs reviewed Hospitalist Physical - Constitutional Vitals: Temp Pulse Resp BP Pulse Ox 98.6 F 90 20 131/86 95 05/13/18 16:35 05/13/18 16:35 05/13/18 16:35 05/13/18 16:35 05/13/18 16:35 General appearance: Present: no acute distress, well-nourished - EENT Eyes: Present: PERRL, EOM intact - Neck Neck: Present: supple, normal ROM - Respiratory Respiratory effort: normal Respiratory: bilateral: diminished, negative: rales, rhonchi, wheezing - Cardiovascular Rhythm: regular Heart Sounds: Present: S1 & S2 - Extremities Extremities: no ischemia, No edema - Integumentary Integumentary: Present: clear, warm - Psychiatric Psychiatric: appropriate mood/affect, cooperative - Neurologic Neurologic: CNII-XII intact, moves all extremities Results - Labs CBC & Chem 7: 05/13/18 05:12 05/13/18 05:12 Labs: Laboratory Last Values WBC 10.6 K/mm3 (4.5-11.0) 05/13/18 05:12 RBC 2.96 M/mm3 (3.65-5.03) L 05/13/18 05:12 Hgb 9.4 gm/dl (11.8-15.2) L 05/13/18 05:12 Hct 27.6 % (35.5-45.6) L 05/13/18 05:12 MCV 93 fl (84-94) 05/13/18 05:12 MCH 32 pg (28-32) 05/13/18 05:12 MCHC 34 % (32-34) 05/13/18 05:12 RDW 14.5 % (13.2-15.2) 05/13/18 05:12 Plt Count 323 K/mm3 (140-440) 05/13/18 05:12 Lymph % (Auto) 12.0 % (13.4-35.0) L 05/13/18 05:12 [place] % (Auto) 11.7 % (0.0-7.3) H 05/13/18 05:12 Eos % (Auto) 3.3 % (0.0-4.3) 05/13/18 05:12 Baso % (Auto) 0.5 % (0.0-1.8) 05/13/18 05:12 Lymph # 1.3 K/mm3 (1.2-5.4) 05/13/18 05:12 [place] # 1.2 K/mm3 (0.0-0.8) H 05/13/18 05:12 Eos # 0.3 K/mm3 (0.0-0.4) 05/13/18 05:12 Baso # 0.1 K/mm3 (0.0-0.1) 05/13/18 05:12 Seg Neutrophils % 72.5 % (40.0-70.0) H 05/13/18 05:12 Seg Neutrophils # 7.7 K/mm3 (1.8-7.7) 05/13/18 05:12 Sodium 140 mmol/L (137-145) 05/13/18 05:12 Potassium 3.7 mmol/L (3.6-5.0) 05/13/18 05:12 Chloride 95.7 mmol/L (98-107) L 05/13/18 05:12 Carbon Dioxide 29 mmol/L (22-30) 05/13/18 05:12 Anion Gap 19 mmol/L 05/13/18 05:12 BUN 18 mg/dL (9-20) 05/13/18 05:12 Creatinine 4.8 mg/dL (0.8-1.5) H 05/13/18 05:12 Estimated GFR 13 ml/min 05/13/18 05:12 BUN/Creatinine Ratio 4 % 05/13/18 05:12 Glucose 87 mg/dL (75-100) 05/13/18 05:12 Calcium 8.0 mg/dL (8.4-10.2) L 05/13/18 05:12
[2018-05-14] MEDS: ZOSYN/NS 2.25 GM/50ML 2.25 GM/50 ML BAG IV SCH (05:37)
[2018-05-14] MEDS: FOLVITE PO SCH (10:01)
[2018-05-14] MEDS: THERAGRAN Tab PO SCH (10:01)
[2018-05-14] MEDS: VITAMIN B-1 PO SCH (10:01)
[2018-05-14] MEDS: SODIUM CHLORIDE FLUSH SYRINGE 10 ML IV SCH (10:02)
[2018-05-14] MEDS ORDERED: NACL 0.9 (PRIMING MACHINE ONLY DIALYSIS) MC ONE (11:49)
[2018-05-14] MEDS: PROCRIT SUB-Q PRN (13:00)
--- NOTE | 2018-05-14 15:36 | Discharge Summary ---
Providers - Providers Date of Admission: 05/10/18 13:34 Date of discharge: 05/14/18 Attending physician: FROY SÁNCHEZ 05/10/18 13:30 Consult to Physician [CONS] Urgent Comment: Consulting Provider: CAMRON LAURA Physician Instructions: Reason For Exam: esrd needing dialysis Primary care physician: MANAGER ERP Hospitalization Reason for admission: missed hemodialysis Condition: Stable Hospital course: Very pleasant 52-year-old male patient with significant history of hypertension end-stage renal disease on hemodialysis alcohol abuse and tobacco use asthma was admitted through emergency room with missed hemodialysis. Patient has citizenship issues, evaluated by animal scientist and admitted to the hospital Received hemodialysis per schedule and symptomatically managed. Patient has chronic alcohol issues, placed on alcohol withdrawal protocol with CIWA Multiple electrolyte imbalance corrected Symptoms significantly improved Patient counseled and advised alcohol rehabilitation, and alcohol detox program Today he is comfortable no new complaints Vital signs reviewed, Physical examination prior to discharge is unremarkable Discharge diagnosis; --End-stage renal disease; on hemodialysis --Febrile illness/possible sepsis; resolved --Hypertension ,moderate control --History of alcohol use; counseling done --Alcohol withdrawal symptoms; stable Disposition: DC-01 TO HOME OR SELFCARE Time spent for discharge: 33 min Core Measure Documentation - Palliative Care Palliative Care/ Comfort Measures: Not Applicable - Core Measures Any of the following diagnoses?: none Exam - Constitutional Vitals: Temp Pulse Resp BP Pulse Ox 98.2 F 90 18 155/86 96 05/14/18 13:20 05/14/18 13:20 05/14/18 13:20 05/14/18 13:20 05/14/18 06:47 General appearance: Present: no acute distress, well-nourished - EENT Eyes: Present: PERRL, EOM intact - Neck Neck: Present: supple, normal ROM - Respiratory Respiratory effort: normal Respiratory: bilateral: diminished, negative: rales, rhonchi, wheezing - Cardiovascular Rhythm: regular Heart Sounds: Present: S1 & S2 - Extremities Extremities: no ischemia, No edema - Abdominal General gastrointestinal: Present: soft, non-tender, non-distended, normal bowel sounds Male genitourinary: Present: normal - Integumentary Integumentary: Present: clear, warm - Musculoskeletal Musculoskeletal: strength equal bilaterally, generalized weakness - Psychiatric Psychiatric: appropriate mood/affect, cooperative - Neurologic Neurologic: CNII-XII intact, moves all extremities Plan Activity: advance as tolerated Diet: renal Special Instructions: smoking cessation Additional Instructions: Smoking cessation. Follow renal/hemodialysis per schedule Follow up with: PRIMARY CARE, [Primary Care Provider] - 7 Days CAMRON LAURA MD [Staff Physician] - 7 Days OLIVER FORREST DO [Staff Physician] - 7 Days Prescriptions: Nicotine [Habitrol] 14 mg TD DAILY #30 patch
--- NOTE | 2018-05-14 15:38 | Progress Note ---
Assessment and Plan Acute Renal Failure now likely End Stage Renal Disease on HD: -HD today. -Pt doesn't need to be on sodium bicarbonate tablets as an outpatient -S/p CT guided renal biopsy on 04/21/18 -Blood cultures showed NGTD -Renally dose meds -Strict intake and output -Continue supportive therapy Questionable Sepsis: -Blood cultures showed NGTD -On Abx Hyperkalemia: -Improved on HD -Low potassium diet Essential Hypertension: -Monitor, currently not on any medications Anemia of CKD: -Epogen dosing for anemia management Elver Cyr MD [phone] Subjective Date of service: 05/14/18 Principal diagnosis: ESRD Interval history: HD today. Denies CP, SHOB. Family at bedside. Objective - Exam Narrative Exam: General appearance: well-developed (no acute distress) EENT: ATNC Neck: no JVD Respiratory: Present: Clear to Ascultation Cardiology: regular, S1S2, other (ACCESS: Right IJ Perm Catheter intact) Gastrointestinal: normoactive bowel sounds Integumentary: warm and dry Neurologic: other (awake, alert, doesn't speak much Bengali) Musculoskeletal: other (no edema to both lower extremities) Psychiatric: cooperative - Vital Signs Vital signs: Vital Signs - 12hr 05/14/18 05/14/18 05/14/18 06:47 10:15 10:30 Temperature 99.1 F 98.0 F Pulse Rate 102 H 92 H 94 H Respiratory 20 18 Rate Blood Pressure 137/91 140/90 140/92 O2 Sat by Pulse 96 Oximetry 05/14/18 05/14/18 05/14/18 10:45 11:00 11:15 Temperature Pulse Rate 96 H 100 H 78 Respiratory Rate Blood Pressure 142/93 148/98 170/104 O2 Sat by Pulse Oximetry 05/14/18 05/14/18 05/14/18 11:30 11:45 12:00 Temperature Pulse Rate 83 88 91 H Respiratory Rate Blood Pressure 160/120 148/92 146/101 O2 Sat by Pulse Oximetry 05/14/18 05/14/18 05/14/18 12:15 12:30 12:45 Temperature Pulse Rate 91 H 88 82 Respiratory Rate Blood Pressure 153/98 146/98 142/81 O2 Sat by Pulse Oximetry 05/14/18 05/14/18 05/14/18 13:00 13:15 13:20 Temperature 98.2 F Pulse Rate 90 90 90 Respiratory 18 Rate Blood Pressure 150/94 149/97 155/86 O2 Sat by Pulse Oximetry - Lab 05/13/18 05:12 05/13/18 05:12 Most recent lab results Calcium 8.0 mg/dL (8.4-10.2) L 05/13/18 05:12
[2018-05-14 16:47] VITALS: BP 147/89
== END 2018-05-14 19:06 | disposition home or self-care (01) | DRG 871 ==
LOC: ED 11:14 → 3A 13:34
PROVIDERS: ADMIT Internal Medicine; ATTEND Internal Medicine
PROC: 5A1D70Z Performance of Urinary Filtration, Intermittent, Less than 6 Hours Per Day (ICD-10-PCS; principal; 2018-05-10)
PROC: 5A1D70Z Performance of Urinary Filtration, Intermittent, Less than 6 Hours Per Day (ICD-10-PCS; 2018-05-12)
PROC: 5A1D70Z Performance of Urinary Filtration, Intermittent, Less than 6 Hours Per Day (ICD-10-PCS; 2018-05-14)
DX: A41.9 Sepsis, unspecified organism (principal); N18.6 End stage renal disease; N17.9 Acute kidney failure, unspecified; I12.0 Hypertensive chronic kidney disease with stage 5 chronic kidney disease or end stage renal disease; F10.239 Alcohol dependence with withdrawal, unspecified; E87.5 Hyperkalemia; F17.200 Nicotine dependence, unspecified, uncomplicated; D63.1 Anemia in chronic kidney disease; Z71.41 Alcohol abuse counseling and surveillance of alcoholic; Z79.899 Other long term (current) drug therapy; Z82.49 Family history of ischemic heart disease and other diseases of the circulatory system
CPT/HCPCS: 36415; 80048; 85025; 87040; 99406; J0885; J2543; J3370; J7030; J7040

== ENCOUNTER 2018-05-17 08:35 | Observation (INO) | payer SELFPAY ==
[2018-05-17 09:01] LABS: Basophils # (Auto) 0.1 K/mm3 (0.0-0.1); Basophils % (Auto) 0.8 % (0.0-1.8); Eosinophils # (Auto) 0.2 K/mm3 (0.0-0.4); Eosinophils % (Auto) 1.7 % (0.0-4.3); Hematocrit 28.2 % (35.5-45.6); Hemoglobin 9.3 gm/dl (11.8-15.2); Lymphocytes # (Auto) 1.3 K/mm3 (1.2-5.4); Lymphocytes % (Auto) 10.5 % (13.4-35.0); Mean Corpuscular HGB Conc 33 % (32-34); Mean Corpuscular Hemoglobin 31 pg (28-32); Mean Corpuscular Volume 92 fl (84-94); Monocytes # (Auto) 1.1 K/mm3 (0.0-0.8); Monocytes % (Auto) 8.5 % (0.0-7.3); Platelet Count 427 K/mm3 (140-440); Red Blood Count 3.05 M/mm3 (3.65-5.03); Red Cell Distribution Width 14.9 % (13.2-15.2)
--- NOTE | 2018-05-17 09:07 | Emergency Department Report ---
ED General Adult HPI - General Chief complaint: Medical Clearance Stated complaint: DIALYSIS Time Seen by Provider: 05/17/18 08:49 Source: patient, family Mode of arrival: Ambulatory Limitations: Language Barrier - History of Present Illness Initial comments: Patient emergency department for dialysis. Patient has no complaints. He has recent started on hemodialysis and does not have a dialysis clinic. Last dialysis was on Thursday. Patient shortness breath, chest pain, headache. -: Gradual Severity scale (0 -10): 0 Consistency: constant Improves with: none Worsens with: none Associated Symptoms: denies: denies other symptoms Treatments Prior to Arrival: none - Related Data Previous Rx's Medication Instructions Recorded Last Taken Type Albuterol Sulfate [Ventolin HFA] 2 puff IH Q4H PRN #1 hfa.aer.ad 05/06/18 Unknown Rx Carvedilol [Coreg] 6.25 mg PO BID #60 tablet 05/06/18 Unknown Rx Colchicine 0.6 mg PO QOD #30 capsule 05/06/18 Unknown Rx Sodium Bicarbonate 1,300 mg PO TID 30 Days tablet 05/06/18 Unknown Rx amLODIPine [Norvasc] 10 mg PO QDAY #60 tablet 05/06/18 Unknown Rx oxyCODONE /ACETAMINOPHEN [Percocet 1 tab PO Q6H PRN #20 tablet 05/06/18 Unknown Rx 5/325 mg] Nicotine [Habitrol] 14 mg TD DAILY #30 patch 05/14/18 Unknown Rx Allergies Allergy/AdvReac Type Severity Reaction Status Date / Time No Known Allergies Allergy Verified 04/18/18 18:09 ED Review of Systems ROS: Stated complaint: DIALYSIS Other details as noted in HPI Constitutional: denies: chills, fever Eyes: denies: eye pain, eye discharge, vision change ENT: denies: ear pain, throat pain Respiratory: denies: cough, shortness of breath, wheezing Cardiovascular: denies: chest pain, palpitations Endocrine: no symptoms reported Gastrointestinal: denies: abdominal pain, nausea, diarrhea Genitourinary: denies: urgency, dysuria Musculoskeletal: denies: back pain, joint swelling, arthralgia Skin: denies: rash, lesions Neurological: denies: headache, weakness, paresthesias Psychiatric: denies: anxiety, depression Hematological/Lymphatic: denies: easy bleeding, easy bruising ED Past Medical Hx - Past Medical History Hx Hypertension: No Hx Liver Disease: Yes (Chronic EtOH) Hx Renal Disease: Yes ([facility]ARY requiring HD) Hx Seizures: No Hx Asthma: Yes - Surgical History Additional Surgical History: Right chest perm cath - Social History Smoking Status: Former Smoker Substance Use Type: None - Medications Home Medications: Home Medications Medication Instructions Recorded Confirmed Last Taken Type Albuterol Sulfate [Ventolin HFA] 2 puff IH Q4H PRN #1 hfa.aer.ad 05/06/18 Unknown Rx Carvedilol [Coreg] 6.25 mg PO BID #60 tablet 05/06/18 05/10/18 Unknown Rx Colchicine 0.6 mg PO QOD #30 capsule 05/06/18 05/10/18 Unknown Rx Sodium Bicarbonate 1,300 mg PO TID 30 Days tablet 05/06/18 05/10/18 Unknown Rx amLODIPine [Norvasc] 10 mg PO QDAY #60 tablet 05/06/18 05/10/18 Unknown Rx oxyCODONE /ACETAMINOPHEN [Percocet 1 tab PO Q6H PRN #20 tablet 05/06/18 Unknown Rx 5/325 mg] Nicotine [Habitrol] 14 mg TD DAILY #30 patch 05/14/18 Unknown Rx ED Physical Exam - General Limitations: No Limitations General appearance: alert, in no apparent distress - Head Head exam: Present: atraumatic, normocephalic - Eye Eye exam: Present: normal appearance - ENT ENT exam: Present: mucous membranes moist - Neck Neck exam: Present: normal inspection - Respiratory Respiratory exam: Present: normal lung sounds bilaterally. Absent: respiratory distress, wheezes, rales, rhonchi - Cardiovascular Cardiovascular Exam: Present: regular rate, normal rhythm, other (permacath present ). Absent: systolic murmur, diastolic murmur, rubs, gallop - GI/Abdominal GI/Abdominal exam: Present: soft, normal bowel sounds. Absent: distended, tenderness, guarding, rebound - Rectal Rectal exam: Present: deferred - Extremities Exam Extremities exam: Present: normal inspection - Back Exam Back exam: Present: normal inspection - Neurological Exam Neurological exam: Present: alert, oriented X3, CN II-XII intact. Absent: motor sensory deficit - Psychiatric Psychiatric exam: Present: normal affect, normal mood - Skin Skin exam: Present: warm, dry, intact, normal color. Absent: rash ED Course Vital Signs 05/17/18 08:37 Temperature 99.1 F Pulse Rate 100 H Respiratory 19 Rate Blood Pressure 122/86 O2 Sat by Pulse 97 Oximetry ED Medical Decision Making - Lab Data Result diagrams: 05/17/18 08:53 05/17/18 08:53 - Medical Decision Making Patient will be admitted for dialysis Critical care attestation.: If time is entered above; I have spent that time in minutes in the direct care of this critically ill patient, excluding procedure time. ED Disposition Clinical Impression: ESRD needing dialysis Disposition: OP ADMIT IP TO THIS HOSP Is pt being admited?: Yes Does the pt Need Aspirin: No Condition: Stable Referrals: PRIMARY CARE, [Primary Care Provider] - 3-5 Days Time of Disposition: 10:01
[2018-05-17 09:40] LABS: Calcium 9.1 mg/dL (8.4-10.2)
--- NOTE | 2018-05-17 10:13 | History and Physical Report ---
History of Present Illness Chief complaint: i need HD History of present illness: 52 YO Male with HTN, ESRD on HD(M,W,F),gout, ETOH Abuse, Nicotine Dependence, Asthma presents to ED for evaluation. Pt states that he does not have a dialysis center and has not been able to get one due to citizenship status. 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 PMH; ESRD due to severe sepsis, htn, gout, etoh abuse, asthma PSH; permacath placement Social history: smoking, alcohol abuse Family history: hypertension Medications and Allergies Allergies Allergy/AdvReac Type Severity Reaction Status Date / Time No Known Allergies Allergy Verified 04/18/18 18:09 Home Medications Medication Instructions Recorded Confirmed Last Taken Type Albuterol Sulfate [Ventolin HFA] 2 puff IH Q4H PRN #1 hfa.aer.ad 05/06/18 Unknown Rx Carvedilol [Coreg] 6.25 mg PO BID #60 tablet 05/06/18 05/10/18 Unknown Rx Colchicine 0.6 mg PO QOD #30 capsule 05/06/18 05/10/18 Unknown Rx Sodium Bicarbonate 1,300 mg PO TID 30 Days tablet 05/06/18 05/10/18 Unknown Rx amLODIPine [Norvasc] 10 mg PO QDAY #60 tablet 05/06/18 05/10/18 Unknown Rx oxyCODONE /ACETAMINOPHEN [Percocet 1 tab PO Q6H PRN #20 tablet 05/06/18 Unknown Rx 5/325 mg] Nicotine [Habitrol] 14 mg TD DAILY #30 patch 05/14/18 Unknown Rx Review of Systems All systems: negative Constitutional: no weakness Ears, nose, mouth and throat: no nose pain Cardiovascular: no chest pain Respiratory: no cough Gastrointestinal: no nausea Genitourinary Male: no hematuria Rectal: no pain Musculoskeletal: no neck stiffness Integumentary: no rash Neurological: no head injury Psychiatric: no anxiety Endocrine: no cold intolerance Hematologic/Lymphatic: no easy bruising Allergic/Immunologic: no urticaria Exam - Constitutional Vitals: Temp Pulse Resp BP Pulse Ox 99.1 F 100 H 19 122/86 97 05/17/18 08:37 05/17/18 08:37 05/17/18 08:37 05/17/18 08:37 05/17/18 08:37 General appearance: Present: no acute distress, well-nourished - EENT Eyes: Present: PERRL ENT: hearing intact, clear oral mucosa - Neck Neck: Present: supple, normal ROM - Respiratory Respiratory effort: normal Respiratory: bilateral: CTA - Cardiovascular Heart Sounds: Present: S1 & S2. Absent: rub, click - Extremities Extremities: pulses symmetrical, No edema Peripheral Pulses: within normal limits - Abdominal General gastrointestinal: Present: soft, non-tender, non-distended, normal bowel sounds Male genitourinary: Present: normal - Integumentary Integumentary: Present: clear, warm, dry - Musculoskeletal Musculoskeletal: gait normal, strength equal bilaterally - Psychiatric Psychiatric: appropriate mood/affect, intact judgment & insight - Neurologic Neurologic: CNII-XII intact, moves all extremities Results - Labs CBC & Chem 7: 05/17/18 08:53 05/17/18 08:53 Labs: Laboratory Last Values WBC 12.6 K/mm3 (4.5-11.0) H 05/17/18 08:53 RBC 3.05 M/mm3 (3.65-5.03) L 05/17/18 08:53 Hgb 9.3 gm/dl (11.8-15.2) L 05/17/18 08:53 Hct 28.2 % (35.5-45.6) L 05/17/18 08:53 MCV 92 fl (84-94) 05/17/18 08:53 MCH 31 pg (28-32) 05/17/18 08:53 MCHC 33 % (32-34) 05/17/18 08:53 RDW 14.9 % (13.2-15.2) 05/17/18 08:53 Plt Count 427 K/mm3 (140-440) 05/17/18 08:53 Lymph % (Auto) 10.5 % (13.4-35.0) L 05/17/18 08:53 [place] % (Auto) 8.5 % (0.0-7.3) H 05/17/18 08:53 Eos % (Auto) 1.7 % (0.0-4.3) 05/17/18 08:53 Baso % (Auto) 0.8 % (0.0-1.8) 05/17/18 08:53 Lymph # 1.3 K/mm3 (1.2-5.4) 05/17/18 08:53 [place] # 1.1 K/mm3 (0.0-0.8) H 05/17/18 08:53 Eos # 0.2 K/mm3 (0.0-0.4) 05/17/18 08:53 Baso # 0.1 K/mm3 (0.0-0.1) 05/17/18 08:53 Seg Neutrophils % 78.5 % (40.0-70.0) H 05/17/18 08:53 Seg Neutrophils # 9.9 K/mm3 (1.8-7.7) H 05/17/18 08:53 Sodium 136 mmol/L (137-145) L 05/17/18 08:53 Potassium 4.7 mmol/L (3.6-5.0) D 05/17/18 08:53 Chloride 90.6 mmol/L (98-107) L 05/17/18 08:53 Carbon Dioxide 27 mmol/L (22-30) 05/17/18 08:53 Anion Gap 23 mmol/L 05/17/18 08:53 BUN 31 mg/dL (9-20) H 05/17/18 08:53 Creatinine 5.6 mg/dL (0.8-1.5) H 05/17/18 08:53 Estimated GFR 11 ml/min 05/17/18 08:53 BUN/Creatinine Ratio 6 % 05/17/18 08:53 Glucose 110 mg/dL (75-100) H 05/17/18 08:53 Calcium 9.1 mg/dL (8.4-10.2) 05/17/18 08:53 Assessment and Plan Assessment and plan: 52M who pw needing HD H[facility], likely esrd needing HD consult renal, for HD if Nephrology agrees that he is esrd, can go ahead and obtain HD outpatient placement HTN continue meds Gout stable, on colchicine Asthma not in exacerbation Tobacco abuse counseld about cessation, nicotine patch
[2018-05-17] MEDS ORDERED: PROAIR IH PRN (10:34)
[2018-05-17] MEDS ORDERED: PERCOCET 5/325 PO PRN (10:34)
[2018-05-17] MEDS ORDERED: TYLENOL PO PRN (10:35)
[2018-05-17] MEDS ORDERED: ZOFRAN IV PRN (10:35)
[2018-05-17] MEDS ORDERED: SODIUM CHLORIDE FLUSH SYRINGE 10 ML IV PRN (10:35)
[2018-05-17] MEDS ORDERED: COLCHICINE PO SCH (11:00)
[2018-05-17] MEDS ORDERED: PROVENTIL IH PRN (11:04)
[2018-05-17] MEDS ORDERED: NACL 0.9% 100 ML IV PRN (12:39)
--- NOTE | 2018-05-17 12:39 | Consultation ---
History of Present Illness - Reason for Consult Consult date: 05/17/18 end stage renal disease - History of Present Illness The patient is a 52 YO Male with history significant for HTN, ESRD on HD(M,W,F), Gout, ETOH Abuse, Nicotine Dependence and Asthma presented to the [facility] ED for hemodialysis. Patient speaks only [place]uran, history obtained from medical record. Kidney biopsy done last month showed ATN and he was started on hemodialysis on 05/03/2018. Pt as not been able to get outpatient HD chair due to undocumented status. Pt comes to [facility] ER intermittently for dialysis. Past History Past Medical History: dialysis, ESRD, hypertension, other (gout) Medications and Allergies Allergies Allergy/AdvReac Type Severity Reaction Status Date / Time No Known Allergies Allergy Verified 04/18/18 18:09 Home Medications Medication Instructions Recorded Confirmed Last Taken Type Albuterol Sulfate [Ventolin HFA] 2 puff IH Q4H PRN #1 hfa.aer.ad 05/06/18 Unknown Rx Carvedilol [Coreg] 6.25 mg PO BID #60 tablet 05/06/18 05/17/18 Unknown Rx Sodium Bicarbonate 1,300 mg PO TID 30 Days tablet 05/06/18 05/17/18 05/16/18 22 :00 Rx amLODIPine [Norvasc] 10 mg PO QDAY #60 tablet 05/06/18 05/17/18 05/16/18 09:00 Rx Nicotine [Habitrol] 14 mg TD DAILY #30 patch 05/14/18 05/17/18 Unknown Rx Colchicine 0.6 mg PO QOD #30 capsule 05/17/18 Unknown Rx oxyCODONE /ACETAMINOPHEN [Percocet 1 tab PO Q6H PRN #20 tablet 05/17/18 Unknown Rx 5/325 mg] Active Meds: Active Medications Acetaminophen (Tylenol) 650 mg PO Q4H PRN PRN Reason: Pain MILD(1-3)/Fever >100.5/JOHNSON Albuterol (Proventil) 2.5 mg IH Q4HRT PRN PRN Reason: Shortness Of Breath Amlodipine Besylate (Norvasc) 10 mg PO QDAY MILAGROS Carvedilol (Coreg) 6.25 mg PO BID MILAGROS Colchicine (Colchicine) 0.6 mg PO QOD MILAGROS Nicotine (Habitrol) 14 mg TD DAILY MILAGROS Ondansetron HCl (Zofran) 4 mg IV Q8H PRN PRN Reason: Nausea And Vomiting Oxycodone/Acetaminophen (Percocet 5/325) 1 tab PO Q6H PRN PRN Reason: Pain, Moderate (4-6) Sodium Bicarbonate (Sodium Bicarbonate) 1,300 mg PO TID MILAGROS Sodium Chloride (Sodium Chloride Flush Syringe 10 Ml) 10 ml IV BID MILAGROS Sodium Chloride (Sodium Chloride Flush Syringe 10 Ml) 10 ml IV PRN PRN PRN Reason: LINE FLUSH Review of Systems ROS unobtainable: due to mental status (unable to obtain due to language barrier ) Exam - Vital Signs Vital signs: Vital Signs Temp Pulse Resp BP Pulse Ox 99.1 F 100 H 19 122/86 97 05/17/18 08:37 05/17/18 08:37 05/17/18 08:37 05/17/18 08:37 05/17/18 08:37 - General Appearance General appearance: well-developed, well-nourished, appears stated age, other ( no distress, right IJ tunnel catheter) EENT: ATNC, PERRL, mucous membranes moist, hearing intact Neck: Present: neck supple, trachea midline Respiratory: Clear to Ascultation Heart: regular, S1S2, no murmurs Gastrointestinal: Present: normoactive bowel sounds. Absent: tenderness Integumentary: no rash, warm and dry Neurologic: other (able to move all 4 extremities) Musculoskeletal: Present: other (no edema) Results - Lab Results 05/17/18 08:53 05/17/18 08:53 Most recent lab results Calcium 9.1 mg/dL (8.4-10.2) 05/17/18 08:53 Assessment and Plan 1. ESRD: Patient was on hemodialysis when I saw him. Continue HD as planned. 2. Anemia: Epogen today. 3. Hypertension: BP controlled.
[2018-05-17] MEDS ORDERED: PROCRIT SUB-Q SCH (13:00)
[2018-05-17] MEDS ORDERED: SODIUM BICARBONATE PO SCH (14:00)
[2018-05-17] MEDS ORDERED: NACL 0.9 (PRIMING MACHINE ONLY DIALYSIS) MC ONE (14:01)
[2018-05-17 17:28] VITALS: BP 122/78
--- NOTE | 2018-05-17 19:54 | Event Note ---
Date: 05/17/18 Patient received HD and was dc home after on same day
[2018-05-17] MEDS ORDERED: COREG PO SCH (22:00)
[2018-05-17] MEDS ORDERED: SODIUM CHLORIDE FLUSH SYRINGE 10 ML IV SCH (22:00)
[2018-05-18] MEDS ORDERED: HABITROL TD SCH (10:00)
[2018-05-18] MEDS ORDERED: NORVASC PO SCH (10:00)
== END 2018-05-17 18:21 | disposition home or self-care (01) ==
LOC: ED 08:35 → 3A 10:01
PROVIDERS: ADMIT Internal Medicine; ATTEND Internal Medicine
DX: I12.0 Hypertensive chronic kidney disease with stage 5 chronic kidney disease or end stage renal disease (principal); N18.6 End stage renal disease; N17.9 Acute kidney failure, unspecified; M10.9 Gout, unspecified; J45.909 Unspecified asthma, uncomplicated; Z99.2 Dependence on renal dialysis; F17.210 Nicotine dependence, cigarettes, uncomplicated
CPT/HCPCS: 36415; 80048; 85025; 96372; 99285; G0257; G0378; J0885; J7030

== ENCOUNTER 2018-05-19 09:18 | Observation (INO) | payer OTHER ==
[2018-05-19 11:02] LABS: Basophils # (Auto) 0.1 K/mm3 (0.0-0.1); Basophils % (Auto) 0.5 % (0.0-1.8); Eosinophils % (Auto) 0.4 % (0.0-4.3); Hematocrit 28.5 % (35.5-45.6); Hemoglobin 9.6 gm/dl (11.8-15.2); Lymphocytes # (Auto) 0.9 K/mm3 (1.2-5.4); Lymphocytes % (Auto) 8.7 % (13.4-35.0); Mean Corpuscular HGB Conc 34 % (32-34); Mean Corpuscular Hemoglobin 31 pg (28-32); Mean Corpuscular Volume 92 fl (84-94); Monocytes # (Auto) 1.1 K/mm3 (0.0-0.8); Monocytes % (Auto) 10.3 % (0.0-7.3); Platelet Count 460 K/mm3 (140-440)
[2018-05-19 11:18] LABS: Calcium 9.4 mg/dL (8.4-10.2)
[2018-05-19] MEDS ORDERED: NACL 0.9% 100 ML IV PRN (16:12)
--- NOTE | 2018-05-19 16:12 | Consultation ---
History of Present Illness - History of Present Illness Thank you for the consultation ! History of present illness: Patient is a 53-year-old male here in the ER requesting dialysis.he has been recently started on renal replacement therapy and is currently dialysis dependent and was last dialyzed on Thursday. Patient has mild complaint of shortness of breath otherwise no symptoms. Current labs were reviewed. Case was also discussed with in the emergency room. Patient has no complaints of any fevers chills nausea vomiting. He does not have any pain or redness tenderness around the access site He is currently being treated for, acute on chronic renal failure which possibly may have progressed to end-stage renal disease and has been seen by different groups here during his hospitalization. Blood cultures are negative drawn on 05/10/2018, revealed old records show that patient has had a kidney biopsy done on April 21, 2018 which showed evidence of acute tubular necrosis scattered tubules with myoglobulin and granular cast. His requesting hemodialysis is trying to comply better with his diet Past medical history significant for End-stage renal disease Gout hyperuricemia Current allergies: None Home medication: Reviewed Social history: Reviewed Family history: Reviewed Review of system: Mild shortness of breath otherwise essentially unremarkable for all other system Physical examination General: No acute distress HEENT: Oral mucosa dry no pharyngeal erythema no nasal bleeding Neck: Supple no evidence of any jugular venous distention no masses Chest: Clear to auscultation anteriorly and posteriorly Heart: Regular rate and rhythm S1 and S2 heard no S3-S4 or any pericardial rub Abdomen: Soft nontender bowel sounds present no renal bruit no suprapubic masses no CVA tenderness Extremity: Dry skin less than 1+ edema no peripheral petechial rashes Endocrine: Thyroid not enlarged Psychiatric: No evidence of any agitation or aggression noted Musculoskeletal: No joint effusion noted Lab studies and pertinent imagings were reviewed My assessment and plan are as follows acute renal failure ? End-stage renal disease: Patient is a need for renal replacement therapy current access is his permacath in the right upper chest Patient adequately counseled and educated regarding the need for dialysis need to modify diet lifestyle Advised the patient not to use colchicine on a regular basis and in fact uses it as needed only, follow a low purine diet Currently he is receiving outpatient dialysis to the emergency room and does not have a dedicated clinic Adequately counseled and educated regarding catheter care sign and symptoms of infections also discussed with patient to monitor and follow Prognosis long-term guarded to poor: Patient does not have a dialysis unit at this time if patient is doing well post dialysis he can be discharged home All related questions are answered Thank you for the consultation. Medications and Allergies Allergies Allergy/AdvReac Type Severity Reaction Status Date / Time No Known Allergies Allergy Verified 04/18/18 18:09 Home Medications Medication Instructions Recorded Confirmed Last Taken Type Albuterol Sulfate [Ventolin HFA] 2 puff IH Q4H PRN #1 hfa.aer.ad 05/06/18 Unknown Rx Carvedilol [Coreg] 6.25 mg PO BID #60 tablet 05/06/18 05/17/18 Unknown Rx Sodium Bicarbonate 1,300 mg PO TID 30 Days tablet 05/06/18 05/17/18 05/16/18 22 :00 Rx amLODIPine [Norvasc] 10 mg PO QDAY #60 tablet 05/06/18 05/17/18 05/16/18 09:00 Rx Nicotine [Habitrol] 14 mg TD DAILY #30 patch 05/14/18 05/17/18 Unknown Rx Colchicine 0.6 mg PO QOD #30 capsule 05/17/18 Unknown Rx oxyCODONE /ACETAMINOPHEN [Percocet 1 tab PO Q6H PRN #20 tablet 05/17/18 Unknown Rx 5/325 mg] Exam - Vital Signs Vital signs: Vital Signs Temp Pulse Resp BP Pulse Ox 99.2 F 97 H 18 122/79 98 05/19/18 09:47 05/19/18 09:47 05/19/18 09:47 05/19/18 09:47 05/19/18 09:47 Results - Lab Results 05/19/18 10:15 05/19/18 10:15 Most recent lab results Calcium 9.4 mg/dL (8.4-10.2) 05/19/18 10:15
--- NOTE | 2018-05-19 16:38 | Emergency Department Report ---
HPI - General Chief Complaint: Medical Clearance Time Seen by Provider: 05/19/18 16:02 - HPI HPI: 52-year-old male presents to the emergency department with the request for dialysis. He says that he has some shortness of breath but denies any chest pain, nausea, vomiting or significant edema. He also has a history of asthma, hypertension. He has a right permacath to the chest wall. He has not taken anything for symptoms prior to presentation. He does not have a primary care physician or a equine pharmacology technician and tends to come to the emergency depart and get admitted for his dialysis needs, which are supposed to be Thursday/Thursday/ Thursday. The patient does not speak much Georgian as [place]ian is his [place] language but his daughter is currently at bedside translating. ED Past Medical Hx - Past Medical History Previous Medical History?: Yes Hx Hypertension: Yes Hx Liver Disease: Yes (Chronic EtOH) Hx Renal Disease: Yes (HILLARY requiring HD) Hx Seizures: No Hx Asthma: Yes - Surgical History Past Surgical History?: Yes Additional Surgical History: Right chest perm cath - Social History Smoking Status: Former Smoker Substance Use Type: Alcohol, Prescribed - Medications Home Medications: Home Medications Medication Instructions Recorded Confirmed Last Taken Type Albuterol Sulfate [Ventolin HFA] 2 puff IH Q4H PRN #1 hfa.aer.ad 05/06/18 Unknown Rx Carvedilol [Coreg] 6.25 mg PO BID #60 tablet 05/06/18 05/17/18 Unknown Rx Sodium Bicarbonate 1,300 mg PO TID 30 Days tablet 05/06/18 05/17/18 05/16/18 22 :00 Rx amLODIPine [Norvasc] 10 mg PO QDAY #60 tablet 05/06/18 05/17/18 05/16/18 09:00 Rx Nicotine [Habitrol] 14 mg TD DAILY #30 patch 05/14/18 05/17/18 Unknown Rx Colchicine 0.6 mg PO QOD #30 capsule 05/17/18 Unknown Rx oxyCODONE /ACETAMINOPHEN [Percocet 1 tab PO Q6H PRN #20 tablet 05/17/18 Unknown Rx 5/325 mg] ED Review of Systems ROS: Stated complaint: DIALYSIS Other details as noted in HPI Comment: All other systems reviewed and negative Constitutional: denies: chills, fever Eyes: denies: eye pain, eye discharge, vision change ENT: denies: ear pain, throat pain Respiratory: shortness of breath. denies: cough Cardiovascular: denies: chest pain, palpitations Gastrointestinal: denies: abdominal pain, nausea, diarrhea Genitourinary: denies: urgency, dysuria Musculoskeletal: denies: back pain, joint swelling, arthralgia Skin: denies: rash, lesions Neurological: denies: headache, weakness, paresthesias Physical Exam - Physical Exam Vital Signs: Vital Signs 05/19/18 09:47 Temperature 99.2 F Pulse Rate 97 H Respiratory 18 Rate Blood Pressure 122/79 O2 Sat by Pulse 98 Oximetry Physical Exam: GENERAL: The patient is well-developed well-nourished. HENT: Normocephalic. Atraumatic. Patient has moist mucous membranes. EYES: Extraocular motions are intact. Pupils equal reactive to light bilaterally. NECK: Supple. Trachea is midline. CHEST/LUNGS: Mild coarse breath sounds. No tachypnea or accessory muscle use. There is no respiratory distress noted. There is a cath in the right chest wall. HEART/CARDIOVASCULAR: Regular. There is no tachycardia. There is no murmur. ABDOMEN: Abdomen is soft, nontender. Patient has normal bowel sounds. There is no abdominal distention. SKIN: Skin is warm and dry. NEURO: The patient is awake, alert. The patient is cooperative. The patient has no focal neurologic deficits. The patient has normal speech. MUSCULOSKELETAL: There is no tenderness or deformity. There is no limitation range of motion. There is no evidence of acute injury. ED Course Vital Signs 05/19/18 09:47 Temperature 99.2 F Pulse Rate 97 H Respiratory 18 Rate Blood Pressure 122/79 O2 Sat by Pulse 98 Oximetry - Consultations Consultation #1: The equine pharmacology technician, Dr. Martin, is currently in the emergency department evaluating the patient and will get him dialysis this evening. 05/19/18 16:37 ED Medical Decision Making - Lab Data Result diagrams: 05/19/18 10:15 05/19/18 10:15 - Radiology Data Radiology results: image reviewed interpreted by me: Chest x-ray does not show any acute process. There are no pleural effusions, obvious pneumonia and there is no pneumothorax. - Medical Decision Making Patient presents to the emergency department with complaint of some shortness of breath and needing dialysis. There is no significant electrolyte abnormalities. Chest x-ray does not show any acute process. Vital signs stable as far. Patient will get dialysis this evening and has been accepted as an observational stay by Dr. Irby. - Differential Diagnosis chronic kidney disease, CHF, pneumonia Critical Care Time: No Critical care attestation.: If time is entered above; I have spent that time in minutes in the direct care of this critically ill patient, excluding procedure time. ED Disposition Clinical Impression: ESRD needing dialysis Disposition: OP ADMIT IP TO THIS HOSP Is pt being admited?: Yes Condition: Stable Referrals: PRIMARY CARE, [Primary Care Provider] - 3-5 Days Time of Disposition: 16:37
--- NOTE | 2018-05-19 17:18 | XRay Report ---
FINAL REPORT PROCEDURE: Chest. TECHNIQUE: AP and lateral views. HISTORY: Shortness of breath. COMPARISON: Chest 04/18/2018. FINDINGS: The heart and mediastinum appear normal. The lungs are clear and well expanded. There are no pleural effusions. The soft tissues and regional skeleton are unremarkable. There is a tunneled right internal jugular venous dialysis catheter. IMPRESSION: No evidence of acute disease.
--- NOTE | 2018-05-19 18:59 | Event Note ---
Date: 05/19/18 See history and physical in the reports. Dictated . volume overload End-stage renal disease on dialysis
[2018-05-19] MEDS ORDERED: TYLENOL PO PRN (19:06)
[2018-05-19] MEDS ORDERED: MORPHINE IV PRN (19:06)
[2018-05-19] MEDS ORDERED: SODIUM CHLORIDE FLUSH SYRINGE 10 ML IV PRN (19:06)
[2018-05-19] MEDS ORDERED: ZOFRAN IV PRN (19:06)
[2018-05-19] MEDS ORDERED: PERCOCET 5/325 PO PRN ×2 (19:06→19:07)
[2018-05-19] MEDS ORDERED: PROAIR IH PRN (19:07)
--- NOTE | 2018-05-19 19:13 | Discharge Summary ---
Providers - Providers Date of Admission: 05/19/18 16:38 Date of discharge: 05/19/18 Attending physician: HENNY MCCLAIN 05/19/18 Consult to Case Management [CONS] Routine Services Needed at Discharge: Central Office Trouble Shooter Primary care physician: AUTOMOBILE DAMAGE APPRAISER Hospitalization Condition: Stable Hospital course: Patient underwent emergent hemodialysis. Patient being discharged home. See discharge summary. Disposition: DC-01 TO HOME OR SELFCARE Core Measure Documentation - Palliative Care Palliative Care/ Comfort Measures: Not Applicable - Core Measures Any of the following diagnoses?: none Exam - Constitutional Vitals: Temp Pulse Resp BP Pulse Ox 99.2 F 96 H 80 H 125/80 96 05/19/18 09:47 05/19/18 18:21 05/19/18 18:21 05/19/18 18:21 05/19/18 18:21 General appearance: Present: no acute distress, well-nourished - EENT Eyes: Present: PERRL ENT: hearing intact, clear oral mucosa - Neck Neck: Present: supple, normal ROM - Respiratory Respiratory effort: normal Respiratory: bilateral: CTA - Cardiovascular Heart Sounds: Present: S1 & S2. Absent: rub, click - Extremities Extremities: pulses symmetrical, No edema Peripheral Pulses: within normal limits - Abdominal General gastrointestinal: Present: soft, non-tender, non-distended, normal bowel sounds Male genitourinary: Present: normal - Integumentary Integumentary: Present: clear, warm, dry - Musculoskeletal Musculoskeletal: gait normal, strength equal bilaterally - Psychiatric Psychiatric: appropriate mood/affect, intact judgment & insight - Neurologic Neurologic: CNII-XII intact, moves all extremities Plan Activity: no restrictions Special Instructions: restrict fluid intake to (1200 mL) Follow up with: ASHANTI CANTU MD [Primary Care Provider] - 3-5 Days NEHA ALFARO MD [Staff Physician] - 7 Days
[2018-05-19] MEDS ORDERED: PROVENTIL IH PRN (19:22)
--- NOTE | 2018-05-19 19:37 | History and Physical Report ---
CHIEF COMPLAINT: Increasing shortness of breath. HISTORY OF PRESENT ILLNESS: A 52-year-old male with end-stage renal disease, on renal replacement therapy, comes in for increasing shortness of breath. The patient was apparently diagnosed about 6-7 days ago. Through the flash drier operator, the patient said that he was dialyzed on Thursday. The patient has no complaints of any fever or chills. No nausea, no vomiting. The patient is being treated for end-stage renal disease since the patient has a Perm-A-Cath on the right subclavian region. No AV graft. PAST MEDICAL HISTORY: Significant for hypertension, nicotine dependence. Chronic liver disease secondary to EtOH, and asthma. CURRENT MEDICATIONS: Albuterol inhaler 2 puffs q.i.d., carvedilol 6.25 mg b.i.d., sodium bicarbonate 1300 mg p.o. t.i.d., amlodipine 10 mg p.o. daily, nicotine 14 mg p.o. daily, colchicine 0.6 p.o. every other day, and Percocet 5/325 q.6 hours p.r.n. PAST SURGICAL HISTORY: Perm-A-Cath insertion. SOCIAL HISTORY: Used to smoke. Alcohol, and moderate amount. FAMILY HISTORY: Hypertension. REVIEW OF SYSTEMS: Significant for shortness of breath on minimal exertion and orthopnea. No dialysis for a few days. The patient unable to state. Poor historian. A 14-point review of systems done, otherwise negative. PHYSICAL EXAMINATION: GENERAL: Middle-aged male, cooperative during examination. VITAL SIGNS: Blood pressure is 122/79, temperature is 99.2, pulse is 97, respirations are 18. HEENT: Unremarkable. Pupils equal and reactive. NECK: Supple, no lymphadenopathy, no thyromegaly. LUNGS: Clear to auscultation and percussion. Good air entry. CARDIOVASCULAR: S1, S2 heard. No gallop, no murmur, no rub. Apical impulse in the left fifth intercostal space and midclavicular line. ABDOMEN: Soft and benign. No hepatosplenomegaly. No guarding, no rigidity. Hernial orifices are normal. EXTREMITIES: Good pedal pulses. No pedal edema. CENTRAL NERVOUS SYSTEM: Alert and oriented x 4, nonfocal exam. SKIN: Normal. LABORATORY DATA: Significant for white count of 10,900, H and H is 9.6 and 38.5, platelet count is 460,000. Chemistry is significant for sodium of 133, slightly low; potassium is 4.7, normal, bicarbonate is 29, chloride is 87, BUN and creatinine 31 and 5.3, glucose is 103. EKG is not available. ASSESSMENT AND PLAN: 1. Volume overload secondary to noncompliance with hemodialysis. The patient to be taken for emergent hemodialysis. 2. End-stage renal disease, on dialysis. Continue hemodialysis. 3. Hypertension, continue carvedilol 6.25 mg two times a day and amlodipine 10 mg by mouth daily. 4. Gout, in remission. Continue colchicine as necessary. 5. Asthma. Continue albuterol 2 puffs four times a day. 6. Nicotine dependence. Continue nicotine patch as necessary. 7. Deep venous thrombosis prophylaxis, heparin 5000 every 12 hours. DISCHARGE PLANNING ISSUES: The patient may be discharged after the dialysis. The patient does not have any active problem other than volume overload secondary to missed dialysis. JOB# [id number] RENZO/NTS
[2018-05-19] MEDS ORDERED: COREG PO SCH (22:00)
[2018-05-19] MEDS ORDERED: PEPCID PO SCH (22:00)
[2018-05-19] MEDS ORDERED: SODIUM CHLORIDE FLUSH SYRINGE 10 ML IV SCH (22:00)
[2018-05-19] MEDS: SODIUM BICARBONATE PO SCH (22:05)
[2018-05-20 06:38] VITALS: BP 111/67
[2018-05-20] MEDS: SODIUM BICARBONATE PO SCH (08:25)
[2018-05-20] MEDS ORDERED: NORVASC PO SCH (10:00)
[2018-05-20] MEDS ORDERED: HABITROL TD SCH (10:00)
[2018-05-20] MEDS ORDERED: PEPCID PO SCH (10:00)
[2018-05-21] MEDS ORDERED: COLCHICINE PO SCH (10:00)
== END 2018-05-20 08:45 | disposition home or self-care (01) ==
LOC: ED 09:18 → 3A 16:38
PROVIDERS: ADMIT Internal Medicine; ATTEND Hospitalist
DX: E87.79 Other fluid overload (principal); I12.0 Hypertensive chronic kidney disease with stage 5 chronic kidney disease or end stage renal disease; N18.6 End stage renal disease; M10.9 Gout, unspecified; K70.9 Alcoholic liver disease, unspecified; J45.909 Unspecified asthma, uncomplicated; F17.210 Nicotine dependence, cigarettes, uncomplicated; Z99.2 Dependence on renal dialysis
CPT/HCPCS: 36415; 71046; 80048; 85025; 99285; G0257; G0378

== ENCOUNTER 2018-05-21 07:42 | Observation (INO) | payer OTHER ==
[2018-05-21 09:07] LABS: Basophils # (Auto) 0.1 K/mm3 (0.0-0.1); Basophils % (Auto) 0.7 % (0.0-1.8); Eosinophils # (Auto) 0.1 K/mm3 (0.0-0.4); Eosinophils % (Auto) 1.1 % (0.0-4.3); Hematocrit 29.7 % (35.5-45.6); Hemoglobin 9.7 gm/dl (11.8-15.2); Lymphocytes # (Auto) 1.1 K/mm3 (1.2-5.4); Lymphocytes % (Auto) 12.7 % (13.4-35.0); Mean Corpuscular HGB Conc 33 % (32-34); Mean Corpuscular Hemoglobin 30 pg (28-32); Mean Corpuscular Volume 90 fl (84-94); Monocytes # (Auto) 0.8 K/mm3 (0.0-0.8); Monocytes % (Auto) 9.3 % (0.0-7.3); Platelet Count 525 K/mm3 (140-440); Red Blood Count 3.28 M/mm3 (3.65-5.03)
[2018-05-21 09:21] LABS: Calcium 9.7 mg/dL (8.4-10.2)
--- NOTE | 2018-05-21 09:39 | Emergency Department Report ---
HPI - General Chief Complaint: Medical Clearance Time Seen by Provider: 05/21/18 09:31 - HPI HPI: 52-year-old male presents to the emergency department with the request for hemodialysis. The patient is unassigned regarding a lumber cutter and dialysis clinic and has been getting his dialysis done through [facility] over the past few weeks until he is able to get in and see a lumber cutter. He complains of some shortness of breath when he is talking or when he is eating. He denies any fever, nausea, vomiting, chest pain, back pain or any significant edema. He is a former smoker. He also has a past medical history of asthma and hypertension. The patient has seen multiple nephrology services but was last dialyzed here [address] Martin[address] ED Past Medical Hx - Past Medical History Previous Medical History?: Yes Hx Hypertension: Yes Hx Liver Disease: Yes (Chronic EtOH) Hx Renal Disease: Yes ([facility] requiring HD) Hx Seizures: No Hx Asthma: Yes - Surgical History Past Surgical History?: Yes Additional Surgical History: Right chest perm cath - Social History Smoking Status: Current Some Day Smoker Substance Use Type: Alcohol - Medications Home Medications: Home Medications Medication Instructions Recorded Confirmed Last Taken Type Albuterol Sulfate [Ventolin HFA] 2 puff IH Q4H PRN #1 hfa.aer.[email or web address] 05/06/18 Unknown Rx Carvedilol [Coreg] 6.25 mg PO BID #60 tablet 05/06/18 05/20/18 Unknown Rx Sodium Bicarbonate 1,300 mg PO TID 30 Days tablet 05/06/18 05/20/18 05/16/18 22 :00 Rx amLODIPine [Norvasc] 10 mg PO QDAY #60 tablet 05/06/18 05/20/18 05/16/18 09:00 Rx Nicotine [Habitrol] 14 mg TD DAILY #30 patch 05/14/18 05/20/18 Unknown Rx Colchicine 0.6 mg PO QOD #30 capsule 05/17/18 05/20/18 Unknown Rx oxyCODONE /ACETAMINOPHEN [Percocet 1 tab PO Q6H PRN #20 tablet 05/17/18 Unknown Rx 5/325 mg] ED Review of Systems ROS: Stated complaint: DIALYSIS Other details as noted in HPI Comment: All other systems reviewed and negative Constitutional: denies: chills, fever Eyes: denies: eye pain, eye discharge, vision change ENT: denies: ear pain, throat pain Respiratory: shortness of breath. denies: cough, wheezing Cardiovascular: denies: chest pain, palpitations Gastrointestinal: denies: abdominal pain, nausea, diarrhea Genitourinary: denies: urgency, dysuria Musculoskeletal: denies: back pain, joint swelling, arthralgia Skin: denies: rash, lesions Neurological: denies: headache, weakness, paresthesias Physical Exam - Physical Exam Vital Signs: Vital Signs 05/21/18 08:22 Temperature 98.4 F Pulse Rate 93 H Respiratory 18 Rate Blood Pressure 116/77 O2 Sat by Pulse 98 Oximetry Physical Exam: GENERAL: The patient is well-developed well-nourished. HENT: Normocephalic. Atraumatic. Patient has moist mucous membranes. EYES: Extraocular motions are intact. NECK: Supple. Trachea is midline. CHEST/LUNGS: Slightly coarse breath sounds. No tachypnea or accessory muscle use. There is no respiratory distress noted. HEART/CARDIOVASCULAR: Regular. There is no tachycardia. There is no murmur. ABDOMEN: Abdomen is soft, nontender. Patient has normal bowel sounds. There is no abdominal distention. SKIN: Skin is warm and dry. NEURO: The patient is awake, alert, and oriented. The patient is cooperative. The patient has no focal neurologic deficits. The patient has normal speech and gait. MUSCULOSKELETAL: There is no tenderness or deformity. There is no limitation range of motion. There is no evidence of acute injury. ED Course Vital Signs 05/21/18 08:22 Temperature 98.4 F Pulse Rate 93 H Respiratory 18 Rate Blood Pressure 116/77 O2 Sat by Pulse 98 Oximetry - Consultations Consultation #1: 05/21/18 09:44 I spoke with the lumber cutter on-call, Dr. Martin, who will see the patient has a consult for dialysis and pending any unforeseen complications the patient will be discharged from the ED after dialysis. 05/21/18 09:44 05/21/18 15:13 I was notified that the patient is unable to be discharged directly from the emergency department and requires admission. Patient accepted for admission by the hospitalist Dr. Green. ED Medical Decision Making - Lab Data Result diagrams: 05/21/18 08:50 05/21/18 08:50 - EKG Data -: EKG Interpreted by Me EKG shows normal: sinus rhythm (PVCs), axis, intervals, QRS complexes, ST-T waves Rate: normal - EKG Data When compared to previous EKG there are: no significant change, previous EKG unavailable Interpretation: normal EKG - Medical Decision Making Patient presents for dialysis with a complaint of intermittent shortness of breath, mostly when he is eating or talking. He does not appear in any respiratory distress. No significant electrolyte abnormalities. Seen by the lumber cutter, Dr. Martin, in the emergency department and will receive dialysis today. Patient was accepted for admission by the hospitalist, Dr. Green. - Differential Diagnosis hyperkalemia, CHF, pneumonia Critical Care Time: No Critical care attestation.: If time is entered above; I have spent that time in minutes in the direct care of this critically ill patient, excluding procedure time. ED Disposition Clinical Impression: ESRD needing dialysis Disposition: 09 OP ADMIT IP TO THIS HOSP Is pt being admited?: Yes Condition: Stable Time of Disposition: 15:14
[2018-05-21] MEDS ORDERED: NACL 0.9% 100 ML IV PRN (14:13)
--- NOTE | 2018-05-21 14:13 | Progress Note ---
Subjective Interval history: Patient was seen today for dialysis need requested by emergency physician Patient currently does not have any dialysis unit Interdisciplinary notes were also reviewed Past medical history: Reviewed Family history: Reviewed Social history: Reviewed Vitals: Reviewed HEENT: Oral mucosa dry Neck: Supple no thyromegaly no JVD, catheter site clear Chest: Clear to auscultation anteriorly no crackles or wheezes Heart: Regular rate and rhythm S1-S2 heard no S3-S4 Abdomen: Soft nontender dry skin and no organomegaly Extremity: Less than 1+ edema dry skin no petechial rash Musculoskeletal: No joint effusion noted Assessment and plan: Acute on chronic renal failure? End-stage renal disease: Patient is currently being dialyzed outpatient through the ER he does not have any insurance will order for hemodialysis treatment today discussed with patient's son closely over the phone telephone number was provided by the patient explained him at length about need to monitor intake and output, avoid any form of nephrotoxic medication or nonsteroidal drugs in the meantime he will need to continue to come to ER for dialysis. I have also advised the son to discuss with social worker psychiatric about possible dialysis clinic placement He is being treated for acute on chronic renal failure/possible progression to end-stage renal disease All related issues were discussed with patient Renal prognosis remains guarded at this time Patient does exhibit good understanding of all the renal related issues We'll continue to follow and make recommendations from renal standpoint For any questions feel free to contact me at [phone] Objective - Vital Signs Vital signs: Vital Signs - 12hr 05/21/18 05/21/18 08:22 10:16 Temperature 98.4 F 98.6 F Pulse Rate 93 H 83 Respiratory 18 16 Rate Blood Pressure 116/77 Blood Pressure 126/86 [Left] O2 Sat by Pulse 98 98 Oximetry - Lab 05/21/18 08:50 05/21/18 08:50 Most recent lab results Calcium 9.7 mg/dL (8.4-10.2) 05/21/18 08:50
[2018-05-21] MEDS ORDERED: NACL 0.9 (PRIMING MACHINE ONLY DIALYSIS) MC ONE ×2 (18:35→20:25)
--- NOTE | 2018-05-22 15:10 | Progress Note ---
Subjective Interval history: Patient was seen today for follow-up of multiple renal related issues, around 10 :00 in the morning Events of 24 hours noted Vitals labs intake output medications reviewed Medication: Reviewed Social history: Reviewed Family history: Reviewed Physical examination Vitals: Reviewed General: No acute distress HEENT: Oral mucosa moist Neck: Supple no JVD Chest: Clear to auscultation anteriorly, catheter site okay Heart: Regular rate and rhythm S1-S2 heard no S3-S4 Abdomen: Soft nontender bowel sounds present Extremities: Edema less than 1+ dry skin peripheral pulses palpable Psych: No agitation and aggression noted Skin: No petechial rash Assessment and plan: End-stage renal disease: Status post hemodialysis doing well continue with hemodialysis 3 times a week discussed with [facility] facility and requested his acceptance if possible to help the patient is currently uninsured they will check with the dialysis company and let me know by Thursday Patient is overall stable from renal standpoint I also discussed with his son who is Pakistani-speaking, Renal care plan was discussed with patient at length all questions were answered labs were explained and simple [place] Prognosis: Guarded at this time We'll continue to follow and make recommendations from renal standpoint Objective - Vital Signs Vital signs: Vital Signs - 12hr 05/22/18 05/22/18 05:35 12:53 Temperature 98.6 F 99.1 F Pulse Rate 91 H 98 H Respiratory 18 16 Rate Blood Pressure 115/83 120/77 O2 Sat by Pulse 96 96 Oximetry - Lab 05/21/18 08:50 05/21/18 08:50 Most recent lab results Calcium 9.7 mg/dL (8.4-10.2) 05/21/18 08:50
[2018-05-23] MEDS ORDERED: PROCRIT SUB-Q ONE (09:24)
[2018-05-23] MEDS ORDERED: NACL 0.9% 100 ML IV PRN (09:24)
[2018-05-23 12:08] LABS: Iron 51 ug/dL (49-181); Total Iron Binding Capacity 217 mcg/dL (250-450)
[2018-05-23] MEDS ORDERED: PROAIR IH PRN (13:34)
[2018-05-23] MEDS ORDERED: PERCOCET 5/325 PO PRN (13:34)
--- NOTE | 2018-05-23 13:34 | Progress Note ---
Assessment and Plan Assessment and plan: --Stage renal disease on hemodialysis; Nephrology following, dialysis per schedule Case management for outpatient HD schedule --Hypertension; moderate control Continue current antihypertensives and when necessary medications --Medical noncompliance; counseling done patient strongly advised to adhere to the treatment plan --Ongoing tobacco use; consult smoking cessation advised nicotine patch as needed --DVT prophylaxis; heparin renal dose Closely monitor the patient and adjust the management as needed Possible discharge home tomorrow after HD History Interval history: Patient with past medical history of end-stage renal disease on hemodialysis , not assigned to outpatient hemodialysis Was admitted , evaluated by nephrology , received hemodialysis I have seen and examined in his room this afternoon medical records Patient feels better no new complaints Denies any chest pain or shortness of breath Vital signs reviewed and stable Hospitalist Physical - Constitutional Vitals: Temp Pulse Resp BP Pulse Ox 98.7 F 87 20 139/91 98 05/23/18 11:58 05/23/18 11:58 05/23/18 11:58 05/23/18 11:58 05/23/18 11:58 General appearance: Present: no acute distress, well-nourished - EENT Eyes: Present: PERRL, EOM intact - Neck Neck: Present: supple, normal ROM - Respiratory Respiratory effort: normal Respiratory: bilateral: diminished, rales, negative: rhonchi, wheezing - Cardiovascular Rhythm: regular Heart Sounds: Present: S1 & S2 - Extremities Extremities: no ischemia, No edema - Abdominal General gastrointestinal: soft, non-tender, non-distended, normal bowel sounds - Integumentary Integumentary: Present: clear, warm - Psychiatric Psychiatric: appropriate mood/affect, cooperative - Neurologic Neurologic: CNII-XII intact, moves all extremities Results - Labs CBC & Chem 7: 05/21/18 08:50 05/21/18 08:50 Labs: Laboratory Last Values WBC 8.9 K/mm3 (4.5-11.0) 05/21/18 08:50 RBC 3.28 M/mm3 (3.65-5.03) L 05/21/18 08:50 Hgb 9.7 gm/dl (11.8-15.2) L 05/21/18 08:50 Hct 29.7 % (35.5-45.6) L 05/21/18 08:50 MCV 90 fl (84-94) 05/21/18 08:50 MCH 30 pg (28-32) 05/21/18 08:50 MCHC 33 % (32-34) 05/21/18 08:50 RDW 15.0 % (13.2-15.2) 05/21/18 08:50 Plt Count 525 K/mm3 (140-440) H 05/21/18 08:50 Lymph % (Auto) 12.7 % (13.4-35.0) L 05/21/18 08:50 Ada % (Auto) 9.3 % (0.0-7.3) H 05/21/18 08:50 Eos % (Auto) 1.1 % (0.0-4.3) 05/21/18 08:50 Baso % (Auto) 0.7 % (0.0-1.8) 05/21/18 08:50 Lymph # 1.1 K/mm3 (1.2-5.4) L 05/21/18 08:50 Ada # 0.8 K/mm3 (0.0-0.8) 05/21/18 08:50 Eos # 0.1 K/mm3 (0.0-0.4) 05/21/18 08:50 Baso # 0.1 K/mm3 (0.0-0.1) 05/21/18 08:50 Seg Neutrophils % 76.2 % (40.0-70.0) H 05/21/18 08:50 Seg Neutrophils # 6.8 K/mm3 (1.8-7.7) 05/21/18 08:50 Percent Retic 1.28 % (0.78-2.58) 05/23/18 11:13 Sodium 137 mmol/L (137-145) 05/21/18 08:50 Potassium 4.3 mmol/L (3.6-5.0) 05/21/18 08:50 Chloride 91.5 mmol/L (98-107) L 05/21/18 08:50 Carbon Dioxide 30 mmol/L (22-30) 05/21/18 08:50 Anion Gap 20 mmol/L 05/21/18 08:50 BUN 31 mg/dL (9-20) H 05/21/18 08:50 Creatinine 4.9 mg/dL (0.8-1.5) H 05/21/18 08:50 Estimated GFR 13 ml/min 05/21/18 08:50 BUN/Creatinine Ratio 6 % 05/21/18 08:50 Glucose 91 mg/dL (75-100) 05/21/18 08:50 Calcium 9.7 mg/dL (8.4-10.2) 05/21/18 08:50 Iron 51 ug/dL (49-181) 05/23/18 11:13 TIBC 217 mcg/dL (250-450) L 05/23/18 11:13 Ferritin 534.2 ng/mL (13.0-400.0) H 05/23/18 11:13 Vitamin B12 539.5 pg/mL (211-911) 05/23/18 11:13
[2018-05-23] MEDS ORDERED: PROVENTIL IH PRN (13:44)
--- NOTE | 2018-05-23 14:11 | Progress Note ---
Subjective Interval history: Patient was seen today for follow-up of multiple renal related issues, around 920 am Events of 24 hours noted Vitals labs intake output medications reviewed Medication: Reviewed Social history: Reviewed Family history: Reviewed Physical examination Vitals: Reviewed General: No acute distress HEENT: Oral mucosa moist Neck: Supple no JVD Chest: Clear to auscultation anteriorly, catheter site unremarkable Heart: Regular rate and rhythm S1-S2 heard no S3-S4 Abdomen: Soft nontender bowel sounds present Extremities: Edema less than 1+ dry skin peripheral pulses palpable Psych: No agitation and aggression noted Skin: No petechial rash Assessment and plan: Acute on chronic renal failure likely advanced chronic kidney disease patient may have end-stage renal disease we will order a 24-hour urine for creatinine as well as creatinine clearance I've also discussed rituals were dialysis clinic to see if they can accept him as a patient as he is currently uninsured. Baron is going to call me back Thursday Current dialysis access is a central venous catheter Will order workup for anemia today Follow up on the pending labs Renal care plan was discussed with patient at length all questions were answered labs were explained and simple [place] Prognosis: Guarded at this time We'll continue to follow and make recommendations from renal standpoint Objective - Vital Signs Vital signs: Vital Signs - 12hr 05/23/18 05/23/18 05:58 11:58 Temperature 98.6 F 98.7 F Pulse Rate 94 H 87 Respiratory 16 20 Rate Blood Pressure 126/82 139/91 O2 Sat by Pulse 97 98 Oximetry - Lab 05/21/18 08:50 05/21/18 08:50 Most recent lab results Calcium 9.7 mg/dL (8.4-10.2) 05/21/18 08:50
[2018-05-23] MEDS: SODIUM BICARBONATE PO SCH ×2 (16:06→20:51)
[2018-05-23] MEDS: COLCHICINE PO SCH (16:07)
--- NOTE | 2018-05-23 18:19 | History and Physical Report ---
History of Present Illness Date of admission: 05/21/18 15:03 Chief complaint: I need dialysis History of present illness: 52 YO Male with HTN, ESRD on HD(M,W,F), Gout, ETOH Abuse, Nicotine Dependence, Asthma , Noncompliance with dialysis presents to ED for evaluation. Pt states that he does not have a dialysis center. Pt is not a [place] citizen. Pt states that he has experienced shortness of breath over the past 2 days with worsening symptoms over the past 1 day. Pt denies any fever, chills, CP, NVD, Syncope, Productive cough, or recent ill contacts. Pt seen and evaluated in ED and found to have ESRD, and fluid overload, Nephrology consulted in ED. Pt admitted to medical floor. Past History Past Medical History: ESRD, hypertension, other (gout,asthma) Past Surgical History: Other (Permacath) Social history: , smoking, alcohol abuse Family history: no significant family history (reviewed) Medications and Allergies Allergies Allergy/AdvReac Type Severity Reaction Status Date / Time No Known Allergies Allergy Verified 04/18/18 18:09 Home Medications Medication Instructions Recorded Confirmed Last Taken Type Albuterol Sulfate [Ventolin HFA] 2 puff IH Q4H PRN #1 hfa.aer.[id number] 05/06/1805/21/18 Rx Carvedilol [Coreg] 6.25 mg PO BID #60 tablet 05/06/18 05/21/18 05/21/18 Rx Sodium Bicarbonate 1,300 mg PO TID 30 Days tablet 05/06/18 05/21/18 05/21/18 Rx amLODIPine [Norvasc] 10 mg PO QDAY #60 tablet 05/06/18 05/21/18 05/21/18 Rx Nicotine [Habitrol] 14 mg TD DAILY #30 patch 05/14/18 05/21/18 05/21/18 Rx Colchicine 0.6 mg PO QOD #30 capsule 05/17/18 05/21/18 05/21/18 Rx oxyCODONE /ACETAMINOPHEN [Percocet 1 tab PO Q6H PRN #20 tablet 05/17/1805/21/18 Rx 5/325 mg] Active Meds: Active Medications Albuterol (Proventil) 2.5 mg IH Q4HRT PRN PRN Reason: Shortness Of Breath Amlodipine Besylate (Norvasc) 10 mg PO QDAY [facility] Carvedilol (Coreg) 6.25 mg PO BID [facility] Colchicine (Colchicine) 0.6 mg PO QOD [facility] Last Admin: 05/23/18 16:07 Dose: 0.6 mg Sodium Chloride (Nacl 0.9%) 100 mls @ 999 mls/hr IV ANNA PRN PRN Reason: Hypotension Sodium Chloride (Nacl 0.9%) 100 mls @ 999 mls/hr IV ANNA PRN PRN Reason: Hypotension Nicotine (Habitrol) 14 mg TD DAILY [facility] Oxycodone/Acetaminophen (Percocet 5/325) 1 tab PO Q6H PRN PRN Reason: Pain, Moderate (4-6) Sodium Bicarbonate (Sodium Bicarbonate) 1,300 mg PO TID [facility] Last Admin: 05/23/18 16:06 Dose: 1,300 mg Review of Systems Constitutional: no weight loss, no weight gain, no fever, no chills Ears, nose, mouth and throat: no ear pain, no ear discharge, no tinnitis, no decreased hearing, no nose pain, no nasal congestion Cardiovascular: no chest pain, no orthopnea, no palpitations, no rapid/ irregular heart beat Respiratory: no cough, no cough with sputum, no excessive sputum, no hemoptysis , no shortness of breath Gastrointestinal: no abdominal pain, no nausea, no vomiting, no diarrhea, no constipation Genitourinary Male: no hematuria, no flank pain, no discharge, no urinary frequency, no urinary hesitancy Rectal: no pain, no incontinence, no bleeding Musculoskeletal: no neck stiffness, no neck pain, no shooting arm pain, no arm numbness/tingling, no low back pain, no shooting leg pain Integumentary: no rash, no pruritis, no redness, no sores, no wounds, no jaundice Neurological: no paralysis, no weakness, no parathesias, no numbness, no tingling, no seizures, no syncope, no tremors, no ataxia Psychiatric: no anxiety, no memory loss, no change in sleep habits, no sleep disturbances, no insomnia, no hypersomnia, no change in appetite, no change in libido, no suicidal ideation Endocrine: no cold intolerance, no heat intolerance, no polyphagia, no excessive thirst, no polydipsia, no polyuria, no nocturia Hematologic/Lymphatic: no easy bruising, no easy bleeding, no lymphadenopathy, no lymphedema Allergic/Immunologic: no urticaria, no allergic rhinitis, no wheezing Exam - Constitutional Vitals: Temp Pulse Resp BP Pulse Ox 98.8 F 96 H 20 138/89 98 05/23/18 17:20 05/23/18 17:20 05/23/18 17:20 05/23/18 17:20 05/23/18 17:20 General appearance: Present: mild distress - EENT Eyes: Present: PERRL ENT: hearing intact, clear oral mucosa - Neck Neck: Present: supple, normal ROM - Respiratory Respiratory effort: normal Respiratory: bilateral: CTA - Cardiovascular Heart Sounds: Present: S1 & S2. Absent: rub, click - Extremities Extremities: pulses symmetrical, No edema Peripheral Pulses: within normal limits - Abdominal General gastrointestinal: Present: soft, non-tender, non-distended, normal bowel sounds Male genitourinary: Present: normal - Integumentary Integumentary: Present: clear, warm, dry - Musculoskeletal Musculoskeletal: gait normal, strength equal bilaterally - Psychiatric Psychiatric: appropriate mood/affect, intact judgment & insight - Neurologic Neurologic: CNII-XII intact, moves all extremities Results - Labs CBC & Chem 7: 05/21/18 08:50 05/21/18 08:50 Labs: Abnormal lab results 05/23/18 05/23/18 Range/Units 11:13 11:13 TIBC 217 L (250-450) mcg/dL Ferritin 534.2 H (13.0-400.0) ng/mL Assessment and Plan - Patient Problems (1) ESRD needing dialysis Current Visit: Yes Status: Acute Plan to address problem: Nephrology consulted, dialysis as per renal team. (2) HTN (hypertension) Current Visit: No Status: Acute Qualifiers: Hypertension type: essential hypertension Qualified Code(s): I10 - Essential (primary) hypertension Plan to address problem: Monitor BP q shift, resume prehospital medication. (3) DVT prophylaxis Current Visit: No Status: Acute Plan to address problem: scd to ble while in bed.
--- NOTE | 2018-05-23 18:32 | Progress Note ---
Assessment and Plan - Patient Problems (1) ESRD needing dialysis Current Visit: Yes Status: Acute Plan to address problem: Nephrology consulted, dialysis as per renal team. (2) HTN (hypertension) Current Visit: No Status: Acute Qualifiers: Hypertension type: essential hypertension Qualified Code(s): I10 - Essential (primary) hypertension Plan to address problem: Monitor BP q shift, resume prehospital medication. (3) DVT prophylaxis Current Visit: No Status: Acute Plan to address problem: scd to ble while in bed. History Interval history: Pt resting in bed, no reported nursing events, Pt denies pain, Pt states that he is feeling somewhat better. Hospitalist Physical - Constitutional Vitals: Temp Pulse Resp BP Pulse Ox 98.8 F 96 H 20 138/89 98 05/23/18 17:20 05/23/18 17:20 05/23/18 17:20 05/23/18 17:20 05/23/18 17:20 General appearance: Present: mild distress - EENT Eyes: Present: PERRL, EOM intact ENT: hearing intact - Neck Neck: Present: supple - Respiratory Respiratory effort: normal Respiratory: bilateral: CTA - Cardiovascular Rhythm: regular Heart Sounds: Present: S1 & S2 - Extremities Extremities: no ischemia, pulses symmetrical - Abdominal General gastrointestinal: soft, non-tender, non-distended - Integumentary Integumentary: Present: clear, dry - Psychiatric Psychiatric: appropriate mood/affect, cooperative - Neurologic Neurologic: CNII-XII intact Results - Labs CBC & Chem 7: 05/21/18 08:50 05/21/18 08:50 Labs: Laboratory Last Values WBC 8.9 K/mm3 (4.5-11.0) 05/21/18 08:50 RBC 3.28 M/mm3 (3.65-5.03) L 05/21/18 08:50 Hgb 9.7 gm/dl (11.8-15.2) L 05/21/18 08:50 Hct 29.7 % (35.5-45.6) L 05/21/18 08:50 MCV 90 fl (84-94) 05/21/18 08:50 MCH 30 pg (28-32) 05/21/18 08:50 MCHC 33 % (32-34) 05/21/18 08:50 RDW 15.0 % (13.2-15.2) 05/21/18 08:50 Plt Count 525 K/mm3 (140-440) H 05/21/18 08:50 Lymph % (Auto) 12.7 % (13.4-35.0) L 05/21/18 08:50 [place] % (Auto) 9.3 % (0.0-7.3) H 05/21/18 08:50 Eos % (Auto) 1.1 % (0.0-4.3) 05/21/18 08:50 Baso % (Auto) 0.7 % (0.0-1.8) 05/21/18 08:50 Lymph # 1.1 K/mm3 (1.2-5.4) L 05/21/18 08:50 [place] # 0.8 K/mm3 (0.0-0.8) 05/21/18 08:50 Eos # 0.1 K/mm3 (0.0-0.4) 05/21/18 08:50 Baso # 0.1 K/mm3 (0.0-0.1) 05/21/18 08:50 Seg Neutrophils % 76.2 % (40.0-70.0) H 05/21/18 08:50 Seg Neutrophils # 6.8 K/mm3 (1.8-7.7) 05/21/18 08:50 Percent Retic 1.28 % (0.78-2.58) 05/23/18 11:13 Sodium 137 mmol/L (137-145) 05/21/18 08:50 Potassium 4.3 mmol/L (3.6-5.0) 05/21/18 08:50 Chloride 91.5 mmol/L (98-107) L 05/21/18 08:50 Carbon Dioxide 30 mmol/L (22-30) 05/21/18 08:50 Anion Gap 20 mmol/L 05/21/18 08:50 BUN 31 mg/dL (9-20) H 05/21/18 08:50 Creatinine 4.9 mg/dL (0.8-1.5) H 05/21/18 08:50 Estimated GFR 13 ml/min 05/21/18 08:50 BUN/Creatinine Ratio 6 % 05/21/18 08:50 Glucose 91 mg/dL (75-100) 05/21/18 08:50 Calcium 9.7 mg/dL (8.4-10.2) 05/21/18 08:50 Iron 51 ug/dL (49-181) 05/23/18 11:13 TIBC 217 mcg/dL (250-450) L 05/23/18 11:13 Ferritin 534.2 ng/mL (13.0-400.0) H 05/23/18 11:13 Vitamin B12 539.5 pg/mL (211-911) 05/23/18 11:13
[2018-05-23] MEDS: COREG PO SCH (21:16)
[2018-05-24] MEDS: SODIUM BICARBONATE PO SCH ×3 (08:00→21:09)
[2018-05-24 11:30] LABS: Calcium 9.8 mg/dL (8.4-10.2)
[2018-05-24] MEDS: HABITROL TD SCH (11:36)
--- NOTE | 2018-05-24 11:54 | Progress Note ---
Assessment and Plan Assessment and plan: --End Stage renal disease on hemodialysis; Nephrology following, dialysis today per schedule, However Canceled by nephrology --Hypertension; moderate control Continue current antihypertensives, PRN medications --Medical noncompliance; counseling done, patient has legal status issues . 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 --DVT prophylaxis; heparin Plan DC today/tomorrow pending nephrology's plan of care History Interval history: Patient seen and examined medical records reviewed Patient feels better no new complaints Scheduled for hemodialysis today Alert awake oriented 3 , not in distress Hospitalist Physical - Constitutional Vitals: Temp Pulse Resp BP Pulse Ox 98.4 F 69 20 163/98 98 05/24/18 06:18 05/24/18 06:18 05/24/18 06:18 05/24/18 06:18 05/23/18 17:20 General appearance: Present: no acute distress, well-nourished - EENT Eyes: Present: PERRL, EOM intact - Neck Neck: Present: supple, normal ROM - Respiratory Respiratory effort: normal Respiratory: bilateral: diminished, negative: rales, rhonchi, wheezing - Cardiovascular Rhythm: regular Heart Sounds: Present: S1 & S2 - Extremities Extremities: no ischemia, No edema - Abdominal General gastrointestinal: soft, non-tender, non-distended, normal bowel sounds - Integumentary Integumentary: Present: clear, warm - Psychiatric Psychiatric: appropriate mood/affect, cooperative - Neurologic Neurologic: CNII-XII intact, moves all extremities Results - Labs CBC & Chem 7: 05/21/18 08:50 05/24/18 10:31 Labs: Laboratory Last Values WBC 8.9 K/mm3 (4.5-11.0) 05/21/18 08:50 RBC 3.28 M/mm3 (3.65-5.03) L 05/21/18 08:50 Hgb 9.7 gm/dl (11.8-15.2) L 05/21/18 08:50 Hct 29.7 % (35.5-45.6) L 05/21/18 08:50 MCV 90 fl (84-94) 05/21/18 08:50 MCH 30 pg (28-32) 05/21/18 08:50 MCHC 33 % (32-34) 05/21/18 08:50 RDW 15.0 % (13.2-15.2) 05/21/18 08:50 Plt Count 525 K/mm3 (140-440) H 05/21/18 08:50 Lymph % (Auto) 12.7 % (13.4-35.0) L 05/21/18 08:50 Sebastian % (Auto) 9.3 % (0.0-7.3) H 05/21/18 08:50 Eos % (Auto) 1.1 % (0.0-4.3) 05/21/18 08:50 Baso % (Auto) 0.7 % (0.0-1.8) 05/21/18 08:50 Lymph # 1.1 K/mm3 (1.2-5.4) L 05/21/18 08:50 Sebastian # 0.8 K/mm3 (0.0-0.8) 05/21/18 08:50 Eos # 0.1 K/mm3 (0.0-0.4) 05/21/18 08:50 Baso # 0.1 K/mm3 (0.0-0.1) 05/21/18 08:50 Seg Neutrophils % 76.2 % (40.0-70.0) H 05/21/18 08:50 Seg Neutrophils # 6.8 K/mm3 (1.8-7.7) 05/21/18 08:50 Percent Retic 1.28 % (0.78-2.58) 05/23/18 11:13 Sodium 139 mmol/L (137-145) 05/24/18 10:31 Potassium 4.0 mmol/L (3.6-5.0) 05/24/18 10:31 Chloride 95.1 mmol/L (98-107) L 05/24/18 10:31 Carbon Dioxide 27 mmol/L (22-30) 05/24/18 10:31 Anion Gap 21 mmol/L 05/24/18 10:31 BUN 38 mg/dL (9-20) H 05/24/18 10:31 Creatinine 4.1 mg/dL (0.8-1.5) H 05/24/18 10:31 Estimated GFR 15 ml/min 05/24/18 10:31 BUN/Creatinine Ratio 9 % 05/24/18 10:31 Glucose 96 mg/dL (75-100) 05/24/18 10:31 Calcium 9.8 mg/dL (8.4-10.2) 05/24/18 10:31 Iron 51 ug/dL (49-181) 05/23/18 11:13 TIBC 217 mcg/dL (250-450) L 05/23/18 11:13 Ferritin 534.2 ng/mL (13.0-400.0) H 05/23/18 11:13 Vitamin B12 539.5 pg/mL (211-911) 05/23/18 11:13
[2018-05-24] MEDS: NORVASC PO SCH (13:10)
[2018-05-24] MEDS: COREG PO SCH ×2 (13:10→21:09)
--- NOTE | 2018-05-24 16:00 | Discharge Summary ---
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 --DVT prophylaxis; heparin Disposition: DC-01 TO HOME OR SELFCARE Time spent for discharge: 32 min Core Measure Documentation - Palliative Care Palliative Care/ Comfort Measures: Not Applicable - Core Measures Any of the following diagnoses?: none Exam - Constitutional Vitals: Temp Pulse Resp BP Pulse Ox 98.9 F 96 H 16 127/88 97 05/24/18 13:47 05/24/18 13:47 05/24/18 13:47 05/24/18 13:47 05/24/18 13:47 General appearance: Present: no acute distress, well-nourished - EENT Eyes: Present: PERRL, EOM intact - Neck Neck: Present: supple, normal ROM - Respiratory Respiratory effort: normal Respiratory: bilateral: diminished, negative: rales, rhonchi, wheezing - Cardiovascular Rhythm: regular Heart Sounds: Present: S1 & S2 - Extremities Extremities: no ischemia, No edema - Abdominal General gastrointestinal: Present: soft, non-tender, non-distended, normal bowel sounds - Integumentary Integumentary: Present: clear, warm - Musculoskeletal Musculoskeletal: strength equal bilaterally - Psychiatric Psychiatric: appropriate mood/affect, cooperative - Neurologic Neurologic: CNII-XII intact, moves all extremities Plan Activity: no restrictions Diet: renal Additional Instructions: Follow nephrology/hemodialysis per schedule Follow up with: PRIMARY CAREMD [Primary Care Provider] - 3-5 Days
--- NOTE | 2018-05-24 17:14 | Progress Note ---
Assessment and Plan Impression: * Nonoliguric acute kidney injury secondary to ATN due to sepsis vs rhabdo ( myoglobin deposits in tubules) --[place] kidney bx 04/21 - ATN, scattered tubules w/ myoglobin + granular casts * Hypertension Plan: * 24h urine CrCl in progress * HD held today * Will reassess HD need in AM * Please hold d/c pending 24h urine CrCl results Subjective Date of service: 05/24/18 Interval history: No acute events overnight. Objective - Vital Signs Vital signs: Vital Signs - 12hr 05/24/18 05/24/18 05/24/18 06:18 13:10 13:47 Temperature 98.4 F 98.9 F Pulse Rate 69 88 96 H Respiratory 20 16 Rate Blood Pressure 131/94 127/88 Blood Pressure 163/98 [Left] O2 Sat by Pulse 97 Oximetry - General Appearance General appearance: well-developed, well-nourished EENT: ATNC Respiratory: Present: Clear to Ascultation Cardiology: regular, S1S2 Gastrointestinal: normal, no tenderness, no distended Integumentary: no rash Musculoskeletal: other (no edema) Psychiatric: cooperative - Lab 05/21/18 08:50 05/24/18 10:31 Most recent lab results Calcium 9.8 mg/dL (8.4-10.2) 05/24/18 10:31
--- NOTE | 2018-05-24 17:30 | Event Note ---
Date: 05/24/18 Initially plans were made to discharge the patient as hemodialysis was canceled,And patient is clinically stable Nephrology recommend to hold the DC as 24-hour creatinine clearance Was not completed. Hold DC. Disposition per nephrology
[2018-05-24 20:02] LABS: Creatinine 24 Hour,Urine 1.3 (0.8-2.8); Creatinine,Urine 79.5 mg/dL (0.1-20.0)
[2018-05-24 20:48] LABS: Creatinine,Urine 79.5 mg/dL (0.1-20.0)
[2018-05-25 08:02] LABS: Calcium 9.9 mg/dL (8.4-10.2)
--- NOTE | 2018-05-25 08:31 | Progress Note ---
Assessment and Plan Impression: * Nonoliguric acute kidney injury secondary to ATN due to sepsis vs rhabdo ( myoglobin deposits in tubules) --[place] kidney bx 04/21 - ATN, scattered tubules w/ myoglobin + granular casts * Hypertension Plan: * Hold further hemodialysis - 24h urine CrCl 18ml/min and SCr is trending down * Follow up with [facility]phrology on June 03 at 1145 am * Patient to have renal panel at [facility] outpatient lab prior to visit * Will hold removal of permcath pending clinic appt next week * Case discussed with IR re: permcath removal. Dr. Maldonado will arrange for outpatient permcath removal "pro jose" pending nephrology clearance * Details of discharge plan discussed at length with patient's son, Aashish Wei, at bedside. Son advised on the importance of office visit and advised of associated infection risks of permcath - bacteremia, endocarditis, * Stable for d/c from a renal standpoint Subjective Date of service: 05/25/18 Interval history: Patient has no complaints today Objective - Vital Signs Vital signs: Vital Signs - 12hr 05/24/18 05/24/18 05/24/18 21:06 22:08 23:51 Temperature 99.0 F 98.7 F Pulse Rate 97 H 94 H Respiratory 20 20 Rate Respiratory 18 Rate [Left Hand ] Blood Pressure 141/87 Blood Pressure 133/88 [Left] O2 Sat by Pulse 97 96 Oximetry 05/25/18 05:49 Temperature 97.7 F Pulse Rate 86 Respiratory 16 Rate Respiratory Rate [Left Hand ] Blood Pressure 125/78 Blood Pressure [Left] O2 Sat by Pulse 100 Oximetry - General Appearance General appearance: well-developed, well-nourished EENT: ATNC Neck: other (RIJ permcath) Respiratory: Present: Clear to Ascultation Cardiology: regular, S1S2 Gastrointestinal: normal, no tenderness, no distended Integumentary: no rash, warm and dry Neurologic: no focal deficit Psychiatric: cooperative - Lab 05/21/18 08:50 05/25/18 06:15 Most recent lab results Calcium 9.9 mg/dL (8.4-10.2) 05/25/18 06:15 Urine Creatinine 79.5 mg/dL (0.1-20.0) H 05/24/18 Unknown Ur Total Protein 24 Hr 148.50 (2-200) 05/24/18 Unknown Urine Total Protein 9 mg/dL (5-11.8) 05/24/18 Unknown
[2018-05-25] MEDS: NORVASC PO SCH (10:33)
[2018-05-25] MEDS: COLCHICINE PO SCH (10:33)
[2018-05-25] MEDS: SODIUM BICARBONATE PO SCH ×2 (10:33→15:26)
[2018-05-25] MEDS: COREG PO SCH (10:34)
[2018-05-25 10:35] VITALS: BP 127/95
[2018-05-25] MEDS: HABITROL TD SCH (10:38)
--- NOTE | 2018-05-25 11:39 | Discharge Summary ---
Providers - Providers Date of Admission: 05/21/18 15:03 Date of discharge: 05/25/18 Attending physician: KAYE SALINAS 05/21/18 09:43 Consult to Physician [CONS] Routine Comment: Consulting Provider: AIMEE SALOMON Physician Instructions: Reason For Exam: Dialysis Primary care physician: GASOLINE ATTENDANT Hospitalization Condition: Fair Disposition: DC-01 TO HOME OR SELFCARE Core Measure Documentation - Palliative Care Palliative Care/ Comfort Measures: Not Applicable - Core Measures Any of the following diagnoses?: none Exam - Constitutional Vitals: Temp Pulse Resp BP Pulse Ox 97.7 F 98 H 16 127/95 100 05/25/18 05:49 05/25/18 10:34 05/25/18 05:49 05/25/18 10:34 05/25/18 05:49 Plan Activity: advance as tolerated Diet: low fat, low cholesterol, low salt, renal Additional Instructions: 1.Follow up with PCP or [facility] in 1 week. 2.Follow up with [facility] nephro, on 06/03/18. 3.BMP on Thursday05/31/18 results to be sent to Dr. Kruse Follow up with: PRIMARY CAREMD [Primary Care Provider] - 3-5 Days
== END 2018-05-25 17:45 | disposition home or self-care (01) ==
LOC: ED 07:42 → 3A 15:03
PROVIDERS: ADMIT Internal Medicine; ATTEND Internal Medicine
DX: I12.0 Hypertensive chronic kidney disease with stage 5 chronic kidney disease or end stage renal disease (principal); N18.6 End stage renal disease; J45.909 Unspecified asthma, uncomplicated; Z91.19 Patient's noncompliance with other medical treatment and regimen; Z99.2 Dependence on renal dialysis; F17.200 Nicotine dependence, unspecified, uncomplicated
CPT/HCPCS: 36415; 80048; 82565; 82570; 82575; 82607; 82728; 82747; 83550; 84156; 85025; 85045; 93005; 93010; 99285; G0257; G0378; J7030